=== PATIENT | male | born 1950 | race Caucasian/White ===

== ENCOUNTER 2016-09-23 11:38 | Emergency (ER) | payer MEDICARE, OTHER ==
--- NOTE | 2016-09-23 11:50 | ER Document Report ---
ED Medical Screen (RME) - General Stated Complaint: BACK PAIN Time seen by provider: 11:45 Notes: 66-year-old male presents to ED for back pain and abdominal pain since . He has not had a bowel movement for 10 days he also states he has a 5 cm aortic aneurysm diagnosed a few years ago with a recent film 3 weeks ago. He hasn't seen his doctor on Tuesday and was given Flexeril for his back pain. Consult to Dr. Dumont who states that he would like a ultrasound of the aorta now due to the aneurysm. 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 I have greeted and performed a rapid initial assessment of this patient. A comprehensive ED assessment and evaluation of the patient, analysis of test results and completion of medical decision making process will be conducted by an additional ED providers. TRAVEL OUTSIDE OF THE [place] IN LAST 30 DAYS: No - Related Data Allergies/Adverse Reactions: No Known Allergies Allergy (Verified 09/23/16 11:46) Physical Exam - Vital signs Vitals: Temp Pulse Resp BP Pulse Ox 97.8 F 90 18 133/88 H 99 09/23/16 11:43 09/23/16 11:43 09/23/16 11:43 09/23/16 11:43 09/23/16 11:43 Course - Vital Signs Vital signs: Temp Pulse Resp BP Pulse Ox 97.8 F 90 18 133/88 H 99 09/23/16 11:43 09/23/16 11:43 09/23/16 11:43 09/23/16 11:43 09/23/16 11:43
[2016-09-23 12:28] LABS: APPEARANCE,URINE CLEAR; BILIRUBIN,URINE NEGATIVE (NEGATIVE); GLUCOSE, URINE NEGATIVE (NEGATIVE); KETONES,URINE NEGATIVE (NEGATIVE); LEUKOCYTE ESTERASE,URINE SMALL (NEGATIVE); NITRITE,URINE NEGATIVE (NEGATIVE); PROTEIN,URINE NEGATIVE (NEGATIVE); UROBILINOGEN,URINE NEGATIVE mg/dL (<2.0)
[2016-09-23 12:30] LABS: ABSOLUTE BASOPHILS # (AUTO) 0.1 10^3/uL (0.0-0.2); ABSOLUTE EOSINOPHILS # (AUTO) 0.1 10^3/uL (0.0-0.6); ABSOLUTE LYMPHOCYTES (AUTO) 1.7 10^3/uL (0.5-4.7); ABSOLUTE MONOCYTES (AUTO) 1.4 10^3/uL (0.1-1.4); ABSOLUTE NEUT (AUTO) 10.8 10^3/uL (1.7-8.2); BASOPHILS % (AUTO) 0.4 % (0-2); EOSINOPHILS % (AUTO) 0.8 % (0-6); HEMATOCRIT 36.7 % (37.9-51.0); HEMOGLOBIN 12.8 g/dL (13.5-17.0); HGB HCT DIFFERENCE 1.7; MEAN CORPUSCULAR HEMOGLOBIN 31.6 pg (27.0-33.4); MEAN CORPUSCULAR VOLUME 90 fl (80-97); MONOCYTES % (AUTO) 9.9 % (3-13); RED BLOOD COUNT 4.06 10^6/uL (4.35-5.55); RED CELL DISTRIBUTION WIDTH 13.9 % (11.5-14.0); SEGMENTED NEUTROPHILS % (AUTO) 76.9 % (42-78); WHITE BLOOD COUNT 14.1 10^3/uL (4.0-10.5)
[2016-09-23 12:53] LABS: ALANINE AMINOTRANSFERASE 22 U/L (21-72); ALBUMIN 3.4 g/dL (3.5-5.0); ALKALINE PHOSPHATASE 148 U/L (38-126); ANION GAP 13 (5-19); ASPARTATE AMINO TRANSFERASE 12 U/L (17-59); BILIRUBIN,DIRECT 0.3 mg/dL (0.0-0.4); BILIRUBIN,TOTAL 0.6 mg/dL (0.2-1.3); BLOOD UREA NITROGEN 49 mg/dL (7-20); CALCIUM 10.1 mg/dL (8.4-10.2); CARBON DIOXIDE 21 mmol/L (22-30); CHLORIDE 105 mmol/L (98-107); CREATININE RESULT 2.06 mg/dL (0.52-1.25); GLUCOSE 126 mg/dL (75-110); LIPASE 34.4 U/L (23-300); POTASSIUM 5.3 mmol/L (3.6-5.0); SODIUM 138.9 mmol/L (137-145)
--- NOTE | 2016-09-23 14:10 | ER Document Report ---
ED GI/ - General Chief Complaint: Back Pain Stated Complaint: BACK PAIN INJURY Notes: Patient is complaining of pain in his abdomen and back for the past week. He says that the back pain began first, about 8 days ago, followed the next day by generalized abdominal pain. Tuesday, the patient went to see his PMD for these pains and was prescribed Flexeril and ibuprofen but no studies were done. Patient's problem is complicated by the fact that he says he hasn't had a bowel movement for 10 days. He says that he does not feel constipated, but he just has not been having any appetite or eating. Has had some cough. Occasional shortness of breath. Denies fever. Denies UTI symptoms. No vomiting or diarrhea. Patient has a history of a 5 cm abdominal aortic aneurysm for which she is followed by vascular surgeons in [place]. He had a CT scan of his abdomen done at a local facility on September 08, which showed aneurysms of both the abdomen and thoracic aorta. The abdominal aneurysm measured 4.8 x 4.9 cm in diameter. He had a second CT scan on September 14, this time of the chest, which showed a 6.5 cm thoracic aortic aneurysm. He is scheduled to see his vascular surgeon (Cristo) in [place] tomorrow. History of appendectomy and hernia repair. TRAVEL OUTSIDE OF THE [place] IN LAST 30 DAYS: No - Related Data Allergies/Adverse Reactions: No Known Allergies Allergy (Verified 09/23/16 11:46) Past Medical History - Social History Smoking Status: Current Every Day Smoker Chew tobacco use (# tins/day): No Frequency of alcohol use: None Drug Abuse: None Family History: Reviewed & Not Pertinent Patient has suicidal ideation: No Patient has homicidal ideation: No - Past Medical History Cardiac Medical History: Reports: Hx Coronary Artery Disease - History of a stent., Hx Hypercholesterolemia, Hx Hypertension Endocrine Medical History: Reports: Hx Diabetes Mellitus Type 2 Renal/ Medical History: Denies: Hx Peritoneal Dialysis Past Surgical History: Reports: Hx Appendectomy - Immunizations Hx Diphtheria, Pertussis, Tetanus Vaccination: Yes Review of Systems - Review of Systems Notes: REVIEW OF SYSTEMS: CONSTITUTIONAL : Denies fever. EENT: Denies eye, ear, nose or mouth or throat pain or other symptoms. CARDIOVASCULAR: Denies chest pain. RESPIRATORY: Has had some cough, but very little phlegm. Occasional shortness of breath. GASTROINTESTINAL: Denies nausea, vomiting, or diarrhea. No bowel movement for 10 days. GENITOURINARY: Denies difficulty or painful urinating, urinary frequency, blood in urine. MUSCULOSKELETAL: See history of present illness. Has lumbar back pain. Denies neck pain. Denies joint pain or swelling. SKIN: Denies rash or skin lesions. NEUROLOGICAL: Denies LOC or altered mental status. Denies headache. Denies sensory loss or motor deficits. ALL OTHER SYSTEMS REVIEWED AND NEGATIVE. Physical Exam - Vital signs Vitals: Temp Pulse Resp BP Pulse Ox 97.8 F 90 18 133/88 H 99 09/23/16 11:43 09/23/16 11:43 09/23/16 11:43 09/23/16 11:43 09/23/16 11:43 Interpretation: Normal - Notes Notes: PHYSICAL EXAMINATION: GENERAL: Well-appearing, in no acute distress. Vital signs are all normal. HEAD: Atraumatic, normocephalic. NECK: Normal range of motion, supple. LUNGS: Breath sounds clear and equal bilaterally. HEART: Regular rate and rhythm without murmurs. ABDOMEN: Soft, mild diffuse tenderness, but no guarding or rebound. No bruits heard. BACK: No tenderness throughout entire back. EXTREMITIES: Normal range of motion without pain. NEUROLOGICAL: Normal speech, normal gait. Normal sensory, motor, and reflex exams. Awake, alert, and oriented x3. Cranial nerves normal. PSYCH: Normal mood, normal affect. SKIN: Warm, dry, no rashes. Course - Re-evaluation Re-evalutation: 09/23/16 13:[address] Lemons in [place] who asked that we do a CT without contrast to see if we see any leaking from his aneurysms. Patient's WBC of 14,500 noted. 09/23/16 14:50 Spoke with [facility] in [place] to inform them of the CT findings of hemorrhage of the distal thoracic aortic aneurysm. Subsequently spoke with Dr. Lemons again who informed me that there surgeon who handles thoracic surgery is unavailable this week. He recommended referral to [facility] or [facility]. I spoke with the patient and his and they preferred to go to [place]. I spoke with Dr. Granados in [place] who accepted the patient and will send a helicopter for transport. He requested a CTA, even though the patient's creatinine is 2.06 (patient has not been to this hospital for over 2 years so no creatinines for comparison). He needs further information than is currently available to determine what exactly is taking place in what needs to be done for it. - Vital Signs Vital signs: Temp Pulse Resp BP Pulse Ox 98.2 F 99 18 153/98 H 100 09/23/16 15:46 09/23/16 15:46 09/23/16 15:46 09/23/16 15:46 09/23/16 15:46 - Laboratory Result Diagrams: 09/23/16 11:55 09/23/16 11:55 Laboratory results interpreted by me: 09/23/16 09/23/16 09/23/16 11:55 11:55 11:55 WBC 14.1 H RBC 4.06 L Hgb 12.8 L Hct 36.7 L Lymphocytes % 12.0 L Absolute Neutrophils 10.8 H Potassium 5.3 H Carbon Dioxide 21 L BUN 49 H Creatinine 2.06 H Est GFR ( Amer) 39 L Est GFR (Non-Af Amer) 32 L Glucose 126 H AST 12 L Alkaline Phosphatase 148 H Albumin 3.4 L Ur Leukocyte Esterase SMALL H - Diagnostic Test Radiology reviewed: Image reviewed, Reports reviewed - Ultrasound of the abdomen showed no evidence of bleeding from the abdominal aortic aneurysm. CT without contrast shows findings suggestive of hemorrhage at the lower thoracic aorta which has a very large 8 cm aneurysm. CTA with contrast shows active leaking from the thoracic aneurysm with contrast visible in the tissues around the vessel. Critical Care Note - Critical Care Note Total time excluding time spent on procedures (mins): 90 Discharge - Discharge Clinical Impression: Thoracic aortic aneurysm Qualifiers: Presence of rupture: ruptured Qualified Code(s): I71.1 - Thoracic aortic aneurysm, ruptured Condition: Serious Disposition: [facility]
[2016-09-23 15:47] VITALS: BP 153/98
== END 2016-09-23 16:05 | disposition short-term general hospital (02) ==
LOC: ER 11:38
DX: I71.1 Thoracic aortic aneurysm, ruptured (principal); I71.4 Abdominal aortic aneurysm, without rupture; R10.84 Generalized abdominal pain; M54.5 Low back pain; R63.0 Anorexia; R05 Cough; R06.02 Shortness of breath; I25.10 Atherosclerotic heart disease of native coronary artery without angina pectoris; I10 Essential (primary) hypertension; E11.9 Type 2 diabetes mellitus without complications; Z98.61 Coronary angioplasty status; F17.200 Nicotine dependence, unspecified, uncomplicated; Z90.49 Acquired absence of other specified parts of digestive tract
CPT/HCPCS: 36415; 71250; 71275; 74174; 74176; 76770; 80053; 81001; 83690; 85025; 99291; 99292

== ENCOUNTER 2016-10-01 11:48 | Emergency (ER) | payer MEDICARE, OTHER ==
--- NOTE | 2016-10-01 12:41 | ER Document Report ---
ED Medical Screen (RME) - General Chief Complaint: Chest Pain Stated Complaint: CHEST PAIN Notes: Patient is here for chest pains across the front of his chest and difficulty walking. Patient's history is significant in that he has both a thoracic aortic aneurysm and an abdominal aortic aneurysm. He was here last week and found to have leaking from his lower thoracic aortic aneurysm. He was transferred from here to [place] for emergency surgery and had a stent placed in his thoracic aorta. He has done well and has been at home for the past few days. He went out to lunch with his daughter today. After that, he was walking in the parking lot and felt trouble walking and difficulty with his legs feeling wobbly and weak. He did not fall and did not lose the use of either leg. Patient has had anterior chest pains across the front of his chest during this past week. He's had a cold with some cough, but no significant congestion or phlegm. TRAVEL OUTSIDE OF THE [place] IN LAST 30 DAYS: No - Related Data Allergies/Adverse Reactions: No Known Allergies Allergy (Verified 10/01/16 12:01) Past Medical History - Past Medical History Cardiac Medical History: Reports: Hx Coronary Artery Disease - History of a stent., Hx Hypercholesterolemia, Hx Hypertension Endocrine Medical History: Reports: Hx Diabetes Mellitus Type 2 Renal/ Medical History: Denies: Hx Peritoneal Dialysis Past Surgical History: Reports: Hx Appendectomy - Immunizations Hx Diphtheria, Pertussis, Tetanus Vaccination: Yes Physical Exam - Vital signs Vitals: Temp Pulse Resp BP Pulse Ox 97.7 F 62 18 142/51 H 98 10/01/16 12:05 10/01/16 12:10/01/16 12:10/01/16 12:05 10/01/16 12:05 Course - Vital Signs Vital signs: Temp Pulse Resp BP Pulse Ox 97.7 F 62 18 142/51 H 98 10/01/16 12:05 10/01/16 12:05 10/01/16 12:10/01/16 12:05 10/01/16 12:05
[2016-10-01 12:58] LABS: APPEARANCE,URINE SLIGHTLY-CLOUDY; BILIRUBIN,URINE NEGATIVE (NEGATIVE); GLUCOSE, URINE NEGATIVE (NEGATIVE); KETONES,URINE NEGATIVE (NEGATIVE); LEUKOCYTE ESTERASE,URINE TRACE (NEGATIVE); NITRITE,URINE NEGATIVE (NEGATIVE); PROTEIN,URINE 30 mg/dL (NEGATIVE); UROBILINOGEN,URINE NEGATIVE mg/dL (<2.0)
[2016-10-01 13:19] LABS: ABSOLUTE BASOPHILS # (AUTO) 0.1 10^3/uL (0.0-0.2); ABSOLUTE EOSINOPHILS # (AUTO) 0.3 10^3/uL (0.0-0.6); ABSOLUTE LYMPHOCYTES (AUTO) 1.8 10^3/uL (0.5-4.7); ABSOLUTE MONOCYTES (AUTO) 1.1 10^3/uL (0.1-1.4); ABSOLUTE NEUT (AUTO) 8.3 10^3/uL (1.7-8.2); BASOPHILS % (AUTO) 0.5 % (0-2); EOSINOPHILS % (AUTO) 2.6 % (0-6); HEMATOCRIT 30.1 % (37.9-51.0); HEMOGLOBIN 10.2 g/dL (13.5-17.0); HGB HCT DIFFERENCE 0.5; LYMPHOCYTES % (AUTO) 15.5 % (13-45); MEAN CORPUSCULAR HEMOGLOBIN 30.9 pg (27.0-33.4); MEAN CORPUSCULAR HGB CONC 33.9 g/dL (32.0-36.0); MEAN CORPUSCULAR VOLUME 91 fl (80-97); MONOCYTES % (AUTO) 9.2 % (3-13); SEGMENTED NEUTROPHILS % (AUTO) 72.2 % (42-78); WHITE BLOOD COUNT 11.5 10^3/uL (4.0-10.5)
[2016-10-01 13:38] LABS: ALANINE AMINOTRANSFERASE 26 U/L (21-72); ALBUMIN 3.3 g/dL (3.5-5.0); ALKALINE PHOSPHATASE 216 U/L (38-126); ANION GAP 10 (5-19); ASPARTATE AMINO TRANSFERASE 20 U/L (17-59); BILIRUBIN,DIRECT 0.2 mg/dL (0.0-0.4); BILIRUBIN,TOTAL 0.6 mg/dL (0.2-1.3); BLOOD UREA NITROGEN 30 mg/dL (7-20); CALCIUM 9.6 mg/dL (8.4-10.2); CARBON DIOXIDE 22 mmol/L (22-30); CHLORIDE 108 mmol/L (98-107); CREATINE KINASE 20 U/L (55-170); CREATININE RESULT 1.85 mg/dL (0.52-1.25); GLUCOSE 142 mg/dL (75-110); LIPASE 32.4 U/L (23-300); POTASSIUM 5.8 mmol/L (3.6-5.0); SODIUM 139.6 mmol/L (137-145); TOTAL PROTEIN 6.9 g/dL (6.3-8.2)
--- NOTE | 2016-10-01 13:39 | ER Document Report ---
ED General - General Time seen by provider: 13:45 Mode of Arrival: Ambulatory Information source: Patient, Relative TRAVEL OUTSIDE OF THE [place] IN LAST 30 DAYS: No - HPI Onset: Other - see HPI note Similar symptoms previously: No Recently seen / treated by doctor: No <ROCIO DRIVER - Last Filed: 10/01/16 14:43> <DEL SCOTT - Last Filed: 10/01/16 15:29> - General Chief Complaint: Chest Pain Stated Complaint: CHEST PAIN Notes: Patient is a 58-year-old male presenting to the emergency department for weakness in his lower extremities along with some chest pain. Patient states that his chest pain has been present for about 2 weeks and feels like it possibly could be some heartburn. Patient just recently was planned to [place] from this facility for a thoracic aneurysm that was found in this emergency department. Patient also has a history of an aortic aneurysm that he has had for 5 years; this aneurysm started at 2 cm and is now a 5 cm. Family state that it is in the process to be getting fixed soon. The patient is followed by vascular surgeons in [place] for this. Patient states that he was in a store and his legs became so weak that he could not walk. This occurred for approximately half an hour. Patient states that he has had some cold and cough symptoms recently but denies any bleeding, headache, fever, or sputum from his cough. Patient takes throughout an aspirin daily. Patient also has history of type II diabetes mellitus and hypertension. Patient has no known allergies. (ROCIO DRIVER) - Related Data Allergies/Adverse Reactions: No Known Allergies Allergy (Verified 10/01/16 12:01) Past Medical History - General Information source: Patient, Relative - Social History Smoking Status: Current Every Day Smoker Frequency of alcohol use: None Drug Abuse: None Family History: None Patient has suicidal ideation: No Patient has homicidal ideation: No - Past Medical History Cardiac Medical History: Reports: Hx Coronary Artery Disease - History of a stent., Hx Hypercholesterolemia, Hx Hypertension Endocrine Medical History: Reports: Hx Diabetes Mellitus Type 2 Past Surgical History: Reports: Hx Appendectomy, Other - Thoracic aneurysm repair - Immunizations Hx Diphtheria, Pertussis, Tetanus Vaccination: Yes <ROCIO DRIVER - Last Filed: 10/01/16 14:43> Review of Systems - Review of Systems Constitutional: No symptoms reported EENT: No symptoms reported Cardiovascular: See HPI, Chest pain Respiratory: No symptoms reported Gastrointestinal: No symptoms reported Genitourinary: No symptoms reported Male Genitourinary: No symptoms reported Musculoskeletal: No symptoms reported Skin: No symptoms reported Hematologic/Lymphatic: No symptoms reported Neurological/Psychological: See HPI, Weakness, Loss of power -: Yes All other systems reviewed and negative <ROCIO DRIVER - Last Filed: 10/01/16 14:43> Physical Exam - Vital signs Interpretation: Normal <ROCIO DRIVER - Last Filed: 10/01/16 14:43> <DEL SCOTT - Last Filed: 10/01/16 15:29> - Vital signs Vitals: Temp Pulse Resp BP Pulse Ox 97.7 F 62 18 142/51 H 98 10/01/16 12:05 10/01/16 12:05 10/01/16 12:05 10/01/16 12:05 10/01/16 12:05 - Notes Notes: GENERAL: Well-appearing, well-nourished and in no acute distress. HEAD: Atraumatic, normocephalic. EYES: Pupils equal round and reactive to light, extraocular movements intact, sclera anicteric, conjunctiva are normal. ENT: Nares patent. Moist mucous membranes. Patent airway. NECK: Normal range of motion, supple without lymphadenopathy. LUNGS: Breath sounds clear to auscultation bilaterally and equal. No wheezes, rales, or rhonchi. HEART: Regular rate and rhythm without murmurs. ABDOMEN: Soft, non-tender. No guarding, no rebound. No masses appreciated. EXTREMITIES: Normal range of motion, no edema, good marine architect strength bilaterally, dorsalis pedis pulses 2/4 bilaterally. NEUROLOGICAL: No focal neurological deficits. Moves all extremities spontaneously and on command, patellar DTRs 2+ bilaterally. PSYCH: Normal affect. Normal mood. SKIN: Warm, Dry, normal turgor, no rashes or lesions noted. (ROCIO DRIVER) Course - Laboratory Result Diagrams: 10/01/16 12:50 10/01/16 12:50 <ROCIO DRIVER - Last Filed: 10/01/16 14:43> - Laboratory Result Diagrams: 10/01/16 12:50 10/01/16 14:20 - Diagnostic Test Radiology reviewed: Image reviewed, Reports reviewed - Small bilateral pleural effusions, interval Endo graft placement, limited head CT though no obvious acute infarct - EKG Interpretation by Me EKG shows normal: Sinus rhythm Rate: Normal Rhythm: NSR [place]/QRS: No: Right axis deviation, Left axis deviation, RBBB, LBBB, IVCD, LAHB/ LAFB, LPHB/LPFB, Bifasicular block Heart block present: No: 1st Degree, Mobitz 1, Mobitz 2, CHB (3rd degree block) <DEL SCOTT - Last Filed: 10/01/16 15:29> - Re-evaluation Re-evalutation: 10/01/16 15:24 Discussed with the patient laboratory findings with some abnormalities including hyperkalemia on recheck. I really do not see any EKG abnormalities such as peaked T waves or conduction disturbances. I did discuss with him elevated potassium and considerable abnormalities it can cause. Further he is not on any potassium supplements. The chest pain he been having was present even prior to him having the endograft. He really did not make much of that and his reason for evaluation was due to the leg weakness that lasted about 30 minutes. It was bilateral so I believe CVA is fairly unlikely. His head CT was nonacute but limited by motion. He is also more anemic than he had been though his creatinine is actually improved slightly from 1 week ago before surgery. I offered observation with the multiple abnormalities and for recheck of the potassium. After risk, he deferred and is anxious to go home. He does agree to get a repeat potassium by the 10th with his primary care physician or here if he cannot get done. (DEL SCOTT) - Vital Signs Vital signs: Temp Pulse Resp BP Pulse Ox 97.7 F 62 18 142/51 H 98 10/01/16 12:05 10/01/16 12:05 10/01/16 12:05 10/01/16 12:05 10/01/16 12:05 - Laboratory Laboratory results interpreted by me: 10/01/16 10/01/16 10/01/16 12:40 12:50 12:50 WBC 11.5 H RBC 3.30 L Hgb 10.2 L Hct 30.1 L Absolute Neutrophils 8.3 H Potassium 5.8 H Chloride 108 H BUN 30 H Creatinine 1.85 H Est GFR ( Amer) 44 L Est GFR (Non-Af Amer) 37 L Glucose 142 H Alkaline Phosphatase 216 H Creatine Kinase 20 L Albumin 3.3 L Urine Protein 30 H Ur Leukocyte Esterase TRACE H 10/01/16 14:20 WBC RBC Hgb Hct Absolute Neutrophils Potassium 5.9 H Chloride BUN Creatinine Est GFR ( Amer) Est GFR (Non-Af Amer) Glucose Alkaline Phosphatase Creatine Kinase Albumin Urine Protein Ur Leukocyte Esterase Discharge <ROCIO DRIVER - Last Filed: 10/01/16 14:43> <DEL SCOTT - Last Filed: 10/01/16 15:29> - Discharge Clinical Impression: Weakness of both lower extremities, Hyperkalemia, Chest pain Condition: Good Disposition: HOME, SELF-CARE Instructions: Chest Pain of Unclear Cause ([facility]) Additional Instructions: No added potassium. Ensure that she'll get a recheck of your basic metabolic profile by Tuesday, here if necessary. Please return immediately if you're worsening or for other change. Scribe Attestation: 10/01/16 15:29 I personally performed the services described in the documentation, reviewed and edited the documentation which was dictated to the scribe in my presence, and it accurately records my words and actions. (DEL SCOTT) Scribe Documentation - Scribe Written by Meir:: Rocio Driver 10/01/16 13:45 acting as scribe for :: Nikki <ROCIO DRIVER - Last Filed: 10/01/16 14:43>
[2016-10-01 13:48] LABS: CREATINE KINASE MB < 0.22 ng/mL (<4.55); TROPONIN I < 0.012 ng/mL
[2016-10-01 16:08] VITALS: BP 139/60
--- NOTE | 2016-10-01 22:26 | EKG REPORT ---
SEVERITY:- NORMAL ECG - SINUS RHYTHM : Confirmed by: Trish Woods MD 01-Oct-2016 22:25:11
== END 2016-10-01 16:09 | disposition home or self-care (01) ==
LOC: ER 11:48
DX: M62.81 Muscle weakness (generalized) (principal); E87.5 Hyperkalemia; R07.9 Chest pain, unspecified; R53.1 Weakness; F17.200 Nicotine dependence, unspecified, uncomplicated; E11.9 Type 2 diabetes mellitus without complications; I10 Essential (primary) hypertension; Z79.82 Long term (current) use of aspirin
CPT/HCPCS: 36415; 70450; 71020; 80053; 81001; 82550; 82553; 83690; 84132; 84484; 85025; 93005; 93010; 99285

== ENCOUNTER 2017-01-15 22:20 | Inpatient (IN) | payer MEDICARE, OTHER ==
[2017-01-15] MEDS ORDERED: ASPIRIN 81 MG TABLET, CHEWABLE PO ONE (22:25)
[2017-01-15 22:52] LABS: HEMATOCRIT 25.3 % (37.9-51.0); HEMOGLOBIN 8.5 g/dL (13.5-17.0); HGB HCT DIFFERENCE 0.2; MEAN CORPUSCULAR HEMOGLOBIN 32.3 pg (27.0-33.4); MEAN CORPUSCULAR HGB CONC 33.6 g/dL (32.0-36.0); MEAN CORPUSCULAR VOLUME 96 fl (80-97); RED BLOOD COUNT 2.63 10^6/uL (4.35-5.55); RED CELL DISTRIBUTION WIDTH 13.8 % (11.5-14.0); WHITE BLOOD COUNT 15.7 10^3/uL (4.0-10.5)
[2017-01-15] MEDS ORDERED: PIPERACILLIN/TAZOBACTAM 3.375 GM VIAL IV ONE (23:01)
[2017-01-15 23:03] LABS: ALANINE AMINOTRANSFERASE 23 U/L (21-72); ALBUMIN 2.6 g/dL (3.5-5.0); ALKALINE PHOSPHATASE 93 U/L (38-126); ANION GAP 10 (5-19); ASPARTATE AMINO TRANSFERASE 15 U/L (17-59); BILIRUBIN,DIRECT 0.3 mg/dL (0.0-0.4); BILIRUBIN,TOTAL 0.5 mg/dL (0.2-1.3); BLOOD UREA NITROGEN 38 mg/dL (7-20); CALCIUM 8.3 mg/dL (8.4-10.2); CARBON DIOXIDE 17 mmol/L (22-30); CHLORIDE 110 mmol/L (98-107); CREATINE KINASE < 20 U/L (55-170); CREATININE RESULT 3.08 mg/dL (0.52-1.25); GLUCOSE 217 mg/dL (75-110); SODIUM 137.4 mmol/L (137-145); TOTAL PROTEIN 5.2 g/dL (6.3-8.2)
[2017-01-15] MEDS ORDERED: NORMAL SALINE 250 ML IV PRN ×2 (23:06→23:21)
[2017-01-15 23:07] LABS: POTASSIUM 6.2 mmol/L (3.6-5.0)
[2017-01-15 23:08] LABS: PROTHROMBIN TIME 15.1 SEC (11.4-15.4)
--- NOTE | 2017-01-15 23:08 | RADIOLOGY REPORT (SQ) ---
EXAM DESCRIPTION: CHEST SINGLE VIEW COMPLETED DATE/TIME: 01/15/2017 10:55 pm REASON FOR STUDY: epigastric pain COMPARISON: 10/01/2016 EXAM PARAMETERS: NUMBER OF VIEWS: One view. TECHNIQUE: Single frontal radiographic view of the chest acquired. RADIATION DOSE: NA LIMITATIONS: None. FINDINGS: LUNGS AND PLEURA: No opacities, masses or pneumothorax. No pleural effusion. MEDIASTINUM AND HILAR STRUCTURES: No masses. Contour normal. HEART AND VASCULAR STRUCTURES: Heart normal in size. Normal vasculature. BONES: No acute findings. HARDWARE: An aortic endovascular stent appears grossly stable in position and appearance. OTHER: No other significant finding. IMPRESSION: NO ACUTE RADIOGRAPHIC FINDING IN THE CHEST. TECHNICAL DOCUMENTATION: JOB ID: [id number]
[2017-01-15 23:10] LABS: BAND NEUTROPHILS % (MANUAL) 2 % (3-5); BASOPHILS % (MANUAL) 0 % (0-2); EOSINOPHILS % (MANUAL) 5 % (0-6); LYMPHOCYTES % (MANUAL) 30 % (13-45); TOTAL CELLS COUNTED 100
[2017-01-15] MEDS ORDERED: NORMAL SALINE 1000 ML 1,000 ML IV ONE (23:10)
--- NOTE | 2017-01-15 23:10 | ER Document Report ---
ED General - General Chief Complaint: Chest Pain Stated Complaint: BLOOD PRESSURE PROBLEMS Time Seen by Provider: 01/15/17 22:42 Notes: Patient is a 66-year-old male with past medical history of hypertension, chronic kidney disease, status post left nephrectomy approximately 5 days ago who presents after a near syncopal episode while having a bowel movement. The majority of the history is as provided by the daughter at the bedside due to patient's condition at time of arrival. She reports that the patient had been doing relatively well since discharge postoperatively. He had had a left nephrectomy for a tumor. States that today he began to feel somewhat ill around 2pm and tonight around 930, went to go to the bathroom, had a diarrheal bowel movement and then apparently lost all muscle tone, unable to even get up off the toilet. No history of similar episodes in the past. Patient arrives complaining of some diffuse, mild abdominal pain without any focal areas that are worse than others. Nothing improves or worsens that dull aching pain. He does note that he feels nauseated. Denies any fever since being discharged. No falls or injuries. TRAVEL OUTSIDE OF THE [place] IN LAST 30 DAYS: No - Related Data Allergies/Adverse Reactions: No Known Allergies Allergy (Verified 10/01/16 12:01) Past Medical History - General Information source: Patient, Relative - Social History Smoking Status: Current Every Day Smoker Frequency of alcohol use: None Drug Abuse: None Lives with: Family Family History: Reviewed & Not Pertinent - Past Medical History Cardiac Medical History: Reports: Hx Coronary Artery Disease - History of a stent., Hx Hypercholesterolemia, Hx Hypertension Endocrine Medical History: Reports: Hx Diabetes Mellitus Type 2 Renal/ Medical History: Denies: Hx Peritoneal Dialysis Past Surgical History: Reports: Hx Appendectomy, Other - Thoracic aneurysm repair - Immunizations Hx Diphtheria, Pertussis, Tetanus Vaccination: Yes Review of Systems - Review of Systems Notes: Constitutional: Negative for fever. HENT: Negative for sore throat. Eyes: Negative for visual changes. Cardiovascular: Negative for chest pain. Respiratory: Negative for shortness of breath. Gastrointestinal: Positive for abdominal pain diarrhea Genitourinary: Negative for dysuria. Musculoskeletal: Negative for back pain. Skin: Negative for rash. Neurological: Negative for headaches, weakness or numbness. 10 point ROS negative except as marked above and in HPI. Physical Exam - Vital signs Vitals: Pulse Ox 98 07/22/17 22:25 Interpretation: Normal Notes: PHYSICAL EXAMINATION: GENERAL: Mckenna, dusky, very ill in appearance. HEAD: Atraumatic, normocephalic. EYES: Pupils equal round and reactive to light, extraocular movements intact, sclera anicteric, conjunctiva are normal. ENT: nares patent, oropharynx clear without exudates. Dry mucous membranes. NECK: Normal range of motion LUNGS: Breath sounds clear to auscultation bilaterally and equal. No wheezes rales or rhonchi. HEART: Regular bradycardia without murmurs ABDOMEN: Soft, multiple well-healing surgical incisions. Diffuse mild tenderness without any focal rebound or guarding EXTREMITIES: Normal range of motion, no pitting or edema. No cyanosis. NEUROLOGICAL: No focal neurological deficits. Moves all extremities spontaneously and on command. PSYCH: Normal mood, normal affect. SKIN: Warm, Dry, normal turgor, no rashes or lesions noted. Course - Re-evaluation Re-evalutation: 01/15/17 23:07 Patient arrives bradycardic but normotensive, ill in appearance, mckenna and dusky , complaining of generalized abdominal pain. Upon going to the room shortly after patient's arrival, found him to be ill in appearance, but in no obvious distress. Awake and talking. He did have some generalized abdominal pain, well -healing surgical incisions. A bedside FAST exam did demonstrate a significant amount of free fluid in both right upper and left upper quadrants. I immediately contacted our surgeon it application support analyst Dr. Thompson for concern of intra- abdominal bleeding as the etiology of presentation. Blood bank was contacted for emergency release blood. IV fluids, warmed, have been started as patient's initial rectal core temperature is 95.7. Initial laboratories do demonstrate a elevated potassium at 6.2 concerning for the etiology of patient's bradycardia. 3 g of calcium gluconate will be administered as well as 10 units of IV insulin with 50 g of IV dextrose. 01/15/17 23:11 Laboratories also do demonstrate a markedly elevated lactate at 4.2. Initially , I had wanted to take the patient for a stat CT of the abdomen pelvis to exclude the aorta as the pathology of the free fluid of the abdomen given that he was without hypotension. Dr. Thompson however did wish to wait this concern that the patient could decompensate and CT scan as we move the patient to the trauma bay for ongoing resuscitation. He will receive IV Zosyn given his hypothermia and elevated in the setting of a intra-abdominal pathology. Awaiting cell counts. 01/15/17 23:22 Patient's bradycardia has improved after receiving 0.5 mg of atropine, calcium gluconate as well as dextrose and insulin. He is receiving active rewarming therapy with warm IV fluids and a bear hugger. His hemoglobin is 8.5, down approximately 2 points from his most recent check. 2 units of packed red blood cells will be transfused as I anticipate continued down trend of the hemoglobin. Will also order FFP transfusion. 01/16/17 00:[address] scan does confirm free fluid in the abdomen consistent with blood, radiology is concern for a possible ruptured spleen. Patient's blood pressure has begun to decline precipitously and Dr. Thompson will now pay take the patient to the operating room emergently. - Vital Signs Vital signs: Temp Pulse Resp BP Pulse Ox 96.2 F L 20 105/48 L 99 01/16/17 00:35 01/16/17 00:35 01/16/17 00:35 01/16/17 00:35 - Laboratory Result Diagrams: 01/15/17 22:30 01/15/17 22:30 Laboratory results interpreted by me: 01/15/17 01/15/17 01/15/17 22:30 22:30 22:30 WBC 15.7 H RBC 2.63 L Hgb 8.5 L Hct 25.3 L Band Neutrophils % 2 L Monocytes % (Manual) 1 L Abs Neuts (Manual) 10.0 H Absolute Eos (Manual) 0.8 H Potassium 6.2 H* Chloride 110 H Carbon Dioxide 17 L BUN 38 H Creatinine 3.08 H Est GFR ( Amer) 25 L Est GFR (Non-Af Amer) 20 L Glucose 217 H Lactic Acid Calcium 8.3 L AST 15 L Creatine Kinase < 20 L Total Protein 5.2 L Albumin 2.6 L Crossmatch See Detail 01/15/17 22:30 WBC RBC Hgb Hct Band Neutrophils % Monocytes % (Manual) Abs Neuts (Manual) Absolute Eos (Manual) Potassium Chloride Carbon Dioxide BUN Creatinine Est GFR ( Amer) Est GFR (Non-Af Amer) Glucose Lactic Acid 4.8 H Calcium AST Creatine Kinase Total Protein Albumin Crossmatch - Diagnostic Test Radiology reviewed: Image reviewed, Reports reviewed Critical Care Note - Critical Care Note Total time excluding time spent on procedures (mins): 45 Comments: Critical care time spent obtaining history from patient or surrogate, discussions with consultants, development of treatment plan with patient or surrogate, evaluation of patient's response to treatment, examination of patient , ordering and performing treatments and interventions, ordering and review of laboratory studies, re-evaluation of patient's condition, ordering and review of radiographic studies and review of old charts Discharge - Discharge Clinical Impression: Intra abdominal hemorrhage, Hemorrhagic shock, Acute blood loss anemia, Metabolic acidosis Hypothermia Qualifiers: Encounter type: initial encounter Qualified Code(s): T68.XXXA - Hypothermia, initial encounter Condition: Critical Disposition: ADMITTED INPATIENT Admitting Provider: Surgicalist - [facility] Admitted: OR
[2017-01-15] MEDS ORDERED: INSULIN REG, HUMAN 100 UNIT/ML 3 ML VIAL (PYX) ONE (23:12)
[2017-01-15 23:13] LABS: RBC MORPHOLOGY COMMENT NORMO-CYTIC/CHROMIC
[2017-01-15] MEDS ORDERED: DEXTROSE 50%-WATER 25 GM/50 ML DISP.SYRIN IV ONE (23:13)
[2017-01-15] MEDS ORDERED: CALCIUM GLUCONATE 1000 MG/10 ML INJ IV ONE (23:13)
[2017-01-15 23:16] LABS: CREATINE KINASE MB < 0.22 ng/mL (<4.55); TROPONIN I < 0.012 ng/mL
[2017-01-15] MEDS ORDERED: ATROPINE SULFATE INJ 1 MG/1 ML VIAL ONE (23:18)
[2017-01-15] MEDS ORDERED: ONDANSETRON HCL INJ/PF 4 MG/2 ML SDV ONE (23:20)
--- NOTE | 2017-01-16 00:23 | RADIOLOGY REPORT (SQ) ---
EXAM DESCRIPTION: CT ABD/PELVIS NO ORAL OR IV COMPLETED DATE/TIME: 01/16/2017 12:00 am REASON FOR STUDY: free fluid on FAST COMPARISON: 09/23/2016 TECHNIQUE: CT scan of the abdomen and pelvis performed without intravenous or oral contrast. Images reviewed with lung, soft tissue, and bone windows. Reconstructed coronal and sagittal MPR images revi ewed. All images stored on PACS. All CT scanners at this facility use dose modulation, iterative reconstruction, and/or weight based d osing when appropriate to reduce radiation dose to as low as reasonably achievable (ALARA). [facility]: Dose Right [facility]: CareDose [facility]: Dose Right [facility]: Teradose 4D [facility]: Smart Technologies RADIATION DOSE: Up-to-date CT equipment and radiation dose reduction techniques were employed. CTDIv ol: 8.8 mGy. DLP: 527 mGy-cm.mGy. LIMITATIONS: None. FINDINGS: LOWER CHEST: Left pleural effusion. NON-CONTRASTED LIVER, SPLEEN, ADRENALS: There is low-density ascites around the liver. The liver is intact. There is extensive heterogeneous density throughout and enlarged spleen with perisplenic hem orrhage Hounsfield units in the 50s and 60s. Splenic rupture with fluid and blood extending along th e left hemidiaphragm. PANCREAS: No masses. No peripancreatic inflammatory changes. GALLBLADDER: No identified stones by CT criteria. No inflammatory changes to suggest cholecystitis. RIGHT KIDNEY AND URETER: No suspicious masses. Assessment limited by lack of IV contrast. No signif icant calcifications. No hydronephrosis or hydroureter. LEFT KIDNEY AND URETER: Status post left nephrectomy. AORTA AND RETROPERITONEUM: Aortic stent graft of the upper aorta. Aneurysmal dilatation of the infra renal abdominal aorta measuring 4.6 cm. No periaortic fluid to suggest acute extravasation. BOWEL AND PERITONEAL CAVITY: Extensive diverticulosis. There is free intraperitoneal air in the left upper quadrant right upper quadrant and katie hepatis. APPENDIX: Not visualized. PELVIS, BLADDER, AND ABDOMINAL WALL:Free fluid. Rivera catheter in the bladder. BONES: No significant findings. OTHER: No other significant finding. IMPRESSION: Splenic rupture with left upper quadrant hematoma. Free intraperitoneal air question perforated ulcer. Generalize abdominal ascites. Left pleural effusion. Status post left nephrectomy. COMMENT: Pertinent findings on the imaging study reported as a CRITICAL RESULT to Leisa VAZQUEZ at00 :17 on 01/16/2017. Category of Critical Result: Free intraperitoneal air. Splenic rupture. TECHNICAL DOCUMENTATION: JOB ID: [id number] Quality ID # [id number]: Final reports with documentation of one or more dose reduction techniques (e.g., Au tomated exposure control, adjustment of the mA and/or kV according to patient size, use of iterative reconstruction technique) 2010 [employer]- All Rights Reserved
[2017-01-16] MEDS ORDERED: FENTANYL CITRATE INJ/PF 250 MCG/5 ML AMPULE ONE (00:44)
[2017-01-16] MEDS ORDERED: PROPOFOL INJ 200 MG/20 ML VIAL IV ONE (00:45)
[2017-01-16] MEDS ORDERED: HYDROMORPHONE HCL INJ/PF 2 MG/ML AMPULE ONE ×2 (00:45)
[2017-01-16] MEDS ORDERED: EPHEDRINE SULFATE INJ 50 MG/1 ML AMPULE ONE ×2 (00:45→00:46)
[2017-01-16 01:12] VITALS: BP 105/48
[2017-01-16] MEDS ORDERED: THROMBIN (BOVINE) TOPICAL 5000 UNIT VIAL ONE (01:40)
[2017-01-16] MEDS ORDERED: MIDAZOLAM 2 MG/2 ML INJ ONE ×3 (02:06→03:11)
--- NOTE | 2017-01-16 02:49 | Operative Report ---
Operative Report DATE OF SURGERY: 01/16/17 PREOPERATIVE DIAGNOSIS: 1. Hemoperitoneum with ruptured spleen. 2. Hemorrhagic shock. 3. Status post left nephrectomy POSTOPERATIVE DIAGNOSIS: Same OPERATION: 1. Exploratory laparotomy. 2. Splenectomy. 3. Left subdiaphragmatic space SURGEON: JUAN COLE ANESTHESIA: GA TISSUE REMOVED OR ALTERED: Ruptured spleen COMPLICATIONS: None ESTIMATED BLOOD LOSS: 3 L INTRAOPERATIVE FINDINGS: See below PROCEDURE: Indications: The patient is a 58-year-old white male history of smoking, peripheral vascular disease, status post thoracic aortic endovascular stent placement, status post 11 days out from minimally invasive left nephrectomy, also with history of known abdominal aortic aneurysm, 5 cm, who presents emergency department after having a syncopal episode. Patient was stabilized, resuscitated and found to be in acute renal insufficiency. His hemoglobin was 8.5. He was transfused 2 units of packed cells, and underwent CT scanning of the abdomen and pelvis without IV and oral contrast. He was found to have a ruptured spleen with hemoperitoneum. The patient subsequently dropped his blood pressure. The decision was made and taken to the operating room for exploratory laparotomy, and splenectomy. Summary of procedure: The patient was taken immediately to the operating room where the patient underwent general anesthesia. Of note patient remained bradycardic throughout his pre-and intraoperative. Likely due to pharmacologic beta-blockade. The abdomen was exposed, prepped draped sterile fashion. Adequate IV access had been obtained preoperatively, and a Rivera catheter had already been inserted. Rapid surgical plan and timeout were conducted. The abdomen was open to a standard midline incision above and below the umbilicus. This involved transecting the recent supraumbilical horizontal incision. Upon entering the peritoneal cavity there was a significant amount of hemoperitoneum so the abdomen was rapidly packed off with laparotomy pads. At this point the anesthesia team had commenced transfusing additional units of packed cells and throughout the case the patient received an additional 3 for total of 5 units of packed cells, 3 units of FFP and 1 unit of platelets. Once the peritoneal cavity had been packed off, Bookwalter retractor established for exposure, it was apparent that bleeding was coming from the left upper quadrant. The majority of the blood was deoxygenated blood coming from the left upper quadrant. We packed off the subdiaphragmatic space and began peeling the ruptured spleen off of the peritoneum laterally. This was at the site of the previous nephrectomy. This was done under rather rapid conditions. Packs were placed behind and peripheral to the spleen. The spleen was brought up into the mid peritoneal space and was clamped off at its hilum sequentially with Daisy clamps. The spleen was passed off to pathology along with significant amount of perisplenic clots. All of the pedicles were tied off with 0 Vicryl suture. We packed this area off, inspected the rest of the peritoneal cavity by taking down the falciform ligament between clamps and 2-0 Vicryl ties, and checking for adequate placement of the nasogastric tube. There was no evidence of gastrointestinal perforation. The preoperative CT scan suggested free air which may have been related to the post operative procedure performed 11 days ago during the patient's left nephrectomy. The peritoneal cavity was irrigated out and there was no apparent bleeding elsewhere. The known abdominal aortic aneurysm was appreciated in the retroperitoneum without any evidence of bleeding here. We returned to the left upper quadrant subdiaphragmatic space, and police the raw surfaces areas quite extensive. One small arterial source was oversewn with 3-0 Vicryl suture. We placed thrombin-soaked Gelfoam into the left upper quadrant in the subdiaphragmatic space pain some of the generic ooze coming from the raw surfaces. A large Joseph drain was placed in the left upper quadrant abdominal wall and tucked into the subdiaphragmatic space We now closed the previous supraumbilical transverse incision that had to be open during our emergent midline laparotomy. The fascia was closed anterior and posteriorly to the left of the patient's midline with 0 PDS suture. We now closed the incision with 2 double-stranded #1 PDS sutures and the skin approximated with stan. Of note the patient remained hemodynamically stable throughout the case ; he did make some urine. He was on no pressors. Arrangements were now made to transfer the patient directly to [facility] trauma critical care service under the direction of Dr. June
--- NOTE | 2017-01-16 04:38 | RADIOLOGY REPORT (SQ) ---
EXAM DESCRIPTION: CHEST SINGLE VIEW COMPLETED DATE/TIME: 01/16/2017 4:30 am REASON FOR STUDY: s/p intubation COMPARISON: 01/15/2017 EXAM PARAMETERS: NUMBER OF VIEWS: One view TECHNIQUE: Single frontal radiograph of the chest. RADIATION DOSE: N/A LIMITATIONS: None. FINDINGS: TEMPORARY SUPPORT DEVICES:ETT in expected location. NG tube courses below the osvaldo-diaphr agm in to the stomach. LUNGS AND PLEURA: No opacities. No effusions. No masses. No pneumothorax. MEDIASTINUM AND HILAR STRUCTURES: No masses. Contour normal. HEART AND VASCULAR STRUCTURES: Heart normal in size. normal vascularity. Aortic stent graft. BONES: No acute findings. OTHER: No other significant finding. IMPRESSION: NO ACUTE RADIOGRAPHIC FINDING IN THE CHEST. SUPPORT DEVICE(S) IN EXPECTED LOCATIONS. TECHNICAL DOCUMENTATION: JOB ID: [id number] [employer]- All Rights Reserved
--- NOTE | 2017-01-16 05:03 | HISTORY AND PHYSICAL E ---
History and Physical Report NAME: SARA LI : 1950 AGE: 66Y DATE: 01/15/2017 ED70 A TO: JUAN COLE M.D. FROM: JUAN COLE M.D. Requesting Physician CHIEF COMPLAINT: Suspicion for intraabdominal hemorrhage. HISTORY: The patient is a 66-year-old white male, smoker, known abdominal aortic aneurysm 5 cm, known thoracic aortic aneurysm status post endovascular repair at [facility] 09/24/2016, now 15 days status post left laparoscopic nephrectomy, [facility], who presents to the emergency department via ground rescue complaining of acute syncope episode. The exact etiology and details surrounding his found down are somewhat elusive. The patient was found awake, alert and communicative, complaining only of back pain, which is chronic. He was seen in the emergency department, where he had a FAST exam, which showed free-fluid in the perineal cavity. Arrangements were made for him to be transferred to the CT scanner, but that was aborted by Dr. Nunez in interest of awaiting laboratory results, and establishing more reliable access and initiation of resuscitation. PAST MEDICAL HISTORY: Significant for: 1. Hypertension. 2. Hypercholesterolemia. 3. Diabetes mellitus type 2. 4. Coronary artery disease. 5. Chronic renal insufficiency. PAST SURGICAL HISTORY: Significant for: 1. Appendectomy. 2. Thoracic aneurysm stenting. 3. Right inguinal hernia repair. 4. Laparoscopic nephrectomy. IMMUNIZATIONS: Up-to-date. MEDICATIONS: Unknown. REVIEW OF SYSTEMS: Unable to perform completely due to ongoing resuscitation. PHYSICAL EXAMINATION: GENERAL: Patient examined in the hallway, then in trauma bay 2 with a blood pressure of 114/65, heart rate between 48-58. The patient arouses, but is sleepy, communicates, is awake and follows commands, and is oriented person, place, time and situation. HEENT: The eyes are without icterus. His glasses are in place. NECK: No bruits. UPPER EXTREMITIES: Unable to palpate pulses in the left upper extremity. LUNGS: Clear to auscultation bilaterally. HEART: Bradycardiac. ABDOMEN: Soft, operative incisions closed with skin glue. No peritoneal signs, no rigidity. LOWER EXTREMITIES: With palpable dorsalis pedis pulses bilaterally. The feet are room temperature. DATA: Laboratory profile shows a bicarb of 17, BUN and creatinine 38 and 3.08, hemoglobin 8.5. White blood cell count 15.7. Chest x-ray shows no infiltrates, no free air. Bedside ultrasonography does show fluid in the peritoneal cavity. IMPRESSION: 1. SYNCOPAL EPISODE OF UNCLEAR ETIOLOGY. 2. BRADYCARDIA, LIKELY PHARMACOLOGIC. 3. TWO WEEKS STATUS POST LEFT NEPHRECTOMY FOR RENAL CELL MALIGNANCY. 4. THREE MONTHS STATUS POST THORACIC AORTIC ANEURYSM STENTING. 5. KNOWN ABDOMINAL AORTIC ANEURYSM, CURRENTLY BEING MANAGED NONOPERATIVELY. 6. ATHEROSCLEROTIC PERIPHERAL VASCULAR DISEASE. 7. IMPAIRED ARTERIAL CIRCULATION LEFT UPPER EXTREMITY. 8. SMOKER. 9. CHRONIC RENAL INSUFFICIENCY WITH ACUTE EXACERBATION OF METABOLIC ACIDOSIS. RECOMMENDATIONS: 1. Continue resuscitation with management of hyperkalemia, likely due to worsening renal failure with glucose, calcium, insulin. 2. Begin blood transfusion. 3. Obtain nonenhanced CT scan of the chest and abdomen in an attempt to understand etiology of intraperitoneal fluid. 4. Anticipate transfer to higher level care institution. DICTATING PHYSICIAN: JUAN COLE M.D. [id number] PHY#: [id number] ID: [id number] JOB#: [id number] ACCT: [id number] cc:JUAN COLE M.D. > MTDMihir
--- NOTE | 2017-01-16 13:40 | EKG REPORT ---
SEVERITY:- OTHERWISE NORMAL ECG - SINUS BRADYCARDIA : Confirmed by: Trish Woods MD 16-Jan-2017 13:39:54
[2017-01-16] MEDS ORDERED: GLYCOPYRROLATE INJ 0.4 MG/2 ML VIAL ONE (16:07)
[2017-01-16] MEDS ORDERED: ROCURONIUM BROMIDE INJ 50 MG/5 ML VIAL IV ONE (16:07)
[2017-01-16] MEDS ORDERED: ETOMIDATE INJ/PF 20 MG/10 ML SDV IV ONE (16:07)
[2017-01-16] MEDS ORDERED: SUCCINYLCHOLINE CHLORIDE INJ 200 MG/10 ML VIAL ONE (16:07)
--- NOTE | 2017-01-27 08:23 | DISCHARGE SUMMARY E ---
Discharge Summary NAME: SARA LI : 1950 AGE: 66Y ADMITTED: 01/16/2017 DISCHARGED: 01/16/2017 SUMMARY: The patient is a 66-year-old white male with a history of multiple medical problems, including smoking, peripheral vascular disease, stenting thoracic aortic aneurysm, status post minimally invasive left nephrectomy, presented to the emergency department with hemodynamic instability. Patient was stabilized in the emergency department and had a CT scan of the abdomen and pelvis, which showed evidence of ruptured spleen. The patient was admitted to the surgicalist service and taken immediately to the operating room where he underwent exploratory laparotomy, splenectomy, and drain placement. Postoperatively, the patient was transferred directly to [facility] for further advanced intensive care. FINAL DIAGNOSES: 1. Ruptured spleen status post exploratory laparotomy, splenectomy, and drain placement. 2. Multiple chronic medical problems, including thoracic aortic aneurysm stenting, known abdominal aortic aneurysm, chronic renal insufficiency, smoking, peripheral vascular disease. DISPOSITION: Patient transferred to the care of the Trauma Critical Care Service, under the direction of Dr. June, surgeon, for definitive care. DICTATING PHYSICIAN: JUAN COLE M.D. [id number] PHY#: [id number] ID: [id number] JOB#: [id number] ACCT: [id number] cc:JUAN COLE M.D. > MTDD
== END 2017-01-16 03:00 | disposition short-term general hospital (02) | DRG 799 ==
LOC: ER 22:20 → INOR 01-16 00:35 → UNDOADMIN 01-16 00:35 → EH 01-16 00:35 → UNDOADMIN 01-16 00:39 → EH 01-16 00:39 → ER 01-16 00:50 → UNDODISIN 01-16 01:50
PROVIDERS: ADMIT Surgery; ATTEND Surgery
PROC: 30233N1 Transfusion of Nonautologous Red Blood Cells into Peripheral Vein, Percutaneous Approach (ICD-10-PCS; 2017-01-15)
PROC: 30233R1 Transfusion of Nonautologous Platelets into Peripheral Vein, Percutaneous Approach (ICD-10-PCS; 2017-01-16)
PROC: 30233K1 Transfusion of Nonautologous Frozen Plasma into Peripheral Vein, Percutaneous Approach (ICD-10-PCS; 2017-01-16)
PROC: 07TP0ZZ Resection of Spleen, Open Approach (ICD-10-PCS; principal; 2017-01-16 00:45)
DX: D73.5 Infarction of spleen (principal); K66.1 Hemoperitoneum; D62 Acute posthemorrhagic anemia; E87.2 Acidosis; C64.2 Malignant neoplasm of left kidney, except renal pelvis; R07.9 Chest pain, unspecified; I12.9 Hypertensive chronic kidney disease with stage 1 through stage 4 chronic kidney disease, or unspecified chronic kidney disease; E11.22 Type 2 diabetes mellitus with diabetic chronic kidney disease; N18.9 Chronic kidney disease, unspecified; R55 Syncope and collapse; I25.10 Atherosclerotic heart disease of native coronary artery without angina pectoris; E78.5 Hyperlipidemia, unspecified; T68.XXXA Hypothermia, initial encounter; I71.4 Abdominal aortic aneurysm, without rupture; E87.5 Hyperkalemia; F17.210 Nicotine dependence, cigarettes, uncomplicated; Z90.5 Acquired absence of kidney; Z95.5 Presence of coronary angioplasty implant and graft
CPT/HCPCS: 36415; 36430; 71010; 74176; 790; 80053; 82272; 82550; 82553; 82962; 83605; 84484; 85025; 85610; 85730; 86850; 86900; 86901; 86920; 88305; 93005; 93010; 99291; J0330; J1170; J2250; J2704; J3010; J3490; P9016; P9017; P9035

== ENCOUNTER → 2017-02-02 | Outpatient (CLI) | payer MEDICARE, OTHER ==
--- NOTE | 2017-02-02 17:37 | RADIOLOGY REPORT (SQ) ---
EXAM DESCRIPTION: U/S RETROPERITON (RENAL/AORTA) COMPLETED DATE/TIME: 02/02/2017 4:00 pm REASON FOR STUDY: CKD N18.3 CHRONIC KIDNEY DISEASE, STAGE 3 (MODERATE) R80.9 PROTEINURIA, UNSPECIF IED E11.9 TYPE 2 DIABETES MELLITUS WITHOUT COMPLICATIONS COMPARISON: CT abdomen pelvis 01/15/2017, 09/23/2016 TECHNIQUE: Dynamic and static grayscale images acquired of the kidneys and bladder and recorded on P ACS. Additional selected color Doppler and spectral images recorded. LIMITATIONS: None. FINDINGS: RIGHT KIDNEY: Normal size, 11 cm in length. Normal echogenicity. No solid or suspicious ma sses. No hydronephrosis. No calcifications. Multiple right renal cortical cysts, the largest is 5.7 cm in diameter. LEFT KIDNEY: Surgically absent. In the left upper quadrant, an anechoic pulsatile structure is pres ent measuring 4 by 8 cm in size. This is worrisome for aneurysm or pseudoaneurysm in the left upper quadrant. This is discrete from the abdominal aorta. This finding was called to Dr. Avery at 1730 hours, 02/02/2017. BLADDER: No masses. OTHER FINDINGS: No other significant finding. IMPRESSION: Post left nephrectomy. In the nephrectomy space, a 4 x 8 cm pulsatile vascular structur es present worrisome for pseudoaneurysm. This finding was called to the patient's attending physicia n as above. TECHNICAL DOCUMENTATION: JOB ID: [id number] [employer]- All Rights Reserved
== END ==
LOC: RAD 15:06
PROVIDERS: ATTEND Internal Medicine Nephrology
DX: E11.22 Type 2 diabetes mellitus with diabetic chronic kidney disease (principal); N18.3 Chronic kidney disease, stage 3 (moderate); R80.9 Proteinuria, unspecified
CPT/HCPCS: 76770

== ENCOUNTER → 2017-07-06 | Outpatient (CLI) | payer MEDICARE, OTHER ==
--- NOTE | 2017-07-06 11:31 | RADIOLOGY REPORT (SQ) ---
EXAM DESCRIPTION: MRA ABDOMEN WITHOUT COMPLETED DATE/TIME: 07/06/2017 11:18 am REASON FOR STUDY: N18.4 CHRONIC KIDNEY DISEASE, STAGE 4 (SEVERE) C64.9 MALIGNANT NEOPLASM OF N18.4 CHRONIC KIDNEY DISEASE, STAGE 4 (SEVERE) C64.9 MALIGNANT NEOPLASM OF UNSP KIDNEY, EXCEPT RENAL PELVI S I12.9 HYPERTENSIVE CHRONIC KIDNEY DISEASE W STG 1-4/UNSP CHR COMPARISON: Renal ultrasound and CT abdomen studies from 2017. TECHNIQUE: Noncontrast 3D [id number] imaging with review of source and rotating MIPS. FINDINGS: It should be noted that the study is limited by field of view. The right renal artery has a high origin and lies at the edge of the field of view. Right kidney: Cysts. No overt obstruction or suggestion of solid mass. Single renal artery which l ooks significantly stenotic at origin but normal caliber and contour otherwise. Left kidney: Surgically absent. Other: Distal thoracic aortic aneurysm post endovascular repair. Limited assessment. Trace left pl eural fluid suggested. IMPRESSION: 1. Suspect significant right renal artery origin stenosis. The remainder of the right r enal artery looks normal. 2. Status post left nephrectomy. TECHNICAL DOCUMENTATION: JOB ID: [id number] [employer]- All Rights Reserved
== END ==
LOC: RAD 06-29 09:47
PROVIDERS: ATTEND Internal Medicine Nephrology
DX: I12.9 Hypertensive chronic kidney disease with stage 1 through stage 4 chronic kidney disease, or unspecified chronic kidney disease (principal); N18.4 Chronic kidney disease, stage 4 (severe); C64.9 Malignant neoplasm of unspecified kidney, except renal pelvis; Z90.5 Acquired absence of kidney
CPT/HCPCS: C8901

== ENCOUNTER 2017-08-26 20:30 | Inpatient (IN) | payer MEDICARE, OTHER ==
[2017-08-26] MEDS ORDERED: FUROSEMIDE INJ/PF 40 MG/4 ML SDV ONE (20:36)
[2017-08-26] MEDS ORDERED: FUROSEMIDE INJ/PF 40 MG/4 ML SDV IV ONE (20:59)
--- NOTE | 2017-08-26 21:00 | ER Document Report ---
ED General - General Chief Complaint: Respiratory Distress Stated Complaint: DIFFICULTY BREATHING Time Seen by Provider: 08/26/17 20:42 Mode of Arrival: Medic Information source: Patient, Emergency Med Personnel Notes: 67-year-old male with a history of congestive heart failure, atrial fibrillation , COPD, CAD presents with complaint of increasing shortness of breath that started 1 day prior to arrival. Patient was brought in EMS. EMS reports patient was found to be 80% on room air. In route patient received patient was placed on BiPAP, nitro place was placed. Upon my exam patient is tachypneic, using accessory muscles but states he is feeling more comfortable. He denies any chest pain, diaphoresis, nausea, vomiting, recent illnesses. States that he noticed his legs were swollen today. Patient is compliant with his current medications. TRAVEL OUTSIDE OF THE [place] IN LAST 30 DAYS: No - HPI Onset: This morning Onset/Duration: Gradual Quality of pain: No pain Associated symptoms: denies: Chest pain, Nonproductive cough, Fever Exacerbated by: Supine, Walking Relieved by: Sitting Similar symptoms previously: Yes Recently seen / treated by doctor: Yes - Related Data Allergies/Adverse Reactions: No Known Allergies Allergy (Verified 10/01/16 12:01) Past Medical History - General Information source: Patient, Emergency Med Personnel - Social History Smoking Status: Former Smoker - Quit 3 days ago Cigarette use (# per day): No Smoking Education Provided: Yes Frequency of alcohol use: None Drug Abuse: None Lives with: Alone Family History: Reviewed & Not Pertinent - Past Medical History Cardiac Medical History: Reports: Hx Congestive Heart Failure, Hx Coronary Artery Disease - History of a stent., Hx Heart Attack, Hx Hypercholesterolemia, Hx Hypertension Pulmonary Medical History: Reports: Hx COPD Endocrine Medical History: Reports: Hx Diabetes Mellitus Type 2 Renal/ Medical History: Denies: Hx Peritoneal Dialysis Past Surgical History: Reports: Hx Appendectomy, Hx Kidney (Renal Surgery), Other - Thoracic aneurysm repair - Immunizations Hx Diphtheria, Pertussis, Tetanus Vaccination: Yes Review of Systems - Review of Systems Constitutional: denies: Diaphoresis, Fever, Weakness EENT: No symptoms reported Cardiovascular: denies: Chest pain, Syncope, Dizziness, Lightheaded Respiratory: Short of breath Gastrointestinal: No symptoms reported Genitourinary: No symptoms reported Skin: No symptoms reported Neurological/Psychological: No symptoms reported Physical Exam - Vital signs Vitals: Resp Pulse Ox 29 H 100 03/02/18 20:30 08/26/17 20:30 - Respiratory Respiratory status: Respiratory distress, Pursed lip breathing, Tachypnea, Tripod position. No: Cyanosis Chest status: Nontender Breath sounds: Rales Chest palpation: Normal - Cardiovascular Rhythm: Regular Heart sounds: Normal auscultation Murmur: No Pulses: Normal: Radial - Extremities General upper extremity: Normal inspection, Nontender, Normal color, Normal ROM , Normal temperature General lower extremity: Normal inspection, Nontender, Normal color, Normal ROM , Normal temperature, Normal weight bearing. No: Jamie's sign Course - Re-evaluation Re-evalutation: 08/27/17 14:56 Laboratory 08/26/17 08/26/17 08/26/17 20:37 20:37 20:37 WBC 14.1 H RBC 3.09 L Hgb 9.8 L Hct 30.2 L MCV 98 H MCH 31.7 MCHC 32.4 RDW 14.9 H Plt Count 237 Seg Neutrophils % 71.1 Lymphocytes % 15.8 Monocytes % 10.1 Eosinophils % 2.1 Basophils % 0.9 Absolute Neutrophils 10.0 H Absolute Lymphocytes 2.2 Absolute Monocytes 1.4 Absolute Eosinophils 0.3 Absolute Basophils 0.1 Sodium 141.3 Potassium 5.6 H Chloride 112 H Carbon Dioxide 18 L Anion Gap 11 BUN 70 H Creatinine 3.73 H Est GFR ( Amer) 20 L Est GFR (Non-Af Amer) 16 L Glucose 101 POC Glucose Calcium 9.5 Creatine Kinase 35 L CK-MB (CK-2) 0.66 Troponin I < 0.012 NT-Pro-B Natriuret Pep 9740 H 08/26/17 08/26/17 08/27/17 23:30 23:30 05:41 WBC RBC Hgb Hct MCV MCH MCHC RDW Plt Count Seg Neutrophils % Lymphocytes % Monocytes % Eosinophils % Basophils % Absolute Neutrophils Absolute Lymphocytes Absolute Monocytes Absolute Eosinophils Absolute Basophils Sodium Potassium Chloride Carbon Dioxide Anion Gap BUN Creatinine Est GFR ( Amer) Est GFR (Non-Af Amer) Glucose POC Glucose 82 Calcium Creatine Kinase 33 L CK-MB (CK-2) 0.70 Troponin I 0.020 NT-Pro-B Natriuret Pep 08/27/17 08/27/17 08/27/17 05:50 05:50 05:50 WBC 10.1 RBC 2.65 L Hgb 8.5 L Hct 25.7 L MCV 97 MCH 32.0 MCHC 32.9 RDW 15.0 H Plt Count 196 Seg Neutrophils % 55.4 Lymphocytes % 28.2 Monocytes % 13.3 H Eosinophils % 2.1 Basophils % 1.0 Absolute Neutrophils 5.6 Absolute Lymphocytes 2.9 Absolute Monocytes 1.3 Absolute Eosinophils 0.2 Absolute Basophils 0.1 Sodium 140.8 Potassium 5.0 Chloride 116 H Carbon Dioxide 15 L Anion Gap 10 BUN 69 H Creatinine 3.64 H Est GFR ( Amer) 20 L Est GFR (Non-Af Amer) 17 L Glucose 73 L POC Glucose Calcium 9.6 Creatine Kinase 32 L CK-MB (CK-2) 0.83 Troponin I 0.021 NT-Pro-B Natriuret Pep 08/27/17 08/27/17 08/27/17 11:28 12:16 12:16 WBC RBC Hgb Hct MCV MCH MCHC RDW Plt Count Seg Neutrophils % Lymphocytes % Monocytes % Eosinophils % Basophils % Absolute Neutrophils Absolute Lymphocytes Absolute Monocytes Absolute Eosinophils Absolute Basophils Sodium Potassium Chloride Carbon Dioxide Anion Gap BUN Creatinine Est GFR ( Amer) Est GFR (Non-Af Amer) Glucose POC Glucose 97 Calcium Creatine Kinase 32 L CK-MB (CK-2) 0.79 Troponin I 0.021 NT-Pro-B Natriuret Pep Chest X-Ray 08/26/17 20:44 IMPRESSION: MILD INTERSTITIAL EDEMA WITH SMALL BILATERAL PLEURAL EFFUSIONS. ADDITIONAL BIBASILAR AIRSPACE DISEASE MAY REPRESENT SUBSEGMENTAL ATELECTASIS, ASPIRATION, OR SUPERIMPOSED PNEUMONIA. Temp Pulse Resp BP Pulse Ox 08/27/17 14:00 55 L 08/27/17 12:19 29 H 08/27/17 11:30 98.4 F 62 24 H 159/75 H 94 08/27/17 07:51 45 L 18 97 08/27/17 07:30 97.7 F 42 L 17 152/67 H 96 08/27/17 07:00 79 08/27/17 04:23 20 08/27/17 02:54 54 L 16 100 08/27/17 02:52 46 L 198/64 H 08/27/17 02:48 97.5 F 49 L 19 157/78 H 100 08/27/17 02:14 98.4 F 20 188/71 H 95 03/03/18 02:13 18 93 08/27/17 02:01 17 95 08/27/17 02:00 20 159/71 H 96 08/27/17 01:59 18 96 08/27/17 01:53 17 190/79 H 96 08/27/17 01:52 19 97 08/27/17 01:32 19 195/75 H 98 18 01:31 19 100 08/27/17 01:02 16 199/70 H 99 08/27/17 01:01 21 H 99 08/27/17 01:00 15 99 08/27/17 00:58 17 199/73 H 99 08/27/17 00:57 20 99 08/27/17 00:27 21 H 194/75 H 100 08/27/17 00:26 17 100 08/27/17 00:00 18 100 08/26/17 23:33 19 201/67 H 100 08/26/17 23:32 17 100 08/26/17 23:02 17 100 08/26/17 23:01 19 100 08/26/17 23:00 20 100 08/26/17 22:50 18 100 08/26/17 22:47 21 H 145/83 H 100 18 22:46 19 100 08/26/17 22:43 20 203/67 H 99 08/26/17 22:42 20 100 08/26/17 22:01 98.3 F 22 H 189/80 H 99 08/26/17 22:00 29 H 95 08/26/17 21:52 21 H 203/69 H 100 08/26/17 21:51 21 H 99 08/26/17 21:42 19 205/80 H 100 18 21:41 22 H 99 18 21:32 21 H 201/70 H 100 18 21:31 25 H 98 0218 21:22 29 H 199/77 H 100 08/26/17 21:21 18 100 08/26/17 21:12 24 H 206/99 H 100 08/26/17 21:11 25 H 99 0218 21:02 25 H 212/87 H 100 08/26/17 21:01 25 H 99 08/26/17 21:00 27 H 100 08/26/17 20:52 96.7 F L 19 212/96 H 100 08/26/17 20:51 27 H 98 08/26/17 20:42 210/82 H 100 08/26/17 20:41 18 98 08/26/17 20:35 15 205/75 H 99 08/26/17 20:34 27 H 99 08/26/17 20:32 24 H 100 08/26/17 20:30 29 H 100 67-year-old male with a history of congestive heart failure, atrial fibrillation , COPD, CAD presents with complaint of increasing shortness of breath that started 1 day prior to arrival. Patient was brought in EMS. EMS reports patient was found to be 80% on room air. In route patient received patient was placed on BiPAP, nitro place was placed. Upon my exam patient is tachypneic, using accessory muscles but states he is feeling more comfortable. He denies any chest pain, diaphoresis, nausea, vomiting, recent illnesses. States that he noticed his legs were swollen today. Patient is compliant with his current medications. Patient found to have elvated BNP, leukocytosis, renal disease and bilateral pleural effusions on CXR. Patient resting comfortably on re- evaluation. Discussed need for admission for CHF exacerbation and patient is agreeable. Patient excepted to MICU by Dr Ponce. - Vital Signs Vital signs: Temp Pulse Resp BP Pulse Ox 98.4 F 55 L 29 H 159/75 H 94 08/27/17 11:30 08/27/17 14:00 08/27/17 12:19 08/27/17 11:30 08/27/17 11:30 - Laboratory Result Diagrams: 08/27/17 05:50 08/27/17 05:50 Laboratory results interpreted by me: 08/26/17 08/26/17 08/26/17 20:37 20:37 20:37 WBC 14.1 H RBC 3.09 L Hgb 9.8 L Hct 30.2 L MCV 98 H RDW 14.9 H Absolute Neutrophils 10.0 H Potassium 5.6 H Chloride 112 H Carbon Dioxide 18 L BUN 70 H Creatinine 3.73 H Est GFR ( Amer) 20 L Est GFR (Non-Af Amer) 16 L Creatine Kinase 35 L NT-Pro-B Natriuret Pep 9740 H 08/26/17 23:30 WBC RBC Hgb Hct MCV RDW Absolute Neutrophils Potassium Chloride Carbon Dioxide BUN Creatinine Est GFR ( Amer) Est GFR (Non-Af Amer) Creatine Kinase 33 L NT-Pro-B Natriuret Pep Discharge - Discharge Clinical Impression: CHF exacerbation, Respiratory distress Disposition: ADMITTED INPATIENT Admitting Provider: Hospitalist Unit Admitted: [facility]
[2017-08-26 21:05] LABS: ABSOLUTE BASOPHILS # (AUTO) 0.1 10^3/uL (0.0-0.2); ABSOLUTE EOSINOPHILS # (AUTO) 0.3 10^3/uL (0.0-0.6); ABSOLUTE LYMPHOCYTES (AUTO) 2.2 10^3/uL (0.5-4.7); ABSOLUTE MONOCYTES (AUTO) 1.4 10^3/uL (0.1-1.4); BASOPHILS % (AUTO) 0.9 % (0-2); EOSINOPHILS % (AUTO) 2.1 % (0-6); HEMATOCRIT 30.2 % (37.9-51.0); HEMOGLOBIN 9.8 g/dL (13.5-17.0); LYMPHOCYTES % (AUTO) 15.8 % (13-45); MEAN CORPUSCULAR HEMOGLOBIN 31.7 pg (27.0-33.4); MEAN CORPUSCULAR HGB CONC 32.4 g/dL (32.0-36.0); MEAN CORPUSCULAR VOLUME 98 fl (80-97); MONOCYTES % (AUTO) 10.1 % (3-13); PLATELET COUNT 237 10^3/uL (150-450); RED BLOOD COUNT 3.09 10^6/uL (4.35-5.55); RED CELL DISTRIBUTION WIDTH 14.9 % (11.5-14.0); SEGMENTED NEUTROPHILS % (AUTO) 71.1 % (42-78); TOTAL CELLS COUNTED % (AUTO) 100 %; WHITE BLOOD COUNT 14.1 10^3/uL (4.0-10.5)
--- NOTE | 2017-08-26 21:11 | RADIOLOGY REPORT (SQ) ---
EXAM DESCRIPTION: CHEST SINGLE VIEW COMPLETED DATE/TIME: 08/26/2017 9:02 pm REASON FOR STUDY: sob COMPARISON: 01/16/2017 NUMBER OF VIEWS: One view. TECHNIQUE: Single frontal radiographic view of the chest acquired. LIMITATIONS: None. FINDINGS: LUNGS AND PLEURA: Mild diffuse interstitial edema. Bilateral lower lobe airspace disease. Small bilateral pleural effusions. MEDIASTINUM AND HILAR STRUCTURES: No masses or contour abnormality. HEART AND VASCULATURE: Cardiac enlargement. Vascular congestion. BONES: No acute findings. HARDWARE: None in the chest. OTHER: No other significant finding. IMPRESSION: MILD INTERSTITIAL EDEMA WITH SMALL BILATERAL PLEURAL EFFUSIONS. ADDITIONAL BIBASILAR AI RSPACE DISEASE MAY REPRESENT SUBSEGMENTAL ATELECTASIS, ASPIRATION, OR SUPERIMPOSED PNEUMONIA. TECHNICAL DOCUMENTATION: JOB ID: [id number] [employer]- All Rights Reserved Reading location - IP/workstation name: [email or web address]
[2017-08-26 21:16] LABS: ANION GAP 11 (5-19); BLOOD UREA NITROGEN 70 mg/dL (7-20); CALCIUM 9.5 mg/dL (8.4-10.2); CARBON DIOXIDE 18 mmol/L (22-30); CHLORIDE 112 mmol/L (98-107); CREATINE KINASE 35 U/L (55-170); GLUCOSE 101 mg/dL (75-110); POTASSIUM 5.6 mmol/L (3.6-5.0); SODIUM 141.3 mmol/L (137-145)
[2017-08-26 21:35] LABS: NT PRO BNP 9740 pg/mL (5-900)
--- NOTE | 2017-08-26 21:36 | EKG REPORT ---
SEVERITY:- ABNORMAL ECG - SINUS RHYTHM MULTIPLE VENTRICULAR PREMATURE COMPLEXES PROBABLE LEFT ATRIAL ABNORMALITY POOR R WAVE PROGRESSION, CONSIDER OLD ANTERIOR [place] : Confirmed by: Cj Campbell MD 26-Aug-2017 21:35:36
[2017-08-26 21:37] LABS: CREATINE KINASE MB 0.66 ng/mL (<4.55); TROPONIN I < 0.012 ng/mL
[2017-08-26] MEDS ORDERED: CALCIUM GLUCONATE 1000 MG/10 ML INJ IV ONE (22:16)
[2017-08-26] MEDS ORDERED: DEXTROSE 50%-WATER 25 GM/50 ML DISP.SYRIN IV ONE (22:16)
[2017-08-26] MEDS ORDERED: INSULIN REG, HUMAN 100 UNIT/ML 3 ML VIAL (PYX) IV ONE (22:16)
[2017-08-26] MEDS ORDERED: CEFTRIAXONE 1 GM/D5W RTU 1 GM/50 ML RTUPB IV ONE (23:00)
[2017-08-26] MEDS ORDERED: AZITHROMYCIN 500 MG in DEXTROSE 5%-WATER 250 ML IV ONE (23:00)
[2017-08-26] MEDS ORDERED: ACETAMINOPHEN 325 MG TABLET PO PRN (23:18)
[2017-08-26] MEDS ORDERED: HYDRALAZINE HCL INJ/PF 20 MG/1 ML SDV IV PRN (23:18)
[2017-08-26] MEDS ORDERED: CHLORPHENIRAMINE MALEATE 4 MG TABLET PO ONE (23:18)
[2017-08-26] MEDS ORDERED: MAGNESIUM HYDROXIDE SUSP 30 ML UDCUP PO PRN (23:19)
[2017-08-26] MEDS ORDERED: MAG HYDROX/AL HYDROX/SIMETH SUSP 30 ML UDCUP PO PRN (23:19)
[2017-08-26] MEDS ORDERED: AZITHROMYCIN INJ 500 MG VIAL IV PRN (23:43)
[2017-08-26] MEDS ORDERED: LOSARTAN POTASSIUM 50 MG TABLET PO ONE (23:45)
[2017-08-26] MEDS ORDERED: FLUTICASONE NASAL SPRAY 50 MCG/SPRY 120 SPRAY/16 GM NASL ONE (23:45)
[2017-08-26] MEDS ORDERED: NITROGLYCERIN 5 MG (0.2 MG/HR) PATCH.TD24 TD ONE (23:45)
[2017-08-27 00:43] LABS: CREATINE KINASE MB 0.7 ng/mL (<4.55); TROPONIN I 0.02 ng/mL
[2017-08-27] MEDS ORDERED: CHLORPHENIRAMINE MALEATE 4 MG TABLET ONE (01:24)
[2017-08-27] MEDS ORDERED: FLUTICASONE NASAL SPRAY 50 MCG/SPRY 120 SPRAY/16 GM ONE (01:24)
[2017-08-27] MEDS ORDERED: CEFTRIAXONE INJ 1000 MG VIAL ONE (01:24)
[2017-08-27] MEDS: IPRATROPIUM BROMIDE 0.02% NEB 0.5 MG/2.5 ML AMPUL NEB SCH ×4 (02:43→19:51)
[2017-08-27] MEDS: LEVALBUTEROL HCL NEB 1.25 MG/3 ML AMPUL NEB SCH ×4 (02:43→19:51)
--- NOTE | 2017-08-27 04:51 | PDOC H&P ---
History of Present Illness Admission Date/PCP: 08/26/17 23:31 DAYDAY PERSAUD MD Patient complains of: Shortness of breath History of Present Illness: SARA LI JR is a 67 year old male with a past medical history of status post thoracic aortic aneurysm repair, abdominal aortic aneurysm, congestive heart failure, paroxysmal atrial fibrillation, coronary artery disease, COPD, obstructive sleep apnea, diabetes, tobacco dependence, seasonal allergies and stage IV chronic kidney disease. Patient presents with 24 hours of shortness of breath EMS reports of blood pressure of 200 systolic and pulse oximetry of 80%. Patient denies medication or lifestyle noncompliance. He complains of maxillary sinusitis, postnasal drip with intermittent productive cough with yellow sputum and allergic sinusitis. Denying fever nausea vomiting or chest pain. In the emergency room he receives albuterol, Atrovent, BiPAP and IV Lasix and referred to the hospitalist for admission. Past Medical History Cardiac Medical History: Reports: Congestive Heart Failure, Coronary Artery Disease - History of a stent., Myocardial Infarction, Hyperlipidema, Hypertension Pulmonary Medical History: Reports: Chronic Obstructive Pulmonary Disease (COPD) Endocrine Medical History: Reports: Diabetes Mellitus Type 2 Psychiatric Medical History: Reports: Depression Past Surgical History Past Surgical History: Reports: Appendectomy, Other - Thoracic aneurysm repair Social History Information Source: Patient Lives with: Alone Smoking Status: Current Every Day Smoker Cigarettes Packs Per Day: 5 Last Time Smoked: 08/26/17 Frequency of Alcohol Use: Social Hx Recreational Drug Use: No Drugs: None Hx Prescription Drug Abuse: No - Advance Directive Resuscitation Status: Full Code Family History Family History: Reviewed & Not Pertinent Parental Family History Reviewed: Yes Children Family History Reviewed: Yes Sibling(s) Family History Reviewed.: Yes Medication/Allergy Home Medications: Aspirin [Aspirin EC] 1 tab PO DAILY 08/27/17 Atorvastatin Calcium [Lipitor 40 mg Tablet] 1 tab PO QHS 08/27/17 Ezetimibe [Zetia 10 mg Tablet] 1 tab PO DAILY 08/27/17 Febuxostat [Uloric 40 mg Tablet] 1 tab PO DAILY 08/27/17 Ferrous Sulfate 1 tab PO BID 08/27/17 Hydralazine HCl [Apresoline 50 mg Tablet] 1 tab PO TID 08/27/17 Magnesium Oxide [Mag-Ox 400 mg Tablet] 1 tab PO DAILY 08/27/17 Nifedipine [Nifedipine ER] 1 tab PO QHS 08/27/17 Nitroglycerin 1 tab SL Q5M PRN 08/27/17 Rivaroxaban [Xarelto 15 mg Tablet] 1 tab PO DAILY 08/27/17 Sitagliptin Phosphate [Januvia 50 mg Tablet] 1 tab PO DAILY 08/27/17 Sotalol HCl [Betapace 80 mg Tablet] 1 tab PO BID 08/27/17 Allergies/Adverse Reactions: No Known Allergies Allergy (Verified 10/01/16 12:01) Review of Systems Constitutional: ABSENT: chills, fever(s), headache(s), weight gain, weight loss Eyes: ABSENT: visual disturbances Ears: ABSENT: hearing changes Nose, Mouth, and Throat: PRESENT: headache(s), other - Sinus congestion and rhinorrhea Cardiovascular: ABSENT: chest pain, dyspnea on exertion, edema, orthropnea, palpitations Respiratory: PRESENT: cough, dyspnea, sputum. ABSENT: hemoptysis Gastrointestinal: ABSENT: abdominal pain, constipation, diarrhea, hematemesis, hematochezia, nausea, vomiting Genitourinary: ABSENT: dysuria, hematuria Musculoskeletal: ABSENT: joint swelling Integumentary: ABSENT: rash, wounds Neurological: ABSENT: abnormal gait, abnormal speech, confusion, dizziness, focal weakness, syncope Psychiatric: ABSENT: anxiety, depression, homidical ideation, suicidal ideation Endocrine: ABSENT: cold intolerance, heat intolerance, polydipsia, polyuria Hematologic/Lymphatic: ABSENT: easy bleeding, easy bruising Physical Exam Vital Signs: Temp Pulse Resp BP Pulse Ox 97.5 F 54 L 20 198/64 H 100 08/27/17 02:48 08/27/17 02:54 08/27/17 04:23 08/27/17 02:52 08/27/17 02:54 Intake & Output 08/25/17 08/26/17 08/27/17 11:59 11:59 11:59 Output Total 750 Balance -750 Weight 78.3 kg General appearance: PRESENT: cooperative, mild distress Head exam: PRESENT: atraumatic, normocephalic Eye exam: PRESENT: conjunctiva pink, EOMI, PERRLA. ABSENT: scleral icterus Ear exam: PRESENT: normal external ear exam Mouth exam: PRESENT: moist, tongue midline Neck exam: ABSENT: carotid bruit, JVD, lymphadenopathy, thyromegaly Respiratory exam: PRESENT: accessory muscle use, crackles, prolonged expiratory phas, rales, retraction, symmetrical, tachypnea. ABSENT: rhonchi, wheezes Cardiovascular exam: PRESENT: RRR, tachycardia. ABSENT: diastolic murmur, rubs , systolic murmur Pulses: PRESENT: normal dorsalis pedis pul Vascular exam: PRESENT: normal capillary refill GI/Abdominal exam: PRESENT: normal bowel sounds, soft. ABSENT: distended, guarding, mass, organolmegaly, rebound, tenderness Rectal exam: PRESENT: deferred Extremities exam: PRESENT: full ROM. ABSENT: calf tenderness, clubbing, pedal edema Neurological exam: PRESENT: alert Psychiatric exam: PRESENT: appropriate affect, normal mood. ABSENT: homicidal ideation, suicidal ideation Skin exam: PRESENT: dry, intact, warm. ABSENT: cyanosis, rash Results Impressions: Chest X-Ray 08/26/17 20:44 IMPRESSION: MILD INTERSTITIAL EDEMA WITH SMALL BILATERAL PLEURAL EFFUSIONS. ADDITIONAL BIBASILAR AIRSPACE DISEASE MAY REPRESENT SUBSEGMENTAL ATELECTASIS, ASPIRATION, OR SUPERIMPOSED PNEUMONIA. Assessment & Plan - Diagnosis (1) Acute exacerbation of chronic bronchitis Is this a current diagnosis for this admission?: Yes Plan: Secondary to allergic sinusitis, chlorpheniramine, Flonase, empiric antibiotics , flutter valve. (2) Allergic sinusitis Is this a current diagnosis for this admission?: Yes Plan: Chlorpheniramine and Flonase. (3) Kidney disease, chronic, stage IV (GFR 15-29 ml/min) Is this a current diagnosis for this admission?: Yes Plan: At baseline, avoid nephrotoxic meds and doses (4) Diabetes Is this a current diagnosis for this admission?: Yes Plan: Resume home regiment with sliding scale coverage (5) CHF exacerbation Is this a current diagnosis for this admission?: Yes Plan: BiPAP and IV loop diuretic. (6) COPD exacerbation Is this a current diagnosis for this admission?: Yes Plan: Albuterol and Atrovent, tobacco avoidance, supplemental oxygen and flutter valve. - Time Time Spent: 30 to 50 Minutes - Inpatient Certification Medical Necessity: Need Close Monitoring Due to Risk of Patient Decompensation
[2017-08-27] MEDS ORDERED: HEPARIN SOD (PORCINE) 5,000 UNIT/ML 1 ML SYRINGE SUBCUT SCH (06:00)
[2017-08-27] MEDS: HEPARIN SOD (PORCINE) 5,000 UNIT/ML 1 ML SYRINGE SUBCUT SCH ×2 (06:08→15:27)
[2017-08-27 06:22] LABS: ABSOLUTE BASOPHILS # (AUTO) 0.1 10^3/uL (0.0-0.2); ABSOLUTE EOSINOPHILS # (AUTO) 0.2 10^3/uL (0.0-0.6); ABSOLUTE LYMPHOCYTES (AUTO) 2.9 10^3/uL (0.5-4.7); ABSOLUTE MONOCYTES (AUTO) 1.3 10^3/uL (0.1-1.4); ABSOLUTE NEUT (AUTO) 5.6 10^3/uL (1.7-8.2); EOSINOPHILS % (AUTO) 2.1 % (0-6); HEMATOCRIT 25.7 % (37.9-51.0); HEMOGLOBIN 8.5 g/dL (13.5-17.0); LYMPHOCYTES % (AUTO) 28.2 % (13-45); MEAN CORPUSCULAR HGB CONC 32.9 g/dL (32.0-36.0); MEAN CORPUSCULAR VOLUME 97 fl (80-97); MONOCYTES % (AUTO) 13.3 % (3-13); PLATELET COUNT 196 10^3/uL (150-450); RED BLOOD COUNT 2.65 10^6/uL (4.35-5.55); SEGMENTED NEUTROPHILS % (AUTO) 55.4 % (42-78); TOTAL CELLS COUNTED % (AUTO) 100 %; WHITE BLOOD COUNT 10.1 10^3/uL (4.0-10.5)
[2017-08-27 07:10] LABS: ANION GAP 10 (5-19); BLOOD UREA NITROGEN 69 mg/dL (7-20); CALCIUM 9.6 mg/dL (8.4-10.2); CARBON DIOXIDE 15 mmol/L (22-30); CHLORIDE 116 mmol/L (98-107); CREATINE KINASE 32 U/L (55-170); GLUCOSE 73 mg/dL (75-110); SODIUM 140.8 mmol/L (137-145)
[2017-08-27 07:17] LABS: CREATINE KINASE MB 0.83 ng/mL (<4.55); TROPONIN I 0.021 ng/mL
[2017-08-27] MEDS ORDERED: FUROSEMIDE INJ/PF 40 MG/4 ML SDV IV SCH (10:00)
[2017-08-27] MEDS: LOSARTAN POTASSIUM 50 MG TABLET PO SCH ×2 (10:26→22:34)
[2017-08-27] MEDS: DOCUSATE SODIUM 100 MG CAPSULE PO SCH (10:26)
[2017-08-27] MEDS: ASPIRIN 81 MG TABLET, ENT COATED PO SCH (10:27)
[2017-08-27] MEDS: FLUTICASONE NASAL SPRAY 50 MCG/SPRY 120 SPRAY/16 GM NASL SCH ×2 (10:27→22:33)
[2017-08-27 13:40] LABS: CREATINE KINASE MB 0.79 ng/mL (<4.55); TROPONIN I 0.021 ng/mL
[2017-08-27] MEDS ORDERED: NITROGLYCERIN 0.4 MG/TAB 25 TAB/BOTTLE SL PRN (16:02)
[2017-08-27] MEDS ORDERED: INSULIN LISPRO 100 UNIT/ML 3 ML VIAL SUBCUT PRN (16:07)
[2017-08-27] MEDS ORDERED: GLUCAGON,HUMAN RECOMB 1 MG INJ IM PRN (16:07)
[2017-08-27] MEDS ORDERED: DEXTROSE 50%-WATER 25 GM/50 ML DISP.SYRIN IV PRN ×2 (16:07)
[2017-08-27] MEDS ORDERED: DEXTROSE 40% GEL 15 GM TUBE PO PRN ×2 (16:07)
[2017-08-27] MEDS ORDERED: FERROUS SULFATE 325 MG TABLET PO SCH (18:00)
[2017-08-27] MEDS ORDERED: HYDRALAZINE HCL 50 MG TABLET PO SCH (18:00)
--- NOTE | 2017-08-27 20:01 | PDOC PROGRESS REPORT ---
Subjective Progress Note for:: 08/27/17 Subjective:: Pt feeling a lot better, no chest pain, breathing more easily. No fever and chillls. No nausea vomiting diarrhea constipation. Eating and drinking without difficulty. Reason For Visit: PNA HEART FAILURE EXACERBATION,HTN,HYPERKALEMIA Physical Exam Vital Signs: Temp Pulse Resp BP Pulse Ox 98.2 F 51 L 20 140/68 H 98 08/27/17 15:35 08/27/17 15:35 08/27/17 15:35 08/27/17 15:35 08/27/17 15:35 Intake & Output 08/26/17 08/27/17 08/28/17 06:59 06:59 06:59 Intake Total 50 907 Output Total 1250 Balance -1200 907 Weight 78.6 kg General appearance: PRESENT: no acute distress, cooperative Eye exam: PRESENT: conjunctiva pink, EOMI Mouth exam: PRESENT: moist Respiratory exam: PRESENT: decreased breath sounds, rales, unlabored. ABSENT: rhonchi, wheezes Cardiovascular exam: PRESENT: irregular rhythm. ABSENT: tachycardia GI/Abdominal exam: PRESENT: soft. ABSENT: distended, tenderness Neurological exam: PRESENT: alert, awake, oriented to person, oriented to place , oriented to situation Psychiatric exam: PRESENT: appropriate affect. ABSENT: anxious Skin exam: PRESENT: dry, warm Results Laboratory Results: 08/27/17 05:50 08/27/17 05:50 08/27/17 08/27/17 05:50 05:50 WBC 10.1 RBC 2.65 L Hgb 8.5 L Hct 25.7 L MCV 97 MCH 32.0 MCHC 32.9 RDW 15.0 H Plt Count 196 Seg Neutrophils % 55.4 Lymphocytes % 28.2 Monocytes % 13.3 H Eosinophils % 2.1 Basophils % 1.0 Absolute Neutrophils 5.6 Absolute Lymphocytes 2.9 Absolute Monocytes 1.3 Absolute Eosinophils 0.2 Absolute Basophils 0.1 Sodium 140.8 Potassium 5.0 Chloride 116 H Carbon Dioxide 15 L Anion Gap 10 BUN 69 H Creatinine 3.64 H Est GFR ( Amer) 20 L Est GFR (Non-Af Amer) 17 L Glucose 73 L Calcium 9.6 08/27/17 08/27/17 08/27/17 05:50 05:50 12:16 Creatine Kinase 32 L 32 L CK-MB (CK-2) 0.83 Troponin I 0.021 08/27/17 12:16 Creatine Kinase CK-MB (CK-2) 0.79 Troponin I 0.021 Impressions: Chest X-Ray 08/26/17 20:44 IMPRESSION: MILD INTERSTITIAL EDEMA WITH SMALL BILATERAL PLEURAL EFFUSIONS. ADDITIONAL BIBASILAR AIRSPACE DISEASE MAY REPRESENT SUBSEGMENTAL ATELECTASIS, ASPIRATION, OR SUPERIMPOSED PNEUMONIA. Assessment & Plan - Diagnosis (1) Bradycardia Is this a current diagnosis for this admission?: Yes Plan: Patient has been bradycardic down into the 30s and 40s today. He is on sotalol 80 mg p.o. every 12 hours. I am holding the doses today. His heart rate is up into the 50s. Will recheck heart rate and hope to restart the sotalol tomorrow. He is on telemetry. (2) Acute exacerbation of chronic bronchitis Is this a current diagnosis for this admission?: Yes Plan: Improving. Secondary to underlying sinusitis. We will continue treatment for the sinusitis along with chlorpheniramine and Flonase. (3) Allergic sinusitis Is this a current diagnosis for this admission?: Yes Plan: Improving. Continue antibiotics and Flonase. (4) CHF exacerbation Is this a current diagnosis for this admission?: Yes Plan: Continue diuresis. Continue BiPAP if needed. Though I think patient is no longer needing the BiPAP at this point. He is almost feeling back to normal. (5) COPD exacerbation Is this a current diagnosis for this admission?: Yes Plan: Continue albuterol and Atrovent, counseled tobacco cessation, continue oxygen as needed. (6) Diabetes Is this a current diagnosis for this admission?: Yes Plan: Restart Januvia. Continue insulin as ordered by admitting doctor. Diabetic diet. (7) Kidney disease, chronic, stage IV (GFR 15-29 ml/min) Is this a current diagnosis for this admission?: Yes Plan: Continue to monitor urine output. - Time Time Spent with patient: 15-24 minutes - Inpatient Certification Based on my medical assessment, after consideration of the patient's comorbidities, presenting symptoms, or acuity I expect that the services needed warrant INPATIENT care.: Yes I certify that my determination is in accordance with my understanding of Medicare's requirements for reasonable and necessary INPATIENT services [42 CFR 412.3e].: Yes Medical Necessity: Significant Comorbidiites Make Outpatient Treatment Too Risky , Need Close Monitoring Due to Risk of Patient Decompensation, Risk of Complication if Not Cared For in Hospital
[2017-08-27] MEDS ORDERED: AZITHROMYCIN 250 MG TABLET PO SCH (22:00)
[2017-08-27] MEDS ORDERED: CEFTRIAXONE 1 GM/D5W RTU 1 GM/50 ML RTUPB IV SCH (22:00)
[2017-08-27] MEDS ORDERED: NIFEDIPINE PO SCH (22:00)
[2017-08-27] MEDS ORDERED: AZITHROMYCIN 500 MG in DEXTROSE 5%-WATER 250 ML IV SCH (22:00)
[2017-08-27] MEDS ORDERED: NITROGLYCERIN 5 MG (0.2 MG/HR) PATCH.TD24 TD SCH (22:00)
[2017-08-27] MEDS: ATORVASTATIN CALCIUM 40 MG TABLET PO SCH (22:35)
[2017-08-27] MEDS: HYDRALAZINE HCL 50 MG TABLET PO SCH (22:35)
[2017-08-27] MEDS: NIFEDIPINE 30 MG TAB.ER.24 PO SCH (22:36)
[2017-08-27] MEDS: CEFTRIAXONE SODIUM 1,000 MG in NORMAL SALINE 100 ML IV SCH (22:44)
[2017-08-28] MEDS: IPRATROPIUM BROMIDE 0.02% NEB 0.5 MG/2.5 ML AMPUL NEB SCH ×4 (02:03→19:55)
[2017-08-28] MEDS: LEVALBUTEROL HCL NEB 1.25 MG/3 ML AMPUL NEB SCH ×4 (02:03→19:55)
[2017-08-28 04:55] LABS: HEMATOCRIT 28.1 % (37.9-51.0); HEMOGLOBIN 9.4 g/dL (13.5-17.0); MEAN CORPUSCULAR HEMOGLOBIN 32.1 pg (27.0-33.4); MEAN CORPUSCULAR HGB CONC 33.3 g/dL (32.0-36.0); MEAN CORPUSCULAR VOLUME 97 fl (80-97); PLATELET COUNT 193 10^3/uL (150-450); RED BLOOD COUNT 2.91 10^6/uL (4.35-5.55); RED CELL DISTRIBUTION WIDTH 14.8 % (11.5-14.0); WHITE BLOOD COUNT 12.2 10^3/uL (4.0-10.5)
[2017-08-28] MEDS: HYDRALAZINE HCL 50 MG TABLET PO SCH ×3 (05:23→21:29)
[2017-08-28 05:25] LABS: ANION GAP 12 (5-19); BLOOD UREA NITROGEN 69 mg/dL (7-20); CALCIUM 9.9 mg/dL (8.4-10.2); CARBON DIOXIDE 16 mmol/L (22-30); CHLORIDE 114 mmol/L (98-107); GLUCOSE 86 mg/dL (75-110); POTASSIUM 4.9 mmol/L (3.6-5.0); SODIUM 141.8 mmol/L (137-145)
[2017-08-28] MEDS ORDERED: SOTALOL HCL 80 MG TABLET PO SCH ×2 (10:00→11:00)
[2017-08-28] MEDS ORDERED: FUROSEMIDE INJ/PF 20 MG/2 ML SDV IV SCH (10:00)
[2017-08-28] MEDS ORDERED: SITAGLIPTIN PHOSPHATE 50 MG TABLET PO SCH (10:00)
[2017-08-28] MEDS ORDERED: ASPIRIN 81 MG TABLET, ENT COATED PO SCH (10:00)
[2017-08-28] MEDS: SITAGLIPTIN PHOSPHATE 25 MG TABLET PO SCH (10:38)
[2017-08-28] MEDS: EZETIMIBE 10 MG TABLET PO SCH (10:38)
[2017-08-28] MEDS: DOXYCYCLINE HYCLATE 100 MG TABLET PO SCH ×2 (10:39→21:31)
[2017-08-28] MEDS: ASPIRIN 81 MG TABLET, ENT COATED PO SCH (10:39)
[2017-08-28] MEDS: FEBUXOSTAT 40 MG TABLET PO SCH (10:39)
[2017-08-28] MEDS: FLUTICASONE NASAL SPRAY 50 MCG/SPRY 120 SPRAY/16 GM NASL SCH ×2 (10:40→21:31)
[2017-08-28] MEDS: DOCUSATE SODIUM 100 MG CAPSULE PO SCH (10:40)
[2017-08-28] MEDS: LOSARTAN POTASSIUM 25 MG TABLET PO SCH ×2 (10:40→21:29)
[2017-08-28] MEDS: FUROSEMIDE INJ/PF 40 MG/4 ML SDV IV SCH (10:40)
[2017-08-28] MEDS ORDERED: NICOTINE 14 MG/24 HR PATCH.TD24 TD ONE ×2 (13:00→21:15)
--- NOTE | 2017-08-28 17:26 | PDOC PROGRESS REPORT ---
Subjective Progress Note for:: 08/28/17 Subjective:: SOB persists but improving,no chest pain or palpitations, we discussed his bradycardia and he told me his cardologist just changed his sotalol to q36 hrs. COugh with no phlegm, energy level poor, ambulating to RR without difficulty, RA sats in mid 80's. He uses O2 at home at night only. Moving bowels, no dysuria. Reason For Visit: PNA HEART FAILURE EXACERBATION,HTN,HYPERKALEMIA Physical Exam Vital Signs: Temp Pulse Resp BP Pulse Ox 97.4 F 55 L 16 136/47 H 95 08/28/17 16:00 08/28/17 16:00 08/28/17 16:00 08/28/17 16:00 08/28/17 16:00 Intake & Output 08/27/17 08/28/17 08/29/17 06:59 06:59 06:59 Intake Total 50 1135 591 Output Total 1250 Balance -1200 1135 591 Weight 78.6 kg 75.7 kg General appearance: PRESENT: no acute distress, cooperative Head exam: PRESENT: atraumatic, normocephalic Eye exam: PRESENT: conjunctiva pink. ABSENT: scleral icterus Mouth exam: PRESENT: moist, neck supple, tongue midline Neck exam: ABSENT: lymphadenopathy Respiratory exam: PRESENT: decreased breath sounds. ABSENT: rales, rhonchi, wheezes Cardiovascular exam: PRESENT: bradycardia. ABSENT: systolic murmur GI/Abdominal exam: PRESENT: normal bowel sounds, soft. ABSENT: distended, guarding, tenderness Rectal exam: PRESENT: deferred Extremities exam: ABSENT: pedal edema Musculoskeletal exam: PRESENT: normal inspection Neurological exam: PRESENT: alert, awake, oriented to person, oriented to place , oriented to situation, CN II-XII grossly intact. ABSENT: aphasic Psychiatric exam: PRESENT: appropriate affect. ABSENT: anxious Skin exam: PRESENT: dry, intact, warm Results Laboratory Results: 08/28/17 04:33 08/28/17 04:33 08/28/17 08/28/17 04:33 04:33 WBC 12.2 H RBC 2.91 L Hgb 9.4 L Hct 28.1 L MCV 97 MCH 32.1 MCHC 33.3 RDW 14.8 H Plt Count 193 Sodium 141.8 Potassium 4.9 Chloride 114 H Carbon Dioxide 16 L Anion Gap 12 BUN 69 H Creatinine 3.61 H Est GFR ( Amer) 20 L Est GFR (Non-Af Amer) 17 L Glucose 86 Calcium 9.9 Magnesium 2.0 08/27/17 08/27/17 08/27/17 05:50 05:50 12:16 Creatine Kinase 32 L 32 L CK-MB (CK-2) 0.83 Troponin I 0.021 08/27/17 12:16 Creatine Kinase CK-MB (CK-2) 0.79 Troponin I 0.021 Impressions: Chest X-Ray 08/26/17 20:44 IMPRESSION: MILD INTERSTITIAL EDEMA WITH SMALL BILATERAL PLEURAL EFFUSIONS. ADDITIONAL BIBASILAR AIRSPACE DISEASE MAY REPRESENT SUBSEGMENTAL ATELECTASIS, ASPIRATION, OR SUPERIMPOSED PNEUMONIA. Assessment & Plan - Diagnosis (1) Bradycardia Is this a current diagnosis for this admission?: Yes Plan: heart rate was in 40's on admit, now into 50's, has had runs of PVCs, restarted his sotalol at 80 mg q 36hrs. Alberto cont tele. (2) Allergic sinusitis Is this a current diagnosis for this admission?: Yes Plan: cont antiobiotic for PNA which willcover this problem as well (3) CHF exacerbation Qualifiers: Heart failure type: unspecified Qualified Code(s): I50.9 - Heart failure, unspecified Is this a current diagnosis for this admission?: Yes Plan: Pt is not on diuretics at home, will order ECHO to eval for CHF given his pleural effusions and hx of HTN, cont lasix IX and repeat CXR today. He is still requiring O2. (4) COPD exacerbation Is this a current diagnosis for this admission?: Yes Plan: improving, tobacco cessation encouraged, cont current care, no wheezing today and not on steroids (5) Diabetes Qualifiers: Diabetes mellitus type: type 2 Is this a current diagnosis for this admission?: Yes Plan: CBGs under control, cont current meds (6) Kidney disease, chronic, stage IV (GFR 15-29 ml/min) Is this a current diagnosis for this admission?: Yes Plan: try to maintain good BP and glucose control (7) Pneumonia Is this a current diagnosis for this admission?: Yes Plan: cont azithro 3 days and ceftriaxone or po equivalent for 5-7 days (8) HTN (hypertension) Is this a current diagnosis for this admission?: Yes Plan: improved and pt now on his home med regimen. No changes. - Time Time Spent with patient: 25-34 minutes Medications reviewed and adjusted accordingly: Yes Within: within 24 hours - Inpatient Certification Based on my medical assessment, after consideration of the patient's comorbidities, presenting symptoms, or acuity I expect that the services needed warrant INPATIENT care.: Yes I certify that my determination is in accordance with my understanding of Medicare's requirements for reasonable and necessary INPATIENT services [42 CFR 412.3e].: Yes Medical Necessity: Risk of Complication if Not Cared For in Hospital
--- NOTE | 2017-08-28 17:57 | RADIOLOGY REPORT (SQ) ---
EXAM DESCRIPTION: CHEST PA/LAT COMPLETED DATE/TIME: 08/28/2017 5:43 pm REASON FOR STUDY: pleural effusion eval COMPARISON: 08/26/2017. NUMBER OF VIEWS: Two views. TECHNIQUE: Frontal and lateral radiographic views of the chest acquired. LIMITATIONS: None. FINDINGS: LUNGS AND PLEURA: Interstitial edema with bilateral pleural effusions. MEDIASTINUM AND HILAR STRUCTURES: No masses or contour abnormality. HEART AND VASCULAR STRUCTURES: Cardiac enlargement. Vascular congestion. BONES: No acute findings. HARDWARE: Aortic stent. OTHER: No other significant finding. IMPRESSION: CARDIAC ENLARGEMENT. VASCULAR CONGESTION. INTERSTITIAL EDEMA WITH BILATERAL PLEURAL EF FUSIONS. NO SIGNIFICANT CHANGE. TECHNICAL DOCUMENTATION: JOB ID: [id number] [email or web address]- All Rights Reserved Reading location - IP/workstation name: [email or web address]
[2017-08-28] MEDS ORDERED: RIVAROXABAN 15 MG TABLET PO SCH (18:00)
[2017-08-28] MEDS: ATORVASTATIN CALCIUM 40 MG TABLET PO SCH (21:28)
[2017-08-28] MEDS: NIFEDIPINE 30 MG TAB.ER.24 PO SCH (21:30)
[2017-08-28] MEDS: CEFTRIAXONE SODIUM 1,000 MG in NORMAL SALINE 100 ML IV SCH (21:37)
[2017-08-29] MEDS: IPRATROPIUM BROMIDE 0.02% NEB 0.5 MG/2.5 ML AMPUL NEB SCH ×3 (01:56→13:19)
[2017-08-29] MEDS: LEVALBUTEROL HCL NEB 1.25 MG/3 ML AMPUL NEB SCH ×3 (01:56→13:19)
[2017-08-29 05:16] LABS: HEMATOCRIT 26.2 % (37.9-51.0); HEMOGLOBIN 8.7 g/dL (13.5-17.0); MEAN CORPUSCULAR HEMOGLOBIN 32.4 pg (27.0-33.4); MEAN CORPUSCULAR HGB CONC 33.2 g/dL (32.0-36.0); MEAN CORPUSCULAR VOLUME 98 fl (80-97); PLATELET COUNT 187 10^3/uL (150-450); RED BLOOD COUNT 2.69 10^6/uL (4.35-5.55); RED CELL DISTRIBUTION WIDTH 14.3 % (11.5-14.0); WHITE BLOOD COUNT 11.1 10^3/uL (4.0-10.5)
[2017-08-29 05:32] LABS: ANION GAP 12 (5-19); BLOOD UREA NITROGEN 67 mg/dL (7-20); CALCIUM 8.5 mg/dL (8.4-10.2); CARBON DIOXIDE 17 mmol/L (22-30); CHLORIDE 111 mmol/L (98-107); GLUCOSE 107 mg/dL (75-110); POTASSIUM 4.6 mmol/L (3.6-5.0); SODIUM 139.5 mmol/L (137-145)
[2017-08-29] MEDS: HYDRALAZINE HCL 50 MG TABLET PO SCH ×2 (06:05→13:38)
[2017-08-29] MEDS ORDERED: NICOTINE 14 MG/24 HR PATCH.TD24 TD SCH (10:00)
[2017-08-29] MEDS: LOSARTAN POTASSIUM 25 MG TABLET PO SCH (10:18)
[2017-08-29] MEDS: DOCUSATE SODIUM 100 MG CAPSULE PO SCH (10:18)
[2017-08-29] MEDS: FEBUXOSTAT 40 MG TABLET PO SCH (10:18)
[2017-08-29] MEDS: EZETIMIBE 10 MG TABLET PO SCH (10:18)
[2017-08-29] MEDS: FLUTICASONE NASAL SPRAY 50 MCG/SPRY 120 SPRAY/16 GM NASL SCH (10:19)
[2017-08-29] MEDS: DOXYCYCLINE HYCLATE 100 MG TABLET PO SCH (10:19)
[2017-08-29] MEDS: FUROSEMIDE INJ/PF 40 MG/4 ML SDV IV SCH (10:19)
[2017-08-29] MEDS: ASPIRIN 81 MG TABLET, ENT COATED PO SCH (10:19)
[2017-08-29] MEDS: SITAGLIPTIN PHOSPHATE 25 MG TABLET PO SCH (10:19)
--- NOTE | 2017-08-29 13:57 | PDOC DISCHARGE SUMMARY ---
General - Admit/Disc Date/PCP Admission Date/Primary Care Provider: 08/26/17 23:31 DAYDAY PERSAUD MD Discharge Date: 08/31/17 - Discharge Diagnosis (1) Acute respiratory failure Is this a current diagnosis for this admission?: Yes (2) Acute exacerbation of chronic bronchitis Is this a current diagnosis for this admission?: Yes (3) Acute on chronic diastolic (congestive) heart failure Is this a current diagnosis for this admission?: Yes (4) Pleural effusion due to CHF (congestive heart failure) Is this a current diagnosis for this admission?: Yes (5) Allergic sinusitis Is this a current diagnosis for this admission?: Yes (6) Kidney disease, chronic, stage IV (GFR 15-29 ml/min) Is this a current diagnosis for this admission?: Yes (7) Acute bronchitis Is this a current diagnosis for this admission?: Yes - Additional Information Resuscitation Status: Full Code Prescriptions: Doxycycline Hyclate [Vibramycin 100 mg Tablet] 100 mg PO Q12 3 Days #6 tablet Fluticasone Propionate [Flovent Diskus 250 mcg] 1 puff IH Q12 30 Days #1 diskus Nicotine [Nicoderm 14 mg/24 Hr Transdermal Patch] 1 each TD DAILY #28 patch.td24 Prednisone [Deltasone 20 mg Tablet] 20 mg PO DAILY 5 Days #30 tablet Home Medications: Aspirin [Aspirin EC] 1 tab PO DAILY 08/27/17 Atorvastatin Calcium [Lipitor 40 mg Tablet] 1 tab PO QHS 08/27/17 Ezetimibe [Zetia 10 mg Tablet] 1 tab PO DAILY 08/27/17 Febuxostat [Uloric 40 mg Tablet] 1 tab PO DAILY 08/27/17 Ferrous Sulfate 1 tab PO BID 08/27/17 Hydralazine HCl [Apresoline 50 mg Tablet] 1 tab PO TID 08/27/17 Magnesium Oxide [Mag-Ox 400 mg Tablet] 1 tab PO DAILY 08/27/17 Nifedipine [Nifedipine ER] 1 tab PO QHS 08/27/17 Nitroglycerin 1 tab SL Q5M PRN 08/27/17 Rivaroxaban [Xarelto 15 mg Tablet] 1 tab PO DAILY 08/27/17 Sitagliptin Phosphate [Januvia 50 mg Tablet] 1 tab PO DAILY 08/27/17 Doxycycline Hyclate [Vibramycin 100 mg Tablet] 100 mg PO Q12 3 Days #6 tablet Fluticasone Propionate [Flonase Nasal Malabar 50 Mcg/Malabar 16 gm] 2 spray NASL Q12 spray.pump 08/29/17 Fluticasone Propionate [Flovent Diskus 250 mcg] 1 puff IH Q12 30 Days #1 diskus 08/29/17 Nicotine [Nicoderm 14 mg/24 Hr Transdermal Patch] 1 each TD DAILY #28 patch.td24 08/29/17 Prednisone [Deltasone 20 mg Tablet] 20 mg PO DAILY 5 Days #30 tablet 08/29/17 Sotalol HCl [Betapace 80 mg Tablet] 80 mg PO Q36H tablet 08/29/17 History of Present Illness History of Present Illness: SARA LI JR is a 67 year old male with a past medical history of status post thoracic aortic aneurysm repair, abdominal aortic aneurysm, congestive heart failure, paroxysmal atrial fibrillation, coronary artery disease, COPD, obstructive sleep apnea, diabetes, tobacco dependence, seasonal allergies and stage IV chronic kidney disease. Patient presents with 24 hours of shortness of breath EMS reports of blood pressure of 200 systolic and pulse oximetry of 80%. Patient denies medication or lifestyle noncompliance. He complains of maxillary sinusitis, postnasal drip with intermittent productive cough with yellow sputum and allergic sinusitis. Denying fever nausea vomiting or chest pain. In the emergency room he receives albuterol, Atrovent, BiPAP and IV Lasix and referred to the hospitalist for admission. Hospital Course Hospital Course: This is a 67-year-old man with a history of COPD not on home O2, chronic kidney disease stage IV, chronic atrial fibrillation, diastolic dysfunction and nicotine dependence presented to the hospital on August 27, 2017 with complaint of shortness of breath and found to be hypoxemic. He was also hypertensive with systolic of 200. There is a report of noncompliance of medication. This admission he was treated for acute on chronic diastolic CHF exacerbation with diuretics and for acute on chronic COPD exacerbation with steroid and antibiotics. He did require BiPAP on presentation. He was also noted to be bradycardic and his sotalol dose adjusted this admission and maintain on discharge. Repeat chest x-ray on August 28 without evidence of pneumonia. He was assessed for home oxygen and was found to be qualified. He was discharged home with O2. Smoking cessation encouraged. He is to follow-up with PCP and nephrology. Physical Exam Vital Signs: Temp Pulse Resp BP Pulse Ox 97.4 F 62 18 147/50 H 93 08/29/17 11:53 08/29/17 13:19 08/29/17 13:19 08/29/17 11:53 08/29/17 13:19 Intake & Output 08/28/17 08/29/17 08/30/17 06:59 06:59 06:59 Intake Total 1135 2871 459 Balance 1135 2871 459 Weight 75.7 kg 76.4 kg General appearance: PRESENT: no acute distress, other - chronically ill looking Head exam: PRESENT: atraumatic, normocephalic Eye exam: PRESENT: EOMI Mouth exam: PRESENT: moist, neck supple Neck exam: PRESENT: full ROM Respiratory exam: PRESENT: decreased breath sounds, unlabored. ABSENT: accessory muscle use GI/Abdominal exam: PRESENT: normal bowel sounds, soft Rectal exam: PRESENT: deferred Extremities exam: PRESENT: full ROM Musculoskeletal exam: PRESENT: ambulatory Neurological exam: PRESENT: alert, oriented to person, oriented to time, oriented to situation Psychiatric exam: PRESENT: appropriate affect Skin exam: PRESENT: dry, warm Results Laboratory Results: 08/29/17 04:41 08/29/17 04:41 08/29/17 08/29/17 04:41 04:41 WBC 11.1 H RBC 2.69 L Hgb 8.7 L Hct 26.2 L MCV 98 H MCH 32.4 MCHC 33.2 RDW 14.3 H Plt Count 187 Sodium 139.5 Potassium 4.6 Chloride 111 H Carbon Dioxide 17 L Anion Gap 12 BUN 67 H Creatinine 3.40 H Est GFR ( Amer) 22 L Est GFR (Non-Af Amer) 18 L Glucose 107 Calcium 8.5 08/27/17 08/27/17 08/27/17 05:50 05:50 12:16 Creatine Kinase 32 L 32 L CK-MB (CK-2) 0.83 Troponin I 0.021 08/27/17 12:16 Creatine Kinase CK-MB (CK-2) 0.79 Troponin I 0.021 Impressions: Chest X-Ray 08/28/17 00:00 IMPRESSION: CARDIAC ENLARGEMENT. VASCULAR CONGESTION. INTERSTITIAL EDEMA WITH BILATERAL PLEURAL EFFUSIONS. NO SIGNIFICANT CHANGE. Qualifiers - * PATEINT BEING DISCHARGED WITH ANY OF THE FOLLOWING DIAGNOSIS?: No VTE patient discharged on overlapping Therapy?: Yes Plan Time Spent: Greater than 30 Minutes
[2017-08-29 17:11] VITALS: BP 136/47
--- NOTE | 2017-08-29 21:13 | XCELERA REPORT ---
[address] [address] Transthoracic Echocardiogram Report Name: JENSARA JR Age: 67 yrs Gender: Male : 1950 Patient Status: Inpatient Patient Location: [facility]^A Study Date: 08/29/2017 11:31 AM Height: 71 in Weight: 166 lb BSA: 1.9 m2 Reason For Study: eval for CHF Ordering Physician: DIMA BISHOP Performed By: Claudia Arellano Interpretation Summary Min post pericardial effusion. Mod Ao root calcification normal size. Mild AVsclerosis borderline to mild PPG 15 mm Hg, no AR, no LV enlargement. Mod MR with MS, eccentric jet, with mod LA enlargement. TR mod with mod pulm hypertension RVSP 56, RAP 15 d/t RA enlargement. LVmod conc. LVH with normal LVEF 60% with LVDD, no LV enlargement, and may be mild anterior wall hypokinesis only. MMode/2D Measurements & Calculations RVDd: 2.8 cm LVIDd: 4.9 cm FS: 31.7 % Ao root diam: 3.1 cm IVSd: 1.7 cm LVIDs: 3.3 cm EDV(Teich): 110.4 ml LVPWd: 1.7 cm ESV(Teich): 44.6 ml Ao root area: 7.4 cm2 EF(Teich): 59.6 % Doppler Measurements & Calculations MV E max tasha: MV dec slope: Ao V2 max: LV V1 max P.0 cm/sec 192.4 cm/sec 7.6 mmHg MV A max tasha: 786.6 cm/sec2 Ao max PG: LV V1 max: 67.9 cm/sec MV dec time: 14.8 mmHg 137.6 cm/sec MV E/A: 2.0 0.17 sec PA V2 max: TR max tasha: 106.0 cm/sec 317.3 cm/sec PA max P.5 mmHgTR max P.3 mmHg Left Ventricle The left ventricle is grossly normal size. There is moderate concentric left ventricular hypertrophy. The left ventricular ejection fraction is normal. LV EF is 60%. Doppler measurements suggest impaired left ventricular relaxation, which is associated with grade I/IV or mild diastolic dysfunction. No regional wall motion abnormalities noted. There is no thrombus. Right Ventricle The right ventricle is not well visualized secondary to technical limitations. Atria The right atrium is dilated. The left atrium is moderately dilated. The interatrial septum is intact with no evidence for an atrial septal defect. Mitral Valve There is mild mitral annular calcification. The mitral valve leaflets appear thickened, but open well. There is no evidence of mitral valve prolapse. There is no mitral valve stenosis. There is a moderate amount of mitral regurgitation. The mitral regurgitant jet is posteriorly directed, which is consistent with anterior leaflet pathology. Aortic Valve The aortic valve opens well. The aortic valve is moderately calcified. The aortic valve is trileaflet. There is no aortic valvular vegetation. There is no aortic valve stenosis. No aortic regurgitation is present. Tricuspid Valve The tricuspid valve is not well visualized secondary to technical limitations. There is no tricuspid valve prolapse. There is no tricuspid stenosis. There is a mild amount of tricuspid regurgitation. There is moderate pulmonary hypertension by echo. Pulmonic Valve The pulmonic valve is not well visualized. Great Vessels There is aortic root sclerosis/calcification. The aortic root is normal size. Effusions Minimal pericardial effusion. I WMSI = 1.00 % Normal = 100 Segments Size X - Cannot 1 - Normal 2 - 3 - Akinetic4 - 1-2 small Interpret Hypokinetic Dyskinetic 3-5 moderate 5 - 6-14 large Aneurysmal 15-16 diffuse : DIMA BISHOP > Cj Campbell
== END 2017-08-29 17:25 | disposition home or self-care (01) | DRG 291 ==
LOC: ER 20:30 → EH 23:31 → 3W 08-27 02:40
PROVIDERS: ADMIT Internal Medicine; ATTEND Internal Medicine
PROC: 5A09457 Assistance with Respiratory Ventilation, 24-96 Consecutive Hours, Continuous Positive Airway Pressure (ICD-10-PCS; principal; 2017-08-26)
DX: I13.0 Hypertensive heart and chronic kidney disease with heart failure and stage 1 through stage 4 chronic kidney disease, or unspecified chronic kidney disease (principal); I50.43 Acute on chronic combined systolic (congestive) and diastolic (congestive) heart failure; J44.1 Chronic obstructive pulmonary disease with (acute) exacerbation; J96.00 Acute respiratory failure, unspecified whether with hypoxia or hypercapnia; N18.4 Chronic kidney disease, stage 4 (severe); J44.0 Chronic obstructive pulmonary disease with (acute) lower respiratory infection; J20.9 Acute bronchitis, unspecified; I48.0 Paroxysmal atrial fibrillation; E11.22 Type 2 diabetes mellitus with diabetic chronic kidney disease; E78.00 Pure hypercholesterolemia, unspecified; I25.10 Atherosclerotic heart disease of native coronary artery without angina pectoris; G47.33 Obstructive sleep apnea (adult) (pediatric); J32.0 Chronic maxillary sinusitis; E87.5 Hyperkalemia; F17.210 Nicotine dependence, cigarettes, uncomplicated; R00.1 Bradycardia, unspecified; J30.9 Allergic rhinitis, unspecified; Z87.891 Personal history of nicotine dependence; Z95.5 Presence of coronary angioplasty implant and graft; I25.2 Old myocardial infarction; Z90.49 Acquired absence of other specified parts of digestive tract; Z79.82 Long term (current) use of aspirin; Z79.899 Other long term (current) drug therapy
CPT/HCPCS: 36415; 71045; 71046; 80048; 82550; 82553; 82962; 83735; 83880; 84484; 85025; 85027; 87040; 93005; 93010; 93306; 94640; 94660; 96365; 96375; 99285; J0456; J0610; J0696; J1644; J1815; J1940; J3490; J7060

== ENCOUNTER → 2017-09-01 | Outpatient (CLI) | payer MEDICARE, OTHER ==
[2017-09-01 10:46] LABS: APPEARANCE,URINE CLEAR; BILIRUBIN,URINE NEGATIVE (NEGATIVE); COLOR,URINE YELLOW; GLUCOSE, URINE 50 mg/dL (NEGATIVE); KETONES,URINE NEGATIVE (NEGATIVE); LEUKOCYTE ESTERASE,URINE NEGATIVE (NEGATIVE); NITRITE,URINE NEGATIVE (NEGATIVE); PROTEIN,URINE >=500 mg/dL (NEGATIVE); URINE SPECIFIC GRAVITY 1.013; UROBILINOGEN,URINE NEGATIVE mg/dL (<2.0)
[2017-09-01 10:46] LABS: HEMATOCRIT 28.1 % (37.9-51.0); HEMOGLOBIN 9.2 g/dL (13.5-17.0); MEAN CORPUSCULAR HEMOGLOBIN 31.8 pg (27.0-33.4); MEAN CORPUSCULAR HGB CONC 32.9 g/dL (32.0-36.0); MEAN CORPUSCULAR VOLUME 97 fl (80-97); PLATELET COUNT 230 10^3/uL (150-450); RED BLOOD COUNT 2.91 10^6/uL (4.35-5.55); RED CELL DISTRIBUTION WIDTH 14.7 % (11.5-14.0); WHITE BLOOD COUNT 13.7 10^3/uL (4.0-10.5)
[2017-09-01 11:12] LABS: ALANINE AMINOTRANSFERASE 54 U/L (21-72); ALBUMIN 3.5 g/dL (3.5-5.0); ALKALINE PHOSPHATASE 109 U/L (38-126); ANION GAP 12 (5-19); ASPARTATE AMINO TRANSFERASE 33 U/L (17-59); BILIRUBIN,DIRECT 0.3 mg/dL (0.0-0.4); BILIRUBIN,TOTAL 0.3 mg/dL (0.2-1.3); BLOOD UREA NITROGEN 89 mg/dL (7-20); CALCIUM 9.8 mg/dL (8.4-10.2); CARBON DIOXIDE 19 mmol/L (22-30); CHLORIDE 111 mmol/L (98-107); GLUCOSE 95 mg/dL (75-110); POTASSIUM 4.4 mmol/L (3.6-5.0); SODIUM 141.8 mmol/L (137-145); TOTAL PROTEIN 6.3 g/dL (6.3-8.2)
== END ==
LOC: OD 09:51
PROVIDERS: ATTEND Internal Medicine Cardiovascular Disease
DX: I48.4 Atypical atrial flutter (principal); Z79.01 Long term (current) use of anticoagulants; Z79.899 Other long term (current) drug therapy
CPT/HCPCS: 36415; 80048; 80076; 81001; 82272; 83735; 85027; 85730

== ENCOUNTER 2017-09-22 09:34 | Outpatient (CLI) | payer MEDICARE, OTHER ==
[~2017-09-22 09:34] MED LIST: FERUMOXYTOL (NON-ESRD) 510 MG/NS 100 ML IV PRN
[2017-09-22 11:08] VITALS: BP 125/70
== END 2017-09-22 11:40 | disposition home or self-care (01) ==
LOC: II 09:34
PROVIDERS: ATTEND Internal Medicine Nephrology
PROC: 3E033GC Introduction of Other Therapeutic Substance into Peripheral Vein, Percutaneous Approach (ICD-10-PCS; principal; 2017-09-22)
DX: D50.8 Other iron deficiency anemias (principal); N18.9 Chronic kidney disease, unspecified
CPT/HCPCS: 96365; Q0138

== ENCOUNTER → 2017-10-25 | Outpatient (CLI) | payer MEDICARE, OTHER ==
[2017-10-25 12:05] LABS: ANION GAP 18 (5-19); BLOOD UREA NITROGEN 36 mg/dL (7-20); CALCIUM 9.5 mg/dL (8.4-10.2); CARBON DIOXIDE 22 mmol/L (22-30); CHLORIDE 103 mmol/L (98-107); GLUCOSE 103 mg/dL (75-110); POTASSIUM 4.5 mmol/L (3.6-5.0); SODIUM 142.6 mmol/L (137-145)
== END ==
LOC: OD 10:18
PROVIDERS: ATTEND Internal Medicine Cardiovascular Disease
DX: N18.3 Chronic kidney disease, stage 3 (moderate) (principal); I48.4 Atypical atrial flutter
CPT/HCPCS: 36415; 80048; 83735

== ENCOUNTER 2018-07-18 12:52 | Emergency (ER) | payer MEDICARE, OTHER ==
[2018-07-18 13:30] VITALS: BP 127/81
[2018-07-18] MEDS ORDERED: OXYMETAZOLINE HCL 0.05% NASAL SPRAY 15 ML BOTTLE NASL ONE (14:08)
--- NOTE | 2018-07-18 14:14 | ER Document Report ---
ED Medical Screen (RME) - General Chief Complaint: Nose Bleed Stated Complaint: NOSE BLEED Time Seen by Provider: 07/18/18 14:07 Primary Care Provider: BEKA RAMIREZ MD [Primary Care Provider] - Follow up as needed Notes: 67-year-old male with a history of congestive heart failure, atrial fibrillation, COPD, CAD, and ESRD on dialysis (M/F) who takes daily ASA and no anticoagulation presents for uncontrolled nosebleed x 1.5 hours. Patient states he does frequently get nosebleeds but they are quickly controlled. Today he has been unable to control this one. He does use CPAP at night with humidified air. I have greeted and performed a rapid initial assessment of this patient. A comprehensive ED assessment and evaluation of the patient, analysis of test results and completion of medical decision making process will be conducted by an additional ED providers. TRAVEL OUTSIDE OF THE [place] IN LAST 30 DAYS: No - Related Data Allergies/Adverse Reactions: No Known Allergies Allergy (Verified 07/18/18 12:54) Past Medical History - Social History Chew tobacco use (# tins/day): No Frequency of alcohol use: Rare Drug Abuse: None - Past Medical History Cardiac Medical History: Reports: Hx Atrial Fibrillation, Hx Congestive Heart Failure, Hx Coronary Artery Disease - History of a stent., Hx Heart Attack, Hx Hypercholesterolemia, Hx Hypertension Pulmonary Medical History: Reports: Hx COPD Endocrine Medical History: Reports: Hx Diabetes Mellitus Type 2 Renal/ Medical History: Denies: Hx Peritoneal Dialysis Malignancy Medical History: Reports Hx Renal (Kidney) Cancer - left nephrectomy in 2017 and was complicated by splenic rupture Psychiatric Medical History: Reports: Hx Depression Past Surgical History: Reports: Hx Appendectomy, Hx Cardiac Surgery - stent x2, Hx Coronary Stent, Hx Kidney (Renal Surgery), Other - Thoracic aneurysm repair 2016 splenectomy 2017 - Immunizations Hx Diphtheria, Pertussis, Tetanus Vaccination: Yes History of Influenza Vaccine for 03/2017 - 08/2017 Season: Yes Influenza Administration Date for 03/2017 - 08/2017 Season: 04/27/17 Physical Exam - Vital signs Vitals: Temp Pulse Resp BP Pulse Ox 97.9 F 75 18 127/81 H 97 07/18/18 13:28 07/18/18 13:28 07/18/18 13:28 07/18/18 13:28 07/18/18 13:28 - HEENT Nasal: Epistaxis - active bleeding in R nare with minimal blood seen in L nare. Pt blew out large clot Course - Vital Signs Vital signs: Temp Pulse Resp BP Pulse Ox 97.9 F 75 18 127/81 H 97 07/18/18 13:28 07/18/18 13:28 07/18/18 13:28 07/18/18 13:28 07/18/18 13:28 Doctor's Discharge - Discharge Referrals: BEKA RAMIREZ MD [Primary Care Provider] - Follow up as needed
[2018-07-18 15:43] LABS: ABSOLUTE BASOPHILS # (AUTO) 0.2 10^3/uL (0.0-0.2); ABSOLUTE EOSINOPHILS # (AUTO) 0.3 10^3/uL (0.0-0.6); ABSOLUTE LYMPHOCYTES (AUTO) 3.1 10^3/uL (0.5-4.7); ABSOLUTE MONOCYTES (AUTO) 1.6 10^3/uL (0.1-1.4); ABSOLUTE NEUT (AUTO) 6.9 10^3/uL (1.7-8.2); BASOPHILS % (AUTO) 1.3 % (0-2); EOSINOPHILS % (AUTO) 2.5 % (0-6); HEMATOCRIT 35.9 % (37.9-51.0); HEMOGLOBIN 12.4 g/dL (13.5-17.0); LYMPHOCYTES % (AUTO) 25.5 % (13-45); MEAN CORPUSCULAR HEMOGLOBIN 33.5 pg (27.0-33.4); MEAN CORPUSCULAR HGB CONC 34.7 g/dL (32.0-36.0); MEAN CORPUSCULAR VOLUME 97 fl (80-97); PLATELET COUNT 317 10^3/uL (150-450); RED BLOOD COUNT 3.71 10^6/uL (4.35-5.55); RED CELL DISTRIBUTION WIDTH 13.9 % (11.5-14.0); SEGMENTED NEUTROPHILS % (AUTO) 57.7 % (42-78); TOTAL CELLS COUNTED % (AUTO) 100 %
--- NOTE | 2018-07-18 17:38 | ER Document Report ---
ED ENT - General Chief Complaint: Nose Bleed Stated Complaint: NOSE BLEED Time Seen by Provider: 07/18/18 14:07 Primary Care Provider: BEKA RAMIREZ MD [Primary Care Provider] - Follow up as needed Mode of Arrival: Ambulatory Information source: Patient Notes: 67-year-old male with a history of congestive heart failure atrial fibrillation, end-stage renal disease presents emergency department with complaints of an uncontrolled nosebleed for the last 1.5 hours. Patient states that he does gets nosebleeds frequently. He states that today he was unable to control it. He states that he does use CPAP at night with humidified air. Patient denies being on any anticoagulants. Had dialysis yesterday. TRAVEL OUTSIDE OF THE [place] IN LAST 30 DAYS: No - HPI Patient complains to provider of: Nose problem Onset: This morning Onset/Duration: Sudden Severity: Mild Associated symptoms: Nose bleed Similar symptoms previously: Yes Recently seen / treated by doctor: No - Related Data Allergies/Adverse Reactions: No Known Allergies Allergy (Verified 07/18/18 12:54) Past Medical History - General Information source: Patient - Social History Smoking Status: Current Every Day Smoker Chew tobacco use (# tins/day): No Frequency of alcohol use: Rare Drug Abuse: None Family History: Hypertension Patient has suicidal ideation: No Patient has homicidal ideation: No - Past Medical History Cardiac Medical History: Reports: Hx Atrial Fibrillation, Hx Congestive Heart Failure, Hx Coronary Artery Disease - History of a stent., Hx Heart Attack, Hx Hypercholesterolemia, Hx Hypertension Pulmonary Medical History: Reports: Hx COPD Endocrine Medical History: Reports: Hx Diabetes Mellitus Type 2 Renal/ Medical History: Denies: Hx Peritoneal Dialysis Malignancy Medical History: Reports Hx Renal (Kidney) Cancer - left nephrectomy in 2017 and was complicated by splenic rupture Psychiatric Medical History: Reports: Hx Depression Past Surgical History: Reports: Hx Appendectomy, Hx Cardiac Surgery - stent x2, Hx Coronary Stent, Hx Kidney (Renal Surgery), Other - Thoracic aneurysm repair 2016 splenectomy 2017 - Immunizations Hx Diphtheria, Pertussis, Tetanus Vaccination: Yes Review of Systems - Review of Systems Constitutional: No symptoms reported EENT: Other - epistaxis. Cardiovascular: No symptoms reported Respiratory: No symptoms reported Gastrointestinal: No symptoms reported Genitourinary: No symptoms reported Male Genitourinary: No symptoms reported Musculoskeletal: No symptoms reported Skin: No symptoms reported Hematologic/Lymphatic: No symptoms reported Neurological/Psychological: No symptoms reported -: Yes All other systems reviewed and negative Physical Exam - Vital signs Vitals: Temp Pulse Resp BP Pulse Ox 97.9 F 75 18 127/81 H 97 07/18/18 13:28 07/18/18 13:28 07/18/18 13:28 07/18/18 13:28 07/18/18 13:28 - Notes Notes: PHYSICAL EXAMINATION: GENERAL: Well-appearing, well-nourished and in no acute distress. HEAD: Atraumatic, normocephalic. EYES: Pupils equal round and reactive to light, extraocular movements intact, sclera anicteric, conjunctiva are normal. ENT: Nares patent, oropharynx clear without exudates. Moist mucous membranes. No epistaxis in the ED. NECK: Normal range of motion, supple without lymphadenopathy Musculoskeletal: Normal range of motion, no pitting or edema. No cyanosis. NEUROLOGICAL: Cranial nerves grossly intact. Normal speech, normal gait. Normal sensory, motor exams PSYCH: Normal mood, normal affect. SKIN: Warm, Dry, normal turgor, no rashes or lesions noted. Course - Re-evaluation Re-evalutation: 07/18/18 19:06 Epistaxis resolved by the time the patient got into the room. Labs obtained. Hemoglobin stable. Potassium is within normal limits. Patient is scheduled to get dialysis again on Tuesday. I will discharge the patient home. He was instructed to continue taking his medications as directed and to return to the emergency department for worsening symptoms. - Vital Signs Vital signs: Temp Pulse Resp BP Pulse Ox 97.9 F 75 18 127/81 H 97 07/18/18 13:28 07/18/18 13:28 07/18/18 13:28 07/18/18 13:28 07/18/18 13:28 - Laboratory Result Diagrams: 07/18/18 15:31 07/18/18 15:30 Laboratory results interpreted by me: 07/18/18 07/18/18 15:30 15:31 WBC 12.0 H RBC 3.71 L Hgb 12.4 L Hct 35.9 L MCH 33.5 H Absolute Monocytes 1.6 H BUN 50 H Creatinine 4.65 H Est GFR ( Amer) 15 L Est GFR (Non-Af Amer) 13 L Direct Bilirubin 0.5 H ALT 18 L Alkaline Phosphatase 166 H Discharge - Discharge Clinical Impression: Epistaxis Condition: Stable Disposition: HOME, SELF-CARE Instructions: Nosebleed Instructions (OM) Referrals: BEKA RAMIREZ MD [Primary Care Provider] - Follow up as needed
[2018-07-18 18:03] LABS: ALANINE AMINOTRANSFERASE 18 U/L (21-72); ALBUMIN 4.1 g/dL (3.5-5.0); ALKALINE PHOSPHATASE 166 U/L (38-126); ANION GAP 8 (5-19); ASPARTATE AMINO TRANSFERASE 18 U/L (17-59); BILIRUBIN,DIRECT 0.5 mg/dL (0.0-0.4); BILIRUBIN,TOTAL 0.5 mg/dL (0.2-1.3); BLOOD UREA NITROGEN 50 mg/dL (7-20); CALCIUM 9.4 mg/dL (8.4-10.2); CARBON DIOXIDE 27 mmol/L (22-30); CHLORIDE 104 mmol/L (98-107); GLUCOSE 94 mg/dL (75-110); POTASSIUM 4.6 mmol/L (3.6-5.0); SODIUM 139.4 mmol/L (137-145); TOTAL PROTEIN 7.3 g/dL (6.3-8.2)
== END 2018-07-18 18:26 | disposition home or self-care (01) ==
LOC: ER 12:52
DX: R04.0 Epistaxis (principal); I50.9 Heart failure, unspecified; I48.91 Unspecified atrial fibrillation; I12.0 Hypertensive chronic kidney disease with stage 5 chronic kidney disease or end stage renal disease; N18.6 End stage renal disease; Z99.2 Dependence on renal dialysis; J44.9 Chronic obstructive pulmonary disease, unspecified; E11.9 Type 2 diabetes mellitus without complications; I25.10 Atherosclerotic heart disease of native coronary artery without angina pectoris
CPT/HCPCS: 99283; 36415; 85025; 80053; J3490

== ENCOUNTER 2018-11-02 07:30 | Inpatient (IN) | payer MEDICARE, OTHER ==
--- NOTE | 2018-11-02 08:23 | RADIOLOGY REPORT (SQ) ---
EXAM DESCRIPTION: CHEST 2 VIEWS COMPLETED DATE/TIME: 11/02/2018 7:52 am REASON FOR STUDY: Chest Pain COMPARISON: AP chest 09/30/2017, 08/26/2017 Two-view chest 08/28/2017 EXAM PARAMETERS: NUMBER OF VIEWS: two views TECHNIQUE: Digital Frontal and Lateral radiographic views of the chest acquired. RADIATION DOSE: NA LIMITATIONS: none FINDINGS: LUNGS AND PLEURA: Pulmonary vascular congestion is present with Tammy lines indicating co ngestive failure or fluid overload. There is a small to moderate left pleural effusion, and increased compared to 08/28/2017. Consolidation in the left posterior lung base is present. No pneumothorax. MEDIASTINUM AND HILAR STRUCTURES: No masses or contour abnormalities. HEART AND VASCULAR STRUCTURES: Moderate to marked cardiomegaly. Thoracic aortic stent graft BONES: No acute findings. HARDWARE: Right jugular central venous dialysis catheter tip in the superior vena cava OTHER: No other significant finding. IMPRESSION: Fluid overload or congestive failure with pulmonary vascular congestion, Tammy lines, a nd increasing left pleural effusion compared to previous studies TECHNICAL DOCUMENTATION: JOB ID: [id number] [employer]- All Rights Reserved Reading location - IP/workstation name: [email or web address]
[2018-11-02 08:44] LABS: INTERNATIONAL RATION (INR) 1.05; PROTHROMBIN TIME 14.2 SEC (11.4-15.4)
[2018-11-02 08:46] LABS: ABSOLUTE BASOPHILS # (AUTO) 0.1 10^3/uL (0.0-0.2); ABSOLUTE EOSINOPHILS # (AUTO) 0.2 10^3/uL (0.0-0.6); ABSOLUTE LYMPHOCYTES (AUTO) 1.8 10^3/uL (0.5-4.7); ABSOLUTE MONOCYTES (AUTO) 1.5 10^3/uL (0.1-1.4); ABSOLUTE NEUT (AUTO) 8.2 10^3/uL (1.7-8.2); HEMATOCRIT 32.5 % (37.9-51.0); HEMOGLOBIN 10.6 g/dL (13.5-17.0); LYMPHOCYTES % (AUTO) 15.2 % (13-45); MEAN CORPUSCULAR HEMOGLOBIN 31.3 pg (27.0-33.4); MEAN CORPUSCULAR HGB CONC 32.6 g/dL (32.0-36.0); MEAN CORPUSCULAR VOLUME 96 fl (80-97); MONOCYTES % (AUTO) 12.4 % (3-13); PLATELET COUNT 329 10^3/uL (150-450); RED BLOOD COUNT 3.38 10^6/uL (4.35-5.55); SEGMENTED NEUTROPHILS % (AUTO) 69.4 % (42-78); TOTAL CELLS COUNTED % (AUTO) 100 %; WHITE BLOOD COUNT 11.8 10^3/uL (4.0-10.5)
--- NOTE | 2018-11-02 08:48 | ER Document Report ---
ED General - General Chief Complaint: Breathing Difficulty Stated Complaint: DIFFICULTY BREATHING Time Seen by Provider: 11/02/18 08:20 Notes: 5-year-old male with CHF COPD history of pneumonia, presents shortness of breath for 1 week on exertion and lying flat, slightly worse leg swelling and intermittent chest pressure with breathing. He has no cough beyond his normal cough no sputum no fever. He is not aware that he has COPD and says he does not use any medicines for it. Still smokes. TRAVEL OUTSIDE OF THE [place] IN LAST 30 DAYS: No - Related Data Allergies/Adverse Reactions: No Known Allergies Allergy (Verified 11/02/18 07:31) Past Medical History - Social History Smoking Status: Current Every Day Smoker Chew tobacco use (# tins/day): No Frequency of alcohol use: Rare Drug Abuse: Bath salts Family History: Hypertension Patient has suicidal ideation: No Patient has homicidal ideation: No - Past Medical History Cardiac Medical History: Reports: Hx Atrial Fibrillation, Hx Congestive Heart Failure, Hx Coronary Artery Disease - History of a stent., Hx Heart Attack, Hx Hypercholesterolemia, Hx Hypertension Pulmonary Medical History: Reports: Hx COPD Endocrine Medical History: Reports: Hx Diabetes Mellitus Type 2 Renal/ Medical History: Denies: Hx Peritoneal Dialysis Malignancy Medical History: Reports Hx Renal (Kidney) Cancer - left nephrectomy in 2017 and was complicated by splenic rupture Psychiatric Medical History: Reports: Hx Depression Past Surgical History: Reports: Hx Appendectomy, Hx Cardiac Surgery - stent x2, Hx Coronary Stent, Hx Kidney (Renal Surgery), Other - Thoracic aneurysm repair 2016 splenectomy 2017 - Immunizations Hx Diphtheria, Pertussis, Tetanus Vaccination: Yes Review of Systems - Review of Systems Notes: REVIEW OF SYSTEMS GEN: Denies fever, chills, weight loss ENT: Denies sore throat, nasal discharge, ear pain EYES: Denies blurry vision, eye pain, discharge CV: Denies chest pain, palpitations, edema Story: Orthopnea cough shortness of breath wheezing GI: Denies abdominal pain, nausea, vomiting, diarrhea MSK: Denies joint pain/swelling, edema, SKIN: Denies rash, skin lesions LYMPH: Denies swollen glands/lymph nodes NEURO: Denies headache, focal weakness or numbness, dizziness PSYCH: Denies depression, suicidal or homicidal ideation PHYSICAL EXAMINATION General: No acute distress, well-nourished Head: Atraumatic, normocephalic ENT: Mouth normal, oropharynx moist, no exudates or tonsillar enlargement Eyes: Conjunctiva normal, pupils equal, lids normal Neck: No JVD, supple, no guarding CVS: Normal rate, regular rhythm, no murmurs Resp: Diminished at both bases GI: Nondistended, soft, no tenderness to palpation, no rebound or guarding Ext: No deformities, 1+ scant bilateral pedal edema, normal range of motion in upper and lower ext Back: No CVA or midline TTP Skin: No rash, warm Lymphatic: No lymphadeopathy noted Neuro: Awake, alert. Face symmetric. GCS 15. Physical Exam - Vital signs Vitals: Temp Pulse Resp BP Pulse Ox 97.8 F 84 18 123/68 93 11/02/18 07:41 11/02/18 07:41 11/02/18 07:41 11/02/18 07:41 11/02/18 07:41 Course - Re-evaluation Re-evalutation: 11/02/18 09:39 Patient with COPD and CHF presents with worsening shortness of breath mostly orthopnea and on exertion with mild hypoxia at rest here and decreased breath sounds bilaterally. Likely CHF. Labs show detectable troponin but not elevated to the point of GA, EKG shows no acute change, chest x-ray shows worsening left pleural effusion and bilateral pulmonary edemagiven IV Lasix 40 mg, discussed with hospitalist Dr. Ya for admission. - Vital Signs Vital signs: Temp Pulse Resp BP Pulse Ox 97.8 F 84 24 H 140/69 H 91 L 11/02/18 07:41 11/02/18 07:41 11/02/18 08:38 11/02/18 08:38 11/02/18 08:38 - Laboratory Result Diagrams: 11/02/18 08:08 11/02/18 08:08 Laboratory results interpreted by me: 11/02/18 11/02/18 08:08 08:08 WBC 11.8 H RBC 3.38 L Hgb 10.6 L Hct 32.5 L RDW 15.0 H Absolute Monocytes 1.5 H Creatine Kinase 51 L - Diagnostic Test Radiology reviewed: Image reviewed, Reports reviewed Discharge - Discharge Clinical Impression: Acute exacerbation of CHF (congestive heart failure) Qualifiers: Heart failure type: diastolic Qualified Code(s): I50.33 - Acute on chronic diastolic (congestive) heart failure Condition: Fair Disposition: ADMITTED INPATIENT Admitting Provider: Marlon (Hospitalist) Unit Admitted: [facility]
[2018-11-02] MEDS ORDERED: FUROSEMIDE INJ/PF 40 MG/4 ML SDV IV ONE (09:09)
[2018-11-02 09:13] LABS: CREATINE KINASE MB 2.44 ng/mL (<4.55)
[2018-11-02 09:15] LABS: TROPONIN I 0.063 ng/mL
[2018-11-02 09:50] LABS: ANION GAP 18 (5-19); BLOOD UREA NITROGEN 58 mg/dL (7-20); CALCIUM 9.9 mg/dL (8.4-10.2); CARBON DIOXIDE 19 mmol/L (22-30); CHLORIDE 105 mmol/L (98-107); GLUCOSE 83 mg/dL (75-110); POTASSIUM 4.6 mmol/L (3.6-5.0); SODIUM 141.8 mmol/L (137-145)
[2018-11-02] MEDS ORDERED: AZITHROMYCIN 250 MG TABLET PO SCH (10:00)
[2018-11-02] MEDS ORDERED: ACETAMINOPHEN 325 MG TABLET PO PRN (11:09)
[2018-11-02] MEDS ORDERED: OXYCODONE-ACETAMINOPHEN 5-325 MG TABLET PO PRN (11:09)
[2018-11-02] MEDS ORDERED: ALBUTEROL SULFATE 0.083% NEB 2.5 MG/3 ML AMPUL NEB PRN (11:09)
[2018-11-02] MEDS ORDERED: ONDANSETRON 4 MG TAB.RAPDIS PO PRN (11:09)
[2018-11-02] MEDS ORDERED: PROMETHAZINE HCL INJ 25 MG/1 ML VIAL IV PRN (11:09)
[2018-11-02] MEDS ORDERED: DEXTROSE 50%-WATER 25 GM/50 ML DISP.SYRIN IV PRN ×2 (11:17)
[2018-11-02] MEDS ORDERED: GLUCAGON,HUMAN RECOMB 1 MG INJ IM PRN (11:17)
[2018-11-02] MEDS ORDERED: DEXTROSE 40% GEL 15 GM TUBE PO PRN ×2 (11:17)
--- NOTE | 2018-11-02 11:50 | PDOC H&P ---
History of Present Illness Admission Date/PCP: 11/02/18 09:49 DAYDAY PERSAUD MD History of Present Illness: SARA LI JR is a 68 year old male with past medical history of ESRD on HD MW (phrologist Dr. Thiago Avery,) hypertension, diabetes, RCC s/p nephrectomy, thoracic aortic aneurysm s/p stent placement, COPD(not on home oxygen), heavy tobacco abuser anemia of CKD. Patient presented to ED complaining of worsening shortness of breath for the last 1 week, he is not on home oxygen, shortness of breath used to be on exertion but recently she has shortness of breath constantly since yesterday to stop activity, denies any sick contact, endorses nonproductive cough, denies any recent travel, received his hemodialysis on Tuesday, compliant with his medications. Denies any chest pain, fever, chills, nausea, vomiting, diarrhea, constipation or any urinary symptoms. As per patient he is on hemodialysis but his urine output it is still normal. In ED he was found to have an SPO2 of 88% on room air, went up to 94% with 2 L of oxygen, respiratory rate 17-29. CXR positive for fluid overload and left pleural effusion. WBC 11.8, hemoglobin 10.6, platelet 329, calcium 4.6, bicarb 19, BUN 58, creatinine 7.40 up from 4.65 on 07/18/2018, BNP 44,700 up from 20,500 on 09/26/2018. Past Medical History Cardiac Medical History: Reports: Atrial Fibrillation, Congestive Heart Failure, Coronary Artery Disease - History of a stent., Myocardial Infarction, Hyperlipidema, Hypertension Pulmonary Medical History: Reports: Bronchitis, Chronic Obstructive Pulmonary Disease (COPD), Pneumonia Endocrine Medical History: Reports: Diabetes Mellitus Type 2 Renal/ Medical History: Reports: End Stage Renal Disease Malignancy Medical History: Reports: Renal (Kidney) Cancer - left nephrectomy in 2017 and was complicated by splenic rupture Psychiatric Medical History: Reports: Depression Past Surgical History Past Surgical History: Reports: Appendectomy, Coronary Stent, Other - Thoracic aneurysm repair 2016 splenectomy 2017 Social History Smoking Status: Current Every Day Smoker Frequency of Alcohol Use: Social Hx Recreational Drug Use: No Drugs: None Hx Prescription Drug Abuse: No Family History Family History: Hypertension Parental Family History Reviewed: Yes Children Family History Reviewed: Yes Sibling(s) Family History Reviewed.: Yes Medication/Allergy Home Medications: Albuterol Sulfate [Proair HFA Inhalation Aerosol 8.5 gm MDI] 1 puff IH Q4HP PRN 11/02/18 Aspirin [Adult Low Dose Aspirin EC] 81 mg PO DAILY 11/02/18 Atorvastatin Calcium [Lipitor 40 mg Tablet] 40 mg PO QHS 11/02/18 Ezetimibe [Zetia 10 mg Tablet] 10 mg PO DAILY 11/02/18 Febuxostat [Uloric 40 mg Tablet] 40 mg PO DAILY 11/02/18 Fluticasone/Salmeterol [Advair 500-50 Diskus 14 Dose/Diskus] 1 puff IH Q12 11/02/18 Isosorbide Mononitrate [Imdur 30 mg Tablet.er] 30 mg PO DAILY 11/02/18 Magnesium Oxide [Mag-Ox 400 mg Tablet] 800 mg PO DAILY 11/02/18 Nitroglycerin [Nitrostat 0.4 mg (1/150 Gr) Tabs 25/Bottle] 0.4 mg SL Q5MP PRN 11/02/18 Sitagliptin Phosphate [Januvia 50 mg Tablet] 50 mg PO DAILY 11/02/18 Allergies/Adverse Reactions: No Known Allergies Allergy (Verified 11/02/18 07:31) Review of Systems Review of Systems: as per HPI Physical Exam Vital Signs: Temp Pulse Resp BP Pulse Ox 97.8 F 84 29 H 120/68 94 11/02/18 07:41 11/02/18 07:41 11/02/18 11:01 11/02/18 11:01 11/02/18 11:01 Intake & Output 11/01/18 11/02/18 11/03/18 06:59 06:59 06:59 Weight 74.5 kg General appearance: PRESENT: no acute distress, well-developed, well-nourished Head exam: PRESENT: atraumatic, normocephalic Eye exam: PRESENT: conjunctiva pink, EOMI, PERRLA. ABSENT: scleral icterus Ear exam: PRESENT: normal external ear exam Neck exam: ABSENT: carotid bruit, JVD, lymphadenopathy, thyromegaly Respiratory exam: PRESENT: clear to auscultation robinson, crackles - robinson, prolonged expiratory phas, wheezes. ABSENT: rales, rhonchi GI/Abdominal exam: PRESENT: normal bowel sounds, soft. ABSENT: distended, guarding, mass, organolmegaly, rebound, tenderness Extremities exam: PRESENT: full ROM. ABSENT: calf tenderness, clubbing, pedal edema Neurological exam: PRESENT: alert, awake, oriented to person, oriented to place, oriented to time, oriented to situation, CN II-XII grossly intact. ABSENT: motor sensory deficit Results Laboratory Results: 11/02/18 08:08 11/02/18 08:08 11/02/18 11/02/18 08:08 08:08 WBC 11.8 H RBC 3.38 L Hgb 10.6 L Hct 32.5 L MCV 96 MCH 31.3 MCHC 32.6 RDW 15.0 H Plt Count 329 Seg Neutrophils % 69.4 Lymphocytes % 15.2 Monocytes % 12.4 Eosinophils % 2.0 Basophils % 1.0 Absolute Neutrophils 8.2 Absolute Lymphocytes 1.8 Absolute Monocytes 1.5 H Absolute Eosinophils 0.2 Absolute Basophils 0.1 Sodium 141.8 Potassium 4.6 Chloride 105 Carbon Dioxide 19 L Anion Gap 18 BUN 58 H Creatinine 7.40 H Est GFR ( Amer) 9 L Est GFR (Non-Af Amer) 7 L Glucose 83 Calcium 9.9 11/02/18 11/02/18 11/02/18 08:08 08:08 08:08 Creatine Kinase 51 L CK-MB (CK-2) 2.44 Troponin I 0.063 NT-Pro-B Natriuret Pep 15635 H Impressions: Chest X-Ray 11/02/18 00:00 IMPRESSION: Fluid overload or congestive failure with pulmonary vascular congestion, Tammy lines, and increasing left pleural effusion compared to previous studies Assessment and Plan - Diagnosis (1) Acute respiratory failure with hypoxia Is this a current diagnosis for this admission?: Yes Plan: Due to COPD/CHF exacerbation. SPO2 88-90 on room air. Respiratory rate 17-29. Pending ABG. Supplemental oxygen, DuoNeb's, empiric antibiotics, IV steroids, LABA/LAMA (2) COPD exacerbation Is this a current diagnosis for this admission?: Yes Plan: Supplemental oxygen, DuoNeb's, empiric antibiotics, IV steroids, LABA/LAMA. 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 (3) Elevated troponin Is this a current diagnosis for this admission?: Yes Plan: Denies any active anginal symptoms. In the setting of end-stage renal disease and CHF/COPD exacerbation. Likely due to demand mismatch. We will trend troponins. Admit to telemetry. Continue aspirin and statins. (4) CHF exacerbation Qualifiers: Heart failure type: diastolic Qualified Code(s): I50.33 - Acute on chronic diastolic (congestive) heart failure Is this a current diagnosis for this admission?: Yes Plan: 08/29/2017. 2D echo LVEF 60%. Mild diastolic dysfunction. 11/02/2018 BNP 44,700, up from 20,500 on 09/26/2017. BNP ranging from 9740-026139 within the last 1 year. Denies any history of CAD. Volume restriction, strict in and out, cardiac diet, Lasix, ARB, beta blockers. (5) Diabetes Qualifiers: Diabetes mellitus type: type 2 Is this a current diagnosis for this admission?: No Plan: Diet controlled this patient. Will obtain Hgb A1c. Diabetic diet, long-acting insulin, sliding scale insulin, pre-meal insulin. Adjust dosage as needed. Outpatient PCP follow-up (6) HTN (hypertension) Qualifiers: Is this a current diagnosis for this admission?: No Plan: Restart home meds. Monitor vitals. Adjust meds as needed. (7) ESRD (end stage renal disease) Is this a current diagnosis for this admission?: No Plan: On HD Tuesday. Chief Commercial Officer Dr. Thiago Avery consulted. Fluid restriction, monitor volume status, monitor electrolytes. (8) Tobacco abuse Is this a current diagnosis for this admission?: No Plan: Counseled on quitting. NicoDerm patch.
[2018-11-02 13:00] LABS: APPEARANCE,URINE CLEAR; BILIRUBIN,URINE NEGATIVE (NEGATIVE); COLOR,URINE STRAW; GLUCOSE, URINE 50 mg/dL (NEGATIVE); KETONES,URINE NEGATIVE (NEGATIVE); LEUKOCYTE ESTERASE,URINE NEGATIVE (NEGATIVE); NITRITE,URINE NEGATIVE (NEGATIVE); PROTEIN,URINE >=500 mg/dL (NEGATIVE); URINE SPECIFIC GRAVITY 1.008; UROBILINOGEN,URINE NEGATIVE mg/dL (<2.0)
[2018-11-02] MEDS: IPRATROPIUM/ALBUTEROL 0.5-2.5 MG/3 ML AMPUL NEB SCH ×2 (14:16→20:36)
[2018-11-02] MEDS: HEPARIN SOD (PORCINE) 5,000 UNIT/ML 1 ML SYRINGE SUBCUT SCH ×2 (15:21→21:59)
[2018-11-02] MEDS: METHYLPREDNISOLONE INJ 40 MG/1 ML SDV IV SCH ×2 (15:21→21:51)
[2018-11-02 16:58] LABS: ARTERIAL BLOOD BASE EXCESS -1.9 mmol/L; ARTERIAL BLOOD FIO2 4L; ARTERIAL BLOOD H2CO3 1.03 mmol/L (1.05-1.35); ARTERIAL BLOOD HCO3 21.8 mmol/L (20-24); ARTERIAL BLOOD O2 SATURATION 91.9 % (94-98); ARTERIAL BLOOD PCO2 34.3 mmHg (35-45); ARTERIAL BLOOD PH 7.42 (7.35-7.45); ARTERIAL BLOOD PO2 60.4 mmHg (80-100); ARTERIAL BLOOD TOTAL CO2 22.9 mmol/L (23-27)
[2018-11-02] MEDS: INSULIN LISPRO 100 UNIT/ML 3 ML VIAL SUBCUT SCH ×2 (17:31→22:03)
--- NOTE | 2018-11-02 19:41 | EKG REPORT ---
SEVERITY:- ABNORMAL ECG - SINUS RHYTHM VENTRICULAR PREMATURE COMPLEX PROBABLE LEFT ATRIAL ABNORMALITY PROBABLE INFERIOR INFARCT, OLD : Confirmed by: Trish Woods MD 02-Nov-2018 19:40:39
[2018-11-02] MEDS ORDERED: ATORVASTATIN CALCIUM 40 MG TABLET PO SCH (22:00)
[2018-11-02] MEDS ORDERED: (PENDING PHARMACY ID) (Fluticasone/Salmeterol 1 PUFF) IH SCH (22:00)
[2018-11-02] MEDS: FUROSEMIDE INJ/PF 20 MG/2 ML SDV IV SCH (22:03)
[2018-11-02] MEDS: FAMOTIDINE 20 MG TABLET PO SCH (22:05)
[2018-11-02] MEDS: SALMETEROL XINAFOATE DISKUS 50 MCG/1 DOSE 28 DOSE IH SCH (22:12)
[2018-11-02] MEDS: CALCIUM CARBONATE 500 MG TAB.CHEW PO PRN (22:18)
[2018-11-02] MEDS ORDERED: MORPHINE SULFATE 10 MG/ML INJ IV ONE (23:00)
[2018-11-03 04:35] LABS: HEMATOCRIT 31.6 % (37.9-51.0); HEMOGLOBIN 10.5 g/dL (13.5-17.0); MEAN CORPUSCULAR HEMOGLOBIN 31.6 pg (27.0-33.4); MEAN CORPUSCULAR HGB CONC 33.1 g/dL (32.0-36.0); MEAN CORPUSCULAR VOLUME 95 fl (80-97); PLATELET COUNT 285 10^3/uL (150-450); RED BLOOD COUNT 3.32 10^6/uL (4.35-5.55); RED CELL DISTRIBUTION WIDTH 14.6 % (11.5-14.0); WHITE BLOOD COUNT 6.4 10^3/uL (4.0-10.5)
[2018-11-03 05:13] LABS: CREATINE KINASE MB 4.41 ng/mL (<4.55)
[2018-11-03 05:15] LABS: BLOOD UREA NITROGEN 72 mg/dL (7-20); CALCIUM 10.3 mg/dL (8.4-10.2); CREATINE KINASE 75 U/L (55-170); GLUCOSE 147 mg/dL (75-110); PHOSPHORUS 7.9 mg/dL (2.5-4.5); POTASSIUM 4.7 mmol/L (3.6-5.0)
[2018-11-03 05:16] LABS: TROPONIN I 0.252 ng/mL
[2018-11-03 05:20] LABS: CARBON DIOXIDE 14 mmol/L (22-30); CHLORIDE 107 mmol/L (98-107)
[2018-11-03] MEDS ORDERED: ASPIRIN 81 MG TABLET, CHEWABLE PO ONE (05:21)
[2018-11-03 05:24] LABS: SODIUM 142.2 mmol/L (137-145)
[2018-11-03 05:27] LABS: ANION GAP 21 (5-19)
[2018-11-03] MEDS: METHYLPREDNISOLONE INJ 40 MG/1 ML SDV IV SCH ×2 (05:54→15:25)
[2018-11-03] MEDS ORDERED: HEPARIN SODIUM,PORCINE/D5W 25,000 UNIT/250 ML RTUINJ IV PRN (06:00)
[2018-11-03] MEDS ORDERED: HEPARIN SOD (PORCINE) 1,000 UNIT/ML 10 ML VIAL IV PRN (06:00)
[2018-11-03] MEDS: INSULIN LISPRO 100 UNIT/ML 3 ML VIAL SUBCUT SCH ×3 (07:04→17:04)
[2018-11-03 07:10] LABS: ABSOLUTE LYMPHOCYTES (AUTO) 0.7 10^3/uL (0.5-4.7); ABSOLUTE MONOCYTES (AUTO) 0.3 10^3/uL (0.1-1.4); ABSOLUTE NEUT (AUTO) 6.7 10^3/uL (1.7-8.2); BASOPHILS % (AUTO) 0.3 % (0-2); HEMATOCRIT 28.6 % (37.9-51.0); HEMOGLOBIN 9.5 g/dL (13.5-17.0); LYMPHOCYTES % (AUTO) 9.1 % (13-45); MEAN CORPUSCULAR HEMOGLOBIN 31.9 pg (27.0-33.4); MEAN CORPUSCULAR HGB CONC 33.3 g/dL (32.0-36.0); MEAN CORPUSCULAR VOLUME 96 fl (80-97); MONOCYTES % (AUTO) 3.5 % (3-13); PLATELET COUNT 260 10^3/uL (150-450); RED BLOOD COUNT 2.99 10^6/uL (4.35-5.55); RED CELL DISTRIBUTION WIDTH 14.8 % (11.5-14.0); SEGMENTED NEUTROPHILS % (AUTO) 87.1 % (42-78); TOTAL CELLS COUNTED % (AUTO) 100 %; WHITE BLOOD COUNT 7.7 10^3/uL (4.0-10.5)
[2018-11-03 07:23] LABS: INTERNATIONAL RATION (INR) 1.14; PROTHROMBIN TIME 15.2 SEC (11.4-15.4)
[2018-11-03 08:02] LABS: APPEARANCE,URINE CLEAR; BILIRUBIN,URINE NEGATIVE (NEGATIVE); COLOR,URINE YELLOW; GLUCOSE, URINE 150 mg/dL (NEGATIVE); KETONES,URINE NEGATIVE (NEGATIVE); LEUKOCYTE ESTERASE,URINE NEGATIVE (NEGATIVE); NITRITE,URINE NEGATIVE (NEGATIVE); PROTEIN,URINE >=500 mg/dL (NEGATIVE); URINE SPECIFIC GRAVITY 1.014; UROBILINOGEN,URINE NEGATIVE mg/dL (<2.0)
[2018-11-03] MEDS: IPRATROPIUM/ALBUTEROL 0.5-2.5 MG/3 ML AMPUL NEB SCH ×2 (08:53→14:11)
[2018-11-03] MEDS: NITROGLYCERIN 0.4 MG/TAB 25 TAB/BOTTLE SL PRN ×4 (09:40→11:35)
[2018-11-03] MEDS: CALCIUM CARBONATE 500 MG TAB.CHEW PO PRN (09:44)
[2018-11-03] MEDS ORDERED: TIOTROPIUM BROMIDE DPI 5 CAP/KIT (18 MCG/CAP) IH SCH (10:00)
[2018-11-03] MEDS ORDERED: FLUTICASONE/VILANTEROL 200-25 MCG/DOSE IH SCH (10:00)
[2018-11-03] MEDS ORDERED: DOCUSATE SODIUM 100 MG CAPSULE PO SCH (10:00)
[2018-11-03] MEDS ORDERED: ASPIRIN 81 MG TABLET, ENT COATED PO SCH (10:00)
[2018-11-03] MEDS ORDERED: ISOSORBIDE MONONITRATE 30 MG TAB.ER.24H PO SCH (10:00)
[2018-11-03] MEDS ORDERED: FEBUXOSTAT 40 MG TABLET PO SCH (10:00)
[2018-11-03] MEDS ORDERED: MAGNESIUM OXIDE 400 MG TABLET PO SCH (10:00)
[2018-11-03] MEDS ORDERED: EZETIMIBE 10 MG TABLET PO SCH (10:00)
--- NOTE | 2018-11-03 11:47 | PDOC CONSULTATION ---
Consultation Consult Date: 11/03/18 Provider Consulted: Praneeth GUNN Consult reason:: Hemodialysis in the setting of congestive heart failure. History of Present Illness Admission Date/PCP: 11/02/18 09:49 DAYDAY PERSAUD MD History of Present Illness: SARA LI JR is a 68 year old male with past medical history of Hypertension, diabetes mellitus, ESRD -Dialyzing just 2 days out of the week, RCC s/p nephrectomy, thoracic aortic aneurysm s/p stent placement, COPD(not on home oxygen), Continuing smoker was admitted with history of progressive shortness of breath.He says he has been having progressive shortness of breath intermittently over the last 1 to 2 weeks. However he has noticed some improvement postdialysis. Last night apparently he had transient chest pains and today while undergoing dialysis as his blood pressure dropped he also experienced transient chest pain which was relieved quickly. Currently he is being seen while undergoing dialysis without any issues. He continues to make decent amounts of urine which he says has not dropped as compared to maybe 3 to 4 months ago. No history of any coughing spells fever or chills. Unfortunately still continues to smoke. No history of any chest pain with exertion. Not exactly watching his diet. Labs and medications were reviewed with the patient. He follows with Dr. Cj Campbell, cardiology. He thinks he had a stress test last year. I did review his last echo that we have on record here from early 2018.It showed that he had normal LV ejection fraction at that time, mild anterior wall hypokinesis, moderate MR, moderate pulmonary hypertension with an RVSP in the mid 50s. Past Medical History Cardiac Medical History: Reports: Abdominal Aortic Aneurysm - - S/P rupture in August 2016 and survived., Atrial Fibrillation, CHF-Diastolic, Coronary Artery Disease - History of a stent., Hyperlipidemia, Hypertension-primary, Myocardial Infarction Pulmonary Medical History: Reports: Bronchitis, Chronic Obstructive Pulmonary Disease (COPD), Pneumonia Endocrine Medical History: Reports: Diabetes Mellitus Type 2 Renal/ Medical History: Reports: End Stage Renal Disease, Secondary Hyperparathyroidism Malignancy Medical History: Reports: Renal (Kidney) Cancer - left nephrectomy in 2017 and was complicated by splenic rupture Psychiatric Medical History: Reports: Depression Hematology Medical History: Reports Anemia of Chronic Kidney Disease Past Surgical History Past Surgical History: Reports: Appendectomy, Coronary Stent, Nephrectomy - left, Other - Thoracic aneurysm repair 2016 splenectomy 2017 Social History Smoking Status: Current Every Day Smoker Cigarettes Packs Per Day: 4 Frequency of Alcohol Use: Social Hx Recreational Drug Use: No Drugs: None Hx Prescription Drug Abuse: No - Advance Directive Resuscitation Status: Full Code Family History Family History: Reviewed & Not Pertinent Parental Family History Reviewed: Yes - Negative for ESRD Children Family History Reviewed: No Sibling(s) Family History Reviewed.: No Medication/Allergy Home Medications: Albuterol Sulfate [Proair HFA Inhalation Aerosol 8.5 gm MDI] 1 puff IH Q4HP PRN 11/02/18 Amlodipine Besylate [Norvasc 10 mg Tablet] 10 mg PO QHS 11/02/18 Atorvastatin Calcium [Lipitor 40 mg Tablet] 40 mg PO QHS 11/02/18 Ezetimibe [Zetia 10 mg Tablet] 10 mg PO DAILY 11/02/18 Febuxostat [Uloric 40 mg Tablet] 40 mg PO DAILY 11/02/18 Fluticasone/Salmeterol [Advair 250-50 Diskus 14 Dose/Diskus] 1 puff IH Q12 11/02/18 Furosemide [Lasix 40 mg Tablet] 40 mg PO SUTUWETHSA 11/02/18 Nitroglycerin [Nitrostat 0.4 mg (1/150 Gr) Tabs 25/Bottle] 0.4 mg SL Q5MP PRN 11/02/18 RX: Aspirin [Adult Low Dose Aspirin EC] 81 mg PO DAILY 11/02/18 RX: Magnesium Oxide [Mag-Ox 400 mg Tablet] 800 mg PO DAILY 11/02/18 Sitagliptin Phosphate [Januvia 50 mg Tablet] 50 mg PO DAILY 11/02/18 Allergies/Adverse Reactions: No Known Allergies Allergy (Verified 11/02/18 07:31) Review of Systems Constitutional: PRESENT: anorexia, fatigue. ABSENT: chills, fever(s), headache(s), night sweats, weakness Nose, Mouth, and Throat: ABSENT: mouth pain, sore throat Cardiovascular: PRESENT: chest pain, dyspnea on exertion. ABSENT: edema, orthr opnea, palpitations Respiratory: PRESENT: dyspnea. ABSENT: cough, hemoptysis Gastrointestinal: ABSENT: abdominal pain, bloating, coffee ground emesis, diarrhea, dysphagia, heartburn, hematemesis, nausea, vomiting Genitourinary: ABSENT: difficulty urinating, dysuria, hematuria Integumentary: ABSENT: erythema, lesions, pruritus, rash Neurological: ABSENT: abnormal movements, abnormal speech, confusion, convulsions, focal weakness Psychiatric: ABSENT: anxiety, depression Hematologic/Lymphatic: ABSENT: easy bleeding, easy bruising, lymphadenopathy Physical Exam Vital Signs: Temp Pulse Resp BP Pulse Ox 97.7 F 95 18 108/66 95 11/03/18 03:11 11/03/18 08:53 11/03/18 08:53 11/03/18 03:11 11/03/18 08:53 Intake & Output 11/02/18 11/03/18 11/04/18 06:59 06:59 06:59 Output Total 1325 Balance -1325 Weight 78.2 kg General appearance: PRESENT: no acute distress Eye exam: PRESENT: EOMI, PERRLA Ear exam: PRESENT: normal external ear exam Mouth exam: PRESENT: moist, neck supple Neck exam: ABSENT: lymphadenopathy, meningismus, tenderness, thyromegaly, tracheal deviation Respiratory exam: PRESENT: clear to auscultation robinson. ABSENT: crackles Cardiovascular exam: PRESENT: +S1, +S2, systolic murmur GI/Abdominal exam: PRESENT: normal bowel sounds, soft. ABSENT: organomegaly, tenderness Extremities exam: ABSENT: pedal edema Neurological exam: PRESENT: alert, awake, oriented to person, oriented to place, oriented to time Psychiatric exam: PRESENT: appropriate affect Skin exam: ABSENT: cyanosis, erythema, mottled, rash Results Laboratory Results: 11/03/18 06:14 11/03/18 03:58 11/02/18 11/02/18 11/03/18 12:40 15:35 03:58 WBC 6.4 RBC 3.32 L Hgb 10.5 L Hct 31.6 L MCV 95 MCH 31.6 MCHC 33.1 RDW 14.6 H Plt Count 285 Seg Neutrophils % Lymphocytes % Monocytes % Eosinophils % Basophils % Absolute Neutrophils Absolute Lymphocytes Absolute Monocytes Absolute Eosinophils Absolute Basophils Carbonic Acid 1.03 L HCO3/H2CO3 Ratio 21:1 ABG pH 7.42 ABG pCO2 34.3 L ABG pO2 60.4 L ABG HCO3 21.8 ABG O2 Saturation 91.9 L ABG Base Excess -1.9 FiO2 4L Sodium Potassium Chloride Carbon Dioxide Anion Gap BUN Creatinine Est GFR ( Amer) Est GFR (Non-Af Amer) Glucose Calcium Phosphorus Magnesium Urine Color STRAW Urine Appearance CLEAR Urine pH 8.0 Ur Specific [place] 1.008 Urine Protein >=500 H Urine Glucose (UA) 50 H Urine Ketones NEGATIVE Urine Blood NEGATIVE Urine Nitrite NEGATIVE Ur Leukocyte Esterase NEGATIVE Urine WBC (Auto) 1 Urine RBC (Auto) 2 11/03/18 11/03/18 11/03/18 03:58 06:14 07:22 WBC 7.7 RBC 2.99 L Hgb 9.5 L Hct 28.6 L MCV 96 MCH 31.9 MCHC 33.3 RDW 14.8 H Plt Count 260 Seg Neutrophils % 87.1 H Lymphocytes % 9.1 L Monocytes % 3.5 Eosinophils % 0.0 Basophils % 0.3 Absolute Neutrophils 6.7 Absolute Lymphocytes 0.7 Absolute Monocytes 0.3 Absolute Eosinophils 0.0 Absolute Basophils 0.0 Carbonic Acid HCO3/H2CO3 Ratio ABG pH ABG pCO2 ABG pO2 ABG HCO3 ABG O2 Saturation ABG Base Excess FiO2 Sodium 142.2 Potassium 4.7 Chloride 107 Carbon Dioxide 14 L Anion Gap 21 H BUN 72 H Creatinine 8.07 H Est GFR ( Amer) 8 L Est GFR (Non-Af Amer) 7 L Glucose 147 H Calcium 10.3 H Phosphorus 7.9 H Magnesium 2.1 Urine Color YELLOW Urine Appearance CLEAR Urine pH 6.0 Ur Specific [place] 1.014 Urine Protein >=500 H Urine Glucose (UA) 150 H Urine Ketones NEGATIVE Urine Blood NEGATIVE Urine Nitrite NEGATIVE Ur Leukocyte Esterase NEGATIVE Urine WBC (Auto) 6 Urine RBC (Auto) 1 11/02/18 11/02/18 11/02/18 08:08 08:08 08:08 Creatine Kinase 51 L CK-MB (CK-2) 2.44 Troponin I 0.063 NT-Pro-B Natriuret Pep 45507 H 11/02/18 11/02/18 11/02/18 14:31 22:03 22:03 Creatine Kinase 63 CK-MB (CK-2) Troponin I 0.061 0.058 NT-Pro-B Natriuret Pep 11/02/18 11/03/18 11/03/18 22:03 03:58 03:58 Creatine Kinase 75 CK-MB (CK-2) 3.09 4.41 Troponin I 0.252 NT-Pro-B Natriuret Pep Impressions: Chest X-Ray 11/02/18 00:00 IMPRESSION: Fluid overload or congestive failure with pulmonary vascular con gestion, Tammy lines, and increasing left pleural effusion compared to previous studies Assessment & Plan - Diagnosis (1) Acute respiratory failure with hypoxia Is this a current diagnosis for this admission?: Yes Plan: I believe this patient is got predominantly congestive heart failure as is the cause of respiratory failure/hypoxia. Currently doing stable with oxygen and undergoing dialysis. He should improve post ultrafiltration of hemodialysis. Obviously he would need to be worked up for his recurrent congestive heart failure in the light of his background issues.My recommendation would be to convert the IV steroids to a low-dose of p.o. steroids as I do not thinks acute COPD is a predominant player in this patient. It would also help in preventing fluid retention especially over the weekend when we do not have dialysis capabilities. (2) Acute on chronic diastolic (congestive) heart failure Plan: Patient should feel better postdialysis after fluid removal. He experienced the same when he underwent dialysis this last Tuesday. I would definitely recommend that he has cardiac risk stratification given his current presentation as well as his previous echo that she had shown some amount of hypokinesis of his anterior wall and his moderate MR.I am also going to stop his febuxostat for gout given the fact that it has now found to be detrimental in the face of heart disease. (3) Anemia in CKD (chronic kidney disease) Qualifiers: Chronic kidney disease stage: unspecified stage Qualified Code(s): N18.9 - Chronic kidney disease, unspecified; D63.1 - Anemia in chronic kidney disease; D63.1 - Anemia in chronic kidney disease Plan: Monitor for the need of erythropoietin. (4) Atrial fibrillation Qualifiers: Atrial fibrillation type: paroxysmal Qualified Code(s): I48.0 - Paroxysmal atrial fibrillation Plan: Currently stable. (5) ESRD (end stage renal disease) Is this a current diagnosis for this admission?: No Plan: Patient currently undergoing dialysis. As mentioned earlier he had a transient episode of hypotension with moderate chest pains which relieved quickly with appropriate measures instituted by the dialysis nurse. Is now undergoing traci lysis without any issues. Vital signs are stable. Plan to remove it in 1 to 2 L as tolerated. Dialysis is being supervised to ensure safe and smooth procedure. Dialysis orders were reviewed with the treating dialysis nurse. I also did discuss with the patient about converting to 3 days of dialysis/ week from the twice weekly regimen now. This is because I believe that the patient is creatinine clearance has dropped further and his residual function even though he is making decent amounts of urine output is not producing solute clearance. This in turn could lead to certain amount of myocardial depression. Patient however seems very reluctant to that idea and would like to continue wit h twice weekly dialysis only. I did talk about the consequences of that. (6) HTN (hypertension) Qualifiers: Is this a current diagnosis for this admission?: No Plan: Low normal. Withhold any antihypertensives for the moment. He had an episode of chest pain while he had transient hypotension.He is being worked up for acute myocardial event and further cardiac risk stratification. (7) History of nephrectomy Plan: For renal cell carcinoma. (8) Pulmonary hypertension Plan: Probably needs an echocardiogram to see the status of that.Discussed smoking cessation. (9) Gout Plan: I am going to convert him from the febuxostat to allopurinol because of relative contraindications in the face of heart disease to the prior.
[2018-11-03] MEDS: SALMETEROL XINAFOATE DISKUS 50 MCG/1 DOSE 28 DOSE IH SCH (12:25)
[2018-11-03] MEDS: FAMOTIDINE 20 MG TABLET PO SCH (12:27)
[2018-11-03] MEDS: FUROSEMIDE INJ/PF 20 MG/2 ML SDV IV SCH (12:28)
[2018-11-03 13:38] LABS: CREATINE KINASE MB 5.69 ng/mL (<4.55)
[2018-11-03 13:42] LABS: TROPONIN I 0.304 ng/mL
--- NOTE | 2018-11-03 15:06 | PDOC TRANSFER SUMMARY ---
General Admission Date/PCP: 11/02/18 09:49 DAYDAY PERSAUD MD Admission Date: 11/03/18 Accepting Facility: [facility] Resuscitation Status: Full Code - Transfer Diagnosis (1) NSTEMI (non-ST elevated myocardial infarction) Is this a current diagnosis for this admission?: Yes (2) Coronary artery disease Is this a current diagnosis for this admission?: Yes (3) ESRD (end stage renal disease) Is this a current diagnosis for this admission?: Yes (4) Pleural effusion Is this a current diagnosis for this admission?: Yes - Transfer Medications Home Medications: Albuterol Sulfate [Proair HFA Inhalation Aerosol 8.5 gm MDI] 1 puff IH Q4HP PRN 11/02/18 Amlodipine Besylate [Norvasc 10 mg Tablet] 10 mg PO QHS 11/02/18 Aspirin [Adult Low Dose Aspirin EC] 81 mg PO DAILY 11/02/18 Atorvastatin Calcium [Lipitor 40 mg Tablet] 40 mg PO QHS 11/02/18 Ezetimibe [Zetia 10 mg Tablet] 10 mg PO DAILY 11/02/18 Febuxostat [Uloric 40 mg Tablet] 40 mg PO DAILY 11/02/18 Fluticasone/Salmeterol [Advair 250-50 Diskus 14 Dose/Diskus] 1 puff IH Q12 11/02/18 Furosemide [Lasix 40 mg Tablet] 40 mg PO SUTUWETHSA 11/02/18 Magnesium Oxide [Mag-Ox 400 mg Tablet] 800 mg PO DAILY 11/02/18 Nitroglycerin [Nitrostat 0.4 mg (1/150 Gr) Tabs 25/Bottle] 0.4 mg SL Q5MP PRN 11/02/18 Sitagliptin Phosphate [Januvia 50 mg Tablet] 50 mg PO DAILY 11/02/18 Transfer Medications: Current Medications Acetaminophen (Tylenol 325 Mg Tablet) 325 mg PO Q4HP PRN PRN Reason: FOR PAIN SCALE 1-2 Stop: 12/02/18 11:08 Albuterol (Ventolin 0.083% Neb 2.5 Mg/3 Ml Ampul) 2.5 mg NEB RTQ6HP PRN PRN Reason: SHORTNESS OF BREATH Stop: 12/02/18 11:08 Albuterol/Ipratropium (Duoneb 3 Ml Ampul) 3 ml NEB [id number] MICHELLE Stop: 12/02/18 13:59 Last Admin: 11/03/18 14:11 Dose: 3 ml Documented by: Allopurinol (Zyloprim 100 Mg Tablet) 100 mg PO DAILY [facility] Stop: 12/04/18 09:59 Aspirin (Ecotrin 81 Mg Ec Tablet) 81 mg PO DAILY [facility] Stop: 12/03/18 09:59 Last Admin: 11/03/18 12:25 Dose: Not Given Documented by: Atorvastatin Calcium (Lipitor 40 Mg Tablet) 40 mg PO QHS [facility] Stop: 12/02/18 21:59 Last Admin: 11/02/18 22:06 Dose: 40 mg Documented by: Calcium Carbonate (Tums Chewable 500 Mg Tab.Chew) 500 mg PO Q6HP PRN PRN Reason: INDIGESTION Stop: 12/02/18 22:05 Last Admin: 11/03/18 09:44 Dose: 500 mg Documented by: Dextrose (Dextrose Inj 50% Syringe (25 Gm/50 Ml)) 12.5 gm IV PRN PRN; Protocol PRN Reason: FOR BG 50-69 IN ALERT PATIENT Stop: 12/02/18 11:16 Dextrose (Dextrose Inj 50% Syringe (25 Gm/50 Ml)) 25 gm IV PRN PRN; Protocol PRN Reason: PER PROTOCOL Stop: 12/02/18 11:16 Docusate Sodium (Colace 100 Mg Capsule) 100 mg PO DAILY [facility] Stop: 12/03/18 09:59 Last Admin: 11/03/18 12:27 Dose: 100 mg Documented by: Ezetimibe (Zetia 10 Mg Tablet) 10 mg PO DAILY [facility] Stop: 12/03/18 09:59 Last Admin: 11/03/18 13:13 Dose: Not Given Documented by: Famotidine (Pepcid 20 Mg Tablet) 20 mg PO Q12 [facility] Stop: 12/02/18 21:59 Last Admin: 11/03/18 12:27 Dose: 20 mg Documented by: Fluticasone/Vilanterol (Breo 200-25 Mcg Ellipta 14 Dose/Dpi) 1 inh IH DAILY [facility] Stop: 12/03/18 09:59 Last Admin: 11/03/18 12:28 Dose: 1 inhaler Documented by: Furosemide (Lasix Inj/Pf 20 Mg/2 Ml Sdv) 20 mg IV Q12 [facility] Stop: 12/02/18 21:59 Last Admin: 11/03/18 12:28 Dose: 20 mg Documented by: Glucagon (Glucagen Inj 1 Mg Vial) 1 mg IM PRN PRN; Protocol PRN Reason: Evaluate for BG < 70 Stop: 12/02/18 11:16 Glucose (Glutose 40% Gel 15 Gm Tube) 15 gm PO PRN PRN; Protocol PRN Reason: FOR BG 50-69 IN ALERT PATIENT Stop: 12/02/18 11:16 Glucose (Glutose 40% Gel 15 Gm Tube) 30 gm PO PRN PRN; Protocol PRN Reason: FOR BG < 50 IN ALERT PATIENT Stop: 12/02/18 11:16 Heparin Sodium (Porcine) (Heparin Inj 1,000 Unit/Ml 10 Ml Vial) 0 - 12,000 unit IV .BOLUS PER PROTOCOL PRN; Protocol PRN Reason: RESPOND TO aPTT VALUES Stop: 12/03/18 05:59 Last Admin: 11/03/18 06:21 Dose: 4,000 units Documented by: Heparin Sodium/Dextrose (Heparin Rtu 25,000 Unit/250 Ml D5w Premix) 25,000 unit in 250 mls @ 0 mls/hr IV CONTINUOUS PRN; Protocol PRN Reason: THIS MED IS NOT "PRN" Stop: 12/03/18 05:59 Last Titration: 11/03/18 12:00 Dose: 0 mls/hr, 0 mls/hr Documented by: Insulin Human Lispro (Humalog Insulin 100 Unit/1 Ml 3 Ml Vial) 0 - 12 unit SUBCUT ACHS [facility]; Protocol Stop: 12/02/18 15:59 Last Admin: 11/03/18 13:12 Dose: 2 unit Documented by: Isosorbide Mononitrate (Imdur 30 Mg Tablet.Er) 30 mg PO DAILY [facility] Stop: 12/03/18 09:59 Last Admin: 11/03/18 12:26 Dose: 30 mg Documented by: Magnesium Oxide (Mag-Ox 400 Mg Tablet) 800 mg PO DAILY [facility] Stop: 12/03/18 09:59 Last Admin: 11/03/18 12:27 Dose: 800 mg Documented by: Methylprednisolone Sodium Succinate (Solu-Medrol Inj/Pf 40 Mg/1 Ml Sdv) 60 mg IV Q8 [facility] Stop: 12/02/18 13:59 Last Admin: 11/03/18 05:54 Dose: 60 mg Documented by: Nitroglycerin (Nitrostat 0.4 Mg (1/150 Gr) Tabs 25/Bottle) 1 tab SL Q5MP PRN PRN Reason: FOR CHEST PAIN Stop: 12/02/18 22:05 Last Admin: 11/03/18 11:35 Dose: 1 tab Documented by: Ondansetron HCl (Zofran Odt 4 Mg Tablet) 4 mg PO Q4HP PRN PRN Reason: FOR NAUSEA/VOMITING Stop: 12/02/18 11:08 Oxycodone/Acetaminophen (Percocet 5-325 Mg Tablet) 1 tab PO Q4HP PRN PRN Reason: FOR PAIN SCALE 2-4 Stop: 11/09/18 11:08 Promethazine HCl (Phenergan Inj 25 Mg/1 Ml Vial) 6.25 mg IV Q4HP PRN PRN Reason: FOR NAUSEA/VOMITING Stop: 12/02/18 11:08 Salmeterol Xinafoate (Serevent Diskus 50 Mcg/Dose 28 Dose/Diskus) 50 mcg IH Q12 MICHELLE Stop: 12/02/18 21:59 Last Admin: 11/03/18 12:25 Dose: 1 inh Documented by: Tiotropium [place] (Spiriva Handihaler 5 Cap/Kit (18 Mcg/Cap)) 1 cap IH DAILY MICHELLE Stop: 12/03/18 09:59 Last Admin: 11/03/18 12:29 Dose: 1 cap Documented by: - Allergies Allergies/Adverse Reactions: No Known Allergies Allergy (Verified 11/02/18 07:31) - Diet/Activity Discharge Diet: Cardiac, Diabetic Hospital Course Hospital Course: This is a 68 year old male with past medical history of ESRD on HD MW (phrologist Dr. Thiago Avery,) hypertension, diabetes, RCC S/P nephrectomy, thoracic aortic aneurysm with dissection S/P stent placement, COPD, heavy cigarette smoking anemia of CKD and CAD with stenting of the RCA in 2013 who presented with SOB and chest pain. He was noted to have congestion and pleural effusion on admission. He underwent dialysis this morning. Overnight, he complained of worsening chest pain which he described as "something heavy sitting on my chest". His troponins have been trending up from 0.06 to 0.2. Troponin after dialysis further went up to 0.3. EKG shows mild ST depressions on the lateral leads. He was started on heparin drip last night. Discussed with patient's wardrobe assistant, Dr. Campbell who recommended transferring to tertiary center for cath. CTA was ordered to reassess patient's prior dissection but he refused and does not want any dye-based procedure at this time due to his ESRD. Discussed with [facility], Dr. Ortiz who has accepted the transfer. Physical Exam Vital Signs: Temp Pulse Resp BP Pulse Ox 97.7 F 98 21 H 105/58 L 93 11/03/18 03:11 11/03/18 14:12 11/03/18 14:12 11/03/18 12:50 11/03/18 14:12 Intake & Output 11/02/18 11/03/18 11/04/18 06:59 06:59 06:59 Intake Total 701 Output Total 1325 Balance -1325 701 Weight 172 lb 6.424 oz General appearance: PRESENT: mild distress, well-developed Head exam: PRESENT: atraumatic, normocephalic Eye exam: PRESENT: conjunctiva pink, EOMI, PERRLA. ABSENT: scleral icterus Ear exam: PRESENT: normal external ear exam Mouth exam: PRESENT: moist, tongue midline Neck exam: ABSENT: carotid bruit, JVD, lymphadenopathy, thyromegaly Respiratory exam: PRESENT: rales, rhonchi. ABSENT: wheezes Cardiovascular exam: PRESENT: RRR. ABSENT: diastolic murmur, rubs, systolic murmur Pulses: PRESENT: normal dorsalis pedis pul GI/Abdominal exam: PRESENT: normal bowel sounds, soft. ABSENT: distended, guarding, mass, organolmegaly, rebound, tenderness Rectal exam: PRESENT: deferred Neurological exam: PRESENT: alert, awake, oriented to person, oriented to place, oriented to time, oriented to situation, CN II-XII grossly intact. ABSENT: motor sensory deficit Results Laboratory Results: 11/03/18 06:14 11/03/18 03:58 11/02/18 11/03/18 11/03/18 15:35 03:58 03:58 WBC 6.4 RBC 3.32 L Hgb 10.5 L Hct 31.6 L MCV 95 MCH 31.6 MCHC 33.1 RDW 14.6 H Plt Count 285 Seg Neutrophils % Lymphocytes % Monocytes % Eosinophils % Basophils % Absolute Neutrophils Absolute Lymphocytes Absolute Monocytes Absolute Eosinophils Absolute Basophils Carbonic Acid 1.03 L HCO3/H2CO3 Ratio 21:1 ABG pH 7.42 ABG pCO2 34.3 L ABG pO2 60.4 L ABG HCO3 21.8 ABG O2 Saturation 91.9 L ABG Base Excess -1.9 FiO2 4L Sodium 142.2 Potassium 4.7 Chloride 107 Carbon Dioxide 14 L Anion Gap 21 H BUN 72 H Creatinine 8.07 H Est GFR ( Amer) 8 L Est GFR (Non-Af Amer) 7 L Glucose 147 H Calcium 10.3 H Phosphorus 7.9 H Magnesium 2.1 Urine Color Urine Appearance Urine pH Ur Specific [place] Urine Protein Urine Glucose (UA) Urine Ketones Urine Blood Urine Nitrite Ur Leukocyte Esterase Urine WBC (Auto) Urine RBC (Auto) 11/03/18 11/03/18 06:14 07:22 WBC 7.7 RBC 2.99 L Hgb 9.5 L Hct 28.6 L MCV 96 MCH 31.9 MCHC 33.3 RDW 14.8 H Plt Count 260 Seg Neutrophils % 87.1 H Lymphocytes % 9.1 L Monocytes % 3.5 Eosinophils % 0.0 Basophils % 0.3 Absolute Neutrophils 6.7 Absolute Lymphocytes 0.7 Absolute Monocytes 0.3 Absolute Eosinophils 0.0 Absolute Basophils 0.0 Carbonic Acid HCO3/H2CO3 Ratio ABG pH ABG pCO2 ABG pO2 ABG HCO3 ABG O2 Saturation ABG Base Excess FiO2 Sodium Potassium Chloride Carbon Dioxide Anion Gap BUN Creatinine Est GFR ( Amer) Est GFR (Non-Af Amer) Glucose Calcium Phosphorus Magnesium Urine Color YELLOW Urine Appearance CLEAR Urine pH 6.0 Ur Specific [place] 1.014 Urine Protein >=500 H Urine Glucose (UA) 150 H Urine Ketones NEGATIVE Urine Blood NEGATIVE Urine Nitrite NEGATIVE Ur Leukocyte Esterase NEGATIVE Urine WBC (Auto) 6 Urine RBC (Auto) 1 11/02/18 11/02/18 11/02/18 08:08 08:08 08:08 Creatine Kinase 51 L CK-MB (CK-2) 2.44 Troponin I 0.063 NT-Pro-B Natriuret Pep 26359 H 11/02/18 11/02/18 11/02/18 14:31 22:03 22:03 Creatine Kinase 63 CK-MB (CK-2) Troponin I 0.061 0.058 NT-Pro-B Natriuret Pep 11/02/18 11/03/18 11/03/18 22:03 03:58 03:58 Creatine Kinase 75 CK-MB (CK-2) 3.09 4.41 Troponin I 0.252 NT-Pro-B Natriuret Pep 11/03/18 11/03/18 12:30 12:30 Creatine Kinase 84 CK-MB (CK-2) 5.69 H Troponin I 0.304 NT-Pro-B Natriuret Pep Impressions: Chest X-Ray 11/02/18 00:00 IMPRESSION: Fluid overload or congestive failure with pulmonary vascular congestion, Tammy lines, and increasing left pleural effusion compared to previous studies
[2018-11-03 16:17] VITALS: BP 110/57
--- NOTE | 2018-11-03 22:34 | EKG REPORT ---
SEVERITY:- ABNORMAL ECG - SINUS TACHYCARDIA ATRIAL PREMATURE COMPLEX PROBABLE LEFT ATRIAL ABNORMALITY PROBABLE INFERIOR INFARCT, OLD CONSIDER POSTERIOR INFARCT LATERAL LEADS ARE ALSO INVOLVED : Confirmed by: Trish Woods MD 03-Nov-2018 22:33:52
--- NOTE | 2018-11-03 22:34 | EKG REPORT ---
SEVERITY:- ABNORMAL ECG - SINUS RHYTHM PAIRED VENTRICULAR PREMATURE COMPLEXES PROBABLE LEFT ATRIAL ABNORMALITY BORDERLINE T ABNORMALITIES, ANT-LAT LEADS BORDERLINE PROLONGED QT INTERVAL : Confirmed by: Trish Woods MD 03-Nov-2018 22:33:32
--- NOTE | 2018-11-03 22:34 | EKG REPORT ---
SEVERITY:- BORDERLINE ECG - SINUS RHYTHM PROBABLE LEFT ATRIAL ABNORMALITY MINIMAL ST DEPRESSION, ANTEROLATERAL LEADS : Confirmed by: Trish Woods MD 03-Nov-2018 22:33:44
[2018-11-04] MEDS ORDERED: ALLOPURINOL 100 MG TABLET PO SCH (10:00)
== END 2018-11-03 17:55 | disposition short-term general hospital (02) | DRG 280 ==
LOC: ER 07:30 → EH 09:49 → 3W 18:59
PROVIDERS: ADMIT Internal Medicine; ATTEND Internal Medicine
PROC: 5A1D70Z Performance of Urinary Filtration, Intermittent, Less than 6 Hours Per Day (ICD-10-PCS; principal; 2018-11-03)
DX: I13.2 Hypertensive heart and chronic kidney disease with heart failure and with stage 5 chronic kidney disease, or end stage renal disease (principal); N18.6 End stage renal disease; I21.4 Non-ST elevation (NSTEMI) myocardial infarction; I50.33 Acute on chronic diastolic (congestive) heart failure; J96.01 Acute respiratory failure with hypoxia; J44.1 Chronic obstructive pulmonary disease with (acute) exacerbation; I71.2 Thoracic aortic aneurysm, without rupture; E11.22 Type 2 diabetes mellitus with diabetic chronic kidney disease; D63.1 Anemia in chronic kidney disease; I48.91 Unspecified atrial fibrillation; I27.20 Pulmonary hypertension, unspecified; M10.9 Gout, unspecified; I25.10 Atherosclerotic heart disease of native coronary artery without angina pectoris; F17.210 Nicotine dependence, cigarettes, uncomplicated; Z99.2 Dependence on renal dialysis; Z90.5 Acquired absence of kidney; Z79.84 Long term (current) use of oral hypoglycemic drugs; Z79.82 Long term (current) use of aspirin; Z79.51 Long term (current) use of inhaled steroids; Z79.899 Other long term (current) drug therapy
CPT/HCPCS: 36415; 71046; 80048; 81001; 82550; 82553; 82803; 82962; 83735; 83880; 84100; 84484; 85025; 85027; 85610; 85730; 87040; 87086; 93005; 93010; 94660; 99285; J1644; J1815; J1940; J2920; J3490; J7620

== ENCOUNTER 2018-11-20 08:40 | Inpatient (IN) | payer MEDICARE, OTHER ==
[2018-11-20] MEDS ORDERED: IPRATROPIUM/ALBUTEROL 0.5-2.5 MG/3 ML AMPUL NEB ONE (09:10)
[2018-11-20] MEDS ORDERED: ALBUTEROL SULFATE 0.083% NEB 2.5 MG/3 ML AMPUL NEB ONE (09:10)
[2018-11-20 09:18] LABS: ABSOLUTE BASOPHILS # (AUTO) 0.1 10^3/uL (0.0-0.2); ABSOLUTE EOSINOPHILS # (AUTO) 0.1 10^3/uL (0.0-0.6); ABSOLUTE LYMPHOCYTES (AUTO) 1.8 10^3/uL (0.5-4.7); ABSOLUTE MONOCYTES (AUTO) 0.8 10^3/uL (0.1-1.4); ABSOLUTE NEUT (AUTO) 7.3 10^3/uL (1.7-8.2); BASOPHILS % (AUTO) 0.9 % (0-2); EOSINOPHILS % (AUTO) 1.2 % (0-6); HEMATOCRIT 28.8 % (37.9-51.0); HEMOGLOBIN 9.4 g/dL (13.5-17.0); LYMPHOCYTES % (AUTO) 17.8 % (13-45); MEAN CORPUSCULAR HEMOGLOBIN 32.2 pg (27.0-33.4); MEAN CORPUSCULAR HGB CONC 32.7 g/dL (32.0-36.0); MEAN CORPUSCULAR VOLUME 99 fl (80-97); PLATELET COUNT 267 10^3/uL (150-450); RED BLOOD COUNT 2.93 10^6/uL (4.35-5.55); RED CELL DISTRIBUTION WIDTH 16.1 % (11.5-14.0); SEGMENTED NEUTROPHILS % (AUTO) 72.1 % (42-78); TOTAL CELLS COUNTED % (AUTO) 100 %; WHITE BLOOD COUNT 10.1 10^3/uL (4.0-10.5)
--- NOTE | 2018-11-20 09:26 | RADIOLOGY REPORT (SQ) ---
EXAM DESCRIPTION: CHEST SINGLE VIEW COMPLETED DATE/TIME: 11/20/2018 9:16 am REASON FOR STUDY: Shortness of breath COMPARISON: 11/03/2011. EXAM PARAMETERS: NUMBER OF VIEWS: One view. TECHNIQUE: Single frontal radiographic view of the chest acquired. RADIATION DOSE: NA LIMITATIONS: None. FINDINGS: LUNGS AND PLEURA: Pulmonary vascular congestion. Bilateral pleural effusions, left greate r than right. MEDIASTINUM AND HILAR STRUCTURES: No masses. Contour normal. HEART AND VASCULAR STRUCTURES: Cardiomegaly with pulmonary vascular congestion. BONES: No acute findings. HARDWARE: Aortic stent graft from ascending thoracic aorta to abdominal aorta. OTHER: Dual lumen dialysis catheter overlying caval atrial junction. IMPRESSION: No significant change. TECHNICAL DOCUMENTATION: JOB ID: [id number] [id number] 2010 [employer]- All Rights Reserved Reading location - IP/workstation name: [email or web address]
--- NOTE | 2018-11-20 09:31 | ER Document Report ---
ED General - General Chief Complaint: Breathing Difficulty Stated Complaint: TROUBLE BREATHING Time Seen by Provider: 11/20/18 09:00 Primary Care Provider: DAYDAY PERSAUD MD [Primary Care Provider] - Follow up as needed TRAVEL OUTSIDE OF THE [place] IN LAST 30 DAYS: No - HPI Notes: Patient is a 68-year-old male that presents to the emergency department for chief complaint of shortness of breath. Patient states he has had increased shortness of breath over the last few weeks. He does state the shortness of breath is worse when lying flat and with exertion. He has been checking his home O2 with a finger capnography her and states that he has not been in the 90s for the last few days. He states today he sought 74 which is why he came to the ER. He was previously on home oxygen but had been maintaining his levels so it was taken away about 3 or 4 months ago. He does wear CPAP at night for REBECA. he reports a recent admission at [facility] in [place] for cardiac evaluation. He states he had a heart catheterization which showed some plaques but he did not require any stents. He states that his shortness of breath has been unchanged since having his cardiac work-up. He was recently started on medicine including metoprolol and states he has been compliant with medicines from [facility]. Patient denies any associated chest pain. He is attempting to quit smoking but still smokes about 3 cigarettes daily. He reports history of COPD and has had improvements of his br eathing with aerosols but states he does not have any current prescription for aerosols. He also is on dialysis and had his last treatment on Tuesday. He is due today. He denies missing any recent dialysis other than today. He denies fever, chills, cough, congestion, nausea, diaphoresis and abdominal pain. Past Medical History: Hypertension, hyperlipidemia, end-stage renal disease on dialysis, diabetes, congestive heart failure, REBECA Past Surgical History: Reviewed in chart Social History: Daily tobacco. Denies drug and alcohol use Family History: Reviewed and noncontributory for presenting illness Allergies: Reviewed, see documented allergy list. REVIEW OF SYSTEMS: CONSTITUTIONAL : No fever No chills No diaphoresis No recent illness EENT: No vision changes No congestion No sore throat CARDIOVASCULAR: No chest pain No palpitations RESPIRATORY: shortness of breath No cough difficulty breathing GASTROINTESTINAL: No abdominal pain No nausea No vomiting No diarrhea GENITOURINARY: No dysuria No hematuria No difficulty urinating MUSCULOSKELETAL: No back pain No leg pain No arm pain SKIN: No rashes No lesions LYMPHATIC: No swollen, enlarged glands. NEUROLOGICAL: No lightheadedness No headache No weakness No paresthesias PSYCHIATRIC: No anxiety No depression PHYSICAL EXAMINATION: Vital signs reviewed, nursing noted reviewed. GENERAL: Well-appearing, well-nourished and in no acute distress. HEAD: Atraumatic, normocephalic. EYES: Eyes appear normal, extraocular movements intact, sclera anicteric, conjunctiva are normal. ENT: nares patent, oropharynx clear without exudates. Moist mucous membranes. NECK: Normal range of motion, supple without lymphadenopathy LUNGS: Right anterior chest dialysis catheter clean dry and intact. Breath sounds mildly diminished with expiratory wheezing bilaterally. No accessory m uscle use, retractions or respiratory distress. HEART: Regular rate and rhythm without murmurs ABDOMEN: Soft, nontender, normoactive bowel sounds. No rebound, guarding, or rigidity. No masses appreciated. EXTREMITIES: Nontender, good range of motion, trace pretibial edema bilaterally NEUROLOGICAL: No focal neurological deficits. Moves all extremities spontaneously Motor and sensory grossly intact on exam. PSYCH: Normal mood, normal affect. SKIN: Warm, Dry, normal turgor, no rashes or lesions noted on exposed skin - Related Data Allergies/Adverse Reactions: No Known Allergies Allergy (Verified 11/02/18 07:31) Past Medical History - Social History Smoking Status: Current Every Day Smoker Family History: Hypertension - Past Medical History Cardiac Medical History: Reports: Hx Atrial Fibrillation, Hx Congestive Heart Failure, Hx Coronary Artery Disease - History of a stent., Hx Heart Attack, Hx Hypercholesterolemia, Hx Hypertension Pulmonary Medical History: Reports: Hx Bronchitis, Hx COPD, Hx Pneumonia Endocrine Medical History: Reports: Hx Diabetes Mellitus Type 2 Renal/ Medical History: Reports: Hx End Stage Renal Disease. Denies: Hx Peritoneal Dialysis Malignancy Medical History: Reports Hx Renal (Kidney) Cancer - left nephrectomy in 2017 and was complicated by splenic rupture Psychiatric Medical History: Reports: Hx Depression Past Surgical History: Reports: Hx Appendectomy, Hx Cardiac Surgery - stent x2, Hx Coronary Stent, Hx Kidney (Renal Surgery), Other - Thoracic aneurysm repair 2016 splenectomy 2017 - Immunizations Hx Diphtheria, Pertussis, Tetanus Vaccination: Yes Physical Exam - Vital signs Vitals: Resp BP 29 H 106/61 11/20/18 08:50 11/20/18 08:50 Course - Re-evaluation Re-evalutation: 11/20/18 10:34 Vitals reviewed. Nursing notes reviewed. Patient was requiring 3 L of oxygen to stay in the 90s at presentation. After aerosols patient had a slight decrease in oxygen and I increased his nasal cannula to 4L. He is currently oxy genating at 91% on 4 L. Patient's tachypnea has improved. He is not having any accessory muscle use or retractions and is speaking in full sentences. Patient has received Solu-Medrol for COPD exacerbation. X-ray shows no pneumonia, fluid overload state, or other acute cardiopulmonary process. His lab work shows a baseline renal failure and anemia. Patient does have an indeterminate troponin and has received aspirin in the ED. His troponin level is likely related to his renal insufficiency and is chronically elevated on chart review. He is not having any chest pain to suggest acute MS. Patient's care was discussed with Dr. Webb and Earline Pelayo who accepted admission. Patient in agreement with this plan of care. I also discussed his care with Dr. Avery who will arrange his routine dialysis today. Laboratory 11/20/18 11/20/18 11/20/18 09:00 09:00 09:00 WBC 10.1 RBC 2.93 L Hgb 9.4 L Hct 28.8 L MCV 99 H MCH 32.2 MCHC 32.7 RDW 16.1 H Plt Count 267 Seg Neutrophils % 72.1 Lymphocytes % 17.8 Monocytes % 8.0 Eosinophils % 1.2 Basophils % 0.9 Absolute Neutrophils 7.3 Absolute Lymphocytes 1.8 Absolute Monocytes 0.8 Absolute Eosinophils 0.1 Absolute Basophils 0.1 Sodium 140.1 Potassium 5.1 H Chloride 101 Carbon Dioxide 22 Anion Gap 17 BUN 78 H Creatinine 8.25 H Est GFR ( Amer) 8 L Est GFR (Non-Af Amer) 6 L Glucose 123 H Calcium 9.1 Total Bilirubin 0.9 Direct Bilirubin 0.6 H Neonat Total Bilirubin Not Reportable Neonat Direct Bilirubin Not Reportable Neonat Indirect Bili Not Reportable AST 35 ALT 38 Alkaline Phosphatase 177 H Troponin I 0.036 Total Protein 6.7 Albumin 3.8 Chest X-Ray 11/20/18 09:00 IMPRESSION: No significant change. - Vital Signs Vital signs: Temp Pulse Resp BP Pulse Ox 23 H 104/61 89 L 11/20/18 10:01 11/20/18 10:01 11/20/18 10:01 - Laboratory Result Diagrams: 11/20/18 09:00 11/20/18 09:00 Laboratory results interpreted by me: 11/20/18 11/20/18 09:00 09:00 RBC 2.93 L Hgb 9.4 L Hct 28.8 L MCV 99 H RDW 16.1 H Potassium 5.1 H BUN 78 H Creatinine 8.25 H Est GFR ( Amer) 8 L Est GFR (Non-Af Amer) 6 L Glucose 123 H Direct Bilirubin 0.6 H Alkaline Phosphatase 177 H - EKG Interpretation by Me Additional EKG results interpreted by me: 11/20/18 09:30 Interpreted by myself [id number]: Normal sinus rhythm, rate 53, LVH, no STEMI, no significant change from 11/03/2018 Discharge - Discharge Clinical Impression: Acute respiratory failure with hypoxia, COPD exacerbation Condition: Stable Disposition: ADMITTED INPATIENT Admitting Provider: Tracey (Hospitalist) Unit Admitted: Telemetry
[2018-11-20 09:51] LABS: ALANINE AMINOTRANSFERASE 38 U/L (21-72); ALBUMIN 3.8 g/dL (3.5-5.0); ALKALINE PHOSPHATASE 177 U/L (38-126); ANION GAP 17 (5-19); ASPARTATE AMINO TRANSFERASE 35 U/L (17-59); BILIRUBIN,DIRECT 0.6 mg/dL (0.0-0.4); BILIRUBIN,TOTAL 0.9 mg/dL (0.2-1.3); BLOOD UREA NITROGEN 78 mg/dL (7-20); CALCIUM 9.1 mg/dL (8.4-10.2); CARBON DIOXIDE 22 mmol/L (22-30); CHLORIDE 101 mmol/L (98-107); GLUCOSE 123 mg/dL (75-110); POTASSIUM 5.1 mmol/L (3.6-5.0); SODIUM 140.1 mmol/L (137-145); TOTAL PROTEIN 6.7 g/dL (6.3-8.2)
[2018-11-20] MEDS ORDERED: ASPIRIN 325 MG TABLET PO ONE (10:24)
[2018-11-20] MEDS ORDERED: METHYLPREDNISOLONE INJ 125 MG/2 ML SDV IV ONE (10:24)
[2018-11-20] MEDS ORDERED: EPOETIN ALFA INJ 20000 UNIT/1 ML VIAL (RENAL) IV PRN (11:20)
[2018-11-20] MEDS ORDERED: MAG HYDROX/AL HYDROX/SIMETH SUSP 30 ML UDCUP PO PRN (11:30)
[2018-11-20] MEDS ORDERED: ACETAMINOPHEN 325 MG TABLET PO PRN (11:30)
[2018-11-20] MEDS ORDERED: ONDANSETRON HCL INJ/PF 4 MG/2 ML SDV IV PRN (11:30)
[2018-11-20] MEDS ORDERED: EPOETIN ALFA 10,000 UNIT in SYRINGE, DISPOSABLE, 1 EACH IV PRN (11:37)
[2018-11-20] MEDS ORDERED: DEXTROSE 50%-WATER 25 GM/50 ML DISP.SYRIN IV PRN ×2 (11:43)
[2018-11-20] MEDS ORDERED: GLUCAGON,HUMAN RECOMB 1 MG INJ IM PRN (11:43)
[2018-11-20] MEDS ORDERED: DEXTROSE 40% GEL 15 GM TUBE PO PRN ×2 (11:43)
--- NOTE | 2018-11-20 11:49 | PDOC H&P ---
History of Present Illness Admission Date/PCP: DAYDAY PERSAUD MD Patient complains of: shortness of breath History of Present Illness: SARA LI JR is a 68 year old male with a past medical history of end- stage renal disease (hemodialysis Tuesday, Tuesday; patient reports he has been told to dialyze on Wednesdays but does not attend due to conflicting appo intments), CHF, hypertension, pulmonary hypertension, FL with stent x1, transthoracic aorta aneurysm repair, COPD, DM 2 and tobacco dependence who presented to the emergency department with a complaint of progressively worsening shortness of breath x1 week. Patient reports that he previously had home O2, however, has not had home O2 for several months to a year secondary to financial burden. The patient also relates that he was recently admitted [facility] for possible N STEMI; states that he was told he did not have an FL, but does not know what was ultimately determined to be at issue. Evaluation in the emergency department revealed his baseline anemia (hemoglobin 9.4), hyperkalemia (5.1), elevated creatinine and BUN (patient was due for dialysis this morning), indeterminately elevated troponin of 0.036, NSR by EKG, and chest x-ray that demonstrates cardiomegaly with pulmonary vascular congestion and bilateral pleural effusions. He was found to have tachypnea with respiratory rate 29 at presentation with hypoxia on room air; he is currently requiring 5 lpm via nasal cannula to maintain oxygen saturations >88%. He is referred to the hospitalist service for admission and management of the above-stated complaints; arrangements have been made for the patient to proceed directly to dialysis Past Medical History Cardiac Medical History: Reports: Atrial Fibrillation, Congestive Heart Failure, Coronary Artery Disease - History of a stent., Myocardial Infarction, Hyperlipidema, Hypertension Pulmonary Medical History: Reports: Bronchitis, Chronic Obstructive Pulmonary Disease (COPD), Pneumonia, Respiratory Failure EENT Medical History: Reports: None Neurological Medical History: Reports: None Endocrine Medical History: Reports: Diabetes Mellitus Type 2 Renal/ Medical History: Reports: End Stage Renal Disease Malignancy Medical History: Reports: Renal (Kidney) Cancer - left nephrectomy in 2017 and was complicated by splenic rupture GI Medical History: Reports: None Musculoskeltal Medical History: Reports: None Skin Medical History: Reports: None Psychiatric Medical History: Reports: Depression, Tobacco Dependency Traumatic Medical History: Reports: None Hematology: Reports: Anemia Infectious Medical History: Reports: None Past Surgical History Past Surgical History: Reports: Appendectomy, Coronary Stent, Other - Thoracic aneurysm repair 2016. Nephrectomy and splenectomy 2017 Social History Information Source: Patient Lives with: Alone Smoking Status: Current Every Day Smoker Cigarettes Packs Per Day: 0.5 Frequency of Alcohol Use: Social Hx Recreational Drug Use: No Drugs: None Hx Prescription Drug Abuse: No - Advance Directive Resuscitation Status: Full Code Family History Family History: Reviewed & Not Pertinent, Hypertension Parental Family History Reviewed: Yes Children Family History Reviewed: Yes Sibling(s) Family History Reviewed.: Yes Medication/Allergy Home Medications: Albuterol Sulfate [Proair HFA Inhalation Aerosol 8.5 gm MDI] 1 puff IH Q4HP PRN 11/02/18 Amlodipine Besylate [Norvasc 10 mg Tablet] 10 mg PO QHS 11/02/18 Aspirin [Adult Low Dose Aspirin EC] 81 mg PO DAILY 11/02/18 Atorvastatin Calcium [Lipitor 40 mg Tablet] 40 mg PO QHS 11/02/18 Ezetimibe [Zetia 10 mg Tablet] 10 mg PO DAILY 11/02/18 Febuxostat [Uloric 40 mg Tablet] 40 mg PO DAILY 11/02/18 Fluticasone/Salmeterol [Advair 250-50 Diskus 14 Dose/Diskus] 1 puff IH Q12 11/02/18 Furosemide [Lasix 40 mg Tablet] 40 mg PO SUTUWETHSA 11/02/18 Magnesium Oxide [Mag-Ox 400 mg Tablet] 800 mg PO DAILY 11/02/18 Nitroglycerin [Nitrostat 0.4 mg (1/150 Gr) Tabs 25/Bottle] 0.4 mg SL Q5MP PRN 11/02/18 Sitagliptin Phosphate [Januvia 50 mg Tablet] 50 mg PO DAILY 11/02/18 Allergies/Adverse Reactions: No Known Allergies Allergy (Verified 11/02/18 07:31) Review of Systems Constitutional: ABSENT: chills, fever(s), headache(s), weight gain, weight loss Eyes: ABSENT: visual disturbances Ears: ABSENT: hearing changes Cardiovascular: PRESENT: dyspnea on exertion, edema. ABSENT: chest pain, orthropnea, palpitations Respiratory: PRESENT: dyspnea. ABSENT: cough, hemoptysis Gastrointestinal: ABSENT: abdominal pain, constipation, diarrhea, hematemesis, hematochezia, nausea, vomiting Genitourinary: ABSENT: dysuria, hematuria Musculoskeletal: ABSENT: joint swelling Integumentary: ABSENT: rash, wounds Neurological: ABSENT: abnormal gait, abnormal speech, confusion, dizziness, focal weakness, syncope Psychiatric: ABSENT: anxiety, depression, homidical ideation, suicidal ideation Endocrine: ABSENT: cold intolerance, heat intolerance, polydipsia, polyuria Hematologic/Lymphatic: ABSENT: easy bleeding, easy bruising Physical Exam Vital Signs: Temp Pulse Resp BP Pulse Ox 20 116/60 88 L 11/20/18 11:00 11/20/18 11:01 11/20/18 11:01 Intake & Output 11/19/18 11/20/18 11/21/18 06:59 06:59 06:59 Weight 77.6 kg General appearance: PRESENT: no acute distress, well-developed, well-nourished Head exam: PRESENT: atraumatic, normocephalic Eye exam: PRESENT: conjunctiva pink, EOMI, PERRLA. ABSENT: scleral icterus Ear exam: PRESENT: normal external ear exam Mouth exam: PRESENT: moist, tongue midline Teeth exam: PRESENT: poor dentation Neck exam: ABSENT: carotid bruit, JVD, lymphadenopathy, thyromegaly Respiratory exam: PRESENT: crackles - bibasilar, symmetrical, unlabored, other - O2 via NC. ABSENT: rales, rhonchi, wheezes Cardiovascular exam: PRESENT: RRR, +S1, +S2. ABSENT: diastolic murmur, rubs, systolic murmur Pulses: PRESENT: normal dorsalis pedis pul Vascular exam: PRESENT: normal capillary refill GI/Abdominal exam: PRESENT: normal bowel sounds, soft. ABSENT: distended, guarding, mass, organolmegaly, rebound, tenderness Rectal exam: PRESENT: deferred Extremities exam: PRESENT: full ROM, pedal edema - trace. ABSENT: calf tenderness, clubbing Neurological exam: PRESENT: alert, awake, oriented to person, oriented to place, oriented to time, oriented to situation, CN II-XII grossly intact. ABSENT: motor sensory deficit Psychiatric exam: PRESENT: appropriate affect, normal mood. ABSENT: homicidal ideation, suicidal ideation Skin exam: PRESENT: dry, intact, warm. ABSENT: cyanosis, rash Results Laboratory Results: 11/20/18 09:00 11/20/18 09:00 11/20/18 11/20/18 09:00 09:00 WBC 10.1 RBC 2.93 L Hgb 9.4 L Hct 28.8 L MCV 99 H MCH 32.2 MCHC 32.7 RDW 16.1 H Plt Count 267 Seg Neutrophils % 72.1 Lymphocytes % 17.8 Monocytes % 8.0 Eosinophils % 1.2 Basophils % 0.9 Absolute Neutrophils 7.3 Absolute Lymphocytes 1.8 Absolute Monocytes 0.8 Absolute Eosinophils 0.1 Absolute Basophils 0.1 Sodium 140.1 Potassium 5.1 H Chloride 101 Carbon Dioxide 22 Anion Gap 17 BUN 78 H Creatinine 8.25 H Est GFR ( Amer) 8 L Est GFR (Non-Af Amer) 6 L Glucose 123 H Calcium 9.1 Total Bilirubin 0.9 AST 35 ALT 38 Alkaline Phosphatase 177 H Total Protein 6.7 Albumin 3.8 11/20/18 09:00 Troponin I 0.036 Impressions: Chest X-Ray 11/20/18 09:00 IMPRESSION: No significant change. Assessment and Plan - Diagnosis (1) Acute respiratory failure with hypoxia Is this a current diagnosis for this admission?: Yes Plan: Patient is admitted to the medical floor and continuous cardiac telemetry. He is provided supplemental oxygen as needed to maintain oxygen saturations >88% He is started on scheduled and as needed nebulizer treatments. P.o. prednisone. Mucinex twice daily. Dialysis today for pulmonary vascular congestion secondary to volume overload. Incentive spirometer and flutter valve to bedside. (2) COPD exacerbation Is this a current diagnosis for this admission?: Yes Plan: Management as above. (3) Acute on chronic diastolic (congestive) heart failure Is this a current diagnosis for this admission?: Yes Plan: Dialysis today. Resume outpatient medication regiment. Cardiac diet. Daily weights. Will request records from [facility] regarding recent admission. (4) Diabetes Qualifiers: Diabetes mellitus type: type 2 Diabetes mellitus detention insulin use: without detention use Chronic kidney disease stage: on chronic dialysis Is this a current diagnosis for this admission?: Yes Plan: Consistent carb diet. AccuCheck before meals and bedtime with Humalog for sliding scale coverage. Hypoglycemia protocol. (5) ESRD (end stage renal disease) Is this a current diagnosis for this admission?: Yes Plan: Dr. Avery consulted. Dialysis today. (6) HTN (hypertension) Qualifiers: Hypertension type: essential hypertension Is this a current diagnosis for this admission?: Yes Plan: Will resume home medication regiment once reconciled. (7) Tobacco abuse Is this a current diagnosis for this admission?: Yes Plan: Smoking cessation encouraged; nicotine replacement therapy provided. - Time Time Spent with patient: 35 or more minutes Medications reviewed and adjusted accordingly: Yes Anticipated discharge: Home Within: within 24 hours
--- NOTE | 2018-11-20 14:04 | EKG REPORT ---
SEVERITY:- ABNORMAL ECG - SINUS RHYTHM PROBABLE LEFT VENTRICULAR HYPERTROPHY : Confirmed by: Trish Woods MD 20-Nov-2018 14:03:47
[2018-11-20] MEDS: IPRATROPIUM/ALBUTEROL 0.5-2.5 MG/3 ML AMPUL NEB SCH (16:39)
[2018-11-20] MEDS: PREDNISONE 20 MG TABLET PO SCH (16:48)
[2018-11-20] MEDS: HEPARIN SOD (PORCINE) 5,000 UNIT/ML 1 ML SYRINGE SUBCUT SCH ×2 (16:49→22:25)
--- NOTE | 2018-11-20 16:49 | PDOC CONSULTATION ---
Consultation Consult Date: 11/20/18 Provider Consulted: Praneeth GUNN History of Present Illness Admission Date/PCP: 11/20/18 11:47 DAYDAY PERSAUD MD History of Present Illness: SARA LI JR is a 68 year old male with a past medical history of Diabetes mellitus, hypertension, end-stage renal disease, pulmonary h ypertension, [place] with stent x1, transthoracic aorta aneurysm repair, COPD, Atrial fibrillation and tobacco dependence presented to the emergency department with a complaint of cough with yellow-green expectoration and progressively worsening shortness of breath x 1 week. Patient reports that he previously had home O2, however, has not had home O2 for several months to a year secondary to financial burden. The patient also relates that he was recently admitted [facility] for possible N STEMI; states that he was told he did not have an OH, but does not know what was ultimately determined to be at issue. Evaluation in the emergency department revealed that he had likely a combination of worsening congestive heart failure as well as exacerbation of COPD and respiratory decompensation and was admitted for further evaluation and treatment. His last dialysis was Tuesday. He currently undergoes only twice a week dialysis on Mondays and Fridays but has been told to have 3 days including Tuesday but patient has not been compliant for personal reasons. Labs and medications were reviewed. Chest x-ray was reviewed and shows pulmonary vascular congestion with bilateral pleural effusions left more than right. Is currently being seen while undergoing dialysis. He is being planned to have 2 to 3 L of fluid removal as tolerated. Undergoing dialysis without any issues. Past Medical History Cardiac Medical History: Reports: Abdominal Aortic Aneurysm - - S/P rupture in August 2016 and survived., Atrial Fibrillation, CHF-Diastolic, Coronary Artery Disease - History of a stent., Hyperlipidemia, Hypertension-primary, Myocardial Infarction Pulmonary Medical History: Reports: Bronchitis, Chronic Obstructive Pulmonary Disease (COPD), Pneumonia, Respiratory Failure EENT Medical History: Reports: None Neurological Medical History: Reports: None Endocrine Medical History: Reports: Diabetes Mellitus Type 2 Complications of Diabetes: Reports: None Renal/ Medical History: Reports: Chronic Kidney Disease Stage IV, End Stage Renal Disease, Secondary Hyperparathyroidism Malignancy Medical History: Reports: Renal (Kidney) Cancer - left nephrectomy in 2017 and was complicated by splenic rupture GI Medical History: Reports: None Musculoskeltal Medical History: Reports: None Skin Medical History: Reports: None Psychiatric Medical History: Reports: Depression, Tobacco Dependency Traumatic Medical History: Reports: None Infectious Medical History: Reports: None Hematology Medical History: Reports Anemia of Chronic Kidney Disease Past Surgical History Past Surgical History: Reports: Appendectomy, Coronary Stent, Nephrectomy - left, Other - Thoracic aneurysm repair 2016. Nephrectomy and splenectomy 2017 Social History Lives with: Alone Smoking Status: Current Every Day Smoker Cigarettes Packs Per Day: 0.5 Frequency of Alcohol Use: Social Hx Recreational Drug Use: No Drugs: None Hx Prescription Drug Abuse: No - Advance Directive Resuscitation Status: Full Code Family History Parental Family History Reviewed: Yes - Negative for ESRD. Children Family History Reviewed: No Sibling(s) Family History Reviewed.: No Medication/Allergy Home Medications: Albuterol Sulfate [Proair HFA Inhalation Aerosol 8.5 gm MDI] 1 puff IH Q4HP PRN 11/02/18 Amlodipine Besylate [Norvasc 10 mg Tablet] 10 mg PO QHS 11/02/18 Ezetimibe [Zetia 10 mg Tablet] 10 mg PO DAILY 11/02/18 Febuxostat [Uloric 40 mg Tablet] 40 mg PO DAILY 11/02/18 Fluticasone/Salmeterol [Advair 250-50 Diskus 14 Dose/Diskus] 1 puff IH Q12 11/02/18 Furosemide [Lasix 40 mg Tablet] 40 mg PO DAILY 11/02/18 Nitroglycerin [Nitrostat 0.4 mg (1/150 Gr) Tabs 25/Bottle] 0.4 mg SL Q5MP PRN 11/02/18 Sitagliptin Phosphate [Januvia 50 mg Tablet] 50 mg PO DAILY 11/02/18 Atorvastatin Calcium [Lipitor 80 mg Tablet] 80 mg PO QHS 11/20/18 Calcium Acetate [Phoslo 667 Mg Capsule] 1,334 mg PO TID 11/20/18 Metoprolol Tartrate [Lopressor 25 mg Tablet] 25 mg PO Q12 11/20/18 Nicotine [Nicoderm 21 mg/24 Hr Transderm Patch] 1 patch TD DAILY 11/20/18 Sodium Bicarbonate [Antacid] 650 mg PO TID 11/20/18 Allergies/Adverse Reactions: No Known Allergies Allergy (Verified 11/02/18 07:31) Review of Systems Constitutional: PRESENT: fatigue, weakness. ABSENT: fever(s), headache(s), night sweats Nose, Mouth, and Throat: ABSENT: mouth pain, sore throat Cardiovascular: PRESENT: dyspnea on exertion. ABSENT: chest pain, edema, orthropnea Gastrointestinal: ABSENT: abdominal pain, bloating, constipation, diarrhea, dysphagia, heartburn, hematemesis, hematochezia, melena, nausea, vomiting Genitourinary: ABSENT: dysuria, hematuria Neurological: ABSENT: abnormal movements, abnormal speech, confusion, focal weakness, frequent falls Hematologic/Lymphatic: ABSENT: easy bleeding, easy bruising, lymphadenopathy Physical Exam Vital Signs: Temp Pulse Resp BP Pulse Ox 20 105/62 88 L 11/20/18 11:00 11/20/18 12:01 11/20/18 12:01 Intake & Output 11/19/18 11/20/18 11/21/18 06:59 06:59 06:59 Output Total 1999 Balance -1999 Weight 77.6 kg General appearance: PRESENT: mild distress Eye exam: PRESENT: EOMI, PERRLA. ABSENT: scleral icterus Ear exam: PRESENT: normal external ear exam Mouth exam: PRESENT: moist, neck supple Neck exam: ABSENT: lymphadenopathy, meningismus, tenderness, thyromegaly, tracheal deviation Respiratory exam: PRESENT: clear to auscultation robinson, crackles - Nightly scattered in both lungs., rhonchi - Scattered in both lung ching., tachypnea GI/Abdominal exam: PRESENT: normal bowel sounds, soft. ABSENT: organomegaly, tenderness Extremities exam: ABSENT: pedal edema Neurological exam: PRESENT: alert, awake, oriented to person, oriented to place, oriented to time Psychiatric exam: PRESENT: appropriate affect Skin exam: ABSENT: cyanosis, erythema, mottled, rash Results Laboratory Results: 11/20/18 09:00 11/20/18 09:00 11/20/18 11/20/18 09:00 09:00 WBC 10.1 RBC 2.93 L Hgb 9.4 L Hct 28.8 L MCV 99 H MCH 32.2 MCHC 32.7 RDW 16.1 H Plt Count 267 Seg Neutrophils % 72.1 Lymphocytes % 17.8 Monocytes % 8.0 Eosinophils % 1.2 Basophils % 0.9 Absolute Neutrophils 7.3 Absolute Lymphocytes 1.8 Absolute Monocytes 0.8 Absolute Eosinophils 0.1 Absolute Basophils 0.1 Sodium 140.1 Potassium 5.1 H Chloride 101 Carbon Dioxide 22 Anion Gap 17 BUN 78 H Creatinine 8.25 H Est GFR ( Amer) 8 L Est GFR (Non-Af Amer) 6 L Glucose 123 H Calcium 9.1 Total Bilirubin 0.9 AST 35 ALT 38 Alkaline Phosphatase 177 H Total Protein 6.7 Albumin 3.8 11/20/18 09:00 Troponin I 0.036 Impressions: Chest X-Ray 11/20/18 09:00 IMPRESSION: No significant change. Assessment & Plan - Diagnosis (1) Acute respiratory failure with hypoxia Is this a current diagnosis for this admission?: Yes Plan: Combination of CHF and COPD exacerbation-infected.See how much response to ultrafiltration on dialysis. Currently not yet been started on antibiotics by hospitalist but that would be something that I would recommend. I recommend symptomatic/supportive treatments. Patient would need to be dialyzed again on Tuesday. Discussed that he should undergo thrice weekly dialysis and he should stop just the twice weekly dialysis from henceforth. (2) CHF exacerbation Qualifiers: Heart failure type: diastolic Qualified Code(s): I50.33 - Acute on chronic diastolic (congestive) heart failure Plan: See his response to ultrafiltration on dialysis. Plan to remove approximately 3 L as tolerated. Dialysis orders reviewed and discussed with the treating dialysis nurse. Needs thrice weekly dialysis henceforth. (3) ESRD (end stage renal disease) Is this a current diagnosis for this admission?: Yes Plan: Patient currently undergoing dialysis without any issues. Vital signs are stable. Dialysis is being supervised to ensure safe and smooth procedure. Plan to remove approximately 3 L as tolerated. Dialysis orders were reviewed with the treating dialysis nurse. Patient henceforth needs to be undergoing thrice weekly dialysis. (4) COPD exacerbation Is this a current diagnosis for this admission?: Yes Plan: Infected. Patient on steroids and nebulizers. Recommend antibiotics as well. (5) Anemia in CKD (chronic kidney disease) Qualifiers: Chronic kidney disease stage: unspecified stage Qualified Code(s): N18.9 - Chronic kidney disease, unspecified; D63.1 - Anemia in chronic kidney disease; D63.1 - Anemia in chronic kidney disease Plan: Adjust erythropoietin. (6) HTN (hypertension) Qualifiers: Hypertension type: essential hypertension Is this a current diagnosis for this admission?: Yes Plan: Controlled. Monitor
[2018-11-20] MEDS: INSULIN LISPRO 100 UNIT/ML 3 ML VIAL SUBCUT SCH ×2 (18:15→22:43)
[2018-11-20] MEDS: CALCIUM ACETATE 667 MG CAPSULE PO SCH (19:50)
[2018-11-20] MEDS: SODIUM BICARBONATE 650 MG TABLET PO SCH (19:50)
[2018-11-20] MEDS ORDERED: NORMAL SALINE 500 ML IV ONE (20:15)
[2018-11-20] MEDS ORDERED: (PENDING PHARMACY ID) (Fluticasone/Salmeterol 1 PUFF) IH SCH (22:00)
[2018-11-20] MEDS ORDERED: AMLODIPINE BESYLATE 10 MG TABLET PO SCH (22:00)
[2018-11-20] MEDS ORDERED: FLUTICASONE/VILANTEROL 200-25 MCG/DOSE IH ONE (22:00)
[2018-11-20] MEDS ORDERED: ATORVASTATIN CALCIUM 80 MG TABLET PO SCH (22:00)
[2018-11-20] MEDS: GUAIFENESIN 600 MG TABLET.SA PO SCH (22:33)
[2018-11-20] MEDS: METOPROLOL TARTRATE 25 MG TABLET PO SCH (22:34)
[2018-11-21] MEDS: IPRATROPIUM/ALBUTEROL 0.5-2.5 MG/3 ML AMPUL NEB SCH ×3 (00:46→16:24)
[2018-11-21 05:02] LABS: HEMATOCRIT 26.4 % (37.9-51.0); HEMOGLOBIN 8.7 g/dL (13.5-17.0); MEAN CORPUSCULAR HEMOGLOBIN 32.2 pg (27.0-33.4); MEAN CORPUSCULAR HGB CONC 32.9 g/dL (32.0-36.0); MEAN CORPUSCULAR VOLUME 98 fl (80-97); PLATELET COUNT 230 10^3/uL (150-450); RED BLOOD COUNT 2.71 10^6/uL (4.35-5.55); WHITE BLOOD COUNT 8.5 10^3/uL (4.0-10.5)
[2018-11-21] MEDS: HEPARIN SOD (PORCINE) 5,000 UNIT/ML 1 ML SYRINGE SUBCUT SCH ×3 (05:10→22:08)
[2018-11-21] MEDS: PANTOPRAZOLE SODIUM 20 MG TABLET.DR PO SCH (05:12)
[2018-11-21 05:33] LABS: ANION GAP 16 (5-19); BLOOD UREA NITROGEN 61 mg/dL (7-20); CALCIUM 8.8 mg/dL (8.4-10.2); CARBON DIOXIDE 27 mmol/L (22-30); CHLORIDE 99 mmol/L (98-107); GLUCOSE 166 mg/dL (75-110); POTASSIUM 4.6 mmol/L (3.6-5.0)
[2018-11-21] MEDS ORDERED: PIPERACILLIN/TAZOBACTAM 3.375 GM VIAL IV SCH (07:45)
[2018-11-21] MEDS: NICOTINE 21 MG/24 HR PATCH.TD24 TD SCH (09:47)
--- NOTE | 2018-11-21 09:55 | PDOC PROGRESS REPORT ---
Subjective Progress Note for:: 11/21/18 Subjective:: 68 year old male with a past medical history of end-stage renal disease (hemodialysis Tuesday, Tuesday; patient reports he has been told to dialyze on Wednesdays but does not attend due to conflicting appointments), CHF, hypertension, pulmonary hypertension, UT with stent x1, transthoracic aorta aneurysm repair, COPD, DM 2 and tobacco dependence who presented to the emergency department with a complaint of progressively worsening shortness of breath x1 week. Patient reports that he previously had home O2, however, has not had home O2 for several months to a year secondary to financial burden. The patient also relates that he was recently admitted [facility] for possible N STEMI; states that he was told he did not have an UT, but does not know what was ultimately determined to be at issue. Evaluation in the emergency department revealed his baseline anemia (hemoglobin 9.4), hyperkalemia (5.1), elevated creatinine and BUN (patient was due for d ialysis this morning), indeterminately elevated troponin of 0.036, NSR by EKG, and chest x-ray that demonstrates cardiomegaly with pulmonary vascular congestion and bilateral pleural effusions. He was found to have tachypnea with respiratory rate 29 at presentation with hypoxia on room air; he is currently requiring 5 lpm via nasal cannula to maintain oxygen saturations >88%. He is referred to the hospitalist service for admission and management of the above-stated complaints; arrangements have been made for the patient to proceed directly to dialysis [id number]-xyry-old male history of end-stage renal disease on hemodialysis Tuesday admitted for acute respiratory distress with hypoxia. pt Is complaining of coughing up yellowish sputum as per Dr. Avery's recommendations started on IV Zosyn and IV vancomycin. Patient says he is feeling little bit better today. He had a dialysis yesterday. I spoke to Dr. Lara just a minute ago patient is going to have dialysis tomorrow. Patient is afebrile no acute events in the last 24 hours. Reason For Visit: ACUTE RESPIRATORY FAILURE WITH HYPOXIA Physical Exam Vital Signs: Temp Pulse Resp BP Pulse Ox 98.1 F 73 20 96/52 L 91 L 11/21/18 04:41 11/21/18 08:48 11/21/18 08:48 11/21/18 04:41 11/21/18 08:48 Intake & Output 11/20/18 11/21/18 11/22/18 06:59 06:59 06:59 Intake Total 880 Output Total 1999 Balance -1120 Weight 74.7 kg General appearance: PRESENT: no acute distress, thin Head exam: PRESENT: atraumatic Eye exam: PRESENT: PERRLA Mouth exam: PRESENT: moist, tongue midline Teeth exam: PRESENT: poor dentation Neck exam: ABSENT: carotid bruit, JVD, lymphadenopathy, thyromegaly Respiratory exam: PRESENT: decreased breath sounds Cardiovascular exam: PRESENT: tachycardia GI/Abdominal exam: PRESENT: normal bowel sounds, soft. ABSENT: distended, guarding, mass, organolmegaly, rebound, tenderness Rectal exam: PRESENT: deferred Extremities exam: PRESENT: full ROM. ABSENT: calf tenderness, clubbing, pedal edema Neurological exam: PRESENT: alert, awake, oriented to person, oriented to place, oriented to time, oriented to situation, CN II-XII grossly intact. ABSENT: motor sensory deficit Psychiatric exam: PRESENT: appropriate affect, normal mood. ABSENT: homicidal ideation, suicidal ideation Results Laboratory Results: 11/21/18 04:17 11/21/18 04:17 11/20/18 11/21/18 11/21/18 09:00 04:17 04:17 WBC 8.5 RBC 2.71 L Hgb 8.7 L Hct 26.4 L MCV 98 H MCH 32.2 MCHC 32.9 RDW 16.0 H Plt Count 230 Sodium 140.1 142.0 Potassium 5.1 H 4.6 Chloride 101 99 Carbon Dioxide 22 27 Anion Gap 17 16 BUN 78 H 61 H Creatinine 8.25 H 6.16 H Est GFR ( Amer) 8 L 11 L Est GFR (Non-Af Amer) 6 L 9 L Glucose 123 H 166 H Calcium 9.1 8.8 Total Bilirubin 0.9 AST 35 ALT 38 Alkaline Phosphatase 177 H Total Protein 6.7 Albumin 3.8 11/20/18 11/20/18 09:00 17:56 Troponin I 0.036 0.024 Impressions: Chest X-Ray 11/20/18 09:00 IMPRESSION: No significant change. Assessment and Plan - Diagnosis (1) Acute respiratory failure with hypoxia Is this a current diagnosis for this admission?: Yes Plan: Patient is admitted to the medical floor and continuous cardiac telemetry. He is provided supplemental oxygen as needed to maintain oxygen saturations >88% He is started on scheduled and as needed nebulizer treatments. P.o. prednisone. Mucinex twice daily. Dialysis today for pulmonary vascular congestion secondary to volume overload. Incentive spirometer and flutter valve to bedside. 11/21/2018-patient admitted with acute respiratory failure with hypoxia his pulse ox is 91% on 5 L complaining of coughing up yellow sputum patient was started on IV Zosyn and IV vancomycin sputum cultures are going to be requested. Blood cultures are going to be requested. Patient says he is feeling little bit better. Presently on incentive spirometry, flutter valve therapy on PRN basis, he is also receiving scheduled and as needed nebulizations. He is also on p.o. prednisone and Mucinex. As per the zinc miner blasting patient may go for dialysis tomorrow for another session. In the meantime we will continue the present man agement. (2) COPD exacerbation Is this a current diagnosis for this admission?: Yes Plan: Management as above. 11/21/2018-patient has COPD secondary to chronic smoking admitted for COPD exacerbation pulse ox is 91.5 L presently on p.o. prednisone, Mucinex, scheduled and as needed nebulizations. Plan is to continue the present management started on IV vancomycin and IV Zosyn today. (3) Acute on chronic diastolic (congestive) heart failure Is this a current diagnosis for this admission?: Yes Plan: Dialysis today. Resume outpatient medication regiment. Cardiac diet. Daily weights. Will request records from [facility] regarding recent admission. 11/21/2018-patient has a successful dialysis session yesterday. And cardiac diet. He has a history of diastolic heart failure admitted this time for acute on chronic heart failure with shortness of breath. (4) ESRD (end stage renal disease) Is this a current diagnosis for this admission?: Yes Plan: Dr. Avery consulted. Dialysis today. 11/21/2018-patient has a successful dialysis yesterday AV fistula on his right arm is functioning well. As per Dr. Lara patient may need another session of dialysis tomorrow. 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 AccuCheck before meals and bedtime with Humalog for sliding scale coverage. Hypoglycemia protocol. 11/21/2018-patient blood sugar is 163. He has history of type 2 diabetes mellitus and cardiac diet. Presently on insulin sliding scale before meals and at bedtime. Plan is to continue the present management dietary consult is going to be requested to check for hemoglobin A1c. (6) Tobacco abuse Is this a current diagnosis for this admission?: Yes Plan: Smoking cessation encouraged; nicotine replacement therapy provided. 11/21/2018-patient says she smokes 3 to 5 cigarettes/day offered nicotine patches but he said they did not work ,.smoking counseling was provided for more than 10 minutes strongly advised to quit smoking. (7) Hypotension Is this a current diagnosis for this admission?: Yes Plan: 11/21/2018-patient blood pressure today is at 96/52 asymptomatic. As per the patient blood always run low. Sometimes systolic blood pressure goes down to 70 during the dialysis session as per the patient. - Time Time Spent with patient: 25-34 minutes Smoking Cessation Education: over 10 minutes Medications reviewed and adjusted accordingly: Yes Anticipated discharge: Home
[2018-11-21] MEDS ORDERED: VANCOMYCIN HCL INJ 1000 MG VIAL IV SCH (10:00)
[2018-11-21] MEDS ORDERED: FUROSEMIDE 40 MG TABLET PO SCH (10:00)
[2018-11-21] MEDS ORDERED: NICOTINE 7 MG/24 HR PATCH.TD24 TD SCH (10:00)
[2018-11-21] MEDS ORDERED: ONDANSETRON HCL INJ/PF 4 MG/2 ML SDV IV PRN (10:30)
[2018-11-21] MEDS: INSULIN LISPRO 100 UNIT/ML 3 ML VIAL SUBCUT SCH ×4 (10:31→22:08)
[2018-11-21] MEDS: CALCIUM ACETATE 667 MG CAPSULE PO SCH ×3 (10:57→17:34)
[2018-11-21] MEDS: EZETIMIBE 10 MG TABLET PO SCH (10:57)
[2018-11-21] MEDS: PREDNISONE 20 MG TABLET PO SCH (10:57)
[2018-11-21] MEDS: DOCUSATE SODIUM 100 MG CAPSULE PO SCH (10:58)
[2018-11-21] MEDS: SODIUM BICARBONATE 650 MG TABLET PO SCH ×3 (10:58→17:34)
[2018-11-21] MEDS: METOPROLOL TARTRATE 25 MG TABLET PO SCH ×2 (10:58→22:09)
[2018-11-21] MEDS: GUAIFENESIN 600 MG TABLET.SA PO SCH ×2 (10:58→22:08)
[2018-11-21] MEDS: PIPERACILLIN SODIUM/TAZOBACTAM 2.25 GM in NORMAL SALINE 50 ML IV SCH ×2 (10:59→17:33)
[2018-11-21] MEDS: FLUTICASONE/VILANTEROL 200-25 MCG/DOSE IH SCH (11:00)
[2018-11-21] MEDS ORDERED: VANCOMYCIN HCL 1,500 MG in DEXTROSE 5%-WATER 250 ML IV ONE (12:00)
[2018-11-21] MEDS: ACETAMINOPHEN 325 MG TABLET PO PRN (13:04)
--- NOTE | 2018-11-21 13:34 | PDOC PROGRESS REPORT ---
Subjective Progress Note for:: 11/21/18 Subjective:: Patient said that he is feeling better although he still a little bit short of breath but improved from admission. He relates that couple of weeks ago he was admitted and transferred to [facility] where he thought he was having an KS and had a cardiac catheterization and they found only a little blockage and no intervention was done. He is a scheduled to follow-up with his liner helper, Dr. Campbell in [facility]. Yesterday his dialysis went fine. His right arm AV fistula is just started to be used about couple weeks ago and so far has been functioning well. Dr. Avery has been advising him to go to 3 times a week dialysis rather than twice a week dialysis because of progressive deterioration of his kidney function and development of pulmonary congestion. He tells me that he is willing to go 3 times a week except for next week because he has some other doctor appointments but after that he is willing to go over with 3 times a week. He tells me that he might want short treatment on Tuesday if he has doctor appointments so I does advised him to schedule his other appointments on Tuesdays and when he is not on dialysis. He does not have any other new complaints today. Reason For Visit: ACUTE RESPIRATORY FAILURE WITH HYPOXIA Physical Exam Vital Signs: Temp Pulse Resp BP Pulse Ox 98.1 F 73 20 96/52 L 91 L 11/21/18 04:41 11/21/18 08:48 11/21/18 08:48 11/21/18 04:41 11/21/18 08:48 Intake & Output 11/20/18 11/21/18 11/22/18 06:59 06:59 06:59 Intake Total 880 Output Total 1999 Balance -1120 Weight 74.7 kg Exam: General appearance: PRESENT: no acute distress, cooperative, well-developed, well-nourished Head exam: PRESENT: atraumatic, normocephalic Eye exam: PRESENT: conjunctiva slightly pale, PERRLA. ABSENT: scleral icterus Neck exam: ABSENT: JVD Respiratory exam: PRESENT: Diminished bilateral breath sounds. ABSENT: crackles, rales, rhonchi, unlabored, wheezes Cardiovascular exam: PRESENT: Regular rate rhythm -+S1, +S2. ABSENT: diastolic murmur, systolic murmur GI/Abdominal exam: PRESENT: normal bowel sounds, soft. ABSENT: guarding, mass, tenderness Extremities exam: ABSENT: No edema Neurological exam: PRESENT: alert, awake, oriented to person, place and time. Skin exam: PRESENT: dry, warm, GI/Abdominal exam: PRESENT: normal bowel sounds, soft. ABSENT: organomegaly, tenderness Results Laboratory Results: 11/21/18 04:17 11/21/18 04:17 11/20/18 11/21/18 11/21/18 09:00 04:17 04:17 WBC 8.5 RBC 2.71 L Hgb 8.7 L Hct 26.4 L MCV 98 H MCH 32.2 MCHC 32.9 RDW 16.0 H Plt Count 230 Sodium 140.1 142.0 Potassium 5.1 H 4.6 Chloride 101 99 Carbon Dioxide 22 27 Anion Gap 17 16 BUN 78 H 61 H Creatinine 8.25 H 6.16 H Est GFR ( Amer) 8 L 11 L Est GFR (Non-Af Amer) 6 L 9 L Glucose 123 H 166 H Calcium 9.1 8.8 Total Bilirubin 0.9 AST 35 ALT 38 Alkaline Phosphatase 177 H Total Protein 6.7 Albumin 3.8 11/20/18 11/20/18 09:00 17:56 Troponin I 0.036 0.024 Impressions: Chest X-Ray 11/20/18 09:00 IMPRESSION: No significant change. Assessment & Plan - Diagnosis (1) Acute respiratory failure with hypoxia Is this a current diagnosis for this admission?: Yes Plan: Improved Breathing after Ultrafiltration through dialysis yesterday. (2) ESRD (end stage renal disease) Is this a current diagnosis for this admission?: Yes Plan: We will start Hemodialysis 3x/week. Patient agreed to do it except for next week when he has some appointments. Plan for HemoDialysis tomorrow. (3) CHF (congestive heart failure) Is this a current diagnosis for this admission?: Yes Plan: Clinically improved. (4) Anemia in CKD (chronic kidney disease) Qualifiers: Chronic kidney disease stage: unspecified stage Qualified Code(s): N18.9 - Chronic kidney disease, unspecified; D63.1 - Anemia in chronic kidney disease; D63.1 - Anemia in chronic kidney disease Is this a current diagnosis for this admission?: Yes Plan: Procrit during Hemodialysis as needed. (5) HTN (hypertension) Qualifiers: Hypertension type: essential hypertension Is this a current diagnosis for this admission?: Yes Plan: Relatively low as his baseline. (6) COPD (chronic obstructive pulmonary disease) Is this a current diagnosis for this admission?: Yes Plan: Needs Pulmonary follow-up once discharged. - Time Time with patient: 15-25 minutes
[2018-11-21] MEDS: ATORVASTATIN CALCIUM 40 MG TABLET PO SCH (22:08)
[2018-11-22] MEDS: IPRATROPIUM/ALBUTEROL 0.5-2.5 MG/3 ML AMPUL NEB SCH ×3 (00:38→16:30)
[2018-11-22] MEDS ORDERED: EPOETIN ALFA INJ 20000 UNIT/1 ML VIAL (RENAL) IV PRN (05:00)
[2018-11-22] MEDS ORDERED: NORMAL SALINE 1000 ML 1,000 ML IV PRN (05:00)
[2018-11-22] MEDS: HEPARIN SOD (PORCINE) 5,000 UNIT/ML 1 ML SYRINGE SUBCUT SCH ×3 (05:43→22:13)
[2018-11-22] MEDS: PANTOPRAZOLE SODIUM 20 MG TABLET.DR PO SCH (05:43)
[2018-11-22 07:28] LABS: ABSOLUTE NEUT (AUTO) 12.5 10^3/uL (1.7-8.2); HEMATOCRIT 24.8 % (37.9-51.0); HEMOGLOBIN 8.1 g/dL (13.5-17.0); LYMPHOCYTES % (AUTO) 6.6 % (13-45); MEAN CORPUSCULAR HEMOGLOBIN 32.1 pg (27.0-33.4); MEAN CORPUSCULAR HGB CONC 32.7 g/dL (32.0-36.0); MEAN CORPUSCULAR VOLUME 98 fl (80-97); MONOCYTES % (AUTO) 6.8 % (3-13); PLATELET COUNT 244 10^3/uL (150-450); RED BLOOD COUNT 2.53 10^6/uL (4.35-5.55); RED CELL DISTRIBUTION WIDTH 16.4 % (11.5-14.0); SEGMENTED NEUTROPHILS % (AUTO) 86.6 % (42-78); TOTAL CELLS COUNTED % (AUTO) 100 %; WHITE BLOOD COUNT 14.4 10^3/uL (4.0-10.5)
[2018-11-22] MEDS: INSULIN LISPRO 100 UNIT/ML 3 ML VIAL SUBCUT SCH ×4 (07:44→22:13)
[2018-11-22 07:50] LABS: ANION GAP 17 (5-19); BLOOD UREA NITROGEN 86 mg/dL (7-20); CALCIUM 8.7 mg/dL (8.4-10.2); CARBON DIOXIDE 24 mmol/L (22-30); CHLORIDE 99 mmol/L (98-107); GLUCOSE 207 mg/dL (75-110); POTASSIUM 4.9 mmol/L (3.6-5.0); SODIUM 140.3 mmol/L (137-145)
--- NOTE | 2018-11-22 09:25 | PDOC PROGRESS REPORT ---
Subjective Progress Note for:: 11/22/18 Subjective:: I am seeing the patient during dialysis this morning. He said this gets a little bit short of breath but much better than when he came in. So far he is tolerating dialysis. His new right AV fistula is working well. He said he is supposed to have his PermCath taken out as an outpatient in [place] today but he is currently here in the hospital. We are going to try an ultrafiltration of 2 to 3 L. He does not have any other new complaints. Reason For Visit: ACUTE RESPIRATORY FAILURE WITH HYPOXIA Physical Exam Vital Signs: Temp Pulse Resp BP Pulse Ox 97.8 F 66 18 96/61 L 90 L 11/22/18 06:00 11/22/18 08:54 11/22/18 08:54 11/22/18 06:00 11/22/18 08:54 Intake & Output 11/21/18 11/22/18 11/23/18 06:59 06:59 06:59 Intake Total 880 1182 Output Total 2000 Balance -1120 1182 Weight 74.7 kg 75.6 kg Vitals during dialysis: Blood pressure 116/57, heart rate of 68, blood flow rate of 300 mL/min, dialysate flow rate of 800 mL/min. Exam: General appearance: PRESENT: no acute distress, cooperative, well-developed, well-nourished Head exam: PRESENT: atraumatic, normocephalic Eye exam: PRESENT: conjunctiva pink, PERRLA. ABSENT: scleral icterus Neck exam: ABSENT: JVD Respiratory exam: PRESENT: Normal breath sounds. ABSENT: crackles, rales, rhonchi, unlabored, wheezes Cardiovascular exam: PRESENT: Regular rate rhythm -+S1, +S2. ABSENT: diastolic murmur, systolic murmur GI/Abdominal exam: PRESENT: normal bowel sounds, soft. ABSENT: guarding, mass, tenderness Extremities exam: ABSENT: No edema Neurological exam: PRESENT: alert, awake, oriented to person, place and time. Skin exam: PRESENT: dry, warm, GI/Abdominal exam: PRESENT: normal bowel sounds, soft. ABSENT: organomegaly, tenderness Results Laboratory Results: 11/22/18 06:19 11/22/18 06:19 11/22/18 11/22/18 06:19 06:19 WBC 14.4 H RBC 2.53 L Hgb 8.1 L Hct 24.8 L MCV 98 H MCH 32.1 MCHC 32.7 RDW 16.4 H Plt Count 244 Seg Neutrophils % 86.6 H Lymphocytes % 6.6 L Monocytes % 6.8 Eosinophils % 0.0 Basophils % 0.0 Absolute Neutrophils 12.5 H Absolute Lymphocytes 1.0 Absolute Monocytes 1.0 Absolute Eosinophils 0.0 Absolute Basophils 0.0 Sodium 140.3 Potassium 4.9 Chloride 99 Carbon Dioxide 24 Anion Gap 17 BUN 86 H Creatinine 7.44 H Est GFR ( Amer) 9 L Est GFR (Non-Af Amer) 7 L Glucose 207 H Calcium 8.7 11/21/18 09:50 Sputum Gram Stain - Final 11/21/18 09:50 Sputum Sputum Culture - Final 11/20/18 11/20/18 09:00 17:56 Troponin I 0.036 0.024 Impressions: Chest X-Ray 11/20/18 09:00 IMPRESSION: No significant change. Assessment & Plan - Diagnosis (1) Acute respiratory failure with hypoxia Is this a current diagnosis for this admission?: Yes Plan: Improved Breathing after Ultrafiltration through dialysis. I think the patient is to follow-up with his room service food server and needs to be formally evaluated by a psychologist as an outpatient upon discharge. (2) ESRD (end stage renal disease) Is this a current diagnosis for this admission?: Yes Plan: We will start Hemodialysis 3x/week. Patient agreed to do it except for next week when he has some appointments. We will do dialysis today for 3 hours, using the patient's right AV fistula, with 2 potassium bath, blood flow rate of 300 mL per minute, dialysate flow rate of 800 mL per minute, ultrafiltration 2 to 3 L as tolerated, no heparin and Procrit with 20,000 units during dialysis intravenously. Treatment plan discussed with her dialysis nurse. I spoke to Dr. Crisostomo to see if he can pull his PermCath out while here in the hospital. Dr. Crisostomo said that he can do it tomorrow if he still here in the hospital or if he is discharged today he is willing to see him in his office is around 1 PM tomorrow for PermCath removal. From nephrology standpoint I think the patient can be discharged home if everything goes well after dialysis. (3) CHF (congestive heart failure) Is this a current diagnosis for this admission?: Yes Plan: Clinically improved. (4) Anemia in CKD (chronic kidney disease) Qualifiers: Chronic kidney disease stage: unspecified stage Qualified Code(s): N18.9 - Chronic kidney disease, unspecified; D63.1 - Anemia in chronic kidney disease; D63.1 - Anemia in chronic kidney disease Is this a current diagnosis for this admission?: Yes Plan: Procrit during Hemodialysis as needed. We will give 20,000 units of Procrit today during dialysis. (5) HTN (hypertension) Qualifiers: Hypertension type: essential hypertension Is this a current diagnosis for this admission?: Yes Plan: Relatively low as his baseline. (6) COPD (chronic obstructive pulmonary disease) Is this a current diagnosis for this admission?: Yes Plan: Needs Pulmonary follow-up once discharged. - Time Time with patient: 15-25 minutes
[2018-11-22] MEDS ORDERED: VANCOMYCIN HCL 750 MG in DEXTROSE 5%-WATER 250 ML IV SCH (10:00)
[2018-11-22] MEDS ORDERED: PIPERACILLIN SODIUM/TAZOBACTAM 2.25 GM in NORMAL SALINE 50 ML IV SCH (10:00)
--- NOTE | 2018-11-22 11:01 | PDOC PROGRESS REPORT ---
Subjective Progress Note for:: 11/22/18 Subjective:: 68 year old male with a past medical history of end-stage renal disease (hemodialysis Tuesday, Tuesday; patient reports he has been told to dialyze on Wednesdays but does not attend due to conflicting appointments), CHF, hypertension, pulmonary hypertension, NJ with stent x1, transthoracic aorta aneurysm repair, COPD, DM 2 and tobacco dependence who presented to the emergency department with a complaint of progressively worsening shortness of breath x1 week. Patient reports that he previously had home O2, however, has not had home O2 for several months to a year secondary to financial burden. The patient also relates that he was recently admitted [facility] for possible N STEMI; states that he was told he did not have an NJ, but does not know what was ultimately determined to be at issue. Evaluation in the emergency department revealed his baseline anemia (hemoglobin 9.4), hyperkalemia (5.1), elevated creatinine and BUN (patient was due for d ialysis this morning), indeterminately elevated troponin of 0.036, NSR by EKG, and chest x-ray that demonstrates cardiomegaly with pulmonary vascular congestion and bilateral pleural effusions. He was found to have tachypnea with respiratory rate 29 at presentation with hypoxia on room air; he is currently requiring 5 lpm via nasal cannula to maintain oxygen saturations >88%. He is referred to the hospitalist service for admission and management of the above-stated complaints; arrangements have been made for the patient to proceed directly to dialysis [id number]-[id number]-old male history of end-stage renal disease on hemodialysis Tuesday admitted for acute respiratory distress with hypoxia. pt Is complaining of coughing up yellowish sputum as per Dr. Avery's recommendations started on IV Zosyn and IV vancomycin. Patient says he is feeling little bit better today. He had a dialysis yesterday. I spoke to Dr. Lara just a minute ago patient is going to have dialysis tomorrow. Patient is afebrile no acute events in the last 24 hours. 11/[id number]-hmyg-old male with history of end-stage renal disease on hemodialysis Tuesday day Tuesday admitted for acute respiratory distress with hypoxia. pulse is 92% on 5 L. He may need home oxygen. We are going to check for the home oxygen requirements. In the dialysis unit tolerating the procedure very well. No complaints. WBC count is going up is 14,000 today. Presently on IV vancomycin and Zosyn. Plan is to repeat the labs tomorrow if everything is okay he may go home tomorrow. Reason For Visit: ACUTE RESPIRATORY FAILURE WITH HYPOXIA Physical Exam Vital Signs: Temp Pulse Resp BP Pulse Ox 97.8 F 66 18 96/61 L 90 L 11/22/18 06:00 11/22/18 08:54 11/22/18 08:54 11/22/18 06:00 11/22/18 08:54 Intake & Output 11/21/18 11/22/18 11/23/18 06:59 06:59 06:59 Intake Total 880 1182 Output Total 1999 Balance -1120 1182 Weight 74.7 kg 75.6 kg General appearance: PRESENT: no acute distress Head exam: PRESENT: atraumatic Eye exam: PRESENT: PERRLA Mouth exam: PRESENT: moist, tongue midline Teeth exam: PRESENT: poor dentation Neck exam: ABSENT: carotid bruit, JVD, lymphadenopathy, thyromegaly Respiratory exam: PRESENT: decreased breath sounds Cardiovascular exam: PRESENT: RRR. ABSENT: diastolic murmur, rubs, systolic murmur GI/Abdominal exam: PRESENT: normal bowel sounds, soft. ABSENT: distended, guarding, mass, organolmegaly, rebound, tenderness Rectal exam: PRESENT: deferred Extremities exam: PRESENT: other - Patient has AV fistula right upper arm functioning very well. He has also temporary dialysis access in the right side of the chest. Neurological exam: PRESENT: alert, awake, oriented to person, oriented to place, oriented to time, oriented to situation, CN II-XII grossly intact. ABSENT: motor sensory deficit Psychiatric exam: PRESENT: appropriate affect, normal mood. ABSENT: homicidal ideation, suicidal ideation Results Laboratory Results: 11/22/18 06:19 11/22/18 06:19 11/22/18 11/22/18 06:19 06:19 WBC 14.4 H RBC 2.53 L Hgb 8.1 L Hct 24.8 L MCV 98 H MCH 32.1 MCHC 32.7 RDW 16.4 H Plt Count 244 Seg Neutrophils % 86.6 H Lymphocytes % 6.6 L Monocytes % 6.8 Eosinophils % 0.0 Basophils % 0.0 Absolute Neutrophils 12.5 H Absolute Lymphocytes 1.0 Absolute Monocytes 1.0 Absolute Eosinophils 0.0 Absolute Basophils 0.0 Sodium 140.3 Potassium 4.9 Chloride 99 Carbon Dioxide 24 Anion Gap 17 BUN 86 H Creatinine 7.44 H Est GFR ( Amer) 9 L Est GFR (Non-Af Amer) 7 L Glucose 207 H Calcium 8.7 11/21/18 09:50 Sputum Gram Stain - Final 11/21/18 09:50 Sputum Sputum Culture - Final 11/20/18 11/20/18 09:00 17:56 Troponin I 0.036 0.024 Impressions: Chest X-Ray 11/20/18 09:00 IMPRESSION: No significant change. Assessment and Plan - Diagnosis (1) Acute respiratory failure with hypoxia Is this a current diagnosis for this admission?: Yes Plan: Patient is admitted to the medical floor and continuous cardiac telemetry. He is provided supplemental oxygen as needed to maintain oxygen saturations >88% He is started on scheduled and as needed nebulizer treatments. P.o. prednisone. Mucinex twice daily. Dialysis today for pulmonary vascular congestion secondary to volume overload. Incentive spirometer and flutter valve to bedside. 11/21/2018-patient admitted with acute respiratory failure with hypoxia his pulse ox is 91% on 5 L complaining of coughing up yellow sputum patient was started on IV Zosyn and IV vancomycin sputum cultures are going to be requested. Blood cultures are going to be requested. Patient says he is feeling little bit better. Presently on incentive spirometry, flutter valve therapy on PRN basis, he is also receiving scheduled and as needed nebulizations. He is also on p.o. prednisone and Mucinex. As per the paper pattern folder patient may go for dialysis tomorrow for another session. In the meantime we will continue the present management. 11/22/2018-patient admitted with acute respiratory failure with hypoxia resolving. Pulse ox is 92% on 5 L plan is to check the home oxygen requirements today prior to discharge. Presently on IV vancomycin and Zosyn, WBC count is 14,000 today. (2) COPD exacerbation Is this a current diagnosis for this admission?: Yes Plan: Management as above. 11/21/2018-patient has COPD secondary to chronic smoking admitted for COPD exacerbation pulse ox is 91 percent on 5 L oxygen presently on p.o. prednisone, Mucinex, scheduled and as needed nebulizations. Plan is to continue the present management started on IV vancomycin and IV Zosyn today. 11/22/2018-patient has history of COPD came in with COPD exacerbation he still is a smoker. Pulse ox is 92% on 5 L oxygen. Plan is to check for the home oxygen requirements. Plan is to continue p.o. prednisone, scheduled and as needed nebulizations. (3) Acute on chronic diastolic (congestive) heart failure Is this a current diagnosis for this admission?: Yes Plan: Dialysis today. Resume outpatient medication regiment. Cardiac diet. Daily weights. Will request records from [facility] regarding recent admission. 11/21/2018-patient has a successful dialysis session yesterday. And cardiac diet. He has a history of diastolic heart failure admitted this time for acute on chronic heart failure with shortness of breath. 11/22/2018-patient has history of chronic diastolic heart failure admitted for acute on chronic diastolic heart failure. Shortness of breath and respiratory distress may be secondary to fluid overload. Plan is to remove 2 to 3 L of fluid today and patient respiratory status is improving on daily basis. (4) ESRD (end stage renal disease) Is this a current diagnosis for this admission?: Yes Plan: Dr. Avery consulted. Dialysis today. 11/21/2018-patient has a successful dialysis yesterday AV fistula on his right arm is functioning well. As per Dr. Lara patient may need another session of dialysis tomorrow. 11/22/2018-patient is on dialysis Tuesday as an outpatient because of the fluid overload is getting another session of dialysis today. As per Dr. Lara patient is to be on Tuesday dialysis as outpatient. (5) Diabetes Qualifiers: Diabetes mellitus type: type 2 Diabetes mellitus alf insulin use: without alf use Chronic kidney disease stage: on chronic dialysis Is this a current diagnosis for this admission?: Yes Plan: Consistent carb diet. AccuCheck before meals and bedtime with Humalog for sliding scale coverage. Hypoglycemia protocol. 11/21/2018-patient blood sugar is 163. He has history of type 2 diabetes mellitus and cardiac diet. Presently on insulin sliding scale before meals and at bedtime. Plan is to continue the present management dietary consult is going to be requested to check for hemoglobin A1c. 11/22/2018-patient blood sugar is 243 today. He is on insulin sliding scale today. Hemoglobin A1c is pending. (6) Tobacco abuse Is this a current diagnosis for this admission?: Yes (7) Hypotension Is this a current diagnosis for this admission?: Yes - Time Time Spent with patient: 15-24 minutes Smoking Cessation Education: over 10 minutes Anticipated discharge: Home
[2018-11-22] MEDS: SODIUM BICARBONATE 650 MG TABLET PO SCH ×4 (13:43→18:05)
[2018-11-22] MEDS: FLUTICASONE/VILANTEROL 200-25 MCG/DOSE IH SCH (13:43)
[2018-11-22] MEDS: METOPROLOL TARTRATE 25 MG TABLET PO SCH ×2 (13:44→23:49)
[2018-11-22] MEDS: GUAIFENESIN 600 MG TABLET.SA PO SCH ×2 (13:44→22:13)
[2018-11-22] MEDS: PREDNISONE 20 MG TABLET PO SCH (13:44)
[2018-11-22] MEDS: NICOTINE 21 MG/24 HR PATCH.TD24 TD SCH (13:45)
[2018-11-22] MEDS: DOCUSATE SODIUM 100 MG CAPSULE PO SCH (13:45)
[2018-11-22] MEDS: EZETIMIBE 10 MG TABLET PO SCH (13:46)
[2018-11-22] MEDS: CALCIUM ACETATE 667 MG CAPSULE PO SCH ×4 (13:46→18:06)
[2018-11-22] MEDS: PIPERACILLIN SODIUM/TAZOBACTAM 2.25 GM in NORMAL SALINE 50 ML IV SCH ×2 (14:15→15:15)
[2018-11-22] MEDS: ATORVASTATIN CALCIUM 40 MG TABLET PO SCH (22:13)
[2018-11-22] MEDS: VANCOMYCIN HCL 750 MG in DEXTROSE 5%-WATER 250 ML IV SCH (22:15)
[2018-11-23] MEDS: IPRATROPIUM/ALBUTEROL 0.5-2.5 MG/3 ML AMPUL NEB SCH ×3 (01:03→15:36)
[2018-11-23] MEDS: PIPERACILLIN SODIUM/TAZOBACTAM 2.25 GM in NORMAL SALINE 50 ML IV SCH ×4 (01:52→21:25)
[2018-11-23 06:37] LABS: ABSOLUTE LYMPHOCYTES (AUTO) 1.4 10^3/uL (0.5-4.7); ABSOLUTE MONOCYTES (AUTO) 1.2 10^3/uL (0.1-1.4); ABSOLUTE NEUT (AUTO) 11.5 10^3/uL (1.7-8.2); BASOPHILS % (AUTO) 0.1 % (0-2); HEMOGLOBIN 8.4 g/dL (13.5-17.0); LYMPHOCYTES % (AUTO) 9.7 % (13-45); MEAN CORPUSCULAR HEMOGLOBIN 32.1 pg (27.0-33.4); MEAN CORPUSCULAR HGB CONC 32.4 g/dL (32.0-36.0); MEAN CORPUSCULAR VOLUME 99 fl (80-97); MONOCYTES % (AUTO) 8.9 % (3-13); PLATELET COUNT 221 10^3/uL (150-450); RED BLOOD COUNT 2.62 10^6/uL (4.35-5.55); RED CELL DISTRIBUTION WIDTH 16.4 % (11.5-14.0); SEGMENTED NEUTROPHILS % (AUTO) 81.3 % (42-78); TOTAL CELLS COUNTED % (AUTO) 100 %; WHITE BLOOD COUNT 14.1 10^3/uL (4.0-10.5)
[2018-11-23] MEDS: HEPARIN SOD (PORCINE) 5,000 UNIT/ML 1 ML SYRINGE SUBCUT SCH ×2 (06:46→14:50)
[2018-11-23] MEDS: PANTOPRAZOLE SODIUM 20 MG TABLET.DR PO SCH (06:46)
[2018-11-23 07:08] LABS: ALANINE AMINOTRANSFERASE 26 U/L (21-72); ALBUMIN 3.3 g/dL (3.5-5.0); ALKALINE PHOSPHATASE 133 U/L (38-126); ANION GAP 15 (5-19); ASPARTATE AMINO TRANSFERASE 17 U/L (17-59); BILIRUBIN,DIRECT 0.6 mg/dL (0.0-0.4); BILIRUBIN,TOTAL 0.6 mg/dL (0.2-1.3); BLOOD UREA NITROGEN 68 mg/dL (7-20); CALCIUM 8.7 mg/dL (8.4-10.2); CARBON DIOXIDE 23 mmol/L (22-30); CHLORIDE 100 mmol/L (98-107); GLUCOSE 225 mg/dL (75-110); POTASSIUM 4.3 mmol/L (3.6-5.0); SODIUM 138.2 mmol/L (137-145); TOTAL PROTEIN 5.8 g/dL (6.3-8.2)
[2018-11-23] MEDS: INSULIN LISPRO 100 UNIT/ML 3 ML VIAL SUBCUT SCH ×4 (07:59→22:04)
[2018-11-23] MEDS ORDERED: VANCOMYCIN HCL 750 MG in DEXTROSE 5%-WATER 250 ML IV SCH (10:00)
[2018-11-23] MEDS: ALBUTEROL SULFATE 0.083% NEB 2.5 MG/3 ML AMPUL NEB PRN (10:06)
--- NOTE | 2018-11-23 10:39 | PDOC PROGRESS REPORT ---
Subjective Progress Note for:: 11/23/18 Subjective:: 68 year old male with a past medical history of end-stage renal disease (hemodialysis Tuesday, Tuesday; patient reports he has been told to dialyze on Wednesdays but does not attend due to conflicting appointments), CHF, hypertension, pulmonary hypertension, NJ with stent x1, transthoracic aorta aneurysm repair, COPD, DM 2 and tobacco dependence who presented to the emergency department with a complaint of progressively worsening shortness of breath x1 week. Patient reports that he previously had home O2, however, has not had home O2 for several months to a year secondary to financial burden. The patient also relates that he was recently admitted [facility] for possible N STEMI; states that he was told he did not have an NJ, but does not know what was ultimately determined to be at issue. Evaluation in the emergency department revealed his baseline anemia (hemoglobin 9.4), hyperkalemia (5.1), elevated creatinine and BUN (patient was due for d ialysis this morning), indeterminately elevated troponin of 0.036, NSR by EKG, and chest x-ray that demonstrates cardiomegaly with pulmonary vascular congestion and bilateral pleural effusions. He was found to have tachypnea with respiratory rate 29 at presentation with hypoxia on room air; he is currently requiring 5 lpm via nasal cannula to maintain oxygen saturations >88%. He is referred to the hospitalist service for admission and management of the above-stated complaints; arrangements have been made for the patient to proceed directly to dialysis 11/21/[id number]-zaoi-old male history of end-stage renal disease on hemodialysis Tuesday admitted for acute respiratory distress with hypoxia. pt Is complaining of coughing up yellowish sputum as per Dr. Avery's recommendations started on IV Zosyn and IV vancomycin. Patient says he is feeling little bit better today. He had a dialysis yesterday. I spoke to Dr. Lara just a minute ago patient is going to have dialysis tomorrow. Patient is afebrile no acute events in the last 24 hours. 11/[id number]-bdew-old male with history of end-stage renal disease on hemodialysis Tuesday day Tuesday admitted for acute respiratory distress with hypoxia. pulse is 92% on 5 L. He may need home oxygen. We are going to check for the home oxygen requirements. In the dialysis unit tolerating the procedure very well. No complaints. WBC count is going up is 14,000 today. Presently on IV vancomycin and Zosyn. Plan is to repeat the labs tomorrow if everything is okay he may go home tomorrow. 11/23/[id number]-evms-old male with history of end-stage renal disease on hemodialysis Tuesday admitted with acute respiratory distress with hypoxia. Pulse ox today is 92% on 5 L. Patient complaining of increasing shortness of breath since last night. He wants to stay another day and to have her dialysis tomorrow prior to discharge. Presently on IV vancomycin and Zosyn. No other complaints. The plan to check his home oxygen requirements today. Reason For Visit: ACUTE RESPIRATORY FAILURE WITH HYPOXIA Physical Exam Vital Signs: Temp Pulse Resp BP Pulse Ox 97.2 F 69 22 H 123/72 92 11/23/18 08:00 11/23/18 10:06 11/23/18 10:06 11/23/18 08:00 11/23/18 10:06 Intake & Output 11/22/18 11/23/18 11/24/18 06:59 06:59 06:59 Intake Total 1182 1941 Output Total 702 Balance 1182 1239 Weight 75.6 kg 76 kg General appearance: PRESENT: mild distress Head exam: PRESENT: atraumatic Eye exam: PRESENT: PERRLA Mouth exam: PRESENT: moist, tongue midline Neck exam: ABSENT: carotid bruit, JVD, lymphadenopathy, thyromegaly Respiratory exam: PRESENT: decreased breath sounds Cardiovascular exam: PRESENT: tachycardia GI/Abdominal exam: PRESENT: normal bowel sounds, soft. ABSENT: distended, guarding, mass, organolmegaly, rebound, tenderness Rectal exam: PRESENT: deferred Extremities exam: PRESENT: full ROM, other - Patient has AV fistula right upper arm functioning very well with good thrill. He has also dialysis access in the right chest.. ABSENT: calf tenderness, clubbing, pedal edema Neurological exam: PRESENT: alert, awake, oriented to person, oriented to place, oriented to time, oriented to situation, CN II-XII grossly intact. ABSENT: motor sensory deficit Psychiatric exam: PRESENT: appropriate affect, normal mood. ABSENT: homicidal ideation, suicidal ideation Results Laboratory Results: 11/23/18 05:43 11/23/18 05:43 11/23/18 11/23/18 05:43 05:43 WBC 14.1 H RBC 2.62 L Hgb 8.4 L Hct 26.0 L MCV 99 H MCH 32.1 MCHC 32.4 RDW 16.4 H Plt Count 221 Seg Neutrophils % 81.3 H Lymphocytes % 9.7 L Monocytes % 8.9 Eosinophils % 0.0 Basophils % 0.1 Absolute Neutrophils 11.5 H Absolute Lymphocytes 1.4 Absolute Monocytes 1.2 Absolute Eosinophils 0.0 Absolute Basophils 0.0 Sodium 138.2 Potassium 4.3 Chloride 100 Carbon Dioxide 23 Anion Gap 15 BUN 68 H Creatinine 5.61 H Est GFR ( Amer) 12 L Est GFR (Non-Af Amer) 10 L Glucose 225 H Calcium 8.7 Magnesium 2.0 Total Bilirubin 0.6 AST 17 ALT 26 Alkaline Phosphatase 133 H Total Protein 5.8 L Albumin 3.3 L 11/21/18 09:50 Sputum Gram Stain - Final 11/21/18 09:50 Sputum Sputum Culture - Final 11/20/18 11/20/18 09:00 17:56 Troponin I 0.036 0.024 Impressions: Chest X-Ray 11/20/18 09:00 IMPRESSION: No significant change. Assessment and Plan - Diagnosis (1) Acute respiratory failure with hypoxia Is this a current diagnosis for this admission?: Yes Plan: Patient is admitted to the medical floor and continuous cardiac telemetry. He is provided supplemental oxygen as needed to maintain oxygen saturations >88% He is started on scheduled and as needed nebulizer treatments. P.o. prednisone. Mucinex twice daily. Dialysis today for pulmonary vascular congestion secondary to volume overload. Incentive spirometer and flutter valve to bedside. 11/21/2018-patient admitted with acute respiratory failure with hypoxia his pulse ox is 91% on 5 L complaining of coughing up yellow sputum patient was started on IV Zosyn and IV vancomycin sputum cultures are going to be requested. Blood cultures are going to be requested. Patient says he is feeling little bit better. Presently on incentive spirometry, flutter valve therapy on PRN basis, he is also receiving scheduled and as needed nebulizations. He is also on p.o. prednisone and Mucinex. As per the atmospheric sciences professor patient may go for dialysis tomorrow for another session. In the meantime we will continue the present management. 11/22/2018-patient admitted with acute respiratory failure with hypoxia resolving. Pulse ox is 92% on 5 L plan is to check the home oxygen requirements today prior to discharge. Presently on IV vancomycin and Zosyn, WBC count is 14,000 today. 11/23/[id number]-cybu-old male admitted with acute respiratory failure with hypoxia. Resolving. Pulse ox today is 92% 5 L. Plan to check home oxygen requirements. Presently on IV vancomycin and Zosyn blood cultures are negative WBC count is slightly came down to 14,100 today. Presently on scheduled nebulizer oxygen treatments. Plan is to continue the present management. Acute respiratory fa ilure with hypoxia may be secondary to fluid overload and possible underlying COPD. (2) COPD exacerbation Is this a current diagnosis for this admission?: Yes Plan: Management as above. 11/21/2018-patient has COPD secondary to chronic smoking admitted for COPD exacerbation pulse ox is 91 percent on 5 L oxygen presently on p.o. prednisone, Mucinex, scheduled and as needed nebulizations. Plan is to continue the present management started on IV vancomycin and IV Zosyn today. 11/22/2018-patient has history of COPD came in with COPD exacerbation he still is a smoker. Pulse ox is 92% on 5 L oxygen. Plan is to check for the home oxygen requirements. Plan is to continue p.o. prednisone, scheduled and as needed nebulizations. 11/23/2018-patient has history of COPD secondary to smoking admitted with COPD exacerbation. Presently on p.o. prednisone, on scheduled and as needed nebulizations. Pulse ox is 92% on 5 L today he is complaining of increasing shortness of breath today. Plan is to give him another day probably discharge after dialysis session tomorrow. To check a pulse ox at rest on pulse ox also on ambulation, to see if he qualify for home oxygen. (3) Acute on chronic diastolic (congestive) heart failure Is this a current diagnosis for this admission?: Yes Plan: Dialysis today. Resume outpatient medication regiment. Cardiac diet. Daily weights. Will request records from [facility] regarding recent admission. 11/21/2018-patient has a successful dialysis session yesterday. And cardiac diet. He has a history of diastolic heart failure admitted this time for acute on chronic heart failure with shortness of breath. 11/22/2018-patient has history of chronic diastolic heart failure admitted for acute on chronic diastolic heart failure. Shortness of breath and respiratory distress may be secondary to fluid overload. Plan is to remove 2 to 3 L of fluid today and patient respiratory status is improving on daily basis. 11/23/2018-patient has history of chronic diastolic heart failure. Admitted with acute on chronic respiratory failure with hypoxia it may be secondary to CHF exacerbation. He had a dialysis on Tuesday and is going for dialysis tomorrow. Hopefully fluid removal will improve his breathing. Sent echocardiogram indicates patient might had mild diastolic heart failure. (4) ESRD (end stage renal disease) Is this a current diagnosis for this admission?: Yes Plan: Dr. vAery consulted. Dialysis today. 11/21/2018-patient has a successful dialysis yesterday AV fistula on his right arm is functioning well. As per Dr. Lara patient may need another session of dialysis tomorrow. 11/22/2018-patient is on dialysis Tuesday as an outpatient because of the fluid overload is getting another session of dialysis today. As per Dr. Lara patient is to be on Tuesday dialysis as outpatient. 11/23/[id number]-tmqf-old male with history of ESRD on hemodialysis Tuesday, last dialysis yesterday for fluid overload and he has a functioning AV fistula on the right arm. He is complaining of increasing shortness of breath today will receive another session of dialysis tomorrow before discharge. (5) Diabetes Qualifiers: Diabetes mellitus type: type 2 Diabetes mellitus roasterman insulin use: without care home use Chronic kidney disease stage: on chronic dialysis Is this a current diagnosis for this admission?: Yes Plan: Consistent carb diet. AccuCheck before meals and bedtime with Humalog for sliding scale coverage. Hypoglycemia protocol. 11/21/2018-patient blood sugar is 163. He has history of type 2 diabetes mellitus and cardiac diet. Presently on insulin sliding scale before meals and at bedtime. Plan is to continue the present management dietary consult is going to be requested to check for hemoglobin A1c. 11/22/2018-patient blood sugar is 243 today. He is on insulin sliding scale today. Hemoglobin A1c is pending. 11/23/2018-patient has history of type 2 diabetes mellitus. Latest blood sugar is 218. Again insulin sliding scale. hemoglobin A1c is pending. (6) Tobacco abuse Is this a current diagnosis for this admission?: Yes Plan: Smoking cessation encouraged; nicotine replacement therapy provided. 11/21/2018-patient says she smokes 3 to 5 cigarettes/day offered nicotine patches but he said they did not work ,.smoking counseling was provided for more than 10 minutes strongly advised to quit smoking. (7) Hypotension Is this a current diagnosis for this admission?: Yes Plan: 11/21/2018-patient blood pressure today is at 96/52 asymptomatic. As per the patient blood always run low. Sometimes systolic blood pressure goes down to 70 during the dialysis session as per the patient. - Time Time Spent with patient: 25-34 minutes Medications reviewed and adjusted accordingly: Yes Anticipated discharge: Home
[2018-11-23] MEDS: DOCUSATE SODIUM 100 MG CAPSULE PO SCH (11:05)
[2018-11-23] MEDS: GUAIFENESIN 600 MG TABLET.SA PO SCH ×2 (11:06→21:25)
[2018-11-23] MEDS: PREDNISONE 20 MG TABLET PO SCH (11:06)
[2018-11-23] MEDS: METOPROLOL TARTRATE 25 MG TABLET PO SCH ×2 (11:06→21:26)
[2018-11-23] MEDS: SODIUM BICARBONATE 650 MG TABLET PO SCH ×3 (11:06→17:33)
[2018-11-23] MEDS: NICOTINE 21 MG/24 HR PATCH.TD24 TD SCH (11:07)
[2018-11-23] MEDS: EZETIMIBE 10 MG TABLET PO SCH (11:07)
[2018-11-23] MEDS: CALCIUM ACETATE 667 MG CAPSULE PO SCH ×3 (11:07→17:33)
[2018-11-23] MEDS: FLUTICASONE/VILANTEROL 200-25 MCG/DOSE IH SCH (11:08)
--- NOTE | 2018-11-23 11:34 | PDOC PROGRESS REPORT ---
Subjective Progress Note for:: 11/23/18 Subjective:: Patient states that he still gets short of breath with minimal exertion he has going from his bed to the bathroom. He does not feel that he is ready to go home yet. He told me that he actually had home oxygen but his oxygenation was doing too well so he returned his oxygen months ago. He probably needs to go home with some home oxygen. He states that he is coughing up greenish phlegm. Yesterday we were only able to get about 700 of ultrafiltration due to relative hypotension. We will try again tomorrow and see if he can get a lipid better ultrafiltration. Dr. Crisostomo has been consulted for possible PermCath removal today while here in the hospital. Reason For Visit: ACUTE RESPIRATORY FAILURE WITH HYPOXIA Physical Exam Vital Signs: Temp Pulse Resp BP Pulse Ox 97.2 F 69 22 H 123/72 92 11/23/18 08:00 11/23/18 10:06 11/23/18 10:06 11/23/18 08:00 11/23/18 10:06 Intake & Output 11/22/18 11/23/18 11/24/18 06:59 06:59 06:59 Intake Total 1182 1941 Output Total 702 Balance 1182 1239 Weight 75.6 kg 76 kg Exam: General appearance: PRESENT: no acute distress, cooperative, well-developed, well-nourished Head exam: PRESENT: atraumatic, normocephalic Eye exam: PRESENT: conjunctiva pink, PERRLA. ABSENT: scleral icterus Neck exam: ABSENT: JVD Respiratory exam: PRESENT: Diminished breath sounds. ABSENT: crackles, rales, rhonchi, unlabored, wheezes Cardiovascular exam: PRESENT: Regular rate rhythm -+S1, +S2. ABSENT: diastolic murmur, systolic murmur GI/Abdominal exam: PRESENT: normal bowel sounds, soft. ABSENT: guarding, mass, tenderness Extremities exam: ABSENT: No edema Neurological exam: PRESENT: alert, awake, oriented to person, place and time. Skin exam: PRESENT: dry, warm, GI/Abdominal exam: PRESENT: normal bowel sounds, soft. ABSENT: organomegaly, tenderness Results Laboratory Results: 11/23/18 05:43 11/23/18 05:43 11/23/18 11/23/18 05:43 05:43 WBC 14.1 H RBC 2.62 L Hgb 8.4 L Hct 26.0 L MCV 99 H MCH 32.1 MCHC 32.4 RDW 16.4 H Plt Count 221 Seg Neutrophils % 81.3 H Lymphocytes % 9.7 L Monocytes % 8.9 Eosinophils % 0.0 Basophils % 0.1 Absolute Neutrophils 11.5 H Absolute Lymphocytes 1.4 Absolute Monocytes 1.2 Absolute Eosinophils 0.0 Absolute Basophils 0.0 Sodium 138.2 Potassium 4.3 Chloride 100 Carbon Dioxide 23 Anion Gap 15 BUN 68 H Creatinine 5.61 H Est GFR ( Amer) 12 L Est GFR (Non-Af Amer) 10 L Glucose 225 H Calcium 8.7 Magnesium 2.0 Total Bilirubin 0.6 AST 17 ALT 26 Alkaline Phosphatase 133 H Total Protein 5.8 L Albumin 3.3 L 11/21/18 09:50 Sputum Gram Stain - Final 11/21/18 09:50 Sputum Sputum Culture - Final 11/20/18 11/20/18 09:00 17:56 Troponin I 0.036 0.024 Impressions: Chest X-Ray 11/20/18 09:00 IMPRESSION: No significant change. Assessment & Plan - Diagnosis (1) Acute respiratory failure with hypoxia Is this a current diagnosis for this admission?: Yes Plan: Still requiring high flow oxygen at 5 L via nasal cannula. I think the patient is to follow-up with his java architect and needs to be formally evaluated by a lmonologist as an outpatient upon discharge. Likely to require home oxygen. (2) ESRD (end stage renal disease) Is this a current diagnosis for this admission?: Yes Plan: We will plan to do dialysis tomorrow with more ultrafiltration hopefully if blood pressure tolerates. (3) CHF (congestive heart failure) Is this a current diagnosis for this admission?: Yes Plan: Clinically improved. (4) Anemia in CKD (chronic kidney disease) Qualifiers: Chronic kidney disease stage: unspecified stage Qualified Code(s): N18.9 - Chronic kidney disease, unspecified; D63.1 - Anemia in chronic kidney disease; D63.1 - Anemia in chronic kidney disease Is this a current diagnosis for this admission?: Yes Plan: Procrit during Hemodialysis as needed. (5) HTN (hypertension) Qualifiers: Hypertension type: essential hypertension Is this a current diagnosis for this admission?: Yes Plan: Relatively low as his baseline. Hold any blood pressure medications prior to dialysis. (6) COPD (chronic obstructive pulmonary disease) Is this a current diagnosis for this admission?: Yes Plan: Needs Pulmonary follow-up once discharged. (7) Acute bronchitis Is this a current diagnosis for this admission?: Yes Plan: On IV Zosyn and vancomycin. Check vancomycin trough level tomorrow. Repeat chest x-ray today. - Time Time with patient: 15-25 minutes
--- NOTE | 2018-11-23 12:54 | RADIOLOGY REPORT (SQ) ---
EXAM DESCRIPTION: CHEST 2 VIEWS COMPLETED DATE/TIME: 11/23/2018 12:40 pm REASON FOR STUDY: SOB, Cough COMPARISON: 11/20/2018 EXAM PARAMETERS: NUMBER OF VIEWS: two views TECHNIQUE: Digital Frontal and Lateral radiographic views of the chest acquired. RADIATION DOSE: NA LIMITATIONS: none FINDINGS: LUNGS AND PLEURA: Minimal right pleural effusion. Large left pleural effusion that has in creased. Pulmonary vascular congestion. No tj pulmonary edema. MEDIASTINUM AND HILAR STRUCTURES: No masses or contour abnormalities. HEART AND VASCULAR STRUCTURES: Cardiomegaly. BONES: No acute findings. HARDWARE: Dual-lumen catheter. Aortic stent. OTHER: No other significant finding. IMPRESSION: Bilateral pleural effusions as described. The left has increased. Cardiomegaly with pu lmonary vascular congestion but no florid CHF. TECHNICAL DOCUMENTATION: JOB ID: [id number] [employer]- All Rights Reserved Reading location - IP/workstation name: [email or web address]
[2018-11-23] MEDS ORDERED: LIDOCAINE 0.5% INJ-PF (5 MG/ML) 50 ML SDV INJ PRN (13:45)
[2018-11-23 15:36] LABS: INTERNATIONAL RATION (INR) 1.07; PROTHROMBIN TIME 14.4 SEC (11.4-15.4)
--- NOTE | 2018-11-23 18:51 | Operative Report ---
Operative Report DATE OF SURGERY: 11/23/18 PREOPERATIVE DIAGNOSIS: 1. End-stage renal disease on hemodialysis. 2. Multi ple comorbidities. POSTOPERATIVE DIAGNOSIS: 1. End-stage renal disease on hemodialysis. 2. Multiple comorbidities. OPERATION: Removal of PermCath catheter. SURGEON: BORA MALONEY OFFICE COORDINATOR RECEPTIONIST: None. ANESTHESIA: Local TISSUE REMOVED OR ALTERED: Not applicable. COMPLICATIONS: None. ESTIMATED BLOOD LOSS: 2 mL. INTRAOPERATIVE FINDINGS: Of a well founded right-sided internal jugular venous permacatheter. Removed with some challenge as the cuff had grown into the soft tissue very soundly. PROCEDURE: After explaining the procedure and obtaining informed consent the catheter was removed at bedside. The catheter, exit site and surrounding skin were prepared with Betadine solution and draped out with sterile linen. A generous amount of 0.5% local anesthesia was infiltrated in the skin and subcutaneous tissues and around the cuff catheter. The catheter was now dissected away from the surrounding tissues using a hemostat and scissors. Once the cuff was entirely free, folded 4 x 4's were placed over the entry site of the neck and the exit site held in place with tape. The catheter was now removed and discarded. The procedure thus concluded.
[2018-11-23] MEDS: ATORVASTATIN CALCIUM 40 MG TABLET PO SCH (21:25)
[2018-11-24] MEDS: IPRATROPIUM/ALBUTEROL 0.5-2.5 MG/3 ML AMPUL NEB SCH ×3 (00:04→17:26)
[2018-11-24] MEDS ORDERED: EPOETIN ALFA INJ 40000 UNIT/1 ML (RENAL) IV PRN (05:00)
[2018-11-24] MEDS ORDERED: NORMAL SALINE 1000 ML 1,000 ML IV PRN (05:00)
[2018-11-24] MEDS: PANTOPRAZOLE SODIUM 20 MG TABLET.DR PO SCH (06:08)
[2018-11-24] MEDS: PIPERACILLIN SODIUM/TAZOBACTAM 2.25 GM in NORMAL SALINE 50 ML IV SCH ×3 (06:08→21:22)
[2018-11-24 07:11] LABS: ABSOLUTE LYMPHOCYTES (AUTO) 2.2 10^3/uL (0.5-4.7); ABSOLUTE MONOCYTES (AUTO) 1.9 10^3/uL (0.1-1.4); ABSOLUTE NEUT (AUTO) 10.6 10^3/uL (1.7-8.2); BASOPHILS % (AUTO) 0.1 % (0-2); EOSINOPHILS % (AUTO) 0.1 % (0-6); HEMATOCRIT 26.4 % (37.9-51.0); HEMOGLOBIN 8.6 g/dL (13.5-17.0); MEAN CORPUSCULAR HEMOGLOBIN 32.3 pg (27.0-33.4); MEAN CORPUSCULAR HGB CONC 32.5 g/dL (32.0-36.0); MEAN CORPUSCULAR VOLUME 99 fl (80-97); MONOCYTES % (AUTO) 12.8 % (3-13); PLATELET COUNT 282 10^3/uL (150-450); RED BLOOD COUNT 2.65 10^6/uL (4.35-5.55); RED CELL DISTRIBUTION WIDTH 16.9 % (11.5-14.0); TOTAL CELLS COUNTED % (AUTO) 100 %; WHITE BLOOD COUNT 14.7 10^3/uL (4.0-10.5)
[2018-11-24 07:26] LABS: ALANINE AMINOTRANSFERASE 31 U/L (21-72); ALBUMIN 3.3 g/dL (3.5-5.0); ALKALINE PHOSPHATASE 120 U/L (38-126); ANION GAP 16 (5-19); ASPARTATE AMINO TRANSFERASE 15 U/L (17-59); BILIRUBIN,DIRECT 0.6 mg/dL (0.0-0.4); BILIRUBIN,TOTAL 0.6 mg/dL (0.2-1.3); BLOOD UREA NITROGEN 84 mg/dL (7-20); CARBON DIOXIDE 23 mmol/L (22-30); CHLORIDE 100 mmol/L (98-107); GLUCOSE 202 mg/dL (75-110); POTASSIUM 4.3 mmol/L (3.6-5.0); SODIUM 138.9 mmol/L (137-145); TOTAL PROTEIN 5.8 g/dL (6.3-8.2)
[2018-11-24 07:30] LABS: VANCOMYCIN,TROUGH 16.4 ug/mL (5.0-20.0)
[2018-11-24] MEDS: INSULIN LISPRO 100 UNIT/ML 3 ML VIAL SUBCUT SCH ×4 (07:51→21:23)
--- NOTE | 2018-11-24 09:14 | RADIOLOGY REPORT (SQ) ---
EXAM DESCRIPTION: CHEST SINGLE VIEW COMPLETED DATE/TIME: 11/24/2018 8:54 am REASON FOR STUDY: POST THORA PLEURAL EFFUSION COMPARISON: 11/23/2018 NUMBER OF VIEWS: One view. TECHNIQUE: Single frontal radiographic image of the chest acquired. LIMITATIONS: None. FINDINGS: LUNGS AND PLEURA: Decrease in left pleural effusion. Otherwise no significant change. No pneumothorax. MEDIASTINUM AND HEART: Stable heart size and mediastinal structures. BONY STRUCTURES: No acute findings. HARDWARE: None. OTHER: Interval removal of right-sided central line. IMPRESSION: No pneumothorax status post thoracentesis. TECHNICAL DOCUMENTATION: JOB ID: [id number] Reading location - IP/workstation name: [email or web address]
--- NOTE | 2018-11-24 09:18 | RADIOLOGY REPORT (SQ) ---
EXAM DESCRIPTION: U/S THORACENTESIS WITH IMAGING COMPLETED DATE/TIME: 11/24/2018 9:05 am REASON FOR STUDY: robinson plural effusions COMPARISON: None. LIMITATIONS: None. PROCEDURE: Procedure, risks, benefit, and alternative explained to patient who then gave written con sent. The posterior left chest wall was marked using ultrasound guidance. A time-out was called for correct marking verification. Chest prepped and draped using sterile technique. Local anesthesia ac hieved using 2.5 ml of 1% lidocaine injection. A 6fr Safe-T- Centesis set was introduced into the le ft pleural space. Fluid was aspirated. The catheter was removed and the entry site was covered with sterile bandage. No immediate complications noted. Images acquired during the procedure were stored on PACS. FINDINGS: ENTRY SITE: posterior left chest. FLUID VOLUME: 950 cc FLUID ANALYSIS: Silvia OTHER: Fluid sent to the lab for testing. IMPRESSION: SUCCESSFUL THORACENTESIS USING ULTRASOUND GUIDANCE. COMMENT: Patient medication list reviewed: Yes- Quality ID# [id number]:Eligible professional attests to doc umenting in the medical record they obtained, updated, or reviewed the patient's current medications. TECHNICAL DOCUMENTATION: JOB ID: [id number] [employer]- All Rights Reserved Reading location - IP/workstation name: [email or web address]
[2018-11-24] MEDS: METOPROLOL TARTRATE 25 MG TABLET PO SCH ×2 (09:23→21:23)
[2018-11-24] MEDS: EZETIMIBE 10 MG TABLET PO SCH (09:28)
[2018-11-24] MEDS: DOCUSATE SODIUM 100 MG CAPSULE PO SCH (09:28)
[2018-11-24] MEDS: CALCIUM ACETATE 667 MG CAPSULE PO SCH ×3 (09:28→17:03)
[2018-11-24] MEDS: PREDNISONE 20 MG TABLET PO SCH (09:28)
[2018-11-24] MEDS: SODIUM BICARBONATE 650 MG TABLET PO SCH ×3 (09:28→17:03)
[2018-11-24] MEDS: GUAIFENESIN 600 MG TABLET.SA PO SCH ×2 (09:28→21:23)
[2018-11-24] MEDS: FLUTICASONE/VILANTEROL 200-25 MCG/DOSE IH SCH (09:29)
[2018-11-24] MEDS: NICOTINE 21 MG/24 HR PATCH.TD24 TD SCH (09:29)
[2018-11-24 10:49] LABS: FLUID APPEARANCE CLOUDY; FLUID COLOR AMBER; FLUID SOURCE ABDOMEN; FLUID TYPE PLEURAL; FLUID VISCOSITY LIQUID
--- NOTE | 2018-11-24 11:02 | PDOC PROGRESS REPORT ---
Subjective Progress Note for:: 11/24/18 Subjective:: 68 year old male with a past medical history of end-stage renal disease (hemodialysis Tuesday, Tuesday; patient reports he has been told to dialyze on Wednesdays but does not attend due to conflicting appointments), CHF, hypertension, pulmonary hypertension, IL with stent x1, transthoracic aorta aneurysm repair, COPD, DM 2 and tobacco dependence who presented to the emergency department with a complaint of progressively worsening shortness of breath x1 week. Patient reports that he previously had home O2, however, has not had home O2 for several months to a year secondary to financial burden. The patient also relates that he was recently admitted [facility] for possible N STEMI; states that he was told he did not have an IL, but does not know what was ultimately determined to be at issue. Evaluation in the emergency department revealed his baseline anemia (hemoglobin 9.4), hyperkalemia (5.1), elevated creatinine and BUN (patient was due for d ialysis this morning), indeterminately elevated troponin of 0.036, NSR by EKG, and chest x-ray that demonstrates cardiomegaly with pulmonary vascular congestion and bilateral pleural effusions. He was found to have tachypnea with respiratory rate 29 at presentation with hypoxia on room air; he is currently requiring 5 lpm via nasal cannula to maintain oxygen saturations >88%. He is referred to the hospitalist service for admission and management of the above-stated complaints; arrangements have been made for the patient to proceed directly to dialysis 11/21/[id number]-mnwl-old male history of end-stage renal disease on hemodialysis Tuesday admitted for acute respiratory distress with hypoxia. pt Is complaining of coughing up yellowish sputum as per Dr. Avery's recommendations started on IV Zosyn and IV vancomycin. Patient says he is feeling little bit better today. He had a dialysis yesterday. I spoke to Dr. Lara just a minute ago patient is going to have dialysis tomorrow. Patient is afebrile no acute events in the last 24 hours. 11/22/[id number]-zuzc-old male with history of end-stage renal disease on hemodialysis Tuesday day Tuesday admitted for acute respiratory distress with hypoxia. pulse is 92% on 5 L. He may need home oxygen. We are going to check for the home oxygen requirements. In the dialysis unit tolerating the procedure very well. No complaints. WBC count is going up is 14,000 today. Presently on IV vancomycin and Zosyn. Plan is to repeat the labs tomorrow if everything is okay he may go home tomorrow. 11/23/[id number]-wrgh-old male with history of end-stage renal disease on hemodialysis Tuesday admitted with acute respiratory distress with hypoxia. Pulse ox today is 92% on 5 L. Patient complaining of increasing shortness of breath since last night. He wants to stay another day and to have her dialysis tomorrow prior to discharge. Presently on IV vancomycin and Zosyn. No other complaints. The plan to check his home oxygen requirements today. 11/24/[id number]-fuak-old male with a history of end-stage renal disease on dialysis Tuesday, Tuesday admitted for acute respiratory distress with hypoxia. Pulse ox today is 93% on 5 L. He developed pleural effusions and underwent for left- sided thoracentesis today 950 mL of fluid was removed. He is breathing much better. Postthoracentesis chest x-ray is negative for pneumothorax. Comfortable in the bed communicating well not in distress. He is going to have a dialysis session today. Reason For Visit: ACUTE RESPIRATORY FAILURE WITH HYPOXIA Physical Exam Vital Signs: Temp Pulse Resp BP Pulse Ox 97.9 F 65 20 111/56 L 90 L 11/24/18 07:26 11/24/18 09:00 11/24/18 09:00 11/24/18 07:26 11/24/18 09:00 Intake & Output 11/23/18 11/24/18 11/25/18 06:59 06:59 06:59 Intake Total 1941 2677 Output Total 702 Balance 1239 2677 Weight 76 kg 76.6 kg General appearance: PRESENT: no acute distress, thin Head exam: PRESENT: atraumatic Eye exam: PRESENT: PERRLA Mouth exam: PRESENT: moist, tongue midline Teeth exam: PRESENT: poor dentation Neck exam: ABSENT: carotid bruit, JVD, lymphadenopathy, thyromegaly Respiratory exam: PRESENT: decreased breath sounds Cardiovascular exam: PRESENT: RRR. ABSENT: diastolic murmur, rubs, systolic murmur GI/Abdominal exam: PRESENT: normal bowel sounds, soft. ABSENT: distended, guarding, mass, organolmegaly, rebound, tenderness Rectal exam: PRESENT: deferred Neurological exam: PRESENT: alert, awake, oriented to person, oriented to place, oriented to time, oriented to situation, CN II-XII grossly intact. ABSENT: motor sensory deficit Psychiatric exam: PRESENT: appropriate affect, normal mood. ABSENT: homicidal ideation, suicidal ideation Results Laboratory Results: 11/24/18 06:42 11/24/18 06:42 11/24/18 11/24/18 11/24/18 06:42 06:42 06:42 WBC 14.7 H RBC 2.65 L Hgb 8.6 L Hct 26.4 L MCV 99 H MCH 32.3 MCHC 32.5 RDW 16.9 H Plt Count 282 Seg Neutrophils % 72.0 Lymphocytes % 15.0 Monocytes % 12.8 Eosinophils % 0.1 Basophils % 0.1 Absolute Neutrophils 10.6 H Absolute Lymphocytes 2.2 Absolute Monocytes 1.9 H Absolute Eosinophils 0.0 Absolute Basophils 0.0 Sodium 138.9 Potassium 4.3 Chloride 100 Carbon Dioxide 23 Anion Gap 16 BUN 84 H Creatinine 6.93 H Est GFR ( Amer) 10 L Est GFR (Non-Af Amer) 8 L Glucose 202 H Calcium 9.0 Magnesium 2.1 Total Bilirubin 0.6 AST 15 L ALT 31 Alkaline Phosphatase 120 Total Protein 5.8 L Albumin 3.3 L Fluid Type Cancelled Fluid Source Cancelled Fluid Color Cancelled Fluid Appearance Cancelled Fluid Viscosity Cancelled Fluid WBC Cancelled Fluid RBC Cancelled 11/20/18 11/20/18 09:00 17:56 Troponin I 0.036 0.024 Impressions: Thoracentesis Ultrasound 11/24/18 00:00 IMPRESSION: SUCCESSFUL THORACENTESIS USING ULTRASOUND GUIDANCE. Assessment and Plan - Diagnosis (1) Acute respiratory failure with hypoxia Is this a current diagnosis for this admission?: Yes Plan: Patient is admitted to the medical floor and continuous cardiac telemetry. He is provided supplemental oxygen as needed to maintain oxygen saturations >88% He is started on scheduled and as needed nebulizer treatments. P.o. prednisone. Mucinex twice daily. Dialysis today for pulmonary vascular congestion secondary to volume overload. Incentive spirometer and flutter valve to bedside. 11/21/2018-patient admitted with acute respiratory failure with hypoxia his pulse ox is 91% on 5 L complaining of coughing up yellow sputum patient was started on IV Zosyn and IV vancomycin sputum cultures are going to be requested. Blood cultures are going to be requested. Patient says he is feeling little bit better. Presently on incentive spirometry, flutter valve therapy on PRN basis, he is also receiving scheduled and as needed nebulizations. He is also on p.o. prednisone and Mucinex. As per the heavy duty custodian patient may go for dialysis tomorrow for another session. In the meantime we will continue the present management. 11/22/2018-patient admitted with acute respiratory failure with hypoxia resolving. Pulse ox is 92% on 5 L plan is to check the home oxygen requirements today prior to discharge. Presently on IV vancomycin and Zosyn, WBC count is 14,000 today. 11/23/[id number]-mlok-old male admitted with acute respiratory failure with hypoxia. Resolving. Pulse ox today is 92% 5 L. Plan to check home oxygen requirements. Presently on IV vancomycin and Zosyn blood cultures are negative WBC count is slightly came down to 14,100 today. Presently on scheduled nebulizer oxygen treatments. Plan is to continue the present management. Acute respiratory failure with hypoxia may be secondary to fluid overload and possible underlying COPD. 11/24/[id number]-ylrc-old male with history of end-stage renal disease on dialysis admitted with acute respiratory failure with hypoxia. Pulse ox is 93% on 2 L. Status post left-sided thoracentesis 7 to 50 mL of fluid was removed. Patient's WBC count is 14,700 presently on IV vancomycin and Zosyn. Afebrile. T-max is 98.7. Plan is to keep him another day and continue to follow him on regular basis. Postthoracentesis chest x-ray is negative for pneumothorax. (2) COPD exacerbation Is this a current diagnosis for this admission?: Yes Plan: Management as above. 11/21/2018-patient has COPD secondary to chronic smoking admitted for COPD exacerbation pulse ox is 91 percent on 5 L oxygen presently on p.o. prednisone, Mucinex, scheduled and as needed nebulizations. Plan is to continue the present management started on IV vancomycin and IV Zosyn today. 11/22/2018-patient has history of COPD came in with COPD exacerbation he still is a smoker. Pulse ox is 92% on 5 L oxygen. Plan is to check for the home oxygen requirements. Plan is to continue p.o. prednisone, scheduled and as needed nebulizations. 11/23/2018-patient has history of COPD secondary to smoking admitted with COPD exacerbation. Presently on p.o. prednisone, on scheduled and as needed nebulizations. Pulse ox is 92% on 5 L today he is complaining of increasing shortness of breath today. Plan is to give him another day probably discharge after dialysis session tomorrow. To check a pulse ox at rest on pulse ox also on ambulation, to see if he qualify for home oxygen. 11/24/2018-patient has history of COPD secondary to smoking. He is continued to smoke and smoking counseling was provided. Presently on p.o. prednisone, scheduled and as needed nebulizations. Pulse ox is 93% on 5 L. Checking for the home oxygen requirements. Patient is new to 4 L of home oxygen nasal cannula and continuous basis upon discharge. (3) Acute on chronic diastolic (congestive) heart failure Is this a current diagnosis for this admission?: Yes Plan: Dialysis today. Resume outpatient medication regiment. Cardiac diet. Daily weights. Will request records from [facility] regarding recent admission. 11/21/2018-patient has a successful dialysis session yesterday. And cardiac diet. He has a history of diastolic heart failure admitted this time for acute on chronic heart failure with shortness of breath. 11/22/2018-patient has history of chronic diastolic heart failure admitted for acute on chronic diastolic heart failure. Shortness of breath and respiratory distress may be secondary to fluid overload. Plan is to remove 2 to 3 L of fluid today and patient respiratory status is improving on daily basis. 11/23/2018-patient has history of chronic diastolic heart failure. Admitted with acute on chronic respiratory failure with hypoxia it may be secondary to CHF exacerbation. He had a dialysis on Tuesday and is going for dialysis tomorrow. Hopefully fluid removal will improve his breathing. recent ec hocardiogram indicates patient might had mild diastolic heart failure. 11/24/2018-patient has history of chronic diastolic heart failure. Patient has also bilateral pleural effusions and cardiomegaly on chest x-ray. Recent echocardiogram shows he might have mild diastolic heart failure. Plan is to continue the present management he does not need any Lasix because he is getting regular dialysis. Gently is on dialysis twice a day nephrology team is trying to talk to him to switch to 3 times a week dialysis. (4) ESRD (end stage renal disease) Is this a current diagnosis for this admission?: Yes Plan: Dr. Avery consulted. Dialysis today. 11/21/2018-patient has a successful dialysis yesterday AV fistula on his right arm is functioning well. As per Dr. Lara patient may need another session of dialysis tomorrow. 11/22/2018-patient is on dialysis Tuesday as an outpatient because of the fluid overload is getting another session of dialysis today. As per Dr. Lara patient is to be on Tuesday dialysis as outpatient. 11/23/[id number]-enqb-old male with history of ESRD on hemodialysis Tuesday, last dialysis yesterday for fluid overload and he has a functioning AV fistula on the right arm. He is complaining of increasing shortness of breath today will receive another session of dialysis tomorrow before discharge. 11/24/2018-patient has end-stage renal disease on dialysis Tuesday as an outpatient Dr. Lara and Dr. Avery trying to talk to the patient about the need for dialysis 3 times a week. As per Dr. Lara patient's blood pressures are always on the softer side and it is difficult to remove the fluid in just 2 dialysis sessions per week. (5) Diabetes Qualifiers: Diabetes mellitus type: type 2 Diabetes mellitus nursing home insulin use: without terminal worker use Chronic kidney disease stage: on chronic dialysis Is this a current diagnosis for this admission?: Yes Plan: Consistent carb diet. AccuCheck before meals and bedtime with Humalog for sliding scale coverage. Hypoglycemia protocol. 11/21/2018-patient blood sugar is 163. He has history of type 2 diabetes mellitus and cardiac diet. Presently on insulin sliding scale before meals and at bedtime. Plan is to continue the present management dietary consult is going to be requested to check for hemoglobin A1c. 11/22/2018-patient blood sugar is 243 today. He is on insulin sliding scale today. Hemoglobin A1c is pending. 11/23/2018-patient has history of type 2 diabetes mellitus. Latest blood sugar is 218. Again insulin sliding scale. hemoglobin A1c is pending. 11/24/2018-patient has history of type 2 diabetes mellitus latest blood sugar is 193. Presently on insulin sliding scale. Hemoglobin A1c is 5.0. (6) Tobacco abuse Is this a current diagnosis for this admission?: Yes (7) Hypotension Is this a current diagnosis for this admission?: Yes Plan: 11/21/2018-patient blood pressure today is at 96/52 asymptomatic. As per the patient blood always run low. Sometimes systolic blood pressure goes down to 70 during the dialysis session as per the patient. 11/24/2018-patient came in with hypotension most likely his baseline systolic blood pressure is around 90 -100. Today blood pressure is 108 systolic and asymptomatic. - Time Time Spent with patient: 15-24 minutes Smoking Cessation Education: over 10 minutes Medications reviewed and adjusted accordingly: Yes Anticipated discharge: Home
--- NOTE | 2018-11-24 11:34 | RADIOLOGY REPORT (SQ) ---
EXAM DESCRIPTION: CHEST SINGLE VIEW COMPLETED DATE/TIME: 11/24/2018 10:46 am REASON FOR STUDY: POST THORA PLEURAL EFFUSION COMPARISON: Earlier the same day. NUMBER OF VIEWS: One view. TECHNIQUE: Single frontal radiographic image of the chest acquired. LIMITATIONS: None. FINDINGS: LUNGS AND PLEURA: Stable appearance. No pneumothorax. MEDIASTINUM AND HEART: Stable heart size and mediastinal structures. BONY STRUCTURES: No acute findings. HARDWARE: None. OTHER: No other significant finding. IMPRESSION: No pneumothorax. TECHNICAL DOCUMENTATION: JOB ID: [id number] Reading location - IP/workstation name: [email or web address]LE[facility]itesh
--- NOTE | 2018-11-24 13:00 | PDOC PROGRESS REPORT ---
Subjective Progress Note for:: 11/24/18 Subjective:: Yesterday order chest x-ray PA and lateral which showed increasing moderate sized left pleural effusion. I discussed this with Dr. Dozier and he ordered thoracentesis. This morning he underwent ultrasound-guided thoracentesis obtaining about 950 mL of pleural fluid. The fluid was sent for various tests. Patient postthoracentesis said he feels somewhat better but still on oxygen at 5 L. We are going to dialyze him to sometime this afternoon. 12:48 PM. I am seeing the patient during dialysis treatment. So far is tolerating dialysis with acceptable blood pressure. Are going to try to do a little bit more ultrafiltration if he tolerates. Reason For Visit: ACUTE RESPIRATORY FAILURE WITH HYPOXIA Physical Exam Vital Signs: Temp Pulse Resp BP Pulse Ox 97.9 F 65 20 111/56 L 90 L 11/24/18 07:26 11/24/18 09:00 11/24/18 09:00 11/24/18 07:26 11/24/18 09:00 Intake & Output 11/23/18 11/24/18 11/25/18 06:59 06:59 06:59 Intake Total 1941 2677 50 Output Total 702 Balance 1239 2677 50 Weight 76 kg 76.6 kg Vitals during dialysis: Blood pressure 118/67, heart rate of 67, blood flow rate of 300 mL/min and dialysate flow rate of 600 mL/min. Exam: General appearance: PRESENT: no acute distress, cooperative, well-developed, well-nourished Head exam: PRESENT: atraumatic, normocephalic Eye exam: PRESENT: conjunctiva pink, PERRLA. ABSENT: scleral icterus Neck exam: ABSENT: JVD Respiratory exam: PRESENT: Improved breath sounds. Fine rales in the bases ABSENT: Rhonchi, unlabored, wheezes Cardiovascular exam: PRESENT: Regular rate rhythm -+S1, +S2. ABSENT: diastolic murmur, systolic murmur GI/Abdominal exam: PRESENT: normal bowel sounds, soft. ABSENT: guarding, mass, tenderness Extremities exam: ABSENT: No edema Neurological exam: PRESENT: alert, awake, oriented to person, place and time. Skin exam: PRESENT: dry, warm, GI/Abdominal exam: PRESENT: normal bowel sounds, soft. ABSENT: organomegaly, tenderness Results Laboratory Results: 11/24/18 06:42 11/24/18 06:42 11/24/18 11/24/18 11/24/18 06:42 06:42 06:42 WBC 14.7 H RBC 2.65 L Hgb 8.6 L Hct 26.4 L MCV 99 H MCH 32.3 MCHC 32.5 RDW 16.9 H Plt Count 282 Seg Neutrophils % 72.0 Lymphocytes % 15.0 Monocytes % 12.8 Eosinophils % 0.1 Basophils % 0.1 Absolute Neutrophils 10.6 H Absolute Lymphocytes 2.2 Absolute Monocytes 1.9 H Absolute Eosinophils 0.0 Absolute Basophils 0.0 Sodium 138.9 Potassium 4.3 Chloride 100 Carbon Dioxide 23 Anion Gap 16 BUN 84 H Creatinine 6.93 H Est GFR ( Amer) 10 L Est GFR (Non-Af Amer) 8 L Glucose 202 H Calcium 9.0 Magnesium 2.1 Total Bilirubin 0.6 AST 15 L ALT 31 Alkaline Phosphatase 120 Total Protein 5.8 L Albumin 3.3 L Fluid Type Cancelled Fluid Source Cancelled Fluid Color Cancelled Fluid Appearance Cancelled Fluid Viscosity Cancelled Fluid WBC Cancelled Fluid RBC Cancelled 11/24/18 08:35 WBC RBC Hgb Hct MCV MCH MCHC RDW Plt Count Seg Neutrophils % Lymphocytes % Monocytes % Eosinophils % Basophils % Absolute Neutrophils Absolute Lymphocytes Absolute Monocytes Absolute Eosinophils Absolute Basophils Sodium Potassium Chloride Carbon Dioxide Anion Gap BUN Creatinine Est GFR ( Amer) Est GFR (Non-Af Amer) Glucose Calcium Magnesium Total Bilirubin AST ALT Alkaline Phosphatase Total Protein Albumin Fluid Type PLEURAL Fluid Source ABDOMEN Fluid Color NICHOLAS Fluid Appearance CLOUDY Fluid Viscosity LIQUID Fluid WBC 122 Fluid RBC 7022 11/20/18 11/20/18 09:00 17:56 Troponin I 0.036 0.024 Impressions: Thoracentesis Ultrasound 11/24/18 00:00 IMPRESSION: SUCCESSFUL THORACENTESIS USING ULTRASOUND GUIDANCE. Assessment & Plan - Diagnosis (1) Acute respiratory failure with hypoxia Is this a current diagnosis for this admission?: Yes Plan: Still requiring high flow oxygen at 5 L via nasal cannula. 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 Likely to require home oxygen. Shortness of breath is also contributed by his left pleural effusion. Hopefully he would feel better after thoracentesis today. (2) ESRD (end stage renal disease) Is this a current diagnosis for this admission?: Yes Plan: We will do dialysis today for 3 hours, using the patient's AV fistula, with 2 potassium bath, blood flow rate of 450 mL per minute, dialysate flow rate of 800 mL per minute, ultrafiltration 2 to 3 L as tolerated, no heparin and Procrit with 40,000 units during dialysis intravenously. Dialysis prescription discussed with her dialysis nurse. Patient will be monitored throughout dialysis treatment. Ultrafiltration to be adjusted depending on the patient's blood pressure. His blood pressure medication was held prior to dialysis today. (3) Pleural effusion Is this a current diagnosis for this admission?: Yes Plan: Status post thoracentesis today obtaining 950 mL of pleural fluid. (4) CHF (congestive heart failure) Is this a current diagnosis for this admission?: Yes Plan: Clinically improved. (5) Anemia in CKD (chronic kidney disease) Qualifiers: Chronic kidney disease stage: unspecified stage Qualified Code(s): N18.9 - Chronic kidney disease, unspecified; D63.1 - Anemia in chronic kidney disease; D63.1 - Anemia in chronic kidney disease Is this a current diagnosis for this admission?: Yes Plan: Procrit during Hemodialysis as needed. (6) HTN (hypertension) Qualifiers: Hypertension type: essential hypertension Qualified Code(s): I10 - Essential (primary) hypertension Is this a current diagnosis for this admission?: Yes Plan: Relatively low as his baseline. Hold any blood pressure medications prior to dialysis. (7) COPD (chronic obstructive pulmonary disease) Is this a current diagnosis for this admission?: Yes Plan: Needs Pulmonary follow-up once discharged. (8) Acute bronchitis Is this a current diagnosis for this admission?: Yes Plan: On IV Zosyn and vancomycin. Adequate vancomycin level. Await pleural fluid test results especially the culture. - Time Time with patient: 15-25 minutes
[2018-11-24] MEDS: VANCOMYCIN HCL 750 MG in DEXTROSE 5%-WATER 250 ML IV SCH (17:03)
[2018-11-24] MEDS: ATORVASTATIN CALCIUM 40 MG TABLET PO SCH (21:23)
[2018-11-25] MEDS: IPRATROPIUM/ALBUTEROL 0.5-2.5 MG/3 ML AMPUL NEB SCH ×3 (00:29→15:37)
[2018-11-25] MEDS: PIPERACILLIN SODIUM/TAZOBACTAM 2.25 GM in NORMAL SALINE 50 ML IV SCH ×3 (06:17→21:32)
[2018-11-25] MEDS: PANTOPRAZOLE SODIUM 20 MG TABLET.DR PO SCH (06:17)
[2018-11-25] MEDS: INSULIN LISPRO 100 UNIT/ML 3 ML VIAL SUBCUT SCH ×4 (08:58→21:33)
--- NOTE | 2018-11-25 09:12 | RADIOLOGY REPORT (SQ) ---
EXAM DESCRIPTION: CHEST SINGLE VIEW COMPLETED DATE/TIME: 11/25/2018 8:50 am REASON FOR STUDY: plural effusion COMPARISON: 11/24/2018. FINDINGS: Single-view chest AP portable upright. Stable appearance. Cardiomegaly, vascular congestion. Extensive opacity in the left base including pleural reaction. No pneumothorax. TECHNICAL DOCUMENTATION: JOB ID: [id number] Reading location - IP[facility]workstation name[email or web address]
[2018-11-25] MEDS: CALCIUM ACETATE 667 MG CAPSULE PO SCH ×3 (09:48→17:04)
[2018-11-25] MEDS: PREDNISONE 20 MG TABLET PO SCH (09:48)
[2018-11-25] MEDS: EZETIMIBE 10 MG TABLET PO SCH (09:48)
[2018-11-25] MEDS: DOCUSATE SODIUM 100 MG CAPSULE PO SCH (09:48)
[2018-11-25] MEDS: SODIUM BICARBONATE 650 MG TABLET PO SCH ×3 (09:48→17:04)
[2018-11-25] MEDS: GUAIFENESIN 600 MG TABLET.SA PO SCH ×2 (09:48→21:32)
[2018-11-25] MEDS: METOPROLOL TARTRATE 25 MG TABLET PO SCH ×2 (09:48→21:32)
[2018-11-25] MEDS: NICOTINE 21 MG/24 HR PATCH.TD24 TD SCH (09:49)
[2018-11-25] MEDS: FLUTICASONE/VILANTEROL 200-25 MCG/DOSE IH SCH (09:49)
--- NOTE | 2018-11-25 09:57 | PDOC PROGRESS REPORT ---
Subjective Progress Note for:: 11/25/18 Subjective:: 68 year old male with a past medical history of end-stage renal disease (hemodialysis Tuesday, Tuesday; patient reports he has been told to dialyze on Wednesdays but does not attend due to conflicting appointments), CHF, hypertension, pulmonary hypertension, CA with stent x1, transthoracic aorta aneurysm repair, COPD, DM 2 and tobacco dependence who presented to the emergency department with a complaint of progressively worsening shortness of breath x1 week. Patient reports that he previously had home O2, however, has not had home O2 for several months to a year secondary to financial burden. The patient also relates that he was recently admitted [facility] for possible N STEMI; states that he was told he did not have an CA, but does not know what was ultimately determined to be at issue. Evaluation in the emergency department revealed his baseline anemia (hemoglobin 9.4), hyperkalemia (5.1), elevated creatinine and BUN (patient was due for d ialysis this morning), indeterminately elevated troponin of 0.036, NSR by EKG, and chest x-ray that demonstrates cardiomegaly with pulmonary vascular congestion and bilateral pleural effusions. He was found to have tachypnea with respiratory rate 29 at presentation with hypoxia on room air; he is currently requiring 5 lpm via nasal cannula to maintain oxygen saturations >88%. He is referred to the hospitalist service for admission and management of the above-stated complaints; arrangements have been made for the patient to proceed directly to dialysis 11/21/[id number]-jcoa-old male history of end-stage renal disease on hemodialysis Tuesday admitted for acute respiratory distress with hypoxia. pt Is complaining of coughing up yellowish sputum as per Dr. Avery's recommendations started on IV Zosyn and IV vancomycin. Patient says he is feeling little bit better today. He had a dialysis yesterday. I spoke to Dr. Lara just a minute ago patient is going to have dialysis tomorrow. Patient is afebrile no acute events in the last 24 hours. 11/22/[id number]-axgd-old male with history of end-stage renal disease on hemodialysis Tuesday day Tuesday admitted for acute respiratory distress with hypoxia. pulse is 92% on 5 L. He may need home oxygen. We are going to check for the home oxygen requirements. In the dialysis unit tolerating the procedure very well. No complaints. WBC count is going up is 14,000 today. Presently on IV vancomycin and Zosyn. Plan is to repeat the labs tomorrow if everything is okay he may go home tomorrow. 11/23/[id number]-vhht-old male with history of end-stage renal disease on hemodialysis Tuesday admitted with acute respiratory distress with hypoxia. Pulse ox today is 92% on 5 L. Patient complaining of increasing shortness of breath since last night. He wants to stay another day and to have her dialysis tomorrow prior to discharge. Presently on IV vancomycin and Zosyn. No other complaints. The plan to check his home oxygen requirements today. 11/24/[id number]-wzoz-old male with a history of end-stage renal disease on dialysis Tuesday, Tuesday admitted for acute respiratory distress with hypoxia. Pulse ox today is 93% on 5 L. He developed pleural effusions and underwent for left- sided thoracentesis today 950 mL of fluid was removed. He is breathing much better. Postthoracentesis chest x-ray is negative for pneumothorax. Comfortable in the bed communicating well not in distress. He is going to have a dialysis session today. 11/25/[id number]-dtpq-old male with history of end-stage renal disease on dialysis Tuesday last dialysis yesterday he went for thoracentesis and 9050 fluid was removed from the left side of the chest follow-up chest x-ray this morning shows left-sided opacification no pneumothorax plan to do the CT chest without contrast today for further information patient also meet the criteria for home oxygen he need to 4 L oxygen via nasal cannula on a continuous basis unfortunately patient did not receive any supplies so far because of the weekend he may end up staying until Tuesday. Reason For Visit: ACUTE RESPIRATORY FAILURE WITH HYPOXIA Physical Exam Vital Signs: Temp Pulse Resp BP Pulse Ox 98.3 F 70 18 129/53 H 99 11/25/18 08:00 11/25/18 08:00 11/25/18 08:00 11/25/18 08:00 11/25/18 08:00 Intake & Output 11/24/18 11/25/18 11/26/18 06:59 06:59 06:59 Intake Total 2677 2040 Output Total 2600 Balance 2677 -560 Weight 76.6 kg 80.6 kg General appearance: PRESENT: mild distress Head exam: PRESENT: atraumatic Eye exam: PRESENT: PERRLA Ear exam: PRESENT: normal external ear exam Mouth exam: PRESENT: moist, tongue midline Neck exam: ABSENT: carotid bruit, JVD, lymphadenopathy, thyromegaly Respiratory exam: PRESENT: decreased breath sounds, tachypnea, other - On examination of the left-sided chest at the bases crackles and crepitations are present. Cardiovascular exam: PRESENT: tachycardia GI/Abdominal exam: PRESENT: normal bowel sounds, soft. ABSENT: distended, guarding, mass, organolmegaly, rebound, tenderness Rectal exam: PRESENT: deferred Extremities exam: PRESENT: other - AV fistula on the right upper mom is fun ctioning well with good thrill. Neurological exam: PRESENT: alert, awake, oriented to person, oriented to place, oriented to time, oriented to situation, CN II-XII grossly intact. ABSENT: motor sensory deficit Psychiatric exam: PRESENT: appropriate affect, normal mood. ABSENT: homicidal ideation, suicidal ideation Results Laboratory Results: 11/24/18 06:42 11/24/18 06:42 11/24/18 08:35 Fluid Type PLEURAL Fluid Source ABDOMEN Fluid Color NICHOLAS Fluid Appearance CLOUDY Fluid Viscosity LIQUID Fluid WBC 122 Fluid RBC 7022 11/22/18 08:50 Sputum Gram Stain - Final 11/22/18 08:50 Sputum Sputum Culture - Final C.albicans/C.dubliniensis Normal Darleen 11/20/18 11/20/18 09:00 17:56 Troponin I 0.036 0.024 Impressions: Thoracentesis Ultrasound 11/24/18 00:00 IMPRESSION: SUCCESSFUL THORACENTESIS USING ULTRASOUND GUIDANCE. Assessment and Plan - Diagnosis (1) Acute respiratory failure with hypoxia Is this a current diagnosis for this admission?: Yes Plan: Patient is admitted to the medical floor and continuous cardiac telemetry. He is provided supplemental oxygen as needed to maintain oxygen saturations >88% He is started on scheduled and as needed nebulizer treatments. P.o. prednisone. Mucinex twice daily. Dialysis today for pulmonary vascular congestion secondary to volume overload. Incentive spirometer and flutter valve to bedside. 11/21/2018-patient admitted with acute respiratory failure with hypoxia his pulse ox is 91% on 5 L complaining of coughing up yellow sputum patient was started on IV Zosyn and IV vancomycin sputum cultures are going to be requested. Blood cultures are going to be requested. Patient says he is feeling little bit better. Presently on incentive spirometry, flutter valve therapy on PRN basis, he is also receiving scheduled and as needed nebulizations. He is also on p.o. prednisone and Mucinex. As per the general office clerk patient may go for dialysis tomorrow for another session. In the meantime we will continue the present management. 11/22/2018-patient admitted with acute respiratory failure with hypoxia resolving. Pulse ox is 92% on 5 L plan is to check the home oxygen requirements today prior to discharge. Presently on IV vancomycin and Zosyn, WBC count is 14,000 today. 11/23/[id number]-gpup-old male admitted with acute respiratory failure with hypoxia. Resolving. Pulse ox today is 92% 5 L. Plan to check home oxygen requirements. Presently on IV vancomycin and Zosyn blood cultures are negative WBC count is slightly came down to 14,100 today. Presently on scheduled nebulizer oxygen treatments. Plan is to continue the present management. Acute respiratory failure with hypoxia may be secondary to fluid overload and possible underlying COPD. 11/24/[id number]-wcul-old male with history of end-stage renal disease on dialysis admitted with acute respiratory failure with hypoxia. Pulse ox is 93% on 2 L. Status post left-sided thoracentesis 7 to 50 mL of fluid was removed. Patient's WBC count is 14,700 presently on IV vancomycin and Zosyn. Afebrile. T-max is 98.7. Plan is to keep him another day and continue to follow him on regular basis. Postthoracentesis chest x-ray is negative for pneumothorax. 11/25/2018-patient with history of end-stage renal disease on dialysis admitted with acute respiratory failure with hypoxia initially on BiPAP presently on 4 L oxygen he meets criteria for home oxygen he supposed to go home with 4 L of oxygen but because of the weekend he may to stay until Tuesday for the oxygen supplies. In the meantime we did a chest x-ray this morning after the thoracentesis that was done yesterday shows opacification in the left side of the chest plan is to do the CT chest without contrast for further information. Patient is frustrated expressing his desire to go home and try to explain to him to stay and do everything and including the possibility of staying until Tuesday ,patient reluctantly agreed. (2) COPD exacerbation Is this a current diagnosis for this admission?: Yes Plan: Management as above. 11/21/2018-patient has COPD secondary to chronic smoking admitted for COPD exacerbation pulse ox is 91 percent on 5 L oxygen presently on p.o. prednisone, Mucinex, scheduled and as needed nebulizations. Plan is to continue the present management started on IV vancomycin and IV Zosyn today. 11/22/2018-patient has history of COPD came in with COPD exacerbation he still is a smoker. Pulse ox is 92% on 5 L oxygen. Plan is to check for the home oxygen requirements. Plan is to continue p.o. prednisone, scheduled and as needed nebulizations. 11/23/2018-patient has history of COPD secondary to smoking admitted with COPD exacerbation. Presently on p.o. prednisone, on scheduled and as needed nebulizations. Pulse ox is 92% on 5 L today he is complaining of increasing shortness of breath today. Plan is to give him another day probably discharge after dialysis session tomorrow. To check a pulse ox at rest on pulse ox also on ambulation, to see if he qualify for home oxygen. 11/24/2018-patient has history of COPD secondary to smoking. He is continued to smoke and smoking counseling was provided. Presently on p.o. prednisone, scheduled and as needed nebulizations. Pulse ox is 93% on 5 L. Checking for the home oxygen requirements. Patient is new to 4 L of home oxygen nasal cannula and continuous basis upon discharge. 11/25/2018-patient has history of COPD secondary to smoking he continued to smoke. He needs to go home on 4 L oxygen via nasal cannula. On chest x-ray today left-sided opacification was noticed plan is to arrange for the CT chest without contrast today. He is presently on prednisone and scheduled and as needed nebulizations plan is to continue those medications. (3) Acute on chronic diastolic (congestive) heart failure Is this a current diagnosis for this admission?: Yes Plan: Dialysis today. Resume outpatient medication regiment. Cardiac diet. Daily weights. Will request records from [facility] regarding recent admission. 11/21/2018-patient has a successful dialysis session yesterday. And cardiac diet. He has a history of diastolic heart failure admitted this time for acute on chronic heart failure with shortness of breath. 11/22/2018-patient has history of chronic diastolic heart failure admitted for acute on chronic diastolic heart failure. Shortness of breath and respiratory distress may be secondary to fluid overload. Plan is to remove 2 to 3 L of fluid today and patient respiratory status is improving on daily basis. 11/23/2018-patient has history of chronic diastolic heart failure. Admitted with acute on chronic respiratory failure with hypoxia it may be secondary to CHF exacerbation. He had a dialysis on Tuesday and is going for dialysis tomorrow. Hopefully fluid removal will improve his breathing. recent echocardiogram indicates patient might had mild diastolic heart failure. 11/24/2018-patient has history of chronic diastolic heart failure. Patient has also bilateral pleural effusions and cardiomegaly on chest x-ray. Recent echocardiogram shows he might have mild diastolic heart failure. Plan is to continue the present management he does not need any Lasix because he is getting regular dialysis. Gently is on dialysis twice a day nephrology team is trying to talk to him to switch to 3 times a week dialysis. 11/25/2018-patient has history of chronic diastolic heart failure chest x-ray 2 days ago shows bilateral pleural effusions and status post left-sided thoracentesis on 950 mL of fluid was removed. He is getting regular dialysis 3 times a week now. Patient is not in fluid overload today. (4) ESRD (end stage renal disease) Is this a current diagnosis for this admission?: Yes Plan: Dr. Avery consulted. Dialysis today. 11/21/2018-patient has a successful dialysis yesterday AV fistula on his right arm is functioning well. As per Dr. Lara patient may need another session of dialysis tomorrow. 11/22/2018-patient is on dialysis Tuesday as an outpatient because of the fluid overload is getting another session of dialysis today. As per Dr. Lara patient is to be on Tuesday dialysis as outpatient. 11/23/[id number]-ufpc-old male with history of ESRD on hemodialysis Tuesday, last dialysis yesterday for fluid overload and he has a functioning AV fistula on the right arm. He is complaining of increasing shortness of breath today will receive another session of dialysis tomorrow before discharge. 11/24/2018-patient has end-stage renal disease on dialysis Tuesday as an outpatient Dr. Lara and Dr. Avery trying to talk to the patient about the need for dialysis 3 times a week. As per Dr. Lara patient's blood pressures are always on the softer side and it is difficult to remove the fluid in just 2 dialysis sessions per week. 11/25/2018-patient's regular schedule is Tuesday as an outpatient in the hospital is receiving dialysis 3 times a week. Last dialysis on Tuesday next dialysis session is going to be on Tuesday if the patient agreed to stay in the hospital. (5) Diabetes Qualifiers: Diabetes mellitus type: type 2 Diabetes mellitus long term care pharmacist insulin use: without nursing home use Chronic kidney disease stage: on chronic dialysis Is this a current diagnosis for this admission?: Yes Plan: Consistent carb diet. AccuCheck before meals and bedtime with Humalog for sliding scale coverage. Hypoglycemia protocol. 11/21/2018-patient blood sugar is 163. He has history of type 2 diabetes mellitus and cardiac diet. Presently on insulin sliding scale before meals and at bedtime. Plan is to continue the present management dietary consult is going to be requested to check for hemoglobin A1c. 11/22/2018-patient blood sugar is 243 today. He is on insulin sliding scale today. Hemoglobin A1c is pending. 11/23/2018-patient has history of type 2 diabetes mellitus. Latest blood sugar is 218. Again insulin sliding scale. hemoglobin A1c is pending. 11/24/2018-patient has history of type 2 diabetes mellitus latest blood sugar is 193. Presently on insulin sliding scale. Hemoglobin A1c is 5.0. 11/25/2018-patient has history of type 2 diabetes mellitus latest blood sugar is 11 presently on insulin sliding scale plan is to continue those medications. (6) Tobacco abuse Is this a current diagnosis for this admission?: Yes (7) Hypotension Is this a current diagnosis for this admission?: Yes Plan: 11/21/2018-patient blood pressure today is at 96/52 asymptomatic. As per the patient blood always run low. Sometimes systolic blood pressure goes down to 70 during the dialysis session as per the patient. 11/24/2018-patient came in with hypotension most likely his baseline systolic blood pressure is around 90 -100. Today blood pressure is 108 systolic and asymptomatic. 11/25/2018-patient blood pressure today is 110/74 stable. - Time Time Spent with patient: 15-24 minutes Smoking Cessation Education: over 10 minutes Medications reviewed and adjusted accordingly: Yes Anticipated discharge: Home
--- NOTE | 2018-11-25 12:47 | RADIOLOGY REPORT (SQ) ---
EXAM DESCRIPTION: CT CHEST WITHOUT COMPLETED DATE/TIME: 11/25/2018 12:32 pm REASON FOR STUDY: rt side opacity COMPARISON: Radiographs 11/25/2018. TECHNIQUE: CT scan performed of the chest without intravenous contrast. Images reviewed with lung, soft tissue and bone windows. Reconstructed coronal and sagittal MPR images reviewed. All images st ored on PACS. All CT scanners at this facility use dose modulation, iterative reconstruction, and/or weight based d osing when appropriate to reduce radiation dose to as low as reasonably achievable (ALARA). [facility]: Dose Right [facility]: CareDose [facility]: Dose Right [facility]: Teradose 4D [facility]: [employer] RADIATION DOSE: CT Rad equipment meets quality standard of care and radiation dose reduction techniq ues were employed. CTDIvol: 13.4 mGy. DLP: 515 mGy-cm. mGy. LIMITATIONS: No technical limitations. FINDINGS: LUNGS AND PLEURA: Anomaly upper lobe emphysema. Bilateral dependent relatively non locula perez appearing pleural effusions. Small on the right. Small -moderate on the left. Mild right lower lobe atelectasis and consolidation. More extensive left lower lobe and scratch at more extensive le ft lower lobe consolidation and volume loss. Mild lingular volume loss. No pneumothorax. HILAR AND MEDIASTINAL STRUCTURES: Small nodes measuring up to 1.4 cm in short axis. HEART AND VASCULAR STRUCTURES: Cardiac enlargement. Heavy coronary calcification. No pericardial ef fusion. Normal caliber ascending aorta. Status post endovascular repair of descending aortic aneury sm. UPPER ABDOMEN: Mild ascites, incompletely evaluated. THYROID AND OTHER SOFT TISSUES: No masses. No adenopathy. BONES: No significant finding. HARDWARE: As above. OTHER: No other significant findings. IMPRESSION: 1. Pleural effusions, left greater than right. Associated consolidation and volume loss, most notabl e in the left lower lobe. 2. Status post endovascular repair of descending thoracic aortic aneurysm. 3. Other findings as above. TECHNICAL DOCUMENTATION: JOB ID: [id number] Quality ID # [id number]: Final reports with documentation of one or more dose reduction techniques (e.g., Au tomated exposure control, adjustment of the mA and/or kV according to patient size, use of iterative reconstruction technique) 2010 [employer]- All Rights Reserved Reading location - IP/workstation name: [email or web address]
[2018-11-25 15:42] LABS: ABSOLUTE LYMPHOCYTES (AUTO) 1.3 10^3/uL (0.5-4.7); ABSOLUTE MONOCYTES (AUTO) 1.2 10^3/uL (0.1-1.4); ABSOLUTE NEUT (AUTO) 10.6 10^3/uL (1.7-8.2); BASOPHILS % (AUTO) 0.2 % (0-2); EOSINOPHILS % (AUTO) 0.2 % (0-6); HEMOGLOBIN 9.7 g/dL (13.5-17.0); LYMPHOCYTES % (AUTO) 9.6 % (13-45); MEAN CORPUSCULAR HEMOGLOBIN 32.7 pg (27.0-33.4); MEAN CORPUSCULAR HGB CONC 32.2 g/dL (32.0-36.0); MEAN CORPUSCULAR VOLUME 101 fl (80-97); MONOCYTES % (AUTO) 9.4 % (3-13); PLATELET COUNT 285 10^3/uL (150-450); RED BLOOD COUNT 2.96 10^6/uL (4.35-5.55); RED CELL DISTRIBUTION WIDTH 17.9 % (11.5-14.0); SEGMENTED NEUTROPHILS % (AUTO) 80.6 % (42-78); TOTAL CELLS COUNTED % (AUTO) 100 %; WHITE BLOOD COUNT 13.2 10^3/uL (4.0-10.5)
[2018-11-25 18:04] LABS: GLUCOSE BODY FLUID 201 mg/dL (.); LDH BODY FLUID 108 IU/L (.)
[2018-11-25] MEDS: ATORVASTATIN CALCIUM 40 MG TABLET PO SCH (21:32)
[2018-11-26] MEDS: IPRATROPIUM/ALBUTEROL 0.5-2.5 MG/3 ML AMPUL NEB SCH ×3 (00:31→16:02)
[2018-11-26] MEDS: ALBUTEROL SULFATE 0.083% NEB 2.5 MG/3 ML AMPUL NEB PRN (06:45)
[2018-11-26] MEDS ORDERED: PIPERACILLIN SODIUM/TAZOBACTAM 2.25 GM in NORMAL SALINE 50 ML IV ONE (07:30)
[2018-11-26] MEDS ORDERED: PANTOPRAZOLE SODIUM 20 MG TABLET.DR PO ONE (07:30)
[2018-11-26] MEDS: INSULIN LISPRO 100 UNIT/ML 3 ML VIAL SUBCUT SCH ×4 (07:51→21:36)
--- NOTE | 2018-11-26 08:49 | RADIOLOGY REPORT (SQ) ---
EXAM DESCRIPTION: CHEST 2 VIEWS COMPLETED DATE/TIME: 11/26/2018 8:40 am REASON FOR STUDY: lt sided pneumonia COMPARISON: 11/25/2018. TECHNIQUE: Frontal and lateral radiographic views of the chest acquired. NUMBER OF VIEWS: Two view. LIMITATIONS: None. FINDINGS: LUNGS AND PLEURA: Diffuse interstitial opacities and vascular congestion, as before. Left basilar opacity including pleural fluid and consolidation/volume loss also a relatively similar. No pneumothorax. MEDIASTINUM AND HILAR STRUCTURES: Stable. Status post endovascular repair of aortic aneurysm. HEART AND VASCULAR STRUCTURES: Cardiac enlargement, as before. BONES: No acute findings. HARDWARE: Osteopenic. OTHER: No other significant finding. IMPRESSION: Stable chest with findings as above. TECHNICAL DOCUMENTATION: JOB ID: [id number] [employer]- All Rights Reserved Reading location - IP/workstation name: [email or web address]
[2018-11-26] MEDS: FLUTICASONE/VILANTEROL 200-25 MCG/DOSE IH SCH (09:22)
[2018-11-26] MEDS: DOCUSATE SODIUM 100 MG CAPSULE PO SCH (09:22)
[2018-11-26] MEDS: GUAIFENESIN 600 MG TABLET.SA PO SCH ×2 (09:24→21:37)
[2018-11-26] MEDS: PREDNISONE 20 MG TABLET PO SCH ×2 (09:24→10:29)
[2018-11-26] MEDS: SODIUM BICARBONATE 650 MG TABLET PO SCH ×3 (09:24→17:16)
[2018-11-26] MEDS: METOPROLOL TARTRATE 25 MG TABLET PO SCH ×2 (09:24→21:37)
[2018-11-26] MEDS: CALCIUM ACETATE 667 MG CAPSULE PO SCH ×3 (09:24→17:16)
[2018-11-26] MEDS: NICOTINE 21 MG/24 HR PATCH.TD24 TD SCH (09:25)
[2018-11-26] MEDS: EZETIMIBE 10 MG TABLET PO SCH (09:25)
[2018-11-26 09:27] LABS: ABSOLUTE BASOPHILS # (AUTO) 0.1 10^3/uL (0.0-0.2); ABSOLUTE EOSINOPHILS # (AUTO) 0.1 10^3/uL (0.0-0.6); ABSOLUTE LYMPHOCYTES (AUTO) 3.7 10^3/uL (0.5-4.7); ABSOLUTE MONOCYTES (AUTO) 1.5 10^3/uL (0.1-1.4); ABSOLUTE NEUT (AUTO) 10.1 10^3/uL (1.7-8.2); BASOPHILS % (AUTO) 0.4 % (0-2); EOSINOPHILS % (AUTO) 0.7 % (0-6); HEMATOCRIT 30.5 % (37.9-51.0); HEMOGLOBIN 9.7 g/dL (13.5-17.0); LYMPHOCYTES % (AUTO) 23.9 % (13-45); MEAN CORPUSCULAR HEMOGLOBIN 32.4 pg (27.0-33.4); MEAN CORPUSCULAR HGB CONC 31.9 g/dL (32.0-36.0); MEAN CORPUSCULAR VOLUME 102 fl (80-97); MONOCYTES % (AUTO) 9.9 % (3-13); PLATELET COUNT 295 10^3/uL (150-450); RED CELL DISTRIBUTION WIDTH 18.2 % (11.5-14.0); SEGMENTED NEUTROPHILS % (AUTO) 65.1 % (42-78); TOTAL CELLS COUNTED % (AUTO) 100 %; WHITE BLOOD COUNT 15.5 10^3/uL (4.0-10.5)
[2018-11-26 09:34] LABS: ALANINE AMINOTRANSFERASE 45 U/L (21-72); ALBUMIN 3.4 g/dL (3.5-5.0); ALKALINE PHOSPHATASE 104 U/L (38-126); ANION GAP 16 (5-19); ASPARTATE AMINO TRANSFERASE 17 U/L (17-59); BILIRUBIN,DIRECT 0.7 mg/dL (0.0-0.4); BILIRUBIN,TOTAL 0.7 mg/dL (0.2-1.3); BLOOD UREA NITROGEN 74 mg/dL (7-20); CALCIUM 9.1 mg/dL (8.4-10.2); CARBON DIOXIDE 25 mmol/L (22-30); CHLORIDE 100 mmol/L (98-107); GLUCOSE 201 mg/dL (75-110); POTASSIUM 4.2 mmol/L (3.6-5.0); SODIUM 141.1 mmol/L (137-145); TOTAL PROTEIN 5.9 g/dL (6.3-8.2)
--- NOTE | 2018-11-26 09:50 | PDOC PROGRESS REPORT ---
Subjective Progress Note for:: 11/26/18 Subjective:: 68 year old male with a past medical history of end-stage renal disease (hemodialysis Tuesday, Tuesday; patient reports he has been told to dialyze on Wednesdays but does not attend due to conflicting appointments), CHF, hypertension, pulmonary hypertension, TN with stent x1, transthoracic aorta aneurysm repair, COPD, DM 2 and tobacco dependence who presented to the emergency department with a complaint of progressively worsening shortness of breath x1 week. Patient reports that he previously had home O2, however, has not had home O2 for several months to a year secondary to financial burden. The patient also relates that he was recently admitted [facility] for possible N STEMI; states that he was told he did not have an TN, but does not know what was ultimately determined to be at issue. Evaluation in the emergency department revealed his baseline anemia (hemoglobin 9.4), hyperkalemia (5.1), elevated creatinine and BUN (patient was due for d ialysis this morning), indeterminately elevated troponin of 0.036, NSR by EKG, and chest x-ray that demonstrates cardiomegaly with pulmonary vascular congestion and bilateral pleural effusions. He was found to have tachypnea with respiratory rate 29 at presentation with hypoxia on room air; he is currently requiring 5 lpm via nasal cannula to maintain oxygen saturations >88%. He is referred to the hospitalist service for admission and management of the above-stated complaints; arrangements have been made for the patient to proceed directly to dialysis 11/21/[id number]-uldv-old male history of end-stage renal disease on hemodialysis Tuesday admitted for acute respiratory distress with hypoxia. pt Is complaining of coughing up yellowish sputum as per Dr. Avery's recommendations started on IV Zosyn and IV vancomycin. Patient says he is feeling little bit better today. He had a dialysis yesterday. I spoke to Dr. Lara just a minute ago patient is going to have dialysis tomorrow. Patient is afebrile no acute events in the last 24 hours. 11/22/[id number]-lcwe-old male with history of end-stage renal disease on hemodialysis Tuesday day Tuesday admitted for acute respiratory distress with hypoxia. pulse is 92% on 5 L. He may need home oxygen. We are going to check for the home oxygen requirements. In the dialysis unit tolerating the procedure very well. No complaints. WBC count is going up is 14,000 today. Presently on IV vancomycin and Zosyn. Plan is to repeat the labs tomorrow if everything is okay he may go home tomorrow. 11/23/[id number]-wgos-old male with history of end-stage renal disease on hemodialysis Tuesday admitted with acute respiratory distress with hypoxia. Pulse ox today is 92% on 5 L. Patient complaining of increasing shortness of breath since last night. He wants to stay another day and to have her dialysis tomorrow prior to discharge. Presently on IV vancomycin and Zosyn. No other complaints. The plan to check his home oxygen requirements today. 11/24/[id number]-belu-old male with a history of end-stage renal disease on dialysis Tuesday, Tuesday admitted for acute respiratory distress with hypoxia. Pulse ox today is 93% on 5 L. He developed pleural effusions and underwent for left- sided thoracentesis today 950 mL of fluid was removed. He is breathing much better. Postthoracentesis chest x-ray is negative for pneumothorax. Comfortable in the bed communicating well not in distress. He is going to have a dialysis session today. 11/25/[id number]-lrzo-old male with history of end-stage renal disease on dialysis Tuesday last dialysis yesterday he went for thoracentesis and 9050 fluid was removed from the left side of the chest follow-up chest x-ray this morning shows left-sided opacification no pneumothorax plan to do the CT chest without contrast today for further information patient also meet the criteria for home oxygen he need to 4 L oxygen via nasal cannula on a continuous basis unfortunately patient did not receive any supplies so far because of the weekend he may end up staying until Tuesday. 11/26/[id number]-zpjm-old male with history of end-stage renal disease on hemodialysis Aj a day admitted with acute respiratory failure with hypoxia. He was treated with the scheduled and as needed nebulizations and IV antibiotic therapy follow-up x-rays found to have a left pleural effusion status post thoracentesis more than 950 mL of fluid is removed. This morning patient is in more respiratory distress requiring 4 L of oxygen. Follow-up x-rays done ye and today indicates left-sided consolidation and increasing vascular congestion. Patient agreed to stay and a problem will need hemodialysis tomorrow. Reason For Visit: ACUTE RESPIRATORY FAILURE WITH HYPOXIA Physical Exam Vital Signs: Temp Pulse Resp BP Pulse Ox 97.9 F 69 19 128/67 H 95 11/26/18 08:00 11/26/18 08:00 11/26/18 08:00 11/26/18 08:00 11/26/18 08:00 Intake & Output 11/25/18 11/26/18 11/27/18 06:59 06:59 06:59 Intake Total 2040 2440 Output Total 2600 2 Balance -560 2438 Weight 80.6 kg 80.5 kg General appearance: PRESENT: mild distress Head exam: PRESENT: atraumatic Eye exam: PRESENT: PERRLA Mouth exam: PRESENT: moist, tongue midline Teeth exam: PRESENT: poor dentation Neck exam: ABSENT: carotid bruit, JVD, lymphadenopathy, thyromegaly Respiratory exam: PRESENT: crackles, decreased breath sounds, rhonchi, wheezes Cardiovascular exam: PRESENT: tachycardia GI/Abdominal exam: PRESENT: normal bowel sounds, soft. ABSENT: distended, guarding, mass, organolmegaly, rebound, tenderness Rectal exam: PRESENT: deferred Extremities exam: PRESENT: other - AV fistula on the right upper arm functioning well with a good thrill. Neurological exam: PRESENT: alert, awake, oriented to person, oriented to place, oriented to time, oriented to situation, CN II-XII grossly intact. ABSENT: motor sensory deficit Psychiatric exam: PRESENT: appropriate affect, normal mood. ABSENT: homicidal ideation, suicidal ideation Results Laboratory Results: 11/26/18 08:21 11/24/18 11/25/18 11/26/18 08:35 15:25 08:21 WBC 13.2 H RBC 2.96 L Hgb 9.7 L Hct 30.0 L MCV 101 H MCH 32.7 MCHC 32.2 RDW 17.9 H Plt Count 285 Seg Neutrophils % 80.6 H Lymphocytes % 9.6 L Monocytes % 9.4 Eosinophils % 0.2 Basophils % 0.2 Absolute Neutrophils 10.6 H Absolute Lymphocytes 1.3 Absolute Monocytes 1.2 Absolute Eosinophils 0.0 Absolute Basophils 0.0 Sodium 141.1 Potassium 4.2 Chloride 100 Carbon Dioxide 25 Anion Gap 16 BUN 74 H Creatinine 6.30 H Est GFR ( Amer) 11 L Est GFR (Non-Af Amer) 9 L Glucose 201 H Calcium 9.1 Magnesium 2.1 Total Bilirubin 0.7 AST 17 ALT 45 Alkaline Phosphatase 104 Total Protein 5.9 L Albumin 3.4 L Fluid Glucose 201 Fluid LDH 108 11/20/18 11/20/18 09:00 17:56 Troponin I 0.036 0.024 Impressions: Thoracentesis Ultrasound 11/24/18 00:00 IMPRESSION: SUCCESSFUL THORACENTESIS USING ULTRASOUND GUIDANCE. Chest CT 11/25/18 00:00 IMPRESSION: 1. Pleural effusions, left greater than right. Associated consolidation and volume loss, most notable in the left lower lobe. 2. Status post endovascular repair of descending thoracic aortic aneurysm. 3. Other findings as above. Chest X-Ray 11/26/18 00:00 IMPRESSION: Stable chest with findings as above. Assessment and Plan - Diagnosis (1) Acute respiratory failure with hypoxia Is this a current diagnosis for this admission?: Yes Plan: Patient is admitted to the medical floor and continuous cardiac telemetry. He is provided supplemental oxygen as needed to maintain oxygen saturations >88% He is started on scheduled and as needed nebulizer treatments. P.o. prednisone. Mucinex twice daily. Dialysis today for pulmonary vascular congestion secondary to volume overload. Incentive spirometer and flutter valve to bedside. 11/21/2018-patient admitted with acute respiratory failure with hypoxia his pulse ox is 91% on 5 L complaining of coughing up yellow sputum patient was started on IV Zosyn and IV vancomycin sputum cultures are going to be requested. Blood cultures are going to be requested. Patient says he is feeling little bit better. Presently on incentive spirometry, flutter valve therapy on PRN basis, he is also receiving scheduled and as needed nebulizations. He is also on p.o. prednisone and Mucinex. As per the development eng patient may go for dialysis tomorrow for another session. In the meantime we will continue the present management. 11/22/2018-patient admitted with acute respiratory failure with hypoxia resolving. Pulse ox is 92% on 5 L plan is to check the home oxygen requirements today prior to discharge. Presently on IV vancomycin and Zosyn, WBC count is 14,000 today. 11/23/[id number]-yxux-old male admitted with acute respiratory failure with hypoxia. Resolving. Pulse ox today is 92% 5 L. Plan to check home oxygen requirements. Presently on IV vancomycin and Zosyn blood cultures are negative WBC count is slightly came down to 14,100 today. Presently on scheduled nebulizer oxygen treatments. Plan is to continue the present management. Acute respiratory failure with hypoxia may be secondary to fluid overload and possible underlying COPD. 11/24/[id number]-laxz-old male with history of end-stage renal disease on dialysis admitted with acute respiratory failure with hypoxia. Pulse ox is 93% on 2 L. Status post left-sided thoracentesis 7 to 50 mL of fluid was removed. Patient's WBC count is 14,700 presently on IV vancomycin and Zosyn. Afebrile. T-max is 98.7. Plan is to keep him another day and continue to follow him on regular basis. Postthoracentesis chest x-ray is negative for pneumothorax. 11/25/2018-patient with history of end-stage renal disease on dialysis admitted with acute respiratory failure with hypoxia initially on BiPAP presently on 4 L oxygen he meets criteria for home oxygen he supposed to go home with 4 L of oxygen but because of the weekend he may to stay until Tuesday for the oxygen supplies. In the meantime we did a chest x-ray this morning after the thoracentesis that was done yesterday shows opacification in the left side of the chest plan is to do the CT chest without contrast for further information. Patient is frustrated expressing his desire to go home and try to explain to him to stay and do everything and including the possibility of staying until Tuesday ,patient reluctantly agreed. 11/26/[id number]-iqas-old male with history of end-stage renal disease admitted with acute respiratory failure with hypoxia status post thoracentesis and removal of more than 950 mL of fluid from the left side of the chest. Follow-up CT scan and x-rays indicating consolidation in the left lower lobe and increasing vascular congestion. Patient is in more short of breath today requiring 5 L of oxygen to keep the pulse ox more than 90%. Patient is willing to stay in the hospital for at least another day probably need another session of dialysis tomorrow. Anemia had to go on a 3 day/week dialysis as an outpatient. Presently IV vancomycin and Zosyn plan is to continue the present management. (2) COPD exacerbation Is this a current diagnosis for this admission?: Yes Plan: Management as above. 11/21/2018-patient has COPD secondary to chronic smoking admitted for COPD exacerbation pulse ox is 91 percent on 5 L oxygen presently on p.o. prednisone, Mucinex, scheduled and as needed nebulizations. Plan is to continue the present management started on IV vancomycin and IV Zosyn today. 11/22/2018-patient has history of COPD came in with COPD exacerbation he still is a smoker. Pulse ox is 92% on 5 L oxygen. Plan is to check for the home oxygen requirements. Plan is to continue p.o. prednisone, scheduled and as needed nebulizations. 11/23/2018-patient has history of COPD secondary to smoking admitted with COPD exacerbation. Presently on p.o. prednisone, on scheduled and as needed nebulizations. Pulse ox is 92% on 5 L today he is complaining of increasing shortness of breath today. Plan is to give him another day probably discharge after dialysis session tomorrow. To check a pulse ox at rest on pulse ox also on ambulation, to see if he qualify for home oxygen. 11/24/2018-patient has history of COPD secondary to smoking. He is continued to smoke and smoking counseling was provided. Presently on p.o. prednisone, scheduled and as needed nebulizations. Pulse ox is 93% on 5 L. Checking for the home oxygen requirements. Patient is new to 4 L of home oxygen nasal cannula and continuous basis upon discharge. 11/25/2018-patient has history of COPD secondary to smoking he continued to smoke. He needs to go home on 4 L oxygen via nasal cannula. On chest x-ray today left-sided opacification was noticed plan is to arrange for the CT chest without contrast today. He is presently on prednisone and scheduled and as needed nebulizations plan is to continue those medications. 11/26/2018-patient has history of COPD secondary to smoking wearing 4 L of oxygen via nasal cannula on continuous basis. We are making the arrangements for him to receive the home oxygen. He is not stable letter to go home today. Chest x- ray done today indicating left-sided consolidation with increasing vascular congestion and a left-sided pleural effusion more than right-sided pleural effusion. He is on 5 L of oxygen with pulse ox 92%. On examination chest bilateral it was decreased especially in the left lower base more crackles and crepitations present. (3) Acute on chronic diastolic (congestive) heart failure Is this a current diagnosis for this admission?: Yes Plan: Dialysis today. Resume outpatient medication regiment. Cardiac diet. Daily weights. Will request records from [facility] regarding recent admission. 11/21/2018-patient has a successful dialysis session yesterday. And cardiac diet. He has a history of diastolic heart failure admitted this time for acute on chronic heart failure with shortness of breath. 11/22/2018-patient has history of chronic diastolic heart failure admitted for acute on chronic diastolic heart failure. Shortness of breath and respiratory distress may be secondary to fluid overload. Plan is to remove 2 to 3 L of flui d today and patient respiratory status is improving on daily basis. 11/23/2018-patient has history of chronic diastolic heart failure. Admitted with acute on chronic respiratory failure with hypoxia it may be secondary to CHF exacerbation. He had a dialysis on Tuesday and is going for dialysis tomorrow. Hopefully fluid removal will improve his breathing. recent echocardiogram indicates patient might had mild diastolic heart failure. 11/24/2018-patient has history of chronic diastolic heart failure. Patient has also bilateral pleural effusions and cardiomegaly on chest x-ray. Recent echocardiogram shows he might have mild diastolic heart failure. Plan is to continue the present management he does not need any Lasix because he is getting regular dialysis. Gently is on dialysis twice a day nephrology team is trying to talk to him to switch to 3 times a week dialysis. 11/25/2018-patient has history of chronic diastolic heart failure chest x-ray 2 days ago shows bilateral pleural effusions and status post left-sided thoracentesis on 950 mL of fluid was removed. He is getting regular dialysis 3 times a week now. Patient is not in fluid overload today. 11/26/2018-patient has history of chronic diastolic heart failure chest x-ray showing bilateral pleural effusions even after thoracentesis left-sided pleural effusion more than right-sided pleural effusion. Patient is having dialysis 3 times a week he is scheduled for dialysis tomorrow. If the blood pressure is stable there is a possibility that at least 3 L of fluid will be removed. (4) ESRD (end stage renal disease) Is this a current diagnosis for this admission?: Yes Plan: Dr. Avery consulted. Dialysis today. 11/21/2018-patient has a successful dialysis yesterday AV fistula on his right arm is functioning well. As per Dr. Lara patient may need another session of dialysis tomorrow. 11/22/2018-patient is on dialysis Tuesday as an outpatient because of the fluid overload is getting another session of dialysis today. As per Dr. Lara patient is to be on Tuesday dialysis as outpatient. 11/23/[id number]-mnab-old male with history of ESRD on hemodialysis Tuesday, last dialysis yesterday for fluid overload and he has a functioning AV fistula on the right arm. He is complaining of increasing shortness of breath today will receive another session of dialysis tomorrow before discharge. 11/24/2018-patient has end-stage renal disease on dialysis Tuesday as an outpatient Dr. Lara and Dr. Avery trying to talk to the patient about the need for dialysis 3 times a week. As per Dr. Lara patient's blood pressures are always on the softer side and it is difficult to remove the fluid in just 2 dialysis sessions per week. 11/25/2018-patient's regular schedule is Tuesday as an outpatient in the hospital is receiving dialysis 3 times a week. Last dialysis on Tuesday next dialysis session is going to be on Tuesday if the patient agreed to stay in the hospital. 11/26/2018-last hemodialysis was done on Tuesday next hemodialysis on Tuesday. He has AV fistula on the right upper arm functioning well. 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 AccuCheck before meals and bedtime with Humalog for sliding scale coverage. Hypoglycemia protocol. 11/21/2018-patient blood sugar is 163. He has history of type 2 diabetes mellitus and cardiac diet. Presently on insulin sliding scale before meals and at bedtime. Plan is to continue the present management dietary consult is going to be requested to check for hemoglobin A1c. 11/22/2018-patient blood sugar is 243 today. He is on insulin sliding scale today. Hemoglobin A1c is pending. 11/23/2018-patient has history of type 2 diabetes mellitus. Latest blood sugar is 218. Again insulin sliding scale. hemoglobin A1c is pending. 11/24/2018-patient has history of type 2 diabetes mellitus latest blood sugar is 193. Presently on insulin sliding scale. Hemoglobin A1c is 5.0. 11/25/2018-patient has history of type 2 diabetes mellitus latest blood sugar is 11 presently on insulin sliding scale plan is to continue those medications. 11/26/2018-patient has history of type 2 diabetes mellitus latest blood sugar is 230 today. Presently on insulin sliding scale plan is to continue the present management. The globin A1c is 5. (6) Tobacco abuse Is this a current diagnosis for this admission?: Yes (7) Hypotension Is this a current diagnosis for this admission?: Yes Plan: 11/21/2018-patient blood pressure today is at 96/52 asymptomatic. As per the patient blood always run low. Sometimes systolic blood pressure goes down to 70 during the dialysis session as per the patient. 11/24/2018-patient came in with hypotension most likely his baseline systolic blood pressure is around 90 -100. Today blood pressure is 108 systolic and asymptomatic. 11/25/2018-patient blood pressure today is 110/74 stable. 11/26/2018-latest blood pressure is 128/67 stable. (9) Pneumonia Is this a current diagnosis for this admission?: Yes Plan: 11/26/2018-latest CT scans and x-rays indicating left-sided consolidation. WBC went up to 15,500. Patient is afebrile. Oxygen requirements are increased to this morning. Most likely healthcare associated pneumonia most likely both gram-positive and gram-negative organisms are responsible. - Time Time Spent with patient: 25-34 minutes Smoking Cessation Education: over 10 minutes Medications reviewed and adjusted accordingly: Yes Anticipated discharge: Home
[2018-11-26] MEDS ORDERED: PIPERACILLIN SODIUM/TAZOBACTAM 2.25 GM in NORMAL SALINE 50 ML IV SCH (14:00)
[2018-11-26] MEDS ORDERED: BUDESONIDE NEB 0.25 MG/2 ML AMPUL NEB SCH (14:00)
[2018-11-26] MEDS: PIPERACILLIN SODIUM/TAZOBACTAM 2.25 GM in NORMAL SALINE 50 ML IV SCH ×2 (14:31→21:37)
[2018-11-26] MEDS: BUDESONIDE NEB 0.5 MG/2 ML AMPUL NEB SCH (20:55)
[2018-11-26] MEDS: ATORVASTATIN CALCIUM 40 MG TABLET PO SCH (21:37)
[2018-11-27] MEDS: IPRATROPIUM/ALBUTEROL 0.5-2.5 MG/3 ML AMPUL NEB SCH ×3 (00:48→16:31)
[2018-11-27] MEDS ORDERED: EPOETIN ALFA INJ 20000 UNIT/1 ML VIAL (RENAL) IV PRN (05:00)
[2018-11-27] MEDS ORDERED: NORMAL SALINE 1000 ML 1,000 ML IV PRN (05:00)
[2018-11-27] MEDS: PIPERACILLIN SODIUM/TAZOBACTAM 2.25 GM in NORMAL SALINE 50 ML IV SCH ×3 (05:04→21:45)
[2018-11-27] MEDS: PANTOPRAZOLE SODIUM 20 MG TABLET.DR PO SCH (05:05)
[2018-11-27 05:31] LABS: HEMATOCRIT 29.9 % (37.9-51.0); HEMOGLOBIN 9.5 g/dL (13.5-17.0); MEAN CORPUSCULAR HEMOGLOBIN 32.6 pg (27.0-33.4); MEAN CORPUSCULAR HGB CONC 31.9 g/dL (32.0-36.0); MEAN CORPUSCULAR VOLUME 102 fl (80-97); PLATELET COUNT 258 10^3/uL (150-450); RED BLOOD COUNT 2.92 10^6/uL (4.35-5.55); RED CELL DISTRIBUTION WIDTH 18.5 % (11.5-14.0); WHITE BLOOD COUNT 12.7 10^3/uL (4.0-10.5)
[2018-11-27 05:42] LABS: ALANINE AMINOTRANSFERASE 38 U/L (21-72); ALBUMIN 3.2 g/dL (3.5-5.0); ALKALINE PHOSPHATASE 89 U/L (38-126); ANION GAP 16 (5-19); ASPARTATE AMINO TRANSFERASE 18 U/L (17-59); BILIRUBIN,DIRECT 0.7 mg/dL (0.0-0.4); BILIRUBIN,TOTAL 0.8 mg/dL (0.2-1.3); BLOOD UREA NITROGEN 93 mg/dL (7-20); CALCIUM 8.8 mg/dL (8.4-10.2); CARBON DIOXIDE 25 mmol/L (22-30); CHLORIDE 101 mmol/L (98-107); GLUCOSE 106 mg/dL (75-110); POTASSIUM 4.9 mmol/L (3.6-5.0); SODIUM 142.3 mmol/L (137-145); TOTAL PROTEIN 5.6 g/dL (6.3-8.2)
[2018-11-27 06:19] LABS: ABSOLUTE LYMPHOCYTES# (MANUAL) 2.9 10^3/uL (0.5-4.7); ABSOLUTE MONOCYTES # (MANUAL) 1.1 10^3/uL (0.1-1.4); ABSOLUTE NEUTROPHILS# (MANUAL) 8.6 10^3/uL (1.7-8.2); BASOPHILS % (MANUAL) 0 % (0-2); EOSINOPHILS % (MANUAL) 0 % (0-6); LYMPHOCYTES % (MANUAL) 23 % (13-45); MONOCYTES % (MANUAL) 9 % (3-13); NUCLEATED RED BLOOD CELLS 1 /100 WBC (0); SEGMENTED NEUTROPHILS % (MAN) 68 % (42-78); TOTAL CELLS COUNTED 100
[2018-11-27 06:20] LABS: ANISOCYTOSIS 2+; PLATELET COMMENT ADEQUATE; POLYCHROMASIA 1+
[2018-11-27 06:22] LABS: BURR CELLS SLIGHT; TARGET CELLS SLIGHT
[2018-11-27] MEDS: INSULIN LISPRO 100 UNIT/ML 3 ML VIAL SUBCUT SCH ×4 (07:53→22:38)
[2018-11-27] MEDS: BUDESONIDE NEB 0.5 MG/2 ML AMPUL NEB SCH ×2 (09:14→19:51)
[2018-11-27] MEDS: METOPROLOL TARTRATE 25 MG TABLET PO SCH ×2 (09:24→22:02)
--- NOTE | 2018-11-27 09:41 | PDOC PROGRESS REPORT ---
Subjective Progress Note for:: 11/27/18 Subjective:: I saw the patient on dialysis this morning. He is still requiring high flow oxygen at 4 to 5 L via nasal cannula. He said he still feels short of breath despite the thoracentesis last Tuesday. CT scan of the chest was done on November 25 which showed left lower lobe consolidation and pleural effusion. Another chest x-ray was done yesterday showing the same thing. Her going to try to take off more ultrafiltration today is that if he tolerates. Reason For Visit: ACUTE RESPIRATORY FAILURE WITH HYPOXIA Physical Exam Vital Signs: Temp Pulse Resp BP Pulse Ox 97.5 F 65 18 120/67 95 11/26/18 20:00 11/27/18 07:00 11/27/18 00:49 11/26/18 20:00 11/27/18 00:49 Intake & Output 11/26/18 11/27/18 11/28/18 06:59 06:59 06:59 Intake Total 2440 1830 Output Total 2 Balance 2438 1830 Weight 80.5 kg 80.2 kg Vitals during dialysis: Blood pressure 147/77, heart rate of 66, blood flow rate of 250 mL/min and dialysate flow rate of 800 ml per minute. Exam: General appearance: PRESENT: no acute distress, cooperative, well-developed, well-nourished Head exam: PRESENT: atraumatic, normocephalic Eye exam: PRESENT: conjunctiva slightly pale, PERRLA. ABSENT: scleral icterus Neck exam: ABSENT: JVD Respiratory exam: PRESENT: Slightly diminished breath sounds. ABSENT: crackles, rales, rhonchi, unlabored, wheezes Cardiovascular exam: PRESENT: Regular rate rhythm -+S1, +S2. ABSENT: diastolic murmur, systolic murmur GI/Abdominal exam: PRESENT: normal bowel sounds, soft. ABSENT: guarding, mass, tenderness Extremities exam: ABSENT: No edema Neurological exam: PRESENT: alert, awake, oriented to person, place and time. Skin exam: PRESENT: dry, warm, GI/Abdominal exam: PRESENT: normal bowel sounds, soft. ABSENT: organomegaly, tenderness Results Laboratory Results: 11/27/18 04:21 11/27/18 04:21 11/26/18 11/26/18 11/27/18 08:21 08:21 04:21 WBC 15.5 H 12.7 H RBC 3.00 L 2.92 L Hgb 9.7 L 9.5 L Hct 30.5 L 29.9 L MCV 102 H 102 H MCH 32.4 32.6 MCHC 31.9 L 31.9 L RDW 18.2 H 18.5 H Plt Count 295 258 Seg Neutrophils % 65.1 Not Reportable Lymphocytes % 23.9 Not Reportable Monocytes % 9.9 Not Reportable Eosinophils % 0.7 Not Reportable Basophils % 0.4 Not Reportable Absolute Neutrophils 10.1 H Not Reportable Absolute Lymphocytes 3.7 Not Reportable Absolute Monocytes 1.5 H Not Reportable Absolute Eosinophils 0.1 Not Reportable Absolute Basophils 0.1 Not Reportable Sodium 141.1 Potassium 4.2 Chloride 100 Carbon Dioxide 25 Anion Gap 16 BUN 74 H Creatinine 6.30 H Est GFR ( Amer) 11 L Est GFR (Non-Af Amer) 9 L Glucose 201 H Calcium 9.1 Magnesium 2.1 Total Bilirubin 0.7 AST 17 ALT 45 Alkaline Phosphatase 104 Total Protein 5.9 L Albumin 3.4 L 11/27/18 04:21 WBC RBC Hgb Hct MCV MCH MCHC RDW Plt Count Seg Neutrophils % Lymphocytes % Monocytes % Eosinophils % Basophils % Absolute Neutrophils Absolute Lymphocytes Absolute Monocytes Absolute Eosinophils Absolute Basophils Sodium 142.3 Potassium 4.9 Chloride 101 Carbon Dioxide 25 Anion Gap 16 BUN 93 H Creatinine 7.00 H Est GFR ( Amer) 9 L Est GFR (Non-Af Amer) 8 L Glucose 106 Calcium 8.8 Magnesium 2.3 Total Bilirubin 0.8 AST 18 ALT 38 Alkaline Phosphatase 89 Total Protein 5.6 L Albumin 3.2 L 11/21/18 11:19 Blood Blood Culture - Final NO GROWTH IN 5 DAYS 11/21/18 10:28 Blood Blood Culture - Final NO GROWTH IN 5 DAYS 11/20/18 11/20/18 09:00 17:56 Troponin I 0.036 0.024 Impressions: Thoracentesis Ultrasound 11/24/18 00:00 IMPRESSION: SUCCESSFUL THORACENTESIS USING ULTRASOUND GUIDANCE. Chest CT 11/25/18 00:00 IMPRESSION: 1. Pleural effusions, left greater than right. Associated consolidation and volume loss, most notable in the left lower lobe. 2. Status post endovascular repair of descending thoracic aortic aneurysm. 3. Other findings as above. Chest X-Ray 11/26/18 00:00 IMPRESSION: Stable chest with findings as above. Assessment & Plan - Diagnosis (1) Acute respiratory failure with hypoxia Is this a current diagnosis for this admission?: Yes Plan: Still requiring high flow oxygen at 4-5 L via nasal cannula. 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 Likely to require home oxygen. His chest CT and chest x-ray showed left lower lobe consolidation most likely pneumonia. (2) ESRD (end stage renal disease) Is this a current diagnosis for this admission?: Yes Plan: We will do dialysis today for 3 hours, using the patient's AV fistula, with 2 potassium bath, blood flow rate of 250 mL per minute, dialysate flow rate of 800 mL per minute, ultrafiltration 3 to 4 L as tolerated, no heparin and Procrit with 20,000 units during dialysis intravenously. Treatment plan discussed with her dialysis nurse. Patient will be monitored throughout dialysis treatment. (3) Pleural effusion Is this a current diagnosis for this admission?: Yes Plan: Status post thoracentesis , 11/24/18 obtaining 950 mL of pleural fluid. Pleural fluid cultures so far been negative. (4) CHF (congestive heart failure) Is this a current diagnosis for this admission?: Yes Plan: Clinically improved. (5) Anemia in CKD (chronic kidney disease) Qualifiers: Chronic kidney disease stage: unspecified stage Qualified Code(s): N18.9 - Chronic kidney disease, unspecified; D63.1 - Anemia in chronic kidney disease; D63.1 - Anemia in chronic kidney disease Is this a current diagnosis for this admission?: Yes Plan: Procrit during Hemodialysis as needed. (6) Pneumonia Is this a current diagnosis for this admission?: Yes Plan: Chest CT and chest x-ray showed left lower lobe consolidation. Patient currently still on IV Zosyn and vancomycin. His white count is slowly decreasing from 14.7 now 12.2. (7) HTN (hypertension) Qualifiers: Hypertension type: essential hypertension Qualified Code(s): I10 - Essential (primary) hypertension Is this a current diagnosis for this admission?: Yes Plan: Blood pressure seems to be better at the start of dialysis today. Hold any blood pressure medications prior to dialysis. (8) COPD (chronic obstructive pulmonary disease) Is this a current diagnosis for this admission?: Yes Plan: Needs Pulmonary follow-up once discharged. - Time Time with patient: 15-25 minutes
[2018-11-27] MEDS: FLUTICASONE/VILANTEROL 200-25 MCG/DOSE IH SCH (09:53)
[2018-11-27] MEDS: DOCUSATE SODIUM 100 MG CAPSULE PO SCH (09:53)
[2018-11-27] MEDS: PREDNISONE 20 MG TABLET PO SCH (09:53)
[2018-11-27] MEDS: GUAIFENESIN 600 MG TABLET.SA PO SCH ×2 (09:53→21:44)
[2018-11-27] MEDS: NICOTINE 21 MG/24 HR PATCH.TD24 TD SCH (09:53)
[2018-11-27] MEDS: EZETIMIBE 10 MG TABLET PO SCH (09:54)
[2018-11-27] MEDS: CALCIUM ACETATE 667 MG CAPSULE PO SCH ×3 (09:55→17:50)
[2018-11-27] MEDS: SODIUM BICARBONATE 650 MG TABLET PO SCH ×3 (10:00→17:47)
--- NOTE | 2018-11-27 10:16 | PDOC PROGRESS REPORT ---
Subjective Progress Note for:: 11/27/18 Subjective:: 68 year old male with a past medical history of end-stage renal disease (hemodialysis Tuesday, Tuesday; patient reports he has been told to dialyze on Wednesdays but does not attend due to conflicting appointments), CHF, hypertension, pulmonary hypertension, W[place] with stent x1, transthoracic aorta aneurysm repair, COPD, DM 2 and tobacco dependence who presented to the emergency department with a complaint of progressively worsening shortness of breath x1 week. Patient reports that he previously had home O2, however, has not had home O2 for several months to a year secondary to financial burden. The patient also relates that he was recently admitted [facility] for possible N STEMI; states that he was told he did not have an [place], but does not know what was ultimately determined to be at issue. Evaluation in the emergency department revealed his baseline anemia (hemoglobin 9.4), hyperkalemia (5.1), elevated creatinine and BUN (patient was due for d ialysis this morning), indeterminately elevated troponin of 0.036, NSR by EKG, and chest x-ray that demonstrates cardiomegaly with pulmonary vascular congestion and bilateral pleural effusions. He was found to have tachypnea with respiratory rate 29 at presentation with hypoxia on room air; he is currently requiring 5 lpm via nasal cannula to maintain oxygen saturations >88%. He is referred to the hospitalist service for admission and management of the above-stated complaints; arrangements have been made for the patient to proceed directly to dialysis 11/21/[id number]-mggs-old male history of end-stage renal disease on hemodialysis Tuesday admitted for acute respiratory distress with hypoxia. pt Is complaining of coughing up yellowish sputum as per Dr. Avery's recommendations started on IV Zosyn and IV vancomycin. Patient says he is feeling little bit better today. He had a dialysis yesterday. I spoke to Dr. Lara just a minute ago patient is going to have dialysis tomorrow. Patient is afebrile no acute events in the last 24 hours. 11/22/[id number]-rxtn-old male with history of end-stage renal disease on hemodialysis Tuesday day Tuesday admitted for acute respiratory distress with hypoxia. pulse is 92% on 5 L. He may need home oxygen. We are going to check for the home oxygen requirements. In the dialysis unit tolerating the procedure very well. No complaints. WBC count is going up is 14,000 today. Presently on IV vancomycin and Zosyn. Plan is to repeat the labs tomorrow if everything is okay he may go home tomorrow. 11/23/[id number]-jbjs-old male with history of end-stage renal disease on hemodialysis Tuesday admitted with acute respiratory distress with hypoxia. Pulse ox today is 92% on 5 L. Patient complaining of increasing shortness of breath since last night. He wants to stay another day and to have her dialysis tomorrow prior to discharge. Presently on IV vancomycin and Zosyn. No other complaints. The plan to check his home oxygen requirements today. 11/24/[id number]-qtnb-old male with a history of end-stage renal disease on dialysis Tuesday, Tuesday admitted for acute respiratory distress with hypoxia. Pulse ox today is 93% on 5 L. He developed pleural effusions and underwent for left- sided thoracentesis today 950 mL of fluid was removed. He is breathing much better. Postthoracentesis chest x-ray is negative for pneumothorax. Comfortable in the bed communicating well not in distress. He is going to have a dialysis session today. 11/25/[id number]-aakv-old male with history of end-stage renal disease on dialysis Tuesday last dialysis yesterday he went for thoracentesis and 9050 fluid was removed from the left side of the chest follow-up chest x-ray this morning shows left-sided opacification no pneumothorax plan to do the CT chest without contrast today for further information patient also meet the criteria for home oxygen he need to 4 L oxygen via nasal cannula on a continuous basis unfortunately patient did not receive any supplies so far because of the weekend he may end up staying until Tuesday. 11/26/[id number]-sbkh-old male with history of end-stage renal disease on hemodialysis Aj a day admitted with acute respiratory failure with hypoxia. He was treated with the scheduled and as needed nebulizations and IV antibiotic therapy follow-up x-rays found to have a left pleural effusion status post thoracentesis more than 950 mL of fluid is removed. This morning patient is in more respiratory distress requiring 4 L of oxygen. Follow-up x-rays done ye and today indicates left-sided consolidation and increasing vascular congestion. Patient agreed to stay and a problem will need hemodialysis tomorrow. 11/27/2018-no acute events in the last 24 hours. Patient is afebrile. He is in the dialysis room tolerating the dialysis well. He agreed to stay until he gets better. Latest CT scans and chest x-rays indicate left-sided consolidation/pne umonia. Cultures are negative so far. During the hospital stay he has a left thoracentesis 950 mL of fluid was removed the pleural fluid analysis is negative so far for infectious process. Presently on 5 L oxygen pulse ox is 93 to 94%. Reason For Visit: ACUTE RESPIRATORY FAILURE WITH HYPOXIA Physical Exam Vital Signs: Temp Pulse Resp BP Pulse Ox 97.5 F 67 20 120/67 91 L 11/26/18 20:00 11/27/18 09:17 11/27/18 09:17 11/26/18 20:00 11/27/18 09:17 Intake & Output 11/26/18 11/27/18 11/28/18 06:59 06:59 06:59 Intake Total 2440 1830 Output Total 2 Balance 2438 1830 Weight 80.5 kg 80.2 kg General appearance: PRESENT: mild distress, thin Head exam: PRESENT: atraumatic Eye exam: PRESENT: PERRLA Mouth exam: PRESENT: moist, tongue midline Teeth exam: PRESENT: poor dentation Neck exam: ABSENT: carotid bruit, JVD, lymphadenopathy, thyromegaly Respiratory exam: PRESENT: crackles, decreased breath sounds, rhonchi Cardiovascular exam: PRESENT: tachycardia GI/Abdominal exam: PRESENT: normal bowel sounds, soft. ABSENT: distended, gua rding, mass, organolmegaly, rebound, tenderness Rectal exam: PRESENT: deferred Extremities exam: PRESENT: full ROM. ABSENT: calf tenderness, clubbing, pedal edema Neurological exam: PRESENT: alert, awake, oriented to person, oriented to place, oriented to time, oriented to situation, CN II-XII grossly intact. ABSENT: zuleika r sensory deficit Psychiatric exam: PRESENT: appropriate affect, normal mood. ABSENT: homicidal ideation, suicidal ideation Results Laboratory Results: 11/27/18 04:21 11/27/18 04:21 11/27/18 11/27/18 04:21 04:21 WBC 12.7 H RBC 2.92 L Hgb 9.5 L Hct 29.9 L MCV 102 H MCH 32.6 MCHC 31.9 L RDW 18.5 H Plt Count 258 Seg Neutrophils % Not Reportable Lymphocytes % Not Reportable Monocytes % Not Reportable Eosinophils % Not Reportable Basophils % Not Reportable Absolute Neutrophils Not Reportable Absolute Lymphocytes Not Reportable Absolute Monocytes Not Reportable Absolute Eosinophils Not Reportable Absolute Basophils Not Reportable Sodium 142.3 Potassium 4.9 Chloride 101 Carbon Dioxide 25 Anion Gap 16 BUN 93 H Creatinine 7.00 H Est GFR ( Amer) 9 L Est GFR (Non-Af Amer) 8 L Glucose 106 Calcium 8.8 Magnesium 2.3 Total Bilirubin 0.8 AST 18 ALT 38 Alkaline Phosphatase 89 Total Protein 5.6 L Albumin 3.2 L 11/21/18 11:19 Blood Blood Culture - Final NO GROWTH IN 5 DAYS 11/21/18 10:28 Blood Blood Culture - Final NO GROWTH IN 5 DAYS 11/20/18 11/20/18 09:00 17:56 Troponin I 0.036 0.024 Impressions: Thoracentesis Ultrasound 11/24/18 00:00 IMPRESSION: SUCCESSFUL THORACENTESIS USING ULTRASOUND GUIDANCE. Chest CT 11/25/18 00:00 IMPRESSION: 1. Pleural effusions, left greater than right. Associated consolidation and volume loss, most notable in the left lower lobe. 2. Status post endovascular repair of descending thoracic aortic aneurysm. 3. Other findings as above. Chest X-Ray 11/26/18 00:00 IMPRESSION: Stable chest with findings as above. Assessment and Plan - Diagnosis (1) Acute respiratory failure with hypoxia Is this a current diagnosis for this admission?: Yes Plan: Patient is admitted to the medical floor and continuous cardiac telemetry. He is provided supplemental oxygen as needed to maintain oxygen saturations >88% He is started on scheduled and as needed nebulizer treatments. P.o. prednisone. Mucinex twice daily. Dialysis today for pulmonary vascular congestion secondary to volume overload. Incentive spirometer and flutter valve to bedside. 11/21/2018-patient admitted with acute respiratory failure with hypoxia his pulse ox is 91% on 5 L complaining of coughing up yellow sputum patient was started on IV Zosyn and IV vancomycin sputum cultures are going to be requested. Blood cultures are going to be requested. Patient says he is feeling little bit better. Presently on incentive spirometry, flutter valve therapy on PRN basis, he is also receiving scheduled and as needed nebulizations. He is also on p.o. prednisone and Mucinex. As per the thermal cutter helper patient may go for dialysis tomorrow for another session. In the meantime we will continue the present management. 11/22/2018-patient admitted with acute respiratory failure with hypoxia resolving. Pulse ox is 92% on 5 L plan is to check the home oxygen requirements today prior to discharge. Presently on IV vancomycin and Zosyn, WBC count is 14,000 today. 11/23/[id number]-cszi-old male admitted with acute respiratory failure with hypoxia. Resolving. Pulse ox today is 92% 5 L. Plan to check home oxygen requirements. Presently on IV vancomycin and Zosyn blood cultures are negative WBC count is slightly came down to 14,100 today. Presently on scheduled nebulizer oxygen treatments. Plan is to continue the present management. Acute respiratory failure with hypoxia may be secondary to fluid overload and possible underlying COPD. 11/24/[id number]-vjca-old male with history of end-stage renal disease on dialysis admitted with acute respiratory failure with hypoxia. Pulse ox is 93% on 2 L. Status post left-sided thoracentesis 7 to 50 mL of fluid was removed. Patient's WBC count is 14,700 presently on IV vancomycin and Zosyn. Afebrile. T-max is 98.7. Plan is to keep him another day and continue to follow him on regular basis. Postthoracentesis chest x-ray is negative for pneumothorax. 11/25/2018-patient with history of end-stage renal disease on dialysis admitted with acute respiratory failure with hypoxia initially on BiPAP presently on 4 L oxygen he meets criteria for home oxygen he supposed to go home with 4 L of oxygen but because of the weekend he may to stay until Tuesday for the oxygen supplies. In the meantime we did a chest x-ray this morning after the thoracentesis that was done yesterday shows opacification in the left side of the chest plan is to do the CT chest without contrast for further information. Patient is frustrated expressing his desire to go home and try to explain to him to stay and do everything and including the possibility of staying until Tuesday ,patient reluctantly agreed. 11/26/[id number]-ptpn-old male with history of end-stage renal disease admitted with acute respiratory failure with hypoxia status post thoracentesis and removal of more than 950 mL of fluid from the left side of the chest. Follow-up CT scan and x-rays indicating consolidation in the left lower lobe and increasing vascular congestion. Patient is in more short of breath today requiring 5 L of oxygen to keep the pulse ox more than 90%. Patient is willing to stay in the hospital for at least another day probably need another session of dialysis tomorrow. Anemia had to go on a 3 day/week dialysis as an outpatient. Presently IV vancomycin and Zosyn plan is to continue the present management. 11/27/[id number]-wbru-old male admitted with acute on chronic respiratory failure with hypoxia. Status post left-sided thoracentesis and 950 mL of fluid was removed fluid analysis is negative so far for infection. Follow-up CT chest and x-rays indicating left-sided consolidation/pneumonia. Presently on IV Zosyn and vancomycin afebrile blood cultures are negative WBC count is improving. Today's WBC count is 12.7. Since yesterday is requiring 5 L of oxygen and the BiPAP was arranged at bedside in case if needed. Plan is to continue p.o. prednisone and scheduled and as needed nebulizations. Pulmicort was initiated yesterday. Sp utum culture shows Mabel albicans. (2) COPD exacerbation Is this a current diagnosis for this admission?: Yes Plan: Management as above. 11/21/2018-patient has COPD secondary to chronic smoking admitted for COPD exacerbation pulse ox is 91 percent on 5 L oxygen presently on p.o. prednisone, Mucinex, scheduled and as needed nebulizations. Plan is to continue the present management started on IV vancomycin and IV Zosyn today. 11/22/2018-patient has history of COPD came in with COPD exacerbation he still is a smoker. Pulse ox is 92% on 5 L oxygen. Plan is to check for the home oxygen requirements. Plan is to continue p.o. prednisone, scheduled and as needed nebulizations. 11/23/2018-patient has history of COPD secondary to smoking admitted with COPD exacerbation. Presently on p.o. prednisone, on scheduled and as needed nebulizations. Pulse ox is 92% on 5 L today he is complaining of increasing shortness of breath today. Plan is to give him another day probably discharge after dialysis session tomorrow. To check a pulse ox at rest on pulse ox also on ambulation, to see if he qualify for home oxygen. 11/24/2018-patient has history of COPD secondary to smoking. He is continued to smoke and smoking counseling was provided. Presently on p.o. prednisone, scheduled and as needed nebulizations. Pulse ox is 93% on 5 L. Checking for the home oxygen requirements. Patient is new to 4 L of home oxygen nasal c annula and continuous basis upon discharge. 11/25/2018-patient has history of COPD secondary to smoking he continued to smoke. He needs to go home on 4 L oxygen via nasal cannula. On chest x-ray today left-sided opacification was noticed plan is to arrange for the CT chest without contrast today. He is presently on prednisone and scheduled and as needed nebulizations plan is to continue those medications. 11/26/2018-patient has history of COPD secondary to smoking wearing 4 L of oxygen via nasal cannula on continuous basis. We are making the arrangements for him to receive the home oxygen. He is not stable letter to go home today. Chest x- ray done today indicating left-sided consolidation with increasing vascular congestion and a left-sided pleural effusion more than right-sided pleural effusion. He is on 5 L of oxygen with pulse ox 92%. On examination chest bilateral it was decreased especially in the left lower base more crackles and crepitations present. 11/27/2018-patient has history of COPD secondary to smoking. Currently on 5 L of oxygen pulse oxes 93 to 94%. Continue to smoke a nicotine patch was provided. Smoking counseling was provided. Patient qualified for 4 L oxygen at home. (3) Acute on chronic diastolic (congestive) heart failure Is this a current diagnosis for this admission?: Yes Plan: Dialysis today. Resume outpatient medication regiment. Cardiac diet. Daily weights. Will request records from [facility] regarding recent admission. 11/21/2018-patient has a successful dialysis session yesterday. And cardiac diet. He has a history of diastolic heart failure admitted this time for acute on chronic heart failure with shortness of breath. 11/22/2018-patient has history of chronic diastolic heart failure admitted for acute on chronic diastolic heart failure. Shortness of breath and respiratory distress may be secondary to fluid overload. Plan is to remove 2 to 3 L of fluid today and patient respiratory status is improving on daily basis. 11/23/2018-patient has history of chronic diastolic heart failure. Admitted with acute on chronic respiratory failure with hypoxia it may be secondary to CHF exacerbation. He had a dialysis on Tuesday and is going for dialysis tomorrow. Hopefully fluid removal will improve his breathing. recent echocardiogram indicates patient might had mild diastolic heart failure. 11/24/2018-patient has history of chronic diastolic heart failure. Patient has also bilateral pleural effusions and cardiomegaly on chest x-ray. Recent echocardiogram shows he might have mild diastolic heart failure. Plan is to continue the present management he does not need any Lasix because he is getting regular dialysis. Gently is on dialysis twice a day nephrology team is trying to talk to him to switch to 3 times a week dialysis. 11/25/2018-patient has history of chronic diastolic heart failure chest x-ray 2 days ago shows bilateral pleural effusions and status post left-sided thoracentesis on 950 mL of fluid was removed. He is getting regular dialysis 3 times a week now. Patient is not in fluid overload today. 11/26/2018-patient has history of chronic diastolic heart failure chest x-ray showing bilateral pleural effusions even after thoracentesis left-sided pleural effusion more than right-sided pleural effusion. Patient is having dialysis 3 times a week he is scheduled for dialysis tomorrow. If the blood pressure is stable there is a possibility that at least 3 L of fluid will be removed. 11/27/2018-patient has bilateral pleural effusions left is more than right even after left-sided thoracentesis and removal of 950 mL of fluid. Patient is receiving dialysis 3 times per week during the hospital stay. The r ecommendation from the thermal cutter helper is he needed 3 times a week dialysis outpatient. (4) ESRD (end stage renal disease) Is this a current diagnosis for this admission?: Yes Plan: Dr. Avery consulted. Dialysis today. 11/21/2018-patient has a successful dialysis yesterday AV fistula on his right arm is functioning well. As per Dr. Lara patient may need another session of dialysis tomorrow. 11/22/2018-patient is on dialysis Tuesday as an outpatient because of the fluid overload is getting another session of dialysis today. As per Dr. Lara patient is to be on Tuesday dialysis as outpatient. 11/23/[id number]-nqpi-old male with history of ESRD on hemodialysis Tuesday, last dialysis yesterday for fluid overload and he has a functioning AV fistula on the right arm. He is complaining of increasing shortness of breath today will receive another session of dialysis tomorrow before discharge. 11/24/2018-patient has end-stage renal disease on dialysis Tuesday as an outpatient Dr. Lara and Dr. Avery trying to talk to the patient about the need for dialysis 3 times a week. As per Dr. Lara patient's blood pressures are always on the softer side and it is difficult to remove the fluid in just 2 dialysis sessions per week. 11/25/2018-patient's regular schedule is Tuesday as an outpatient in the hospital is receiving dialysis 3 times a week. Last dialysis on Tuesday next dialysis session is going to be on Tuesday if the patient agreed to stay in the hospital. 11/26/2018-last hemodialysis was done on Tuesday next hemodialysis on Tuesday. He has AV fistula on the right upper arm functioning well. 11/27/2018-patient is on dialysis unit today tolerating the dialysis well. No complaints. He has a functioning AV fistula on the right arm. 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 AccuCheck before meals and bedtime with Humalog for sliding scale coverage. Hypoglycemia protocol. 11/21/2018-patient blood sugar is 163. He has history of type 2 diabetes mellitus and cardiac diet. Presently on insulin sliding scale before meals and at bedtime. Plan is to continue the present management dietary consult is going to be requested to check for hemoglobin A1c. 11/22/2018-patient blood sugar is 243 today. He is on insulin sliding scale today. Hemoglobin A1c is pending. 11/23/2018-patient has history of type 2 diabetes mellitus. Latest blood sugar is 218. Again insulin sliding scale. hemoglobin A1c is pending. 11/24/2018-patient has history of type 2 diabetes mellitus latest blood sugar is 193. Presently on insulin sliding scale. Hemoglobin A1c is 5.0. 11/25/2018-patient has history of type 2 diabetes mellitus latest blood sugar is 11 presently on insulin sliding scale plan is to continue those medications. 11/26/2018-patient has history of type 2 diabetes mellitus latest blood sugar is 230 today. Presently on insulin sliding scale plan is to continue the present management. hemoglobin A1c is 5. 11/27/2018-patient has history of type 2 diabetes mellitus latest blood sugar is 99. Plan is to continue insulin sliding scale. (6) Tobacco abuse Is this a current diagnosis for this admission?: Yes (7) Hypotension Is this a current diagnosis for this admission?: Yes Plan: 11/21/2018-patient blood pressure today is at 96/52 asymptomatic. As per the patient blood always run low. Sometimes systolic blood pressure goes down to 70 during the dialysis session as per the patient. 11/24/2018-patient came in with hypotension most likely his baseline systolic blood pressure is around 90 -100. Today blood pressure is 108 systolic and asymptomatic. 11/25/2018-patient blood pressure today is 110/74 stable. 11/26/2018-latest blood pressure is 128/67 stable. 11/27/2018-patient came in with hypotension today's blood pressure is 120/67 improved and stable. (8) Pneumonia Is this a current diagnosis for this admission?: Yes Plan: 11/27/2018-CT scan and chest x-ray indicating left lower lobe consolidation. Most likely healthcare associated pneumonia. Presently on IV vancomycin and Zosyn blood cultures are negative sputum culture showing Mabel albicans. Patient is on 5 L of oxygen pulse ox is 94%. He qualified for 4 L oxygen at home. Plan is to continue to keep him for at least another day or 2 and continue the antibiotic therapy. Causative agent can be combination of gram-positive gram- negative organisms. - Time Time Spent with patient: 15-24 minutes Smoking Cessation Education: over 10 minutes Medications reviewed and adjusted accordingly: Yes Anticipated discharge: Home
--- NOTE | 2018-11-27 13:07 | RADIOLOGY REPORT (SQ) ---
EXAM DESCRIPTION: CHEST 2 VIEWS COMPLETED DATE/TIME: 11/27/2018 12:55 pm REASON FOR STUDY: lt side consolidation COMPARISON: 12/23/2018 TECHNIQUE: Frontal and lateral radiographic views of the chest acquired. NUMBER OF VIEWS: Two view. LIMITATIONS: None. FINDINGS: LUNGS AND PLEURA: No pneumothorax. Increasing left basilar consolidation and moderate ple ural effusion. Slightly increased right basilar airspace disease -effusion. Similar interstitial pr ominence. MEDIASTINUM AND HILAR STRUCTURES: Stable. HEART AND VASCULAR STRUCTURES: Stable. BONES: No acute findings. HARDWARE: Long segment aortic stent. OTHER: No other significant finding. IMPRESSION: Increasing left basilar consolidation and moderate pleural effusion. Slightly increased right basilar airspace disease -effusion. Similar interstitial prominence. TECHNICAL DOCUMENTATION: JOB ID: [id number] [employer]- All Rights Reserved Reading location - IP/workstation name: [email or web address]
[2018-11-27] MEDS: VANCOMYCIN HCL 750 MG in DEXTROSE 5%-WATER 250 ML IV SCH (17:47)
[2018-11-27 18:14] LABS: VANCOMYCIN,TROUGH 12.4 ug/mL (5.0-20.0)
[2018-11-27] MEDS: ATORVASTATIN CALCIUM 40 MG TABLET PO SCH (22:01)
[2018-11-28] MEDS: IPRATROPIUM/ALBUTEROL 0.5-2.5 MG/3 ML AMPUL NEB SCH ×3 (00:53→16:24)
[2018-11-28] MEDS: PIPERACILLIN SODIUM/TAZOBACTAM 2.25 GM in NORMAL SALINE 50 ML IV SCH ×3 (05:52→21:57)
[2018-11-28] MEDS: PANTOPRAZOLE SODIUM 20 MG TABLET.DR PO SCH (05:53)
[2018-11-28] MEDS: INSULIN LISPRO 100 UNIT/ML 3 ML VIAL SUBCUT SCH ×4 (07:36→21:58)
[2018-11-28] MEDS: BUDESONIDE NEB 0.5 MG/2 ML AMPUL NEB SCH ×2 (08:29→20:19)
[2018-11-28] MEDS: PREDNISONE 20 MG TABLET PO SCH (09:15)
[2018-11-28] MEDS: NICOTINE 21 MG/24 HR PATCH.TD24 TD SCH (09:15)
[2018-11-28] MEDS: EZETIMIBE 10 MG TABLET PO SCH (09:16)
[2018-11-28] MEDS: METOPROLOL TARTRATE 25 MG TABLET PO SCH (09:16)
[2018-11-28] MEDS: GUAIFENESIN 600 MG TABLET.SA PO SCH ×2 (09:16→21:57)
[2018-11-28] MEDS: CALCIUM ACETATE 667 MG CAPSULE PO SCH ×3 (09:16→17:10)
[2018-11-28] MEDS: FLUTICASONE/VILANTEROL 200-25 MCG/DOSE IH SCH (09:16)
[2018-11-28] MEDS: SODIUM BICARBONATE 650 MG TABLET PO SCH ×3 (09:16→17:10)
[2018-11-28] MEDS: DOCUSATE SODIUM 100 MG CAPSULE PO SCH (09:28)
--- NOTE | 2018-11-28 10:46 | PDOC PROGRESS REPORT ---
Subjective Progress Note for:: 11/28/18 Subjective:: 68 year old male with a past medical history of end-stage renal disease (hemodialysis Tuesday, Tuesday; patient reports he has been told to dialyze on Wednesdays but does not attend due to conflicting appointments), CHF, hypertension, pulmonary hypertension, [place] with stent x1, transthoracic aorta aneurysm repair, COPD, DM 2 and tobacco dependence who presented to the emergency department with a complaint of progressively worsening shortness of breath x1 week. Patient reports that he previously had home O2, however, has not had home O2 for several months to a year secondary to financial burden. The patient also relates that he was recently admitted [facility] for possible N STEMI; states that he was told he did not have an [place], but does not know what was ultimately determined to be at issue. Evaluation in the emergency department revealed his baseline anemia (hemoglobin 9.4), hyperkalemia (5.1), elevated creatinine and BUN (patient was due for d ialysis this morning), indeterminately elevated troponin of 0.036, NSR by EKG, and chest x-ray that demonstrates cardiomegaly with pulmonary vascular congestion and bilateral pleural effusions. He was found to have tachypnea with respiratory rate 29 at presentation with hypoxia on room air; he is currently requiring 5 lpm via nasal cannula to maintain oxygen saturations >88%. He is referred to the hospitalist service for admission and management of the above-stated complaints; arrangements have been made for the patient to proceed directly to dialysis 11/21/[id number]-ynsc-old male history of end-stage renal disease on hemodialysis Tuesday admitted for acute respiratory distress with hypoxia. pt Is complaining of coughing up yellowish sputum as per Dr. Avery's recommendations started on IV Zosyn and IV vancomycin. Patient says he is feeling little bit better today. He had a dialysis yesterday. I spoke to Dr. Lara just a minute ago patient is going to have dialysis tomorrow. Patient is afebrile no acute events in the last 24 hours. 11/22/[id number]-jwgj-old male with history of end-stage renal disease on hemodialysis Tuesday day Tuesday admitted for acute respiratory distress with hypoxia. pulse is 92% on 5 L. He may need home oxygen. We are going to check for the home oxygen requirements. In the dialysis unit tolerating the procedure very well. No complaints. WBC count is going up is 14,000 today. Presently on IV vancomycin and Zosyn. Plan is to repeat the labs tomorrow if everything is okay he may go home tomorrow. 11/23/[id number]-wlpk-old male with history of end-stage renal disease on hemodialysis Tuesday admitted with acute respiratory distress with hypoxia. Pulse ox today is 92% on 5 L. Patient complaining of increasing shortness of breath since last night. He wants to stay another day and to have her dialysis tomorrow prior to discharge. Presently on IV vancomycin and Zosyn. No other complaints. The plan to check his home oxygen requirements today. 11/24/[id number]-cwhs-old male with a history of end-stage renal disease on dialysis Tuesday, Tuesday admitted for acute respiratory distress with hypoxia. Pulse ox today is 93% on 5 L. He developed pleural effusions and underwent for left- sided thoracentesis today 950 mL of fluid was removed. He is breathing much better. Postthoracentesis chest x-ray is negative for pneumothorax. Comfortable in the bed communicating well not in distress. He is going to have a dialysis session today. 11/25/[id number]-kheo-old male with history of end-stage renal disease on dialysis Tuesday last dialysis yesterday he went for thoracentesis and 9050 fluid was removed from the left side of the chest follow-up chest x-ray this morning shows left-sided opacification no pneumothorax plan to do the CT chest without contrast today for further information patient also meet the criteria for home oxygen he need to 4 L oxygen via nasal cannula on a continuous basis unfortunately patient did not receive any supplies so far because of the weekend he may end up staying until Tuesday. 11/26/[id number]-cgfn-old male with history of end-stage renal disease on hemodialysis Aj a day admitted with acute respiratory failure with hypoxia. He was treated with the scheduled and as needed nebulizations and IV antibiotic therapy follow-up x-rays found to have a left pleural effusion status post thoracentesis more than 950 mL of fluid is removed. This morning patient is in more respiratory distress requiring 4 L of oxygen. Follow-up x-rays done ye and today indicates left-sided consolidation and increasing vascular congestion. Patient agreed to stay and a problem will need hemodialysis tomorrow. 11/27/2018-no acute events in the last 24 hours. Patient is afebrile. He is in the dialysis room tolerating the dialysis well. He agreed to stay until he gets better. Latest CT scans and chest x-rays indicate left-sided consolidation/pne umonia. Cultures are negative so far. During the hospital stay he has a left thoracentesis 950 mL of fluid was removed the pleural fluid analysis is negative so far for infectious process. Presently on 5 L oxygen pulse ox is 93 to 94%. 11/28/2018-chest x-ray done this morning indicating worsening of the consolidation. Patient pulse ox is a 91% on 4 L. Is due for dialysis tomorrow. Patient is willing to stay until he gets better. Dr. Leon saw the patient yesterday. ID consult was requested for further input. Patient is willing to stay until he gets better. Reason For Visit: ACUTE RESPIRATORY FAILURE WITH HYPOXIA Physical Exam Vital Signs: Temp Pulse Resp BP Pulse Ox 97.8 F 75 22 H 132/71 H 90 L 11/28/18 07:12 11/28/18 08:29 11/28/18 08:29 11/28/18 07:12 11/28/18 08:29 Intake & Output 11/27/18 11/28/18 11/29/18 06:59 06:59 06:59 Intake Total 1830 3490 50 Output Total 4400 Balance 1830 -910 50 Weight 80.2 kg 79.7 kg General appearance: PRESENT: mild distress Head exam: PRESENT: atraumatic Eye exam: PRESENT: PERRLA Mouth exam: PRESENT: moist, tongue midline Teeth exam: PRESENT: poor dentation Respiratory exam: PRESENT: clear to auscultation robinson, decreased breath sounds, tachypnea. ABSENT: rales, rhonchi, wheezes Cardiovascular exam: PRESENT: tachycardia GI/Abdominal exam: PRESENT: normal bowel sounds, soft. ABSENT: distended, guarding, mass, organolmegaly, rebound, tenderness Rectal exam: PRESENT: deferred Extremities exam: PRESENT: full ROM. ABSENT: calf tenderness, clubbing, pedal edema Neurological exam: PRESENT: alert, awake, oriented to person, oriented to place, oriented to time, oriented to situation, CN II-XII grossly intact. ABSENT: motor sensory deficit Psychiatric exam: PRESENT: appropriate affect, normal mood. ABSENT: homicidal ideation, suicidal ideation Results Laboratory Results: 11/27/18 04:21 11/27/18 04:21 11/24/18 08:35 Thoracic Fluid Gram Stain - Final 11/24/18 08:35 Thoracic Fluid Body Fluid Culture - Final NO AEROBIC OR ANAEROBIC ORGANISMS RECOVERED 11/20/18 11/20/18 09:00 17:56 Troponin I 0.036 0.024 Impressions: Thoracentesis Ultrasound 11/24/18 00:00 IMPRESSION: SUCCESSFUL THORACENTESIS USING ULTRASOUND GUIDANCE. Chest CT 11/25/18 00:00 IMPRESSION: 1. Pleural effusions, left greater than right. Associated consolidation and volume loss, most notable in the left lower lobe. 2. Status post endovascular repair of descending thoracic aortic aneurysm. 3. Other findings as above. Chest X-Ray 11/27/18 06:00 IMPRESSION: Increasing left basilar consolidation and moderate pleural effusion. Slightly increased right basilar airspace disease -effusion. Similar interstitial prominence. Assessment and Plan - Diagnosis (1) Acute respiratory failure with hypoxia Is this a current diagnosis for this admission?: Yes Plan: Patient is admitted to the medical floor and continuous cardiac telemetry. He is provided supplemental oxygen as needed to maintain oxygen saturations >88% He is started on scheduled and as needed nebulizer treatments. P.o. prednisone. Mucinex twice daily. Dialysis today for pulmonary vascular congestion secondary to volume overload. Incentive spirometer and flutter valve to bedside. 11/21/2018-patient admitted with acute respiratory failure with hypoxia his pulse ox is 91% on 5 L complaining of coughing up yellow sputum patient was started on IV Zosyn and IV vancomycin sputum cultures are going to be requested. Blood cultures are going to be requested. Patient says he is feeling little bit better. Presently on incentive spirometry, flutter valve therapy on PRN basis, he is also receiving scheduled and as needed nebulizations. He is also on p.o. prednisone and Mucinex. As per the frequency checker patient may go for dialysis tomorrow for another session. In the meantime we will continue the present management. 11/22/2018-patient admitted with acute respiratory failure with hypoxia resolving. Pulse ox is 92% on 5 L plan is to check the home oxygen requirements today prior to discharge. Presently on IV vancomycin and Zosyn, WBC count is 14,000 today. 11/23/[id number]-hsln-old male admitted with acute respiratory failure with hypoxia. Resolving. Pulse ox today is 92% 5 L. Plan to check home oxygen requirements. Presently on IV vancomycin and Zosyn blood cultures are negative WBC count is slightly came down to 14,100 today. Presently on scheduled nebulizer oxygen treatments. Plan is to continue the present management. Acute respiratory failure with hypoxia may be secondary to fluid overload and possible underlying COPD. 11/24/[id number]-kmol-old male with history of end-stage renal disease on dialysis admitted with acute respiratory failure with hypoxia. Pulse ox is 93% on 2 L. Status post left-sided thoracentesis 7 to 50 mL of fluid was removed. Patient's WBC count is 14,700 presently on IV vancomycin and Zosyn. Afebrile. T-max is 98.7. Plan is to keep him another day and continue to follow him on regular basis. Postthoracentesis chest x-ray is negative for pneumothorax. 11/25/2018-patient with history of end-stage renal disease on dialysis admitted with acute respiratory failure with hypoxia initially on BiPAP presently on 4 L oxygen he meets criteria for home oxygen he supposed to go home with 4 L of oxygen but because of the weekend he may to stay until Tuesday for the oxygen supplies. In the meantime we did a chest x-ray this morning after the thoracentesis that was done yesterday shows opacification in the left side of the chest plan is to do the CT chest without contrast for further information. Patient is frustrated expressing his desire to go home and try to explain to him to stay and do everything and including the possibility of staying until Tuesday ,patient reluctantly agreed. 11/26/[id number]-nxvs-old male with history of end-stage renal disease admitted with acute respiratory failure with hypoxia status post thoracentesis and removal of more than 950 mL of fluid from the left side of the chest. Follow-up CT scan and x-rays indicating consolidation in the left lower lobe and increasing vascular congestion. Patient is in more short of breath today requiring 5 L of oxygen to keep the pulse ox more than 90%. Patient is willing to stay in the hospital for at least another day probably need another session of dialysis tomorrow. Anemia had to go on a 3 day/week dialysis as an outpatient. Presently IV vancomycin and Zosyn plan is to continue the present management. 11/27/[id number]-dwjv-old male admitted with acute on chronic respiratory failure with hypoxia. Status post left-sided thoracentesis and 950 mL of fluid was removed fluid analysis is negative so far for infection. Follow-up CT chest and x-rays indicating left-sided consolidation/pneumonia. Presently on IV Zosyn and vancomycin afebrile blood cultures are negative WBC count is improving. Today's WBC count is 12.7. Since yesterday is requiring 5 L of oxygen and the BiPAP was arranged at bedside in case if needed. Plan is to continue p.o. prednisone and scheduled and as needed nebulizations. Pulmicort was initiated yesterday. Sputum culture shows Mabel albicans. 11/28/[id number]-ksmy-old L with history of end-stage renal disease on dialysis admitted with acute on chronic respiratory failure with hypoxia. During the hospital stay left-sided thoracentesis was done 950 mL of fluid was removed. Fluid analysis is negative for infectious process. Follow-up CT head and chest x-rays indicating worsening of the left-sided consolidation. Patient is presently on IV vancomycin and Zosyn. Afebrile. Pulse ox requirements are increasing. This morning on 4 L oxygen pulse ox is 91%. Cultures are negative so far. WBC count is 12.7 improved from yesterday. (2) COPD exacerbation Is this a current diagnosis for this admission?: Yes Plan: Management as above. 11/21/2018-patient has COPD secondary to chronic smoking admitted for COPD exacerbation pulse ox is 91 percent on 5 L oxygen presently on p.o. prednisone, Mucinex, scheduled and as needed nebulizations. Plan is to continue the present management started on IV vancomycin and IV Zosyn today. 11/22/2018-patient has history of COPD came in with COPD exacerbation he still is a smoker. Pulse ox is 92% on 5 L oxygen. Plan is to check for the home oxygen requirements. Plan is to continue p.o. prednisone, scheduled and as needed nebulizations. 11/23/2018-patient has history of COPD secondary to smoking admitted with COPD exacerbation. Presently on p.o. prednisone, on scheduled and as needed n ebulizations. Pulse ox is 92% on 5 L today he is complaining of increasing shortness of breath today. Plan is to give him another day probably discharge after dialysis session tomorrow. To check a pulse ox at rest on pulse ox also on ambulation, to see if he qualify for home oxygen. 11/24/2018-patient has history of COPD secondary to smoking. He is continued to smoke and smoking counseling was provided. Presently on p.o. prednisone, scheduled and as needed nebulizations. Pulse ox is 93% on 5 L. Checking for the home oxygen requirements. Patient is new to 4 L of home oxygen nasal cannul a and continuous basis upon discharge. 11/25/2018-patient has history of COPD secondary to smoking he continued to smoke. He needs to go home on 4 L oxygen via nasal cannula. On chest x-ray today lef t-sided opacification was noticed plan is to arrange for the CT chest without contrast today. He is presently on prednisone and scheduled and as needed nebulizations plan is to continue those medications. 11/26/2018-patient has history of COPD secondary to smoking wearing 4 L of oxygen via nasal cannula on continuous basis. We are making the arrangements for him to receive the home oxygen. He is not stable letter to go home today. Chest x- ray done today indicating left-sided consolidation with increasing vascular congestion and a left-sided pleural effusion more than right-sided pleural eff usion. He is on 5 L of oxygen with pulse ox 92%. On examination chest bilateral it was decreased especially in the left lower base more crackles and crepitations present. 11/27/2018-patient has history of COPD secondary to smoking. Currently on 5 L of oxygen pulse oxes 93 to 94%. Continue to smoke a nicotine patch was provided. Smoking counseling was provided. Patient qualified for 4 L oxygen at home. 11/28/2018-patient has history of COPD presently on 4 L oxygen pulse ox is 91%. On examination chest bilateral entry was decreased crackles and crepitations at the left lower bases. (3) Acute on chronic diastolic (congestive) heart failure Is this a current diagnosis for this admission?: Yes Plan: Dialysis today. Resume outpatient medication regiment. Cardiac diet. Daily weights. Will request records from [facility] regarding recent admission. 11/21/2018-patient has a successful dialysis session yesterday. And cardiac diet. He has a history of diastolic heart failure admitted this time for acute on chronic heart failure with shortness of breath. 11/22/2018-patient has history of chronic diastolic heart failure admitted for acute on chronic diastolic heart failure. Shortness of breath and respiratory distress may be secondary to fluid overload. Plan is to remove 2 to 3 L of fluid today and patient respiratory status is improving on daily basis. 11/23/2018-patient has history of chronic diastolic heart failure. Admitted with acute on chronic respiratory failure with hypoxia it may be secondary to CHF exacerbation. He had a dialysis on Tuesday and is going for dialysis tomorrow. Hopefully fluid removal will improve his breathing. recent echocardiogram indicates patient might had mild diastolic heart failure. 11/24/2018-patient has history of chronic diastolic heart failure. Patient has also bilateral pleural effusions and cardiomegaly on chest x-ray. Recent echocardiogram shows he might have mild diastolic heart failure. Plan is to continue the present management he does not need any Lasix because he is getting regular dialysis. Gently is on dialysis twice a day nephrology team is trying to talk to him to switch to 3 times a week dialysis. 11/25/2018-patient has history of chronic diastolic heart failure chest x-ray 2 days ago shows bilateral pleural effusions and status post left-sided thoracentesis on 950 mL of fluid was removed. He is getting regular dialysis 3 times a week now. Patient is not in fluid overload today. 11/26/2018-patient has history of chronic diastolic heart failure chest x-ray showing bilateral pleural effusions even after thoracentesis left-sided pleural effusion more than right-sided pleural effusion. Patient is having dialysis 3 times a week he is scheduled for dialysis tomorrow. If the blood pressure is stable there is a possibility that at least 3 L of fluid will be removed. 11/27/2018-patient has bilateral pleural effusions left is more than right even after left-sided thoracentesis and removal of 950 mL of fluid. Patient is receiving dialysis 3 times per week during the hospital stay. The recommendation from the frequency checker is he needed 3 times a week dialysis outpatient. 11/28/2018-patient has bilateral pleural effusions on admission left-sided thoracentesis was done follow-up x-rays indicating left effusion is more than right effusion. And also has left-sided consolidation which is worsening. Cultures are negative. Afebrile. WBC is improving. Presently on IV Zosyn and vancomycin ID consult was requested pulmonary consult was requested. He might have a acute exacerbation of the diastolic heart failure. (4) ESRD (end stage renal disease) Is this a current diagnosis for this admission?: Yes Plan: Dr. Avery consulted. Dialysis today. 11/21/2018-patient has a successful dialysis yesterday AV fistula on his right arm is functioning well. As per Dr. Lara patient may need another session of dialysis tomorrow. 11/22/2018-patient is on dialysis Tuesday as an outpatient because of the fluid overload is getting another session of dialysis today. As per Dr. Lara patient is to be on Tuesday dialysis as outpatient. 11/23/[id number]-sbni-old male with history of ESRD on hemodialysis Tuesday, last dialysis yesterday for fluid overload and he has a functioning AV fistula on the right arm. He is complaining of increasing shortness of breath today will receive another session of dialysis tomorrow before discharge. 11/24/2018-patient has end-stage renal disease on dialysis Tuesday as an outpatient Dr. Lara and Dr. Avery trying to talk to the patient about the need for dialysis 3 times a week. As per Dr. Lara patient's blood pressures are always on the softer side and it is difficult to remove the fluid in just 2 dialysis sessions per week. 11/25/2018-patient's regular schedule is Tuesday as an outpatient in the hospital is receiving dialysis 3 times a week. Last dialysis on Tuesday next dialysis session is going to be on Tuesday if the patient agreed to stay in the hospital. 11/26/2018-last hemodialysis was done on Tuesday next hemodialysis on Tuesday. He has AV fistula on the right upper arm functioning well. 11/27/2018-patient is on dialysis unit today tolerating the dialysis well. No complaints. He has a functioning AV fistula on the right arm. X4 2018-patient has end-stage renal disease on dialysis Tuesday during the hospital stay. Dr. Lara thinks patient needs to be on 3 times a week dialysis as an outpatient. 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 AccuCheck before meals and bedtime with Humalog for sliding scale coverage. Hypoglycemia protocol. 11/21/2018-patient blood sugar is 163. He has history of type 2 diabetes mellitus and cardiac diet. Presently on insulin sliding scale before meals and at bedtime. Plan is to continue the present management dietary consult is going to be requested to check for hemoglobin A1c. 11/22/2018-patient blood sugar is 243 today. He is on insulin sliding scale today. Hemoglobin A1c is pending. 11/23/2018-patient has history of type 2 diabetes mellitus. Latest blood sugar is 218. Again insulin sliding scale. hemoglobin A1c is pending. 11/24/2018-patient has history of type 2 diabetes mellitus latest blood sugar is 193. Presently on insulin sliding scale. Hemoglobin A1c is 5.0. 11/25/2018-patient has history of type 2 diabetes mellitus latest blood sugar is 11 presently on insulin sliding scale plan is to continue those medications. 11/26/2018-patient has history of type 2 diabetes mellitus latest blood sugar is 230 today. Presently on insulin sliding scale plan is to continue the present management. hemoglobin A1c is 5. 11/27/2018-patient has history of type 2 diabetes mellitus latest blood sugar is 99. Plan is to continue insulin sliding scale. 11/28/2018-patient has history of type 2 diabetes mellitus latest blood sugar is 98. Plan is to continue insulin sliding scale. (6) Tobacco abuse Is this a current diagnosis for this admission?: Yes (7) Hypotension Is this a current diagnosis for this admission?: Yes (8) Pneumonia Is this a current diagnosis for this admission?: Yes Plan: 11/27/2018-CT scan and chest x-ray indicating left lower lobe consolidation. Most likely healthcare associated pneumonia. Presently on IV vancomycin and Zosyn blood cultures are negative sputum culture showing Mabel albicans. Patient is on 5 L of oxygen pulse ox is 94%. He qualified for 4 L oxygen at home. Plan is to continue to keep him for at least another day or 2 and continue the antibiotic therapy. Causative agent can be combination of gram-positive gram- negative organisms. 11/28/2018-chest x-ray this morning indicate worsening of the pneumonia most likely healthcare associated pneumonia cultures are negative ID consult was requested pulmonary consult was requested. Most likely combination of gram- positive and gram-negative organisms are responsible. - Time Time Spent with patient: 15-24 minutes Smoking Cessation Education: 3 to 10 minutes Medications reviewed and adjusted accordingly: Yes Anticipated discharge: Home
--- NOTE | 2018-11-28 14:58 | Progress Note ---
Provider Note Provider Note: ID Consult Note Asked to review patient's chart. Pt not seen or examined. Mr. Pope is a 68 year old with PMH including s/p L nephrectomy, ESRD on HD (M and F as outpatient), CHF, HTN, pulmonary HTN, CAD, hx of AF with RVR, thoracic aorta aneurysm repair, REBECA on CPAP, COPD, DM, and tobacco use who presented with progressive SOB x 1 week with orthopnea and PRINGLE. He was previously hospitalized at [facility] earlier this month with 2 weeks of SOB, reduced funcitonal capacity and intermittent CP. During that admission, he had left heart cath and also required increased diuretic regimen and emergent dialysis due to volume overload. This presentation, he was afebrile but hypoxic, tachypneic. On exam he had crackles bibasilar. His admission CXR showed vascular congestion and b/l pleural effusions L>R, similar to previous earlier this month. In the ED he was given nebs and solumedrol for COPD exacerbation and referred for admission for further management, including proceeding directly to dialysis. Pt later complained of coughing up yellowish sputum, and vancomycin and Zosyn were empirically started on 11/21/18. He has continued on prednisone. Additional studies this admission transaminases WNL, BCx on 11/21 negative. Sputum on 11/22 only showed normal davy. Thoracentesis on 11/24 was performed with 122 WBC, LDH 108, no organisms on Gram stain or culture growth. CT scan of the chest on 11/25 were read as showing emphysematous lungs in the upper lobes, bilateral dependent nonloculated appearing pleural effusions L>R with RLL atelectasis/consolidation mild and more extensive consolidation on the L base. Most recent cXR on 11/27/18 was read as showing increasing L basilar consolidation and moderate pleural effusion and slightly increased R basilar airspace disease and effusion. Recently, pt has been requiring 4-5 L NC, complains of SOB, has diminished breath sounds noted on exam. Impression/Recommendations Pt has been empirically treated with IV vancomycin and Zosyn for presumed HCAP for 7 days at this point. He has no fever. He did not have bacteremia. He has leukocytosis, which is not specific for infection and can reflect combination of physiologic stress and steroids inducing demargination. He had no resistant organisms detected with sputum culture, although specimen quality somewhat questionable. The areas of "consolidation" on CT chest are dependent and he has increasing pleural effusions that were previously tapped this admission and c/w transudate. Recommend discontinuing vancomycin and Zosyn. He has completed a course of therapy sufficient for bacteria pneumonia, and there is no indication he has a lung abscess or empyema that requires a longer duration of therapy. The patient has CHF and ESRD with a recent history of requiring emergent ultrafiltration to deal with a similar problem and needed increase in home diuretics. I am suspicious that he similarly has a noninfectious process at play this admission. Agree with no antifungal. Growth of Mabel from earlier sputum c/w contaminant. Macho Oneal MD [facility] Infectious Diseases pager [phone]
[2018-11-28] MEDS ORDERED: METOPROLOL TARTRATE 25 MG TABLET PO ONE (20:30)
[2018-11-28] MEDS: ATORVASTATIN CALCIUM 40 MG TABLET PO SCH (21:57)
--- NOTE | 2018-11-28 22:25 | PROGRESS NOTE E ---
Progress Note NAME: SARA LI JR : 1950 AGE: 68Y DATE: 11/28/2018 ROOM: 413 SUBJECTIVE: The patient is a 68-year-old male who came in with increased shortness of breath with pulmonary edema, pleural effusion, and history of CKD on hemodialysis. The patient claimed that he is coughing up yellow-green phlegm this morning. No fever and no chills. Denies any chest pain. Breathing is a little bit better. The patient is getting BREO 200 mcg and DuoNeb nebulizer treatment every 8 hours. Currently on prednisone 20 mg daily. Denies any vomiting, diarrhea or stomach pain or chest pain. OBJECTIVE: GENERAL: The patient is awake, alert, oriented x3. Afebrile, not in apparent respiratory distress. VITAL SIGNS: Temperature 98.2, the T-max was 98.4. Blood pressure is 101/67, respiratory is 18, saturation 99% on nasal cannula 4 liters. EYES: No jaundice or pallor. EARS, NOSE, AND THROAT: No ear drainage. No nasal discharge. CHEST AND LUNGS: No wheezing, no rhonchi, no coarse crackles noted. CARDIOVASCULAR: S1, S2 distinct. Normal rate and regular rhythm. ABDOMEN: Flabby, positive bowel sounds, soft, nondistended, nontender. EXTREMITIES: No joint swelling, no cellulitis. LABORATORY DATA: CBC done yesterday showed white count going down to 12.7 from 14.7 four days ago. No bandemia noted. No new CBC done today. Ordered a CBC and chemistry for tomorrow. ASSESSMENT: 1. Pneumonia left lower lobe. 2. Pulmonary edema with pleural effusion bilateral. 3. CKD on hemodialysis. 4. COPD/emphysema, currently stable and not in acute bronchospasm. PLAN: 1. Decrease prednisone to 10 mg daily. 2. Recommend continuing the IV Zosyn and IV vancomycin. 3. We will do a sputum culture tonight, because the patient is coughing up yellow-green phlegm. 4. Continue BREO 200 mcg once daily. 5. The patient does not need Pulmicort nebulizer b.i.d., because the patient is already on BREO 200 mcg. 6. We will start the patient on Spiriva inhaler, 1 capsule daily. DICTATING PHYSICIAN: TITA PÉREZ MD,ADRIANA,MPH [id number] PHY#: [id number] ID: [id number] JOB#: [id number] ACCT: [id number] cc: > MTDD
[2018-11-29] MEDS: IPRATROPIUM/ALBUTEROL 0.5-2.5 MG/3 ML AMPUL NEB SCH ×3 (00:15→15:53)
[2018-11-29] MEDS ORDERED: EPOETIN ALFA INJ 20000 UNIT/1 ML VIAL (RENAL) IV PRN (05:00)
[2018-11-29] MEDS ORDERED: NORMAL SALINE 1000 ML 1,000 ML IV PRN (05:00)
[2018-11-29] MEDS ORDERED: EPOETIN ALFA 10,000 UNIT in SYRINGE, DISPOSABLE, 1 EACH IV PRN (05:00)
[2018-11-29] MEDS: PIPERACILLIN SODIUM/TAZOBACTAM 2.25 GM in NORMAL SALINE 50 ML IV SCH (05:51)
[2018-11-29] MEDS: PANTOPRAZOLE SODIUM 20 MG TABLET.DR PO SCH (05:51)
[2018-11-29 07:12] LABS: ABSOLUTE BASOPHILS # (AUTO) 0.1 10^3/uL (0.0-0.2); ABSOLUTE EOSINOPHILS # (AUTO) 0.1 10^3/uL (0.0-0.6); ABSOLUTE LYMPHOCYTES (AUTO) 1.8 10^3/uL (0.5-4.7); ABSOLUTE MONOCYTES (AUTO) 1.2 10^3/uL (0.1-1.4); ABSOLUTE NEUT (AUTO) 7.4 10^3/uL (1.7-8.2); BASOPHILS % (AUTO) 0.5 % (0-2); EOSINOPHILS % (AUTO) 1.2 % (0-6); HEMATOCRIT 29.8 % (37.9-51.0); HEMOGLOBIN 9.8 g/dL (13.5-17.0); LYMPHOCYTES % (AUTO) 17.3 % (13-45); MEAN CORPUSCULAR HEMOGLOBIN 33.2 pg (27.0-33.4); MEAN CORPUSCULAR HGB CONC 32.8 g/dL (32.0-36.0); MEAN CORPUSCULAR VOLUME 101 fl (80-97); MONOCYTES % (AUTO) 11.7 % (3-13); PLATELET COUNT 257 10^3/uL (150-450); RED BLOOD COUNT 2.94 10^6/uL (4.35-5.55); RED CELL DISTRIBUTION WIDTH 19.9 % (11.5-14.0); SEGMENTED NEUTROPHILS % (AUTO) 69.3 % (42-78); TOTAL CELLS COUNTED % (AUTO) 100 %; WHITE BLOOD COUNT 10.7 10^3/uL (4.0-10.5)
[2018-11-29 07:14] LABS: ALANINE AMINOTRANSFERASE 25 U/L (21-72); ALBUMIN 3.1 g/dL (3.5-5.0); ALKALINE PHOSPHATASE 74 U/L (38-126); ANION GAP 17 (5-19); ASPARTATE AMINO TRANSFERASE 13 U/L (17-59); BILIRUBIN,DIRECT 0.7 mg/dL (0.0-0.4); BILIRUBIN,TOTAL 0.9 mg/dL (0.2-1.3); BLOOD UREA NITROGEN 96 mg/dL (7-20); CALCIUM 8.7 mg/dL (8.4-10.2); CARBON DIOXIDE 23 mmol/L (22-30); CHLORIDE 102 mmol/L (98-107); GLUCOSE 107 mg/dL (75-110); POTASSIUM 4.6 mmol/L (3.6-5.0); SODIUM 141.7 mmol/L (137-145); TOTAL PROTEIN 5.5 g/dL (6.3-8.2)
[2018-11-29] MEDS: INSULIN LISPRO 100 UNIT/ML 3 ML VIAL SUBCUT SCH ×4 (08:00→22:26)
--- NOTE | 2018-11-29 09:36 | CONSULTATION REPORT E ---
Consultation Report NAME: SARA LI JR : 1950 AGE: 68Y DATE: 11/27/2018 413 A TO: TITA PÉREZ M.D. FROM: HARRIETT SELF M.D. Requesting Physician HISTORY OF PRESENT ILLNESS: The patient is a 68-year-old male who came in with a past medical history of COPD, heavy smoking history, history of end-stage renal disease on hemodialysis Tuesday, Tuesday, Tuesday, history of seizures, hypertension, pulmonary hypertension, [place] with stent x1, and transthoracic aortic aneurysm repair, diabetes mellitus, admitted through the emergency room because of increasing shortness of breath for a week, worsening. The patient previously had been on oxygen, but it was discontinued due to cost. The patient claimed that he is coughing yellow-green phlegm over the last 1 or 2 weeks prior to this admission. Condition worsened and patient was admitted. The patient was started on IV Zosyn during hospitalization and IV vancomycin, currently feeling a lot better, underwent hemodialysis. Denies any hemoptysis. No chest pain. No fever or chills. No nausea, vomiting, diarrhea. PAST MEDICAL HISTORY: The same as above. 1. End-stage renal disease on hemodialysis Tuesday, Tuesday, Tuesday. 2. History of COPD. 3. CHF. 4. Hypertension. 5. Pulmonary hypertension. 6. [place] with stent. 7. Transthoracic aortic aneurysm repair. 8. Smoking history. 9. Atrial fibrillation. 10. Respiratory failure. 11. Kidney transplant status post left nephrectomy in 2017 12. History of depression. 13. History of anemia. PAST SURGICAL HISTORY: Includes: 1. Appendectomy. 2. Coronary stent. 3. Transthoracic aneurysm repair. SOCIAL HISTORY: The patient lives alone. Smoking since he was 15 years old about a pack a day, has cut down to half pack a day. Denies alcohol abuse or illicit drug use. FAMILY HISTORY: Unremarkable. CURRENT MEDICATIONS: Include: 1. Maalox. 2. Tylenol. 3. Albuterol nebulizer. 4. Duoneb nebulizer. 5. Lipitor. 6. Pulmicort nebulizer. 8. PhosLo. 9. Colace. 10. Procrit. 11. Zetia. 13. Zofran. 14. Protonix. 15. Zosyn. 16. Alprazolam 30 mg. 17. Sodium bicarb tablet. 18. Vancomycin. REVIEW OF SYSTEMS: CONSTITUTIONAL: No fever or chills. No headache. EYES: No jaundice or pallor. No visual blurring. EARS: No hearing changes. No ear discharge. CARDIOVASCULAR: Exertional dyspnea, edema. Denies any chest pain, orthopnea, palpitations. RESPIRATORY: Complains of worsening exertional dyspnea, coughing yellow-green phlegm, but no hemoptysis. GASTROINTESTINAL: No nausea, vomiting, diarrhea, or constipation. GENITOURINARY: No dysuria or hematuria. MUSCULOSKELETAL: No joint swelling. No cellulitis. SKIN: No rashes or wounds. NERVOUS SYSTEM: No abnormal gait. No dizziness. No focal weakness. ENDOCRINE: No cold intolerance or heat intolerance, polydipsia or polyuria. PHYSICAL EXAMINATION: GENERAL: The patient is awake, alert, coherent, oriented x3. VITAL SIGNS: A temperature of 97.9 with a T-max of 98.1, heart rate of 21, blood pressure is 134/69, oxygen saturation 92% on 3.5 L, respirations 17. EYES: No jaundice or pallor. EARS, NOSE, AND THROAT: No ear drainage. No nasal discharge. CHEST AND LUNGS: No wheezing, no rhonchi, no coarse crackles. CARDIOVASCULAR: S1, S2 distinct. Normal rate, regular rhythm. ABDOMEN: Flabby. Positive bowel sounds. Soft, nondistended. EXTREMITIES: No joint swelling. No cellulitis. LABORATORY: CBC done today showed white count of 12.7, down from 15.5 yesterday. Hemoglobin is 9.5, hematocrit is 29.9, and platelet count is 258. Chemistry today showed sodium is 142, potassium is 4.9, chloride 101, CO2 is 25, BUN 93, creatinine 7, and glucose 106. ASSESSMENT: 1. COPD, not in apparent acute severe exacerbation. Appears to be currently stable. 2. Pulmonary infiltrate/ consolidation, left lower lobe- most likely due to pnuemonia. 3. Pleural effusion, bilateral - small.- most likely due to CKD +/- CHF 4. CKD on hemodialysis 5. Pulmonary edema - currently stable and improved. PLAN/RECOMMENDATIONS: 1. Continue Breo 200 mcg inhaler 1 puff once daily. 2. Spiriva inhaler one cap daily . Albuterol inhaler 2 puffs 4x daily as needed. 3. Continue IV Zosyn and IV Vancomysin. 4. Hemodialysis by Nephrology service. 5. Taper prednisone. 6. O2 therapy 2 liters NC and titrate to keep O 2 sat 91-94% 7. Duoneb nebulizer treatment every 4-6 hrs as needed. DICTATING PHYSICIAN: TITA PÉREZ MD,ADRIANA,MPH [id number] PHY#: [id number] ID: [id number] JOB#: [id number] ACCT: [id number] cc:TITA PÉREZ M.D. > MTDD
[2018-11-29] MEDS: GUAIFENESIN 600 MG TABLET.SA PO SCH ×2 (09:50→22:20)
[2018-11-29] MEDS: DOCUSATE SODIUM 100 MG CAPSULE PO SCH (09:50)
[2018-11-29] MEDS: SODIUM BICARBONATE 650 MG TABLET PO SCH ×3 (09:50→17:24)
[2018-11-29] MEDS: PREDNISONE 10 MG TABLET PO SCH (09:50)
[2018-11-29] MEDS: FLUTICASONE/VILANTEROL 200-25 MCG/DOSE IH SCH (09:50)
[2018-11-29] MEDS: NICOTINE 21 MG/24 HR PATCH.TD24 TD SCH (09:51)
[2018-11-29] MEDS: CALCIUM ACETATE 667 MG CAPSULE PO SCH ×3 (09:51→17:25)
[2018-11-29] MEDS: EZETIMIBE 10 MG TABLET PO SCH (09:51)
[2018-11-29] MEDS: TIOTROPIUM BROMIDE DPI 5 CAP/KIT (18 MCG/CAP) IH SCH (09:52)
[2018-11-29] MEDS: ACETAMINOPHEN 325 MG TABLET PO PRN (14:23)
--- NOTE | 2018-11-29 18:46 | PDOC PROGRESS REPORT ---
Subjective Progress Note for:: 11/29/18 Subjective:: 68 year old with PMH including s/p L nephrectomy, ESRD on HD (M and F as outpatient), CHF, HTN, pulmonary HTN, CAD, hx of AF with RVR, thoracic aorta aneurysm repair, REBECA on CPAP, COPD, DM, and tobacco use who presented with progressive SOB x 1 week with orthopnea and PRINGLE. He was previously hospitalized at [facility] earlier this month with 2 weeks of SOB, reduced funcitonal capacity and intermittent CP. During that admission, he had left heart cath and also required increased diuretic regimen and emergent dialysis due to volume overload. This presentation, he was afebrile but hypoxic, tachypneic. On exam he had crackles bibasilar. His admission CXR showed vascular congestion and b/l pleural effusions L>R, similar to previous earlier this month. In the ED he was given nebs and solumedrol for COPD exacerbation and referred for admission for further management, including proceeding directly to dialysis. Pt later complained of coughing up yellowish sputum, and vancomycin and Zosyn were empirically started on 11/21/18. He has continued on prednisone. Additional studies this admission transaminases WNL, BCx on 11/21 negative. Sputum on 11/22 only showed normal davy. Thoracentesis on 11/24 was performed with 122 WBC, LDH 108, no organisms on Gram stain or culture growth. CT scan of the chest on 11/25 were read as showing emphysematous lungs in the upper lobes, bilateral dependent nonloculated appearing pleural effusions L>R with RLL atelectasis/consolidation mild and more extensive consolidation on the L base. Most recent cXR on 11/27/18 was read as showing increasing L basilar consolidation and moderate pleural effusion and slightly increased R basilar airspace disease and effusion. 11/29/2018. No acute events overnight. Was able to see patient while receiving hemodialysis still complaining of persistent shortness of breath requiring supplemental O2 twice denying any fever, chills, nausea, vomiting, diarrhea, constipation or any urinary symptoms. Reason For Visit: ACUTE RESPIRATORY FAILURE WITH HYPOXIA Physical Exam Vital Signs: Temp Pulse Resp BP Pulse Ox 98.1 F 55 L 18 106/62 88 L 11/29/18 15:28 11/29/18 15:28 11/29/18 15:28 11/29/18 15:28 11/29/18 15:28 Intake & Output 11/28/18 11/29/18 11/30/18 06:59 06:59 06:59 Intake Total 3490 1787 260 Output Total 4400 Balance -910 1787 260 Weight 79.7 kg 81.4 kg General appearance: PRESENT: no acute distress, well-developed, well-nourished Head exam: PRESENT: atraumatic, normocephalic Respiratory exam: PRESENT: crackles - Bibasilar Cardiovascular exam: PRESENT: irregular rhythm. ABSENT: diastolic murmur, rubs, systolic murmur GI/Abdominal exam: PRESENT: normal bowel sounds, soft. ABSENT: distended, guarding, mass, organolmegaly, rebound, tenderness Extremities exam: PRESENT: full ROM. ABSENT: calf tenderness, clubbing, pedal edema Neurological exam: PRESENT: alert, awake, oriented to person, oriented to place, oriented to time, oriented to situation, CN II-XII grossly intact. ABSENT: motor sensory deficit Results Laboratory Results: 11/29/18 06:10 11/29/18 06:10 11/29/18 11/29/18 06:10 06:10 WBC 10.7 H RBC 2.94 L Hgb 9.8 L Hct 29.8 L MCV 101 H MCH 33.2 MCHC 32.8 RDW 19.9 H Plt Count 257 Seg Neutrophils % 69.3 Lymphocytes % 17.3 Monocytes % 11.7 Eosinophils % 1.2 Basophils % 0.5 Absolute Neutrophils 7.4 Absolute Lymphocytes 1.8 Absolute Monocytes 1.2 Absolute Eosinophils 0.1 Absolute Basophils 0.1 Sodium 141.7 Potassium 4.6 Chloride 102 Carbon Dioxide 23 Anion Gap 17 BUN 96 H Creatinine 6.85 H Est GFR ( Amer) 10 L Est GFR (Non-Af Amer) 8 L Glucose 107 Calcium 8.7 Magnesium 2.2 Total Bilirubin 0.9 AST 13 L ALT 25 Alkaline Phosphatase 74 Total Protein 5.5 L Albumin 3.1 L 11/29/18 06:15 Sputum Gram Stain - Final 11/29/18 06:15 Sputum Sputum Culture - Final 11/24/18 08:35 Thoracic Fluid Gram Stain - Final 11/24/18 08:35 Thoracic Fluid Body Fluid Culture - Final NO AEROBIC OR ANAEROBIC ORGANISMS RECOVERED 11/20/18 11/20/18 09:00 17:56 Troponin I 0.036 0.024 Impressions: Thoracentesis Ultrasound 11/24/18 00:00 IMPRESSION: SUCCESSFUL THORACENTESIS USING ULTRASOUND GUIDANCE. Chest CT 11/25/18 00:00 IMPRESSION: 1. Pleural effusions, left greater than right. Associated consolidation and volume loss, most notable in the left lower lobe. 2. Status post endovascular repair of descending thoracic aortic aneurysm. 3. Other findings as above. Chest X-Ray 11/27/18 06:00 IMPRESSION: Increasing left basilar consolidation and moderate pleural effusion. Slightly increased right basilar airspace disease -effusion. Similar interstitial prominence. Assessment and Plan - Diagnosis (1) Acute respiratory failure with hypoxia Is this a current diagnosis for this admission?: Yes Plan: Multifactorial due to CHF exacerbation, COPD exacerbation, underlying end-stage renal disease. Treat underlying multiple comorbidities. (2) Pneumonia Is this a current diagnosis for this admission?: Yes Plan: Ruled out. Patiet has been afebrile but hypoxic, tachypneic and has crackles bibasilar. On admission CXR showed vascular congestion and b/l pleural effusions L>R, similar to previous earlier this month. He was started on vancomycin and Zosyn were empirically started on 11/21/18. BCx on 11/21 negative. Sputum on 11/22 only showed normal davy. Thoracentesis on 11/24 was performed with 122 WBC, LDH 108, no organisms on Gram stain or culture growth. CT scan of the chest on 11/25 were read as showing emphysematous lungs in the upper lobes, bilateral dependent nonloculated appearing pleural effusions L>R with RLL atelectasis/consolidation mild and more extensive consolidation on the L base. Most recent cXR on 11/27/18 was read as showing increasing L basilar consolidation and moderate pleural effusion and slightly increased R basilar airspace disease and effusion. Recently, pt has been requiring 4-5 L NC, complains of SOB, has diminished breath sounds noted on exam. Macho Oneal MD Infectious Diseases Specialist has been consulted with the following recommendation. Pt has been empirically treated with IV vancomycin and Zosyn for presumed HCAP for 7 days at this point. He has no fever. He did not have bacteremia. He has leukocytosis, which is not specific for infection and can reflect combination of physiologic stress and steroids inducing demargination. He had no resistant organisms detected with sputum culture, although specimen quality somewhat questionable. The areas of "consolidation" on CT chest are dependent and he has increasing pleural effusions that were previously tapped this admission and c/w transudate. Recommend discontinuing vancomycin and Zosyn. He has completed a course of therapy sufficient for bacteria pneumonia, and there is no indication he has a lung abscess or empyema that requires a longer duration of therapy. Will DC IV antibiotics as per ID recommendation. Continue treating the underlying COPD/CHF and ESRD. (3) COPD (chronic obstructive pulmonary disease) Is this a current diagnosis for this admission?: Yes Plan: Continue BiPAP, IV steroids, nebs. Outpatient pulmonary follow-up. (4) Acute on chronic diastolic (congestive) heart failure Is this a current diagnosis for this admission?: Yes Plan: Likely due to multiple comorbidities such as end-stage renal disease on hem odialysis, A. fib and COPD exacerbation. No BNP obtained on this admission. Will order 1. Weight 81.4 kg up from 77.6 on admission. Bibasilar crackles on respiratory examination. 2D echo 09/08/2017 left ventricular ejection fraction 60%. Start on beta-blockers guided by BP and heart rate. Start on low-dose ALFONZO guided by vital status, uptitrate as tolerated, start on Lasix guided by volume status and vitals. Diet, strict in and out, volume restriction. Obtain new 2D echo. (5) Atrial fibrillation Qualifiers: Atrial fibrillation type: paroxysmal Qualified Code(s): I48.0 - Paroxysmal atrial fibrillation Is this a current diagnosis for this admission?: No Plan: Controlled. Continue current meds. (6) Coronary artery disease Qualifiers: Coronary Disease-Associated Artery/Lesion type: koi artery [place] vs. transplanted heart: koi heart Associated angina: angina presence unspecified Qualified Code(s): I25.10 - Atherosclerotic heart disease of koi coronary artery without angina pectoris Is this a current diagnosis for this admission?: No Plan: Continue beta-blockers, ALFONZO, statins, antiplatelets. Outpatient cardiology follow-up. (7) Diabetes Qualifiers: Diabetes mellitus type: type 2 Diabetes mellitus oysterman insulin use: without oysterman use Chronic kidney disease stage: on chronic dialysis Is this a current diagnosis for this admission?: Yes Plan: A1c 5.0 on this admission. However patient been having elevated blood glucose levels most likely due to steroids for underlying COPD exacerbation. Continue diabetic diet, long-acting insulin, sliding scale insulin, pre-meal insulin, adjust dosage as needed. Outpatient PCP follow-up. (8) ESRD (end stage renal disease) Is this a current diagnosis for this admission?: Yes Plan: On hemodialysis. Followed by Dr. Lara. Recommendation is hemodialysis 3 times per week. Monitor volume status and electrolytes. (9) HTN (hypertension) Qualifiers: Hypertension type: essential hypertension Qualified Code(s): I10 - Essential (primary) hypertension Is this a current diagnosis for this admission?: Yes Plan: Beta-blockers, ALFONZO, diuretics. Adjust meds as needed. (10) Pleural effusion Is this a current diagnosis for this admission?: Yes Plan: Most likely due to COPD/end-stage renal disease. S/P tthoracentesis
--- NOTE | 2018-11-29 19:58 | PDOC PROGRESS REPORT ---
Subjective Progress Note for:: 11/29/18 Subjective:: Patient was seen on dialysis. At the time all vitals were stable. He currently still has some SOB requiring oxygen. He denies chest pain, N/V/D/C, fevers or chills. Patient is awaiting home oxygen before being discharged. Reason For Visit: ACUTE RESPIRATORY FAILURE WITH HYPOXIA Physical Exam Vital Signs: Temp Pulse Resp BP Pulse Ox 98.1 F 55 L 18 106/62 88 L 11/29/18 15:28 11/29/18 15:28 11/29/18 15:28 11/29/18 15:28 11/29/18 15:28 Intake & Output 11/28/18 11/29/18 11/30/18 06:59 06:59 06:59 Intake Total 3490 1787 50 Output Total 4400 Balance -910 1787 50 Weight 79.7 kg 81.4 kg General appearance: PRESENT: no acute distress, well-developed, well-nourished Mouth exam: PRESENT: moist, neck supple Neck exam: ABSENT: JVD, tracheal deviation Respiratory exam: PRESENT: crackles - -bases. ABSENT: clear to auscultation robinson, rhonchi, wheezes Cardiovascular exam: PRESENT: irregular rhythm, +S1, +S2. ABSENT: RRR GI/Abdominal exam: PRESENT: normal bowel sounds, soft. ABSENT: organomegaly, tenderness Extremities exam: PRESENT: +1 edema. ABSENT: pedal edema, tenderness, +2 edema Musculoskeletal exam: PRESENT: normal inspection. ABSENT: tenderness Neurological exam: PRESENT: alert, awake, oriented to person, oriented to place, oriented to time, oriented to situation Psychiatric exam: PRESENT: appropriate affect, normal mood Skin exam: PRESENT: dry, intact, warm Results Laboratory Results: 11/29/18 06:10 11/29/18 06:10 11/29/18 11/29/18 06:10 06:10 WBC 10.7 H RBC 2.94 L Hgb 9.8 L Hct 29.8 L MCV 101 H MCH 33.2 MCHC 32.8 RDW 19.9 H Plt Count 257 Seg Neutrophils % 69.3 Lymphocytes % 17.3 Monocytes % 11.7 Eosinophils % 1.2 Basophils % 0.5 Absolute Neutrophils 7.4 Absolute Lymphocytes 1.8 Absolute Monocytes 1.2 Absolute Eosinophils 0.1 Absolute Basophils 0.1 Sodium 141.7 Potassium 4.6 Chloride 102 Carbon Dioxide 23 Anion Gap 17 BUN 96 H Creatinine 6.85 H Est GFR ( Amer) 10 L Est GFR (Non-Af Amer) 8 L Glucose 107 Calcium 8.7 Magnesium 2.2 Total Bilirubin 0.9 AST 13 L ALT 25 Alkaline Phosphatase 74 Total Protein 5.5 L Albumin 3.1 L 11/29/18 06:15 Sputum Gram Stain - Final 11/29/18 06:15 Sputum Sputum Culture - Final 11/24/18 08:35 Thoracic Fluid Gram Stain - Final 11/24/18 08:35 Thoracic Fluid Body Fluid Culture - Final NO AEROBIC OR ANAEROBIC ORGANISMS RECOVERED 11/20/18 11/20/18 09:00 17:56 Troponin I 0.036 0.024 Impressions: Thoracentesis Ultrasound 11/24/18 00:00 IMPRESSION: SUCCESSFUL THORACENTESIS USING ULTRASOUND GUIDANCE. Chest CT 11/25/18 00:00 IMPRESSION: 1. Pleural effusions, left greater than right. Associated consolidation and volume loss, most notable in the left lower lobe. 2. Status post endovascular repair of descending thoracic aortic aneurysm. 3. Other findings as above. Chest X-Ray 11/27/18 06:00 IMPRESSION: Increasing left basilar consolidation and moderate pleural effusion. Slightly increased right basilar airspace disease -effusion. Similar interstitial prominence. Assessment & Plan - Diagnosis (1) ESRD (end stage renal disease) Is this a current diagnosis for this admission?: Yes Plan: patient was seen on dialysis. At the time all labs were stable. SOB was improved. He denied any chest pain. Labs, vitals and orders were reviewed with the patient. Looking to remove 4L with dialysis. (2) Acute respiratory failure with hypoxia Is this a current diagnosis for this admission?: Yes Plan: looking to remove 4L of fluid from him. Recently seen by pulmonology. (3) CHF (congestive heart failure) Is this a current diagnosis for this admission?: Yes Plan: Looking to remove 4L with dialysis (4) COPD (chronic obstructive pulmonary disease) Is this a current diagnosis for this admission?: Yes Plan: per pulmonology (5) Pneumonia Is this a current diagnosis for this admission?: Yes Plan: just recently finished antibiotics (6) Anemia in CKD (chronic kidney disease) Qualifiers: Chronic kidney disease stage: unspecified stage Qualified Code(s): N18.9 - Chronic kidney disease, unspecified; D63.1 - Anemia in chronic kidney disease; D63.1 - Anemia in chronic kidney disease Is this a current diagnosis for this admission?: Yes Plan: receiving procrit with dialysis today (7) Atrial fibrillation Qualifiers: Atrial fibrillation type: paroxysmal Qualified Code(s): I48.0 - Paroxysmal atrial fibrillation Is this a current diagnosis for this admission?: No Plan: per cardiology (8) HTN (hypertension) Qualifiers: Hypertension type: essential hypertension Qualified Code(s): I10 - Essential (primary) hypertension Is this a current diagnosis for this admission?: Yes Plan: controlled
[2018-11-29] MEDS: METOPROLOL TARTRATE 25 MG TABLET PO SCH (22:20)
[2018-11-29] MEDS: ATORVASTATIN CALCIUM 40 MG TABLET PO SCH (22:20)
[2018-11-30] MEDS: IPRATROPIUM/ALBUTEROL 0.5-2.5 MG/3 ML AMPUL NEB SCH ×2 (01:10→08:16)
[2018-11-30] MEDS: PANTOPRAZOLE SODIUM 20 MG TABLET.DR PO SCH (06:32)
[2018-11-30] MEDS: INSULIN LISPRO 100 UNIT/ML 3 ML VIAL SUBCUT SCH ×2 (08:08→13:23)
[2018-11-30] MEDS ORDERED: LISINOPRIL 5 MG TABLET PO SCH (10:00)
--- NOTE | 2018-11-30 10:58 | RADIOLOGY REPORT (SQ) ---
EXAM DESCRIPTION: CHEST SINGLE VIEW COMPLETED DATE/TIME: 11/30/2018 10:40 am REASON FOR STUDY: sob COMPARISON: 11/27/2018. EXAM PARAMETERS: NUMBER OF VIEWS: One view. TECHNIQUE: Single frontal radiographic view of the chest acquired. RADIATION DOSE: NA LIMITATIONS: None. FINDINGS: LUNGS AND PLEURA: Stable interstitial prominence. Left basilar air space disease and left pleural effusion unchanged. MEDIASTINUM AND HILAR STRUCTURES: No masses. Contour normal. HEART AND VASCULAR STRUCTURES: Stable cardiomegaly. Stent in the descending thoracic aorta. BONES: No acute findings. HARDWARE: Aortic stent. OTHER: No other significant finding. IMPRESSION: NO SIGNIFICANT CHANGE IN APPEARANCE OF THE CHEST. TECHNICAL DOCUMENTATION: JOB ID: [id number] [employer]- All Rights Reserved Reading location - IP/workstation name: [email or web address]
[2018-11-30] MEDS: FLUTICASONE/VILANTEROL 200-25 MCG/DOSE IH SCH (11:00)
[2018-11-30] MEDS: TIOTROPIUM BROMIDE DPI 5 CAP/KIT (18 MCG/CAP) IH SCH (11:00)
[2018-11-30] MEDS: EZETIMIBE 10 MG TABLET PO SCH (11:00)
[2018-11-30] MEDS: CALCIUM ACETATE 667 MG CAPSULE PO SCH (11:00)
[2018-11-30] MEDS: GUAIFENESIN 600 MG TABLET.SA PO SCH (11:07)
[2018-11-30] MEDS: NICOTINE 21 MG/24 HR PATCH.TD24 TD SCH (11:07)
[2018-11-30] MEDS: SODIUM BICARBONATE 650 MG TABLET PO SCH (11:07)
[2018-11-30] MEDS: DOCUSATE SODIUM 100 MG CAPSULE PO SCH (11:08)
[2018-11-30] MEDS: METOPROLOL TARTRATE 25 MG TABLET PO SCH (11:08)
[2018-11-30] MEDS: PREDNISONE 10 MG TABLET PO SCH (11:09)
--- NOTE | 2018-11-30 12:20 | XCELERA REPORT ---
[address] [address] Transthoracic Echocardiogram Report Name: SARA LI JR, Age: 68 yrs Gender: Male : 1950 Patient Status: Inpatient Patient Location: [facility] ([facility]A Study Date: 11/30/2018 09:31 AM Height: 73 in Weight: 180 lb BSA: 2.1 m2 Reason For Study: CHF exacerbation. Ordering Physician: LORA LLANOS Performed By: Yulisa Montero Interpretation Summary No significant post. pericardial effusion. Ao root is calcified, not dilated AV is sclerotic sinai the non-cor cusp., no , and only trace AR, but with severe LV enlargement not due to AR but due to cardiomyopathy. Mild mitral annular calcification.thickened mitral leaflets, no MS, mild/mod MR (eccentric jet) with severe LA enlargement, JASON is >68cc/m2. Mild concentric LVH (IVS/PW = 11 mm/11mm). LV is global hypokinesis and severe LV dilatation to LVESD 51 mm. and LVEF is <42%. and there is LV diastolic dysfunction. E/E' is 23.2 (lateral annulus). RV is enlarged, not well imaged, this is based on the RV base measurement only. TR is moderate and RVSP is >48 mm (moderate pulm hypertension) assuming RAP as 8 mm Hg, due to IVC 27mm. (> means greater). MMode/2D Measurements & Calculations RVDd: 4.6 cm LVIDd: 6.8 cm FS: 18.6 % EPSS: 1.8 cm IVSd: 1.1 cm LVIDs: 5.5 cm EDV(Teich): 238.8 ml LVPWd: 1.1 cm ESV(Teich): 149.3 ml EF(Teich): 37.5 % Ao root diam: 2.8 cm LVLd ap4: 7.7 cm SV(MOD-sp4): 51.0 ml Ao root area: 6.2 cm2 EDV(MOD-sp4): 127.0 ml LA dimension: 4.4 cm LVLs ap4: 7.1 cm ESV(MOD-sp4): 76.0 ml EF(MOD-sp4): 40.2 % Doppler Measurements & Calculations MV E max tasha: MV P1/2t max tasha: Ao V2 max: LV V1 max P.3 cm/sec 167.8 cm/sec 136.5 cm/sec 4.5 mmHg MV A max tasha: MV P1/2t: 36.1 msec Ao max P.5 mmHgLV V1 max: 55.4 cm/sec 106.4 cm/sec MV E/A: 3.0 MVA(P1/2t): 6.1 cm2 MV dec slope: 1363 cm/sec2 MV dec time: 0.13 sec PA V2 max: TR max tasha: MV P1/2t-pr_phl: 74.0 cm/sec 346.1 cm/sec 36.1 msec PA max P.2 mmHgTR max P.9 mmHg I WMSI = 1.93 % Normal = 7 Segments Size X - Cannot 1 - Normal 2 - 3 - Akinetic4 - 1-2 small Interpret Hypokinetic Dyskinetic 3-5 moderate 5 - 6-14 large Aneurysmal 15-16 diffuse : LORA LLANOS > Cj Campbell
[2018-11-30 15:16] VITALS: BP 122/68
[2018-12-01] MEDS ORDERED: VANCOMYCIN HCL 1,000 MG in DEXTROSE 5%-WATER 250 ML IV SCH (18:00)
== END 2018-11-30 15:32 | disposition home or self-care (01) | DRG 189 ==
LOC: ER 08:40 → EH 11:47 → 4N 16:14
PROVIDERS: ADMIT Internal Medicine; ATTEND Internal Medicine
PROC: 5A1D70Z Performance of Urinary Filtration, Intermittent, Less than 6 Hours Per Day (ICD-10-PCS; principal; 2018-11-20)
PROC: 05PYX3Z Removal of Infusion Device from Upper Vein, External Approach (ICD-10-PCS; 2018-11-23)
PROC: 0W9B3ZX Drainage of Left Pleural Cavity, Percutaneous Approach, Diagnostic (ICD-10-PCS; 2018-11-24)
DX: J96.01 Acute respiratory failure with hypoxia (principal); N18.6 End stage renal disease; I50.33 Acute on chronic diastolic (congestive) heart failure; J18.9 Pneumonia, unspecified organism; J44.1 Chronic obstructive pulmonary disease with (acute) exacerbation; I13.2 Hypertensive heart and chronic kidney disease with heart failure and with stage 5 chronic kidney disease, or end stage renal disease; J90 Pleural effusion, not elsewhere classified; D63.1 Anemia in chronic kidney disease; I95.9 Hypotension, unspecified; I27.20 Pulmonary hypertension, unspecified; E11.22 Type 2 diabetes mellitus with diabetic chronic kidney disease; E87.5 Hyperkalemia; E78.5 Hyperlipidemia, unspecified; G47.33 Obstructive sleep apnea (adult) (pediatric); F17.210 Nicotine dependence, cigarettes, uncomplicated; Z99.2 Dependence on renal dialysis; I25.2 Old myocardial infarction; Z79.84 Long term (current) use of oral hypoglycemic drugs; Z79.82 Long term (current) use of aspirin; Z79.51 Long term (current) use of inhaled steroids; Z79.899 Other long term (current) drug therapy; Z71.6 Tobacco abuse counseling
CPT/HCPCS: 32555; 36415; 71045; 71046; 71250; 80048; 80053; 80202; 82945; 82962; 83036; 83615; 83735; 83880; 84484; 85025; 85027; 85610; 87040; 87070; 87075; 87205; 89050; 93005; 93010; 93306; 94640; 94660; 94667; 94799; 96374; 99285; G0378; J1644; J1815; J2543; J2930; J3370; J3490; J7040; J7060; J7512; J7620; Q4081

== ENCOUNTER 2019-03-26 06:29 | Day surgery (SDC) | payer MEDICARE, OTHER ==
[~2019-03-26 06:29] MED LIST changes: +DIAZEPAM 5 MG TABLET PO PRN; -FERUMOXYTOL (NON-ESRD) 510 MG/NS 100 ML IV PRN
[2019-03-26 07:53] LABS: HEMATOCRIT 35.7 % (37.9-51.0); HEMOGLOBIN 11.7 g/dL (13.5-17.0); MEAN CORPUSCULAR HGB CONC 32.7 g/dL (32.0-36.0); MEAN CORPUSCULAR VOLUME 101 fl (80-97); PLATELET COUNT 187 10^3/uL (150-450); RED BLOOD COUNT 3.54 10^6/uL (4.35-5.55); RED CELL DISTRIBUTION WIDTH 20.2 % (11.5-14.0); WHITE BLOOD COUNT 8.3 10^3/uL (4.0-10.5)
[2019-03-26] MEDS ORDERED: HEPARIN SOD (PORCINE) 5,000 UNIT/ML 1 ML VIAL ONE (07:58)
[2019-03-26] MEDS ORDERED: LIDOCAINE 0.5% INJ-PF (5 MG/ML) 50 ML SDV ONE (07:58)
[2019-03-26] MEDS ORDERED: FENTANYL CITRATE INJ/PF 100 MCG/2 ML AMPUL ONE (07:58)
[2019-03-26] MEDS ORDERED: MIDAZOLAM 2 MG/2 ML INJ ONE (07:58)
[2019-03-26 08:05] LABS: ANION GAP 13 (5-19); BLOOD UREA NITROGEN 57 mg/dL (7-20); CARBON DIOXIDE 27 mmol/L (22-30); CHLORIDE 99 mmol/L (98-107); GLUCOSE 103 mg/dL (75-110); POTASSIUM 4.3 mmol/L (3.6-5.0)
--- NOTE | 2019-03-26 10:00 | PDOC H&P ---
General Chief Complaint: The patient was admitted with a malfunctioning right brachiocephalic AV fistula. Increased pressures and bleeding on dialysis. - Diagnosis (1) ESRD (end stage renal disease) Is this a Current Diagnosis?: Yes (2) Atrial fibrillation Is this a Current Diagnosis?: Yes (3) Dialysis AV fistula malfunction Is this a Current Diagnosis?: Yes (4) COPD (chronic obstructive pulmonary disease) Is this a Current Diagnosis?: Yes (5) Coronary artery disease Is this a Current Diagnosis?: Yes (6) Diabetes Is this a Current Diagnosis?: Yes (7) HTN (hypertension) Is this a Current Diagnosis?: Yes - Current Medications/Allergies Home Medications: Albuterol Sulfate [Proair HFA Inhalation Aerosol 8.5 gm MDI] 1 puff IH Q4HP PRN 11/02/18 Ezetimibe [Zetia 10 mg Tablet] 10 mg PO DAILY 11/02/18 Febuxostat [Uloric 40 mg Tablet] 40 mg PO DAILY 11/02/18 Fluticasone/Salmeterol [Advair 250-50 Diskus 14 Dose/Diskus] 1 puff IH Q12 11/02/18 Nitroglycerin [Nitrostat 0.4 mg (1/150 Gr) Tabs 25/Bottle] 0.4 mg SL Q5MP PRN 11/02/18 Sitagliptin Phosphate [Januvia 50 mg Tablet] 50 mg PO DAILY 11/02/18 Atorvastatin Calcium [Lipitor 80 mg Tablet] 80 mg PO QHS 11/20/18 Calcium Acetate [Phoslo 667 mg Capsule] 1,334 mg PO TID 11/20/18 Metoprolol Tartrate [Lopressor 25 mg Tablet] 25 mg PO Q12 11/20/18 Nicotine [Nicoderm 21 mg/24 Hr Transderm Patch] 1 patch TD DAILY 11/20/18 Sodium Bicarbonate [Antacid] 650 mg PO TID 11/20/18 Allergies/Adverse Reactions: No Known Allergies Allergy (Verified 11/02/18 07:31) Past Medical History Cardiac Medical History: Reports: Atrial Fibrillation, Congestive Heart Failure, Coronary Artery Disease, Myocardial Infarction, Hyperlipidema, Hypertension Pulmonary Medical History: Reports: Bronchitis, Chronic Obstructive Pulmonary Disease (COPD), Pneumonia, Respiratory Failure Endocrine Medical History: Reports: Diabetes Mellitus Type 2 Renal/ Medical History: Reports: End Stage Renal Disease Malignancy Medical History: Reports: Renal (Kidney) Cancer - left nephrectomy in 2017 and was complicated by splenic rupture Psychiatric Medical History: Reports: Depression Hematology: Reports: Anemia Past Surgical History Past Surgical History: Reports: Appendectomy, Coronary Stent, Other - Thoracic aneurysm repair 2016. Nephrectomy and splenectomy 2017 Family History Family History: Reviewed & Not Pertinent, Hypertension Parental Family History Reviewed: No Children Family History Reviewed: No Sibling(s) Family History Reviewed.: No Social History Smoking Status: Current Every Day Smoker Frequency of Alcohol Use: Social Hx Recreational Drug Use: No Drugs: None Hx Prescription Drug Abuse: No Physical Exam Vital Signs: Temp Pulse Resp BP Pulse Ox 98 F 89 18 115/81 94 03/26/19 07:41 03/26/19 07:41 03/26/19 07:41 03/26/19 07:41 03/26/19 07:41 Intake & Output 03/25/19 03/26/19 03/27/19 06:59 06:59 06:59 Weight 80 kg Additional comments: Constitutional: Well-developed well-nourished gentleman. No apparent acute distress. Eyes: Mucous membranes pink and moist, pupils equal and reactive to light. Conjunctiva normal. Cornea normal. ENT: Hearing grossly normal. External pinna normal to inspection. Tongue normal to inspection. Cardiac: Heart sounds 1 and 2 normal, no murmurs. Respiratory: Normal respiratory effort. Psychiatric: Judgment, memory, insight seem normal. Mood is pleasant and appropriate. Extremities: Upper extremities show normal range of movement. Pulses present noted to the radial arteries. Capillary refill normal. No cyanosis noted. No muscle wasting noted. Right arm brachiocephalic fistula, very dilated and firm suggesting cephalad stenosis. Impression/Plan Plan: AV fistula angiogram and possibly angioplasty.
--- NOTE | 2019-03-26 10:03 | Discharge Summary ---
Discharge Summary (SDC) - Discharge Final Diagnosis: #1 malfunctioning AV fistula, right brachiocephalic. 2. End-stage renal disease on hemodialysis. 3 COPD. 4. Diabetes mellitus. 5. Hypertension. Date of Surgery: 03/26/19 Discharge Date: 03/26/19 Condition: Poor Treatment or Instructions: Discharge home [after recovery per ASU criteria]. Diet , [renal],as tolerated, when fully awake advance as tolerated. Activities within moderation encouraged. Follow up in my office by appointment in about [1 month]. Call for appointment. Meds per med rec Hold of on school/work [until evaluation in office]. May shower [in 48 hrs], [try to keep operated area as dry as possible]. Referrals: DAYDAY PERSAUD MD [Primary Care Provider] - Discharge Diet: Other (Comments) - Diabetic, renal. Respiratory Treatments at Home: Deep Breathing/Coughing Discharge Activity: Activity As Tolerated Report the Following to Your Physician Immediately: Unusual Bleeding
--- NOTE | 2019-03-26 10:35 | Operative Report ---
Operative Report DATE OF SURGERY: 03/26/19 PREOPERATIVE DIAGNOSIS: #1 malfunctioning AV fistula, right brachiocephalic. 2. End-stage renal disease on hemodialysis. 3 COPD. 4. Diabetes mellitus. 5. Hypertension. POSTOPERATIVE DIAGNOSIS: #1 malfunctioning AV fistula, right brachiocephalic. 2. End-stage renal disease on hemodialysis. 3 COPD. 4. Diabetes mellitus. 5. Hypertension. OPERATION: 1. Needle access into the fistula. 2. Central venous angioplasty. 3. Peripheral arterial venous fistula angioplasty. 4. Angiogram and interpretation. SURGEON: BORA MALONEY IMMIGRATION CONSULTANT: None. ANESTHESIA: Moderate Sedation TISSUE REMOVED OR ALTERED: Not applicable. COMPLICATIONS: None. ESTIMATED BLOOD LOSS: 5 mL. INTRAOPERATIVE FINDINGS: Of a well founded right arm brachiocephalic fistula quite firm suggesting cephalad stenosis. Angiogram confirms the presence of a stenosis in the cephalad cephalic and subclavian veins 70 to 80% narrowing, eliminated by angioplasty. Multiple collaterals need to see neuro in the cephalic indicating the significance of the stenosis. In addition the patient has a peripheral lesion about 15 cm from the anastomosis. 80% of the adjacent lumen. Corrected by angioplasty. In addition the patient developed an area of apparent spasm just cephalad to the area of the arm about 3 cm in length. This was corrected by angioplasty. A 8 mm angioplasty balloon was used throughout to good effect. Postprocedure the fistula was softer but still firm suggesting some residual stenosis. This fistula will need close monitoring if it is to last. PROCEDURE: PROCEDURE: After verifying the procedure and having obtained informed consent, the patient's right arm was prepared with Chlorhexidine and draped out with sterile linen. Local anesthesia infiltrated. Percutaneous access into the fistula ,[ antegrade], obtained about [4 cm] from the arteriovenous anastomosis using a micro puncture needle followed by micro puncture wire and then a micro puncture catheter. A 0.035 [place] wire was inserted, and over this, a 6 Romansh short introducer was placed,Angiogram demonstrated the aforementioned findings. Angioplasty was elected. this was followed by a [8 -mm] angioplasty balloon . Angioplasty was Done at the cephalic, subclavian junction using a 3 mils syringe for 2 minutes. Serial inflation in the cephalad cephalic for about 8 cm encountered several areas where he wasted demonstrated significant stenosis. A preliminary angiogram showed persistence of stenosis which were addressed by reinflation. The balloon was now withdrawn into the mid arm and inflated using a 3 mils syringe for 2 minutes. Completion angiogram demonstrated [satisfactory result]. The instrumentation was now withdrawn over hand held pressure for 10 minutes Dressings applied, procedure concluded. Exposure time: 1.8 minutes. Radiation: 16.47 Dorothy austin. Contrast: 25 mils of Isovue-300, low osmolality. DICTATING PHYSICIAN: BORA CALLOWAY M.D. cc: BORA CALLOWAY M.D. ([id number]) >>
[2019-03-26 13:02] VITALS: BP 115/81
--- NOTE | 2019-03-26 13:02 | RADIOLOGY REPORT (SQ) ---
EXAM DESCRIPTION: FISTULAGRAM W/PLASTY; FISTULAPLASTY CENTRAL COMPLETED DATE/TIME: 03/26/2019 9:41 am; 03/26/2019 9:28 am REASON FOR STUDY: T82.858A T82.858A STENOSIS OF OTHER VASCULAR PROSTH DEV/GRFT, INIT COMPARISON: None. FLUOROSCOPY TIME: 1.8 minutes 14 images saved to PACS. TECHNIQUE: Intra-operative images acquired during surgical procedure to evaluate progress. NUMBER OF IMAGES: 14 images. Cine fluoroscopic images. LIMITATIONS: None. FINDINGS: Limited fluoroscopic images obtained demonstrate evidence of right upper extremity fistula gram and central venogram with evidence of venoplasty. Please see operative report for detailed desc ription of procedure. IMPRESSION: IMAGE(S) OBTAINED DURING PROCEDURE. COMMENT: Quality ID [id number]: Final reports for procedures using fluoroscopy that document radiation exp osure indices, or exposure time and number of fluorographic images (if radiation exposure indices are not available) Please consult full operative report of the attending physician for description of the procedure. TECHNICAL DOCUMENTATION: JOB ID: [id number] [employer] All Rights Reserved Reading location - IP/workstation name: [email or web address]
--- NOTE | 2019-03-26 13:02 | RADIOLOGY REPORT (SQ) ---
EXAM DESCRIPTION: FISTULAGRAM W/PLASTY; FISTULAPLASTY CENTRAL COMPLETED DATE/TIME: 03/26/2019 9:41 am; 03/26/2019 9:28 am REASON FOR STUDY: T82.858A T82.858A STENOSIS OF OTHER VASCULAR PROSTH DEV/GRFT, INIT COMPARISON: None. FLUOROSCOPY TIME: 1.8 minutes 14 images saved to PACS. TECHNIQUE: Intra-operative images acquired during surgical procedure to evaluate progress. NUMBER OF IMAGES: 14 images. Cine fluoroscopic images. LIMITATIONS: None. FINDINGS: Limited fluoroscopic images obtained demonstrate evidence of right upper extremity fistula gram and central venogram with evidence of venoplasty. Please see operative report for detailed desc ription of procedure. IMPRESSION: IMAGE(S) OBTAINED DURING PROCEDURE. COMMENT: Quality ID [id number]: Final reports for procedures using fluoroscopy that document radiation exp osure indices, or exposure time and number of fluorographic images (if radiation exposure indices are not available) Please consult full operative report of the attending physician for description of the procedure. TECHNICAL DOCUMENTATION: JOB ID: [id number] [employer]- All Rights Reserved Reading location - IP/workstation name: [email or web address]
== END 2019-03-26 11:05 | disposition home or self-care (01) ==
LOC: CCL 06:29
PROVIDERS: ATTEND Surgery
DX: T82.858A Stenosis of other vascular prosthetic devices, implants and grafts, initial encounter (principal); Y83.2 Surgical operation with anastomosis, bypass or graft as the cause of abnormal reaction of the patient, or of later complication, without mention of misadventure at the time of the procedure; E11.22 Type 2 diabetes mellitus with diabetic chronic kidney disease; I32 Pericarditis in diseases classified elsewhere; I50.9 Heart failure, unspecified; N18.6 End stage renal disease; Z99.2 Dependence on renal dialysis; J44.9 Chronic obstructive pulmonary disease, unspecified; I25.10 Atherosclerotic heart disease of native coronary artery without angina pectoris; Z79.51 Long term (current) use of inhaled steroids; I48.91 Unspecified atrial fibrillation; Z79.899 Other long term (current) drug therapy; I25.2 Old myocardial infarction; E78.5 Hyperlipidemia, unspecified; Z90.5 Acquired absence of kidney; Z85.528 Personal history of other malignant neoplasm of kidney
CPT/HCPCS: 36415; 82962; 85027; 80048; 36907; 36902; C1725; C1752; Q9967; C1769; J1644 ×2; J3490; J2250; J3010